=== PATIENT | male | born 1975 | race Caucasian/White ===

== ENCOUNTER 2017-09-10 20:06 | Emergency (ER) | payer MEDICARE, MEDICAID, SELFPAY ==
[2017-09-10 20:08] VITALS: BP 117/78; PULSE 118; PULSE 119; RESP 18; RESP 20; TEMP 38.1; O2SAT 94; BMI 24.2
[2017-09-10 22:05] VITALS: PULSE 80; RESP 14; TEMP 36.6; O2SAT 98
--- NOTE | 2017-09-10 22:05 | RAD_ITS ---
STUDY: X-RAY CHEST REASON FOR EXAM: Male, 42 years old. Cough. Sore throat. TECHNIQUE: Frontal and lateral views of the chest. COMPARISON: 10/14/2014. FINDINGS: The lungs are clear and expanded. There is no demonstrated pleural abnormality. Normal size heart. Normal mediastinum and charo. Normal visualized pulmonary arteries. Normal visualized aortic arch and descending thoracic aorta. Normal visualized thoracic spine. Normal visualized ribs, clavicles, and shoulders. There is no demonstrated abnormality of the visualized soft tissue structures of the upper abdomen. RAD/Chest PA and Lateral IMPRESSION: Normal x-ray examination of the chest. Electronically Signed: Sidney Nixon MD at 22:57 EST , Service support ,
[2017-09-10] MEDS: Acetaminophen 500 MG Tablet 1000 MG PO (22:07)
--- NOTE | 2017-09-10 22:07 | ED.VISSUMM ---
- ER Visit Summary Date of Service: 09/10/17 Chief Complaint: [] Cough and fever History of Present Illness: The patient is a 42 M presents with cough and fever since yesterday. Gradual onset intermittent. His cough is dry. Occasionally his stomach cramps. Nothing current. He has had occasional sore throat. T-max 100.5. Last [id number] cough medicine was this afternoon. He did not get a flu shot. He does not smoke. He has a history of mental retardation. Physical Examination: [] Vital signs reviewed General: Well-nourished well-developed Head: Normocephalic atraumatic Eyes: Pupils equal round and reactive to light extraocular movements intact ENT: TMs clear no hemotympanum no trauma Neck: Nontender full range of motion Cardiovascular: Regular rate rhythm no murmurs normal S1-S2 Respiratory: No distress clear to auscultation bilaterally chest nontender Abdomen: Soft nontender nondistended normal bowel sounds no masses Back: Nontender no CVA tenderness Extremities: Nontender active range of motion ?4 extremities no trauma Skin: Normal color no trauma Neuro alert oriented cranial nerves II through XII intact normal strength sensation reflexes Test Results: [] Emergency Department Course and Treatment: [] Given Tylenol. Chest x-ray obtained. X-ray nothing acute. At this time I think he has influenza-like illness. I do not feel he is obtaining candidate for Tamiflu. He will follow-up as an outpatient. Educated on the course of the disease. Could be a bronchitis as well. Treatment Plan: [] Disposition: [] Impression: [] Influenza-like illness This note was generated with [employer] dictation software. It may contain incorrect words, spelling, and punctuation that were not noted in review of the chart prior to signing ED Disposition - Plan for ED Patient: Chief Complaint: Fever Referrals: Joel Scruggs MD [Primary Care Provider] -
[2017-09-10 22:12] VITALS: BP 108/70; PULSE 98; RESP 14; O2SAT 99
--- NOTE | 2017-09-10 22:38 | ED.DEP ---
ED Disposition - Plan for ED Patient: Disposition: Home or Assisted Living Chief Complaint: Fever Instructions: Influenza Referrals: Joel Scruggs MD [Primary Care Provider] -
[2017-09-10 22:46] VITALS: BP 112/74; PULSE 75; RESP 18; O2SAT 98
== END 2017-09-10 22:47 | disposition home or self-care (01) ==
PROVIDERS: Emergency Provider Emergency Medicine; Family Provider Family Medicine; PCP Family Medicine
DX: J11.1 Influenza due to unidentified influenza virus with other respiratory manifestations (principal); F79 Unspecified intellectual disabilities
CPT/HCPCS: 71046; 99282

== ENCOUNTER 2017-09-12 18:50 | Emergency (ER) | payer MEDICARE, MEDICAID, SELFPAY ==
[2017-09-12 18:52] VITALS: BP 120/64; PULSE 96; RESP 16; TEMP 36.8; O2SAT 100; BMI 30.1
--- NOTE | 2017-09-12 18:53 | ED.RN ---
NO OLD EKG'S IN MUSE
[2017-09-12 19:10] VITALS: BP 131/79; PULSE 89; RESP 14; O2SAT 98
--- NOTE | 2017-09-12 19:43 | EKG12_ITS ---
Test Reason : CP Blood Pressure : / mmHG Vent. Rate : 095 BPM Atrial Rate : 095 BPM P-R Int : 142 ms QRS Dur : 074 ms QT Int : 320 ms P-R-T Axes : 067 059 028 degrees QTc Int : 402 ms Normal sinus rhythm Normal ECG Confirmed by ROSALINE ABERNATHY, MAYA ([id number]), multimedia editor NICOLE ALFORD ([id number]) on 09/15/2017 2:02:13 PM Referred By: WESTON Confirmed By:MAYA WAGGONER MD
--- NOTE | 2017-09-12 19:44 | ED.VISSUMM ---
- ER Visit Summary Date of Service: 09/12/17 Chief Complaint: Chest tightness History of Present Illness: The patient is a 42 M recently seen for flulike symptoms who returns now with chest tightness. Patient has been having cough, congestion, fever, nausea, and dizziness with standing for approximately 4 days and was evaluated recently for the same symptoms. He has been doing supportive care at home. Today he is complaining of chest tightness substernal along with his continued flulike symptoms. He has shortness of breath. Mother's been using Vicks on his chest to try and help. No cardiac history. History remarkable for MRDD. Physical Examination: Vital signs: afebrile, hemodynamically stable, no hypoxia on room air General: well nourished, well developed, syndromic appearance, in no distress Skin: warm, dry, eczematous rash, no pallor HEENT: normocephalic and atraumatic; PERRL, EOMI, moist mucous membranes Cardiovascular: regular rate and rhythm without murmurs, no peripheral edema, 2+ pulses all distal extremities Respiratory: Mild increased work of breathing, lungs are diffusely coarse with wheezing Abdominal: Abdomen is soft, nontender with normoactive bowel sounds, no guarding or rebound, no masses MSK: Moves all extremities, no deformities, normal strength Neuro: Awake and alert, oriented ?4. No facial droop, sensation and motor function intact and symmetric Test Results: Abnormal Lab Results 09/12/17 09/12/17 19:12 19:12 WBC 2.0 L RBC 4.77 Hgb 14.9 Hct 45.8 MCV 96.0 H MCH 31.2 MCHC 32.5 RDW 15.0 H RDW Differential 52.9 H Plt Count 109 L MPV 10.6 Immature Gran % (Auto) 0.000 Neut % (Auto) 50.3 Lymph % (Auto) 30.0 Spink % (Auto) 16.7 H Eos % (Auto) 2.0 Baso % (Auto) 1.0 Absolute Neuts (auto) 1.0 L Absolute Lymphs (auto) 0.61 L Total Counted Not Reportable Sodium 139 Potassium 4.0 Chloride 106 Carbon Dioxide 26.0 Anion Gap 7 BUN 14 Creatinine 1.75 H Estim Creat Clear Calc 39.29 Est GFR (MDRD) Af Amer 56 L Est GFR (MDRD) Non-Af 46 L BUN/Creatinine Ratio 8.0 L Glucose 114 H Calcium 7.4 L Troponin I < 0.02 Emergency Department Course and Treatment: Patient is presenting for continued flulike illness with chest tightness and worsening shortness of breath now. His lung exam did show diffuse coarse wheezing. Patient has no history of reactive airway disease. He was given a DuoNeb treatment and had almost complete resolution of the wheezing afterward. Patient states that that did not help his chest tightness. An EKG showed a sinus rhythm without ischemia or ectopy. Troponin negative. Labs were negative for electrolyte derangements. Patient did have a mild leukopenia which is consistent with viral infection. There was no neutrophil predominance that would be concerning for a bacterial infection. Chest x-ray showed no signs of pneumonia. Patient had good oxygen saturation on room air and had improvement in his respiratory effort. Thus he was given an albuterol inhaler with a spacer for further wheezing and shortness of breath. He was started on a prednisone burst to help with the pulmonary inflammation. He is to follow-up with his doctor or return if any worsening of his condition. Mother agreed with this plan. Treatment Plan: [] Disposition: [] Impression: Influenza, acute bronchitis This note was generated with [employer] dictation software. It may contain incorrect words, spelling, and punctuation that were not noted in review of the chart prior to signing ED Disposition - Plan for ED Patient: Disposition: Home or Assisted Living Chief Complaint: Chest Pain Instructions: ED Bronchitis Asthmatic Prescriptions: Prednisone [Deltasone] 40 mg PO DAILY #8 tab Referrals: Joel Scruggs MD [Primary Care Provider] - 1-2 Days if not improving Additional Instructions: Your exam today showed wheezing and congestion in all lombardi of your lungs. This improved greatly with albuterol treatment. You have been prescribed an albuterol inhaler with a spacer to use to continue helping with your breathing. Please use the spacer and take up to 8 puffs every 2 hours as needed for wheezing. Please take the prednisone prescription starting on Wednesday for 4 days. You received the first dose in the emergency department. Follow-up with your doctor if you are not having improvement in your chest tightness and breathing within 2 days. If you have any worsening of your condition or any new concerning symptoms, please come back to the emergency department immediately for another evaluation.
[2017-09-12] MEDS: 0.9% Normal Saline 1,000 ML 999 ML IV (19:52)
[2017-09-12 19:54] VITALS: PULSE 86; RESP 11
[2017-09-12] MEDS: Ipratropium/Albuterol Sulfate 3 ML AMPUL.NEB INHALATION (19:54)
[2017-09-12 20:04] VITALS: BP 115/67; PULSE 92; RESP 12; O2SAT 96
--- NOTE | 2017-09-12 20:05 | RAD_ITS ---
STUDY: X-RAY CHEST REASON FOR EXAM: Male, 42 years old. Chest pain. Fever. TECHNIQUE: Frontal and lateral views of the chest. COMPARISON: 09/10/2017. FINDINGS: The lungs are clear and expanded. There is no demonstrated pleural abnormality. Normal size heart. Normal mediastinum and charo. Normal visualized pulmonary arteries. Normal visualized aortic arch and descending thoracic aorta. Normal visualized thoracic spine. Normal visualized ribs, clavicles, and shoulders. There is no demonstrated abnormality of the visualized soft tissue structures of the upper abdomen. RAD/Chest PA and Lateral IMPRESSION: Normal x-ray examination of the chest. Electronically Signed: Sidney Nixon MD at 20:25 EST , Service support ,
[2017-09-12 20:12] LABS: Absolute Lymphocyte Count 0.61 X10^3/ul (0.83-4.51); Basophil# 0.02 X10^3/uL; Eosinophil# 0.04 X10^3/uL; Hematocrit 45.8 % (40-54); Hemoglobin 14.9 g/dl (13.0-16.5); Lymphocyte # 0.61 X10^3/ul (4.0); Mean Corp Hgb Conc 32.5 g/gl (32-36); Mean Corpuscular Hgb 31.2 pg (27.0-32.0); Mean Platelet Vol. 10.6 fl (6.2-12.0); Monocyte# 0.34 X10^3/uL; Monocyte% 16.7 % (0-10); Neutrophil # 1.02 X10^3/uL (2.7-7.7); Neutrophil % 50.3 % (47-70); Platelet Count 109 K/mm3 (150-450); RBC Distribution Width SD 52.9 fl (35.1-43.9); Red Blood Count 4.77 M/mm3 (4.6-6.2)
[2017-09-12 20:13] LABS: POSITIVE COUNT NO; POSITIVE DIFFERENTIAL NO; POSITIVE MORPHOLOGY NO
[2017-09-12 20:17] LABS: Anion Gap 7 (5-15); BUN 14 mg/dL (7-18); Calcium,Total 7.4 mg/dL (8.5-10.1); Chloride 106 mmol/L (98-107); Creatinine, Serum 1.75 mg/dL (0.70-1.30); EST Glomerular Filtration Rate 46 mL/min (>60); Est Glom Filt Rate - Afr Amer 56 mL/min (>60); Estimated Creatinine Clearance 39.29 ml/min; Glucose 114 mg/dL (74-106); Sodium Level 139 mmol/L (136-145)
--- NOTE | 2017-09-12 21:28 | ED.DEP ---
ED Disposition - Plan for ED Patient: Disposition: Home or Assisted Living Chief Complaint: Chest Pain Instructions: ED Bronchitis Asthmatic Prescriptions: Prednisone [Deltasone] 40 mg PO DAILY #8 tab Referrals: Joel Scruggs MD [Primary Care Provider] - 1-2 Days if not improving Additional Instructions: Your exam today showed wheezing and congestion in all lombardi of your lungs. This improved greatly with albuterol treatment. You have been prescribed an albuterol inhaler with a spacer to use to continue helping with your breathing. Please use the spacer and take up to 8 puffs every 2 hours as needed for wheezing. Please take the prednisone prescription starting on Wednesday for 4 days. You received the first dose in the emergency department. Follow-up with your doctor if you are not having improvement in your chest tightness and breathing within 2 days. If you have any worsening of your condition or any new concerning symptoms, please come back to the emergency department immediately for another evaluation.
[2017-09-12 21:39] VITALS: BP 113/73; PULSE 97; RESP 18; TEMP 36.8; O2SAT 96
[2017-09-12 21:55] VITALS: BP 113/72; PULSE 97; RESP 18; O2SAT 96
== END 2017-09-12 21:57 | disposition home or self-care (01) ==
PROVIDERS: Emergency Provider Emergency Medicine; Family Provider Family Medicine; PCP Family Medicine
DX: J11.1 Influenza due to unidentified influenza virus with other respiratory manifestations (principal); J20.9 Acute bronchitis, unspecified; F79 Unspecified intellectual disabilities
CPT/HCPCS: 71046; 80048; 84484; 85025; 93005; 94640; 99285; J7030; A4216

== ENCOUNTER 2017-09-20 07:58 | Emergency (ER) | payer MEDICARE, MEDICAID, SELFPAY ==
[2017-09-20 07:59] VITALS: BP 145/71; PULSE 91; RESP 15; TEMP 35.8; O2SAT 100
[2017-09-20 08:04] VITALS: O2SAT 99
--- NOTE | 2017-09-20 08:07 | EKG12_ITS ---
Test Reason : SOB Blood Pressure : / mmHG Vent. Rate : 082 BPM Atrial Rate : 082 BPM P-R Int : 146 ms QRS Dur : 078 ms QT Int : 356 ms P-R-T Axes : 066 052 031 degrees QTc Int : 415 ms Normal sinus rhythm Normal ECG Confirmed by DONALDO ABERNATHY, GOLDIE ([id number]), primer expeditor and drier NICOLE ALFORD ([id number]) on 09/22/2017 1:53:13 PM Referred By: LREOY Confirmed By:GOLDIE FULTON MD
--- NOTE | 2017-09-20 08:07 | RAD_ITS ---
STUDY: X-RAY CHEST REASON FOR EXAM: Male, 42 years old. Cough and shortness of breath. TECHNIQUE: Single AP portable view of the chest. COMPARISON: Comparison is made with prior study dated September 12, 2017. FINDINGS: Hyperinflation. The lungs are clear. There is no demonstrated pleural abnormality. Normal size heart. Normal mediastinum and charo. Normal visualized pulmonary arteries. Normal visualized aortic arch and descending thoracic aorta. Normal visualized thoracic spine. Normal visualized ribs, clavicles, and shoulders. There is no demonstrated abnormality of the visualized soft tissue structures of the upper abdomen. RAD/Chest 1 View (Portable) IMPRESSION: Normal x-ray examination of the chest. Electronically Signed: Geo Cruz MD at 8:47 EST Tel [phone], Service support ,
[2017-09-20] MEDS: Ketorolac 30 MG/ML Syringe IV (08:45)
[2017-09-20] MEDS: Ondansetron 4 MG/2 ML Vial IV (08:46)
[2017-09-20 08:50] LABS: Absolute Lymphocyte Count 0.41 X10^3/ul (0.83-4.51); Absolute Neutrophil Count 6.4 X10^3/uL (2.0-7.7); Basophil# 0.03 X10^3/uL; Basophil% 0.4 % (0-1); Eosinophil# 0.05 X10^3/uL; Eosinophils% 0.6 % (0-5); Hematocrit 51.7 % (40-54); Hemoglobin 17.3 g/dl (13.0-16.5); Lymphocyte # 0.41 X10^3/ul (4.0); Lymphocyte % 5.2 % (19-41); Mean Corp Hgb Conc 33.5 g/gl (32-36); Mean Corpuscular Hgb 31.6 pg (27.0-32.0); Mean Corpuscular Volume 94.3 fL (80-94); Mean Platelet Vol. 9.7 fl (6.2-12.0); Monocyte# 0.79 X10^3/uL; Monocyte% 10.1 % (0-10); Neutrophil # 6.41 X10^3/uL (2.7-7.7); Platelet Count 240 K/mm3 (150-450); RBC Distribution Width CV 14.4 % (11.6-14.6); RBC Distribution Width SD 49.3 fl (35.1-43.9); Red Blood Count 5.48 M/mm3 (4.6-6.2); White Blood Count 7.8 K/mm3 (4.4-11.0)
[2017-09-20 08:51] LABS: Differential Indicated SCAN CRITERIA MET; POSITIVE COUNT NO; POSITIVE DIFFERENTIAL YES; POSITIVE MORPHOLOGY NO
[2017-09-20 09:05] LABS: Anion Gap 4 (5-15); BUN 21 mg/dL (7-18); BUN/Creat Ratio 12.8 RATIO (10-20); Calcium,Total 8.7 mg/dL (8.5-10.1); Chloride 102 mmol/L (98-107); Creatinine, Serum 1.64 mg/dL (0.70-1.30); EST Glomerular Filtration Rate 49 mL/min (>60); Est Glom Filt Rate - Afr Amer 60 mL/min (>60); Estimated Creatinine Clearance 57.85 ml/min; Glucose 128 mg/dL (74-106); Potassium 4.9 mmol/L (3.5-5.1); Sodium Level 138 mmol/L (136-145)
--- NOTE | 2017-09-20 09:19 | ED.VISSUMM ---
- ER Visit Summary Date of Service: 09/20/17 Chief Complaint: Shortness of breath History of Present Illness: The patient is a [address] Scruggs. He is MRDD which severely limits his ability to give history. Mother reports that he had a cough that began approximately 2 weeks ago. That has improved and essentially resolved. He has not seemed short of breath to her. However, when he came time to go to work today he complained of being short of breath and having chest pain. He also told her that he vomited once and had 1-2 episodes of diarrhea today. He denies fever, cough, dysuria, frequency, rash, or headache. Physical Examination: Vitals: Stable. Afebrile. General: Well-nourished and well-developed. Head: Normocephalic atraumatic. Neck: Supple, no lymphadenopathy. No JVD. Nontender. Cardiovascular: Regular rate and rhythm. No murmurs. Respiratory: No respiratory distress. Clear to auscultation bilaterally. Her tenderness to palpation over his sternum. Abdominal: Soft, nontender, nondistended, normal bowel sounds. No guarding, rebound, or peritoneal signs. Back: Nontender. Extremities: Nontender, no edema. Skin: Normal color, no rash. Neurologic: Alert and oriented ?3. Cranial nerves II through XII are intact. Normal strength and sensation. Psych: Normal affect. Test Results: This patient is an unreliable informant chest x-ray and labs were obtained. Chest x-ray is normal. EKG is sinus at 82 with no acute changes. Troponin is negative. Chem-7 is marked for BUN of 21, creatinine 1.64, glucose of 128. His creatinine was 1.7 in 2014 and 1.75 on the 18th of this month. CBC is marked for hemoglobin 17.3, segmented neutrophils of 82, lymphocytes of 5, monocytes of 10, and immature granulocytes 1.7%. Emergency Department Course and Treatment: Had an IV placed. He was given Toradol and Zofran IV. He is resting comfortably. He does not appear to be short of breath. He has had no vomiting or diarrhea while here. Treatment Plan: He will be discharged with symptomatic care. Instructed follow-up Dr. Scruggs in 1-2 days if not improving. Return to the emergency department for any worsening symptoms. Disposition: To home in improved and stable condition. Impression: 1. Chest wall pain. 2. Chronic renal insufficiency. This note was generated with [employer] dictation software. It may contain incorrect words, spelling, and punctuation that were not noted in review of the chart prior to signing ED Disposition - Plan for ED Patient: Chief Complaint: Shortness of Breath Instructions: ED Chest Pain Atypical Unkn Cause Referrals: Joel Scruggs MD [Primary Care Provider] - 1-2 Days if not improving
--- NOTE | 2017-09-20 09:22 | ED.DCSUM_ITS ---
- ER Visit Summary Date of Service: 09/20/17 Chief Complaint: Shortness of breath History of Present Illness: The patient is a [address] Scruggs. He is MRDD which severely limits his ability to give history. Mother reports that he had a cough that began approximately 2 weeks ago. That has improved and essentially resolved. He has not seemed short of breath to her. However, when he came time to go to work today he complained of being short of breath and having chest pain. He also told her that he vomited once and had 1-2 episodes of diarrhea today. He denies fever, cough, dysuria, frequency, rash, or headache. Physical Examination: Vitals: Stable. Afebrile. General: Well-nourished and well-developed. Head: Normocephalic atraumatic. Neck: Supple, no lymphadenopathy. No JVD. Nontender. Cardiovascular: Regular rate and rhythm. No murmurs. Respiratory: No respiratory distress. Clear to auscultation bilaterally. Her tenderness to palpation over his sternum. Abdominal: Soft, nontender, nondistended, normal bowel sounds. No guarding, rebound, or peritoneal signs. Back: Nontender. Extremities: Nontender, no edema. Skin: Normal color, no rash. Neurologic: Alert and oriented ?3. Cranial nerves II through XII are intact. Normal strength and sensation. Psych: Normal affect. Test Results: This patient is an unreliable informant chest x-ray and labs were obtained. Chest x-ray is normal. EKG is sinus at 82 with no acute changes. Troponin is negative. Chem-7 is marked for BUN of 21, creatinine 1.64, glucose of 128. His creatinine was 1.7 in 2014 and 1.75 on the 18th of this month. CBC is marked for hemoglobin 17.3, segmented neutrophils of 82, lymphocytes of 5 , monocytes of 10, and immature granulocytes 1.7%. Emergency Department Course and Treatment: Had an IV placed. He was given Toradol and Zofran IV. He is resting comfortably. He does not appear to be short of breath. He has had no vomiting or diarrhea while here. Treatment Plan: He will be discharged with symptomatic care. Instructed follow- up Dr. Scruggs in 1-2 days if not improving. Return to the emergency department for any worsening symptoms. Disposition: To home in improved and stable condition. Impression: 1. Chest wall pain. 2. Chronic renal insufficiency. This note was generated with [employer] dictation software. It may contain incorrect words, spelling, and punctuation that were not noted in review of the chart prior to signing ED Disposition - Plan for ED Patient: Chief Complaint: Shortness of Breath Instructions: ED Chest Pain Atypical Unkn Cause Referrals: Joel Scruggs MD [Primary Care Provider] - 1-2 Days if not improving
[2017-09-20 09:31] LABS: Differential Comment SCANNED
[2017-09-20 09:46] VITALS: BP 103/66; PULSE 86; RESP 14; O2SAT 98
== END 2017-09-20 09:52 | disposition home or self-care (01) ==
PROVIDERS: Emergency Provider Emergency Medicine; Family Provider Family Medicine; PCP Family Medicine
DX: R07.89 Other chest pain (principal); N18.9 Chronic kidney disease, unspecified; R10.9 Unspecified abdominal pain; R11.2 Nausea with vomiting, unspecified; R19.7 Diarrhea, unspecified; R06.00 Dyspnea, unspecified
CPT/HCPCS: 71045; 80048; 84484; 85025; 93005; 99285; J7030; J7040; J2405

== ENCOUNTER 2017-09-20 21:57 | Emergency (ER) | payer MEDICARE, MEDICAID, SELFPAY ==
[2017-09-20 21:59] VITALS: BP 100/34; PULSE 132; RESP 14; TEMP 38.7; O2SAT 95; BMI 23.8
--- NOTE | 2017-09-20 23:13 | CT_ITS ---
STUDY: CT ABDOMEN AND PELVIS WITHOUT CONTRAST REASON FOR EXAM: Male, 42 years old. Abdominal pain RADIATION DOSAGE (If Supplied By Facility): CTDIvol = ( 6.33 ) mGy, DLP = ( 314.53 ) mGycm TECHNIQUE: Transaxial images were obtained from the dome of the diaphragm to the symphysis pubis without oral contrast, and without intravenous contrast. Sagittal and coronal images were reconstructed. Individualized dose optimization techniques were used for this CT. COMPARISON: None. FINDINGS: There are multifocal bibasilar pulmonary infiltrate suggesting pneumonitis. The visualized portions of the heart are within normal limits. There is diffuse fatty infiltration of the liver. There is NO liver mass. Normal gallbladder and extrahepatic biliary system. Normal spleen. Normal pancreas. Normal bilateral adrenal glands. There are NO kidney stones. There are NO ureteral stones. There is NO hydronephrosis. There are fluid-filled loops of colon which are nonspecific. There is NO bowel wall thickening, fecal impaction or colitis. The stomach and small bowel are unremarkable. The appendix is not discretely identified. There is NO secondary evidence of appendicitis. Normal abdominal aorta. Normal inferior vena cava. Normal retroperitoneum. Normal urinary bladder. There is NO ascites or free air, abscess or adenopathy. Normal abdominal wall. Normal osseous structures. CT/Abdomen/Pelvis without Cont IMPRESSION: There are multifocal bibasilar pulmonary infiltrate suggesting pneumonitis. The visualized portions of the heart are within normal limits. There is diffuse fatty infiltration of the liver. There is NO liver mass. Normal gallbladder and extrahepatic biliary system. There are NO kidney stones. There are NO ureteral stones. There is NO hydronephrosis. There are fluid-filled loops of colon which are nonspecific. There is NO bowel wall thickening, fecal impaction or colitis. The stomach and small bowel are unremarkable. The appendix is not discretely identified. There is NO secondary evidence of appendicitis. There is NO ascites or free air, abscess or adenopathy. Electronically Signed: Daljit Meadows MD at 0:13 EST , Service support ,
--- NOTE | 2017-09-20 23:16 | ED.VISSUMM ---
- ER Visit Summary Date of Service: 09/20/17 Chief Complaint: Fever, nausea, vomiting, diarrhea History of Present Illness: The patient is a 42 M history of Down syndrome who presents to the emergency department multiple complaints. Patient has been seen here 5 or 6 times within the past 2 weeks. Most of his is it have been for upper respiratory symptoms. He has had multiple negative chest x-rays. He was actually seen here earlier for the same. Mom states that they did labs and an x-ray and everything checked out fine. The patient was sent home counseled on supportive care. Tonight, and approximately 3 PM he began to have some abdominal cramping. Mom states that he had a few bouts of emesis and then 4-5 bouts of loose watery diarrhea. He was complaining of some diffuse abdominal cramping. She states that he was unable to keep anything down. The patient takes no daily medications. He has had prior appendectomy but no other abdominal surgery. Physical Examination: Vital signs reviewed General: Well-nourished, well-developed Head: Normocephalic, atraumatic Eyes: Pupils equal and reactive, extraocular muscles intact Neck, supple, no lymphadenopathy Heart: Regular rate and rhythm Respiratory: No distress, clear bilaterally Abdomen: Soft, under in the left lower quadrant with some voluntary guarding, no rebound, no peritoneal signs Back: Nontender Extremities: Nontender, no edema, no cords Skin: Normal color no rash Neuro: Alert and oriented, no focal or lateralizing deficits Test Results: [] Emergency Department Course and Treatment: The patient did have fever on arrival. IV was established. The patient was started on IV fluids. He was given Toradol for his fever. He is also given Zofran. He did have some tenderness in the left lower quadrant. I was suspicious for infectious cause of his diarrhea. The patient had screening labs drawn which were relatively unremarkable. His urine shows no infection. CT demonstrates pneumonitis and bilateral lower lobes, but no definitive pneumonia. The patient's cough and intermittent fevers, I do feel that this is more likely a viral or inflammatory process. This does explain his recurrent cough over the past 2 weeks. Within the abdomen, there is evidence of some dilated fluid loops of bowel consistent more with an enteritis. I do feel this is likely because of the patient's symptoms today. There is no obstruction. There is no free fluid. On reevaluation his abdomen is soft and nontender. The patient is tolerating oral fluids. I did discuss results with the mother. She wants to take him home because she feels like he would do better at home than in the hospital. I do feel this is reasonable. He has a normal lactate. He has had resolution of his fever. Is tolerating p.o. He has had resolution of his pain. The patient will be treated with Bentyl, Zofran, and Imodium. I did certified rehabilitation counselor mom that if his symptoms worsen in any way over the next 12-24 hours to return to the emergency department. She is comfortable with this plan of care. Treatment Plan: [] Disposition: Discharge Impression: 1. Gastroenteritis 2. Fever This note was generated with [employer] dictation software. It may contain incorrect words, spelling, and punctuation that were not noted in review of the chart prior to signing ED Disposition - Plan for ED Patient: Chief Complaint: Abd Pain Instructions: ED Gastroenteritis Report Pend Prescriptions: Loperamide [Imodium] 2 mg PO Q2H PRN PRN #20 cap PRN Reason: Diarrhea Ondansetron [Zofran Odt] 4 mg PO Q8H PRN PRN #10 tab PRN Reason: Nausea Dicyclomine HCl [Bentyl] 20 mg PO TIDAC #20 cap Referrals: Joel Scruggs MD [Primary Care Provider] -
[2017-09-20] MEDS: Ondansetron 4 MG/2 ML Vial IV (23:31)
[2017-09-20] MEDS: 0.9% Normal Saline 1,000 ML 1000 ML IV (23:31)
[2017-09-20] MEDS: Ketorolac 15 MG/ML Vial IV (23:37)
[2017-09-20 23:40] VITALS: BP 115/76; PULSE 103; RESP 12; O2SAT 98
[2017-09-21 00:16] LABS: Absolute Lymphocyte Count 0.25 X10^3/ul (0.83-4.51); Absolute Neutrophil Count 5.9 X10^3/uL (2.0-7.7); Basophil# 0.02 X10^3/uL; Basophil% 0.3 % (0-1); Eosinophil# 0.01 X10^3/uL; Eosinophils% 0.1 % (0-5); Hematocrit 49.2 % (40-54); Hemoglobin 16.7 g/dl (13.0-16.5); Lactic Acid 1.1 mmol/L (0.4-2.0); Lymphocyte # 0.25 X10^3/ul (4.0); Lymphocyte % 3.6 % (19-41); Mean Corp Hgb Conc 33.9 g/gl (32-36); Mean Corpuscular Hgb 31.9 pg (27.0-32.0); Mean Corpuscular Volume 94.1 fL (80-94); Mean Platelet Vol. 10.2 fl (6.2-12.0); Monocyte# 0.62 X10^3/uL; Neutrophil # 5.88 X10^3/uL (2.7-7.7); Neutrophil % 85.4 % (47-70); Platelet Count 253 K/mm3 (150-450); RBC Distribution Width CV 14.5 % (11.6-14.6); Red Blood Count 5.23 M/mm3 (4.6-6.2); White Blood Count 6.9 K/mm3 (4.4-11.0)
[2017-09-21 00:17] LABS: Differential Indicated SCAN CRITERIA MET; POSITIVE COUNT NO; POSITIVE DIFFERENTIAL YES; POSITIVE MORPHOLOGY NO
[2017-09-21] MEDS: 0.9% Normal Saline 1,000 ML 1000 ML IV (01:03)
[2017-09-21 01:05] VITALS: BP 114/87; PULSE 105; RESP 16; O2SAT 98
[2017-09-21 01:10] LABS: Bacteria 0 SEEN /hpf (None Seen); Red Blood Cells-Urine 0 SEEN /hpf (0-5)
[2017-09-21 01:11] LABS: Color, Urine Yellow (Yellow); Glucose, Dipstick Normal (Normal); Ketone-Dipstick Negative (Negative); Leukocyte Esterase-Dipstick Negative /ul (Negative); Nitrite-Dipstick Negative (Negative); Occult Blood-Urine Negative /ul (Negative); Protein-Dipstick Negative (Negative); Urine Bilirubin Dipstick Negative (Negative); Urine Clarity Clear (Clear); Urine Urobilinogen Normal (Normal)
[2017-09-21 01:22] LABS: Mucous, Urine 1+ /hpf (<or=2+)
[2017-09-21 01:23] LABS: Squamous Epithelial Cells - UA 0-5 SEEN /hpf (0-5); White Blood Cells 0-5 SEEN /hpf (0-5)
[2017-09-21 01:38] LABS: ALB/GLOB Ratio 0.7 RATIO (0.9-2.4); AST(SGOT) 23 U/L (15-37); Alanine Aminotransfer ALT/SGPT 33 U/L (16-61); Albumin, Serum 2.9 g/dL (3.2-5.0); Alkaline Phosphatase 90 U/L (45-117); Anion Gap 8 (5-15); BUN 21 mg/dL (7-18); BUN/Creat Ratio 11.8 RATIO (10-20); Calcium,Total 7.9 mg/dL (8.5-10.1); Chloride 107 mmol/L (98-107); Creatinine, Serum 1.78 mg/dL (0.70-1.30); EST Glomerular Filtration Rate 45 mL/min (>60); Est Glom Filt Rate - Afr Amer 54 mL/min (>60); Estimated Creatinine Clearance 49.28 ml/min; Globulin 4.1 g/dL (2.2-4.2); Glucose 129 mg/dL (74-106); Potassium 4.5 mmol/L (3.5-5.1); Sodium Level 141 mmol/L (136-145)
[2017-09-21 01:46] VITALS: BP 119/73; PULSE 100; RESP 15; O2SAT 100
[2017-09-21] MEDS: Loperamide 2 MG Capsule 4 MG PO (01:58)
[2017-09-21] MEDS: Dicyclomine 10 MG Capsule PO ×3 (01:58)
[2017-09-21] MEDS: Ondansetron ODT 4 MG Tablet PO (01:59)
== END 2017-09-21 02:06 | disposition home or self-care (01) ==
LOC: ED 09-21 01:49
PROVIDERS: Emergency Provider Emergency Medicine; Family Provider Family Medicine; PCP Family Medicine
DX: K52.9 Noninfective gastroenteritis and colitis, unspecified (principal); R50.9 Fever, unspecified; Q90.9 Down syndrome, unspecified
CPT/HCPCS: 71045; 74176; 80048; 80053; 81001; 83605; 84484; 85025; 93005; 96361; 96374; 96375; 99285; J7030; J7040; A4216; J2405

== ENCOUNTER 2020-09-01 15:13 | Emergency (ER) | payer MEDICARE, MEDICAID, SELFPAY ==
[2020-09-01 15:13] VITALS: BP 141/69; PULSE 121; RESP 20; TEMP 37.4; O2SAT 94; BMI 26.2
[2020-09-01 15:18] VITALS: BP 141/69; PULSE 121; RESP 20; TEMP 37.4; O2SAT 94
--- NOTE | 2020-09-01 16:14 | ED.VIS.GEN ---
History of Present Illness Chief Complaint: Dental Informant: Patient, Family Narrative: 45-year-old male presenting with his mother for dental pain in the right mandibular teeth. Patient is MRDD. Mother states that he started having pain yesterday. They have been using heat on it. She reports a subjective fever yesterday. He has not had any cough, cold symptoms. He does not have a dentist. They deny any other symptoms Past Medical History - Allergies and Home Meds Allergies/Adverse Reactions: Allergies codeine Allergy (Verified 09/01/20 15:17) Rash Primary Care Physician: Joel Scruggs MD [Primary Care Provider] - Prior records reviewed: Yes Past Medical History: - - MRDD Surgical History: noncontributory Lives: With Family Smoking Status: Never smoker Alcohol: None Drugs: None Review of Systems General: Denies: Chills, Fever, Sweats Eyes: Denies: Visual changes - bilaterally, Diplopia ENT: Reports: - - Dental pain. Denies: Rhinorrhea, Sore throat Cardiovascular: Denies: Chest pain, Palpitations Respiratory: Denies: Dyspnea, Cough, Dyspnea on exertion Gastrointestinal: Denies: Abdominal pain, Nausea, Vomiting, Diarrhea, Melena, Hematochezia Musculoskeletal: Denies: Back pain, Extremity Pain Skin: Denies: Rash, Wounds Neurological: Denies: Headache, Weakness, Numbness Psych: Denies: Depression, Anxiety Physical Exam Vital Signs/Narrative: Vital Signs Temp Pulse Resp BP Pulse Ox 09/01/20 15:18 99.3 F H 121 H 20 H 141/69 H 94 09/01/20 15:13 99.3 F H 121 H 20 H 141/69 H 94 Inital Vital Signs reviewed: Yes General: Well nourished, Well developed Head: Normocephalic, Atraumatic Eyes: Perrl, EOMI ENT: Moist mucous membranes, No rhinorrhea, - - Dental percussion tenderness over tooth #28. It appears that 26 and 27 are missing. There is some slight facial swelling externally. No sublingual edema. Airway is patent without stridor. [place] mucosa normal. Cardiovascular: Regular rate, Regular rhythm Respiratory: No distress, CTA bilaterally Skin: Normal color, No rash Neurological: Alert, Oriented x3, Cranial nerves II-XII grossly intact Psychological: Normal affect, Normal Mood Diagnostic/Tx/Re-eval - Medical Decision Making Patient appears to have a dental infection of the tooth #28 possibly 29. There is external facial swelling as well. He will be started on Augmentin for home. His mother will alternate Tylenol and ibuprofen. They will follow up outpatient for dental care. Patient safe for discharge. Impression 1. Dental abscess ED Disposition - Plan for ED Patient: Instructions: ED Dental Abscess Referrals: Joel Scruggs MD [Primary Care Provider] -
[2020-09-01] MEDS: Amox/Clavulanate 875 MG Tablet PO (16:21)
== END 2020-09-01 16:28 | disposition home or self-care (01) ==
PROVIDERS: Emergency Provider Student in an Organized Health Care Education/Training Program; PCP Family Medicine
DX: K04.7 Periapical abscess without sinus (principal); F79 Unspecified intellectual disabilities
CPT/HCPCS: 99283

== ENCOUNTER 2021-02-06 10:54 | Observation (INO) | payer MEDICARE, MEDICAID, SELFPAY ==
[2021-02-06] VITALS (9 sets, daily range): BP systolic 116–161; BP diastolic 73–105; PULSE 68–120; RESP 16–20; TEMP 36.3–37.2; O2SAT 92–100; BMI 28.8; BMI 29.3
--- NOTE | 2021-02-06 12:02 | CT_ITS ---
STUDY: CT BRAIN WITHOUT CONTRAST REASON FOR EXAM: Male, 45 years old. Seizure RADIATION DOSAGE (If Supplied By Facility): CTDIvol = ( 44.99 ) mGy, DLP = ( 745.49 ) mGycm TECHNIQUE: Transaxial CT imaging of the brain was performed without administration of intravenous contrast material. Individualized dose optimization techniques were used for this CT. COMPARISON: Comparison is made with prior study dated 12/27/2014. FINDINGS: Normal soft tissue structures. Normal calvarium. Normal size ventricles and extra-axial spaces for the patient''s age. Normal white matter tracts of the cerebral hemispheres. There are small punctate calcifications of the bilateral basal ganglia. The differential diagnostic considerations includes: Fahrs disease, or endocrine disorders (hyperparathyroidism, hypoparathyroidism, pseudohypoparathyroidism). The incidental discovery of basal ganglia calcifications in a patient less than 50 years of age merits investigation. Normal brainstem. Normal cerebellum. There is no intracranial hemorrhage. There are no findings of an acute ischemic infarction. Normal visualized paranasal sinuses. CT/Brain/Head without Contrast IMPRESSION: Stable calcification of the basal ganglia bilaterally. Electronically Signed: Geo Cruz MD at 12:28 EDT , Service support ,
[2021-02-06 12:06] LABS: Bacteria 0 SEEN /hpf (None Seen); Mucous, Urine 0 SEEN /hpf (<or=2+); Red Blood Cells-Urine 0 SEEN /hpf (0-5); White Blood Cells 0 SEEN /hpf (0-5)
[2021-02-06 12:10] LABS: Color, Urine Yellow (Yellow); Glucose, Dipstick Normal (Normal); Ketone-Dipstick Negative (Negative); Leukocyte Esterase-Dipstick Negative /ul (Negative); Nitrite-Dipstick Negative (Negative); Occult Blood-Urine Negative /ul (Negative); Protein-Dipstick Negative (Negative); Specific Gravity, Urine 1.005 (1.002-1.030); Urine Bilirubin Dipstick Negative (Negative); Urine Clarity Clear (Clear); Urine Urobilinogen Normal (Normal)
[2021-02-06 12:20] LABS: Squamous Epithelial Cells - UA 0-5 SEEN /hpf (0-5)
[2021-02-06] MEDS: 0.9% Normal Saline 1,000 ML 1000 ML IV (12:20)
[2021-02-06 12:37] LABS: Absolute Lymphocyte Count 0.93 X10^3/uL (0.83-4.51); Absolute Neutrophil Count 3.2 X10^3/uL (2.0-7.7); Basophil# 0.06 X10^3/uL; Basophil% 1.2 % (0-1); Eosinophil# 0.06 X10^3/uL; Eosinophils% 1.2 % (0-5); Hematocrit 48.4 % (40-54); Hemoglobin 15.9 g/dL (13.0-16.5); Lymphocyte # 0.93 X10^3/ul (0.83-4.51); Mean Corp Hgb Conc 32.9 g/dL (32-36); Mean Corpuscular Hgb 31.9 pg (27.0-32.0); Mean Corpuscular Volume 97.2 fL (80-94); Mean Platelet Vol. 9.7 fl (6.2-12.0); Monocyte# 0.64 X10^3/uL; Monocyte% 13.1 % (0-10); NRBC Flagged by Analyzer 0 % (0-5); Neutrophil # 3.17 X10^3/uL (2.7-7.7); Neutrophil % 64.9 % (47-70); Platelet Count 258 K/mm3 (150-450); RBC Distribution Width CV 13.5 % (11.6-14.6); Red Blood Count 4.98 M/mm3 (4.6-6.2); White Blood Count 4.9 K/mm3 (4.4-11.0)
[2021-02-06 12:53] LABS: ALB/GLOB Ratio 0.8 RATIO (0.9-2.4); AST(SGOT) 27 U/L (15-37); Alanine Aminotransfer ALT/SGPT 37 U/L (16-61); Albumin, Serum 3.5 g/dL (3.2-5.0); Alkaline Phosphatase 95 U/L (45-117); Anion Gap 5 (5-15); BUN 13 mg/dL (7-18); BUN/Creat Ratio 7.6 RATIO (10-20); Chloride 104 mmol/L (98-107); Creatinine, Serum 1.72 mg/dL (0.70-1.30); EST Glomerular Filtration Rate 46 mL/min (>60); Est Glom Filt Rate - Afr Amer 56 mL/min (>60); Estimated Creatinine Clearance 49.46 ml/min; Globulin 4.5 g/dL (2.2-4.2); Glucose 94 mg/dL (74-106); Potassium 4.2 mmol/L (3.5-5.1); Sodium Level 139 mmol/L (136-145)
[2021-02-06 12:59] LABS: Lactic Acid 1.2 mmol/L (0.4-1.9)
--- NOTE | 2021-02-06 15:02 | EDS_ITS ---
HPI History of Present Illness Chief Complaint: Seizure Informant: patient and family Onset/Context/Timing Onset: Today Context: Sudden Onset Timing: Lasts (3 minutes) Quality: Shaking Location: Generalized Worsened by: Nothing Relieved by: Nothing Narrative Narrative: Patient presents with a seizure that occurred today. Patient has a history of Down syndrome and was noticed by the regional company truck driver of the van to have 3- minute episode of shaking. [employer] Supervisor reported the patient fell asleep shortly after this. It is unclear how long he was asleep for. Family denies any biting of the tongue. Family denies any incontinence of urine or stool. Patient denies any history of seizures. Patient takes no seizure medications. Family denies any fevers or chills recently. Family denies any nausea or vomiting. [facility] Medical History (Updated 02/06/21 @ 15:[address] Dax Sanabria DO) Down's syndrome Home Medications mecobalamin (vitamin B12) [B12 Active] 1,000 mcg PO DAILY 02/06/21 [History Last Taken 02/06/21] Allergy/AdvReac Type Severity Reaction Status Date / Time codeine Allergy Rash Verified 02/06/21 10:57 Surgical History (Updated 02/06/21 @ 15:[address] Dax Sanabria DO) Hx of appendectomy Social History Smoking Status: Never smoker ROS ROS ED Constitutional Constitutional ED: Denies chills or fever(s) Eyes Eyes: Denies blurry vision or change in vision ENT ENT ED: Denies rhinorrhea or sore throat Cardiovascular Cardiovascular: Denies chest pain or palpitations Respiratory/Chest Respiratory/Chest: Denies cough or dyspnea Gastrointestinal Gastrointestinal: Denies nausea or vomiting Genitourinary Genitourinary ED: Denies dysuria or hematuria Musculoskeletal Musculoskeletal: Denies back pain or neck pain Integumentary Denies abscess or rash Neurologic Neurologic: Denies headache(s) or weakness Allergic/Immunologic Allergic/Immunologic ED: Denies mouth swelling or urticaria EXAM Physical Exam Const Vital Signs: 02/06/21 10:55 02/06/21 13:00 02/06/21 15:14 Temperature 97.9 F 97.3 F L Temperature Source Temporal Temporal Pulse Rate 68 84 89 Respiratory Rate 18 18 20 H Blood Pressure 137/77 H 124/79 H 148/102 H Blood Pressure Mean 97 94 117 Pulse Ox 92 96 99 Oxygen Delivery Method Room Air Room Air Room Air Positive well nourished and well developed General Appearance ED: well developed HEENT Reports moist mucous membranes Neck supple and no JVD Resp normal respiratory effort and clear to auscultation bilaterally Cardio regular rate, regular rhythm and no murmurs GI normal to inspection, nondistended, normoactive bowel sounds and non-tender Palpation: soft Extremity normal to inspection General Extremety ED: Negative for edema or tenderness General Extremity: Negative for edema Neuro oriented x3, CN's II-XII intact bilaterally and no sensory deficits noted Sensorium / Orientation: alert Motor Exam: strength 5/5 throughout Psych mental status grossly normal Skin no rashes or lesions noted MDM MDM MDM Narrative Medical decision making narrative: CBC and comprehensive metabolic profile were obtained. Creatinine was slightly elevated at 1.72. Urinalysis does not show any evidence of urinary tract infection. Lactate was normal. CT scan of the brain was obtained. There are stable calcifications of the basal ganglia bilaterally. There is no acute intracranial abnormality. This was interpreted by the radiologist and reviewed by myself. Since this is a new onset possible seizure, case was discussed with the hospitalist. Patient will be admitted for observation to PCU. Family understood and was agreeable with the plan. All questions were answered. Lab Data Attestation: I reviewed the patient's lab results. Labs: Laboratory Results - last 24 hr 02/06/21 02/06/21 02/06/21 11:58 12:20 12:20 WBC 4.9 RBC 4.98 Hgb 15.9 Hct 48.4 MCV 97.2 H MCH 31.9 MCHC 32.9 RDW Std Deviation 49.0 H RDW Coeff of Daisy 13.5 Plt Count 258 MPV 9.7 Immature Gran % (Auto) 0.600 Neut % (Auto) 64.9 Lymph % (Auto) 19.0 Swift % (Auto) 13.1 H Eos % (Auto) 1.2 Baso % (Auto) 1.2 H Absolute Neuts (auto) 3.2 Absolute Lymphs (auto) 0.93 Nucleated RBC % 0 Sodium 139 Potassium 4.2 Chloride 104 Carbon Dioxide 30.0 Anion Gap 5 BUN 13 Creatinine 1.72 H Estim Creat Clear Calc 49.46 Est GFR (MDRD) Af Amer 56 L Est GFR (MDRD) Non-Af 46 L BUN/Creatinine Ratio 7.6 L Glucose 94 Lactic Acid Calcium 9.0 Total Bilirubin 0.50 AST 27 ALT 37 Alkaline Phosphatase 95 Total Protein 8.0 Albumin 3.5 Globulin 4.5 H Albumin/Globulin Ratio 0.8 L Urine Color Yellow Urine Clarity Clear Urine pH 7.0 Ur Specific [place] 1.005 Urine Protein Negative Urine Glucose (UA) Normal Urine Ketones Negative Urine Occult Blood Negative Urine Nitrite Negative Urine Bilirubin Negative Urine Urobilinogen Normal Ur Leukocyte Esterase Negative Urine RBC 0 SEEN Urine WBC 0 SEEN Ur Squamous Epith Cells 0-5 SEEN Urine Bacteria 0 SEEN Urine Mucus 0 SEEN 02/06/21 12:20 WBC RBC Hgb Hct MCV MCH MCHC RDW Std Deviation RDW Coeff of Daisy Plt Count MPV Immature Gran % (Auto) Neut % (Auto) Lymph % (Auto) Swift % (Auto) Eos % (Auto) Baso % (Auto) Absolute Neuts (auto) Absolute Lymphs (auto) Nucleated RBC % Sodium Potassium Chloride Carbon Dioxide Anion Gap BUN Creatinine Estim Creat Clear Calc Est GFR (MDRD) Af Amer Est GFR (MDRD) Non-Af BUN/Creatinine Ratio Glucose Lactic Acid 1.2 Calcium Total Bilirubin AST ALT Alkaline Phosphatase Total Protein Albumin Globulin Albumin/Globulin Ratio Urine Color Urine Clarity Urine pH Ur Specific [place] Urine Protein Urine Glucose (UA) Urine Ketones Urine Occult Blood Urine Nitrite Urine Bilirubin Urine Urobilinogen Ur Leukocyte Esterase Urine RBC Urine WBC Ur Squamous Epith Cells Urine Bacteria Urine Mucus Radiography Diagnostic Testing: Radiology Impression Brain CT 02/06/21 12:02 IMPRESSION: Stable calcification of the basal ganglia bilaterally. Electronically Signed: eGo Cruz MD at 12:28 EDT , Service support , Treatment and Re-Evaluation Vital Sign Attestation:: Vital signs were reviewed prior to admission. They are stable. Discharge Plan Dx/Rx/DC Orders Clinical Impression: New onset seizure Disposition Disposition: [facility]
--- NOTE | 2021-02-06 15:13 | HP.PCM.HOS_ITS ---
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 Patient has had an ER visit previously with reported pseudoseizures during a stressful event with body shaking but at that time patient was able to interact appropriately during these times. Patient does report that he is had loose stools over the last 24 to 48 hours with no significant abdominal cramping as sociated. He denies any associated nausea, emesis, fevers or chills. In the ED patient is completely alert and awake and has had no seizure-like activity. Work-up in the ED included T 97.9, heart rate 68, BP 137/77 with repeat 124/79, respiratory rate 18, 96% on room air, CBC with WBC 4.9, hemoglobin 15.9, platelet 258 without marked shift, CMP with BUN/creatinine 13/1.72, lactic acid 1.2, unremarkable hepatic profile, urinalysis not marked appearing, CT of the brain with stable calcification of the basal ganglia bilaterally with no acute intracranial findings otherwise. [facility] Medical History (Updated 02/06/21 @ 15:[address] Dax Sanabria DO) Down's syndrome Home Medications mecobalamin (vitamin B12) [B12 Active] 1,000 mcg PO DAILY 02/06/21 [History Last Taken 02/06/21] Allergy/AdvReac Type Severity Reaction Status Date / Time codeine Allergy Rash Verified 02/06/21 10:57 Family History (Updated 02/06/21 @ 17:[address] Za Lee MD) Mother Heart disease Mother with history of valve replacement/repair x 3. Hypertension Diabetes Father Heart disease Diabetes Surgical History (Updated 02/06/21 @ 15:[address] Dax Sanabria DO) Hx of appendectomy Social History (Updated 02/06/21 @ 17:[address] Za Lee MD) household members: other details: Patient lives alone but his mother lives right next door. Smoking Status: Never smoker alcohol intake: never substance use type: does not use ROS ROS Narrative Admission Review of Systems: CONSTITUTIONAL: No weight loss, fever, chills, + weakness or fatigue. HEENT: Eyes: No visual loss, blurred vision, double vision or yellow sclerae. Ears, Nose, Throat: No hearing loss, sneezing, congestion, runny nose or sore throat. SKIN: No rash or itching, lesions, wounds. CARDIOVASCULAR: No chest pain, chest pressure or chest discomfort, palpitations, edema, orthopnea, syncopal events. RESPIRATORY: No shortness of breath, cough or sputum, wheezing, hemoptysis. GASTROINTESTINAL: + Diarrhea, No anorexia, nausea, vomiting, abdominal pain, melena, BRBPR. GENITOURINARY: No dysuria, frequency, urgency or retention. NEUROLOGICAL: + Down Syndrome w/ chronic deficits, No headache, dizziness, syncope, paralysis, ataxia, numbness or tingling in the extremities, focal weakness, change in bowel or bladder control, seizure. MUSCULOSKELETAL: No muscle, back pain, joint pain or stiffness. HEMATOLOGIC: No anemia, bleeding or bruising. LYMPHATICS: No enlarged nodes. No history of splenectomy. PSYCHIATRIC: No history of depression or anxiety. ENDOCRINOLOGIC: No reports of sweating, cold or heat intolerance. No polyuria or polydipsia. ALLERGIES: No history of asthma, hives, eczema or rhinitis. Vital Signs Vital Signs Vital Signs: 02/06/21 10:55 02/06/21 13:00 Temperature 97.9 F Temperature Source Temporal Pulse Rate 68 84 Respiratory Rate 18 18 Blood Pressure 137/77 H 124/79 H Blood Pressure Mean 97 94 Pulse Ox 92 96 Oxygen Delivery Method Room Air Room Air Weight Weight: 178 lb 9.191 oz Body Mass Index (BMI) 28.8 Physical Exam Narrative Physical Examination: General: Awake, alert, oriented to self, place, recent events, high functioning, cooperative, seated upright in the ED bed in no apparent distress. Skin: Normal color, normal turgor, no icterus, no cyanosis. HEENT: AT/NC, EOMI, PERRLA, MMM, no carotid bruits or JVD noted. Lungs: Diminished BS bases, moderate effort, no rales, ronchi or wheezing. Heart: Regular rate and rhythm; no gallop, rub audible. Abdomen: Soft, overweight, NTTP, ND, mildly hyperactive BS, no obvious HSM, patient does tighten his abdomen unless you distract him. Extremities: No cyanosis, clubbing, or edema. Neurological: Patient awake, alert, oriented as noted, cognitive function intact at his baseline, does have Down Syndrome; pupils equally reactive to light and accommodation, cranial nerves II-XII grossly normal, moving all 4 extremities, no focal deficits, strength preserved. Psychiatric: Affect appears normal, no acute evidence of depressive or anxiety feelings. Results Lab / Micro Data Result Diagrams: 02/06/21 12:20 02/06/21 12:20 Labs: Laboratory Results - last 24 hr 02/06/21 11:58: Urine Color Yellow, Urine Clarity Clear, Urine pH 7.0, Ur Specific [place] 1.005, Urine Protein Negative, Urine Glucose (UA) Normal, Urine Ketones Negative, Urine Occult Blood Negative, Urine Nitrite Negative, Urine Bilirubin Negative, Urine Urobilinogen Normal, Ur Leukocyte Esterase Negative, Urine RBC 0 SEEN, Urine WBC 0 SEEN, Ur Squamous Epith Cells 0-5 SEEN, Urine Bacteria 0 SEEN, Urine Mucus 0 SEEN 02/06/21 12:20: WBC 4.9, RBC 4.98, Hgb 15.9, Hct 48.4, MCV 97.2 H, MCH 31.9, MCHC 32.9, RDW Std Deviation 49.0 H, RDW Coeff of Daisy 13.5, Plt Count 258, MPV 9.7, Immature Gran % (Auto) 0.600, Neut % (Auto) 64.9, Lymph % (Auto) 19.0, [place] % (Auto) 13.1 H, Eos % (Auto) 1.2, Baso % (Auto) 1.2 H, Absolute Neuts (auto) 3.2, Absolute Lymphs (auto) 0.93, Nucleated RBC % 0 02/06/21 12:20: Sodium 139, Potassium 4.2, Chloride 104, Carbon Dioxide 30.0, Anion Gap 5, BUN 13, Creatinine 1.72 H, Estim Creat Clear Calc 49.46, Est GFR (MDRD) Af Amer 56 L, Est GFR (MDRD) Non-Af 46 L, BUN/Creatinine Ratio 7.6 L, Glu cose 94, Calcium 9.0, Total Bilirubin 0.50, AST 27, ALT 37, Alkaline Phosphatase 95, Total Protein 8.0, Albumin 3.5, Globulin 4.5 H, Albumin/Globulin Ratio 0.8 L 02/06/21 12:20: Lactic Acid 1.[address] 02/06/21 12:02 IMPRESSION: Stable calcification of the basal ganglia bilaterally. 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 1. Possible new-onset seizure: Seizure witnessed with questionable postictal state. Improved mental status in the emergency room. Patient has been evaluated in the ED with witnessed pseudoseizures prior and was discharged at that time. CT head without acute intracranial pathology. Lab work-up included CBC and CMP with only noted chronic kidney disease, stable with creatinine 1.72. Will admit to PCU, maintain on telemetry in PCU on seizure precautions, obtain EEG, obtain brain MRI, obtain TSH, obtain UDS, obtain magnesium. Will hold on any AED given history of pseudoseizure history prior and not witnessed by family (RN) or hospital staff. Once MRI brain and EEG obtained will request neurology consultation. PRN ativan IV for seizure activity. NPO until cleared per RN swallow. 2. Recent onset diarrhea, possible gastroenteritis: We will maintain on judicious hydration, will obtain c diff with repeat AM CBC. Will not start antibiotics at this time given unclear source pending stool studies as may be viral gastroenteritis. Patient with no recent oral antibiotic therapy. 3. Elevated BP without hypertensive diagnosis: Patient with moderately elevated BP in the ED, mother notes this is not baseline, possibly stress related, will continue closely monitor and add regimen if appropriate, as needed IV hydralazine in interim. 4. Chronic Kidney Disease Stage III, unclear subtype: Admission BUN/Cr 13/1.72, baseline renal function 1.6-1.7, stable, repeat BMP in AM. 5. Down syndrome: Complicates presentation, high functioning, lives alone next to his mother, case management consulted for discharge planning. 6. DVT prophylaxis: Low risk, encourage ambulation. 7. CODE status: Patient's mother is present and she notes that healthcare power of mergers and acquisitions attorney nor living will is currently in place but is interested in information therefore directed her to discuss these items with case management/social work for assistance. Discussed CODE status at length including difference between FULL code, DNR-CCA and DNR-CC status. Following discussions about the differences in these status, requested Full Code status. Advanced Care Planning Face to Face Time: 16 minutes. Charges/Coding Visit Charges OBSV E&M: 53986 Initial observation care L3 Procedures Hospitalists Procedures: 14120 Advncd Care Plan 30 Min
[2021-02-06 16:05] LABS: Magnesium 2.3 mg/dL (1.6-2.6); Phosphorus 3.2 mg/dL (2.5-4.9); Thyroid Stim Hormone (TSH) 1.02 uIU/mL (0.358-3.74)
[2021-02-06 16:14] LABS: Amphetamine Urine VISTA NEGATIVE (<1000 ng/mL); Barbiturate Urine VISTA NEGATIVE (< 200 ng/mL); Benzodiazepine Urine VISTA NEGATIVE (< 200 ng/mL); Cocaine Urine VISTA NEGATIVE (< 300 ng/mL); Ecstacy Urine VISTA NEGATIVE (< 500 ng/mL); Methadone Urine VISTA NEGATIVE (< 300 ng/mL); PCP Urine VISTA NEGATIVE (< 25 ng/mL); THC Urine VISTA NEGATIVE (< 50 ng/mL); Vista UDS pH Range 7
--- NOTE | 2021-02-06 16:46 | MRI_ITS ---
STUDY: MRI BRAIN WITHOUT CONTRAST REASON FOR EXAM: Male, 45 years old. Seizure TECHNIQUE: Standardized multiplanar fat and water weighted pulse sequences were obtained. COMPARISON: CT brain 02/06/2021 FINDINGS: Normal size of the ventricles and extra-axial spaces for the patient''s age. Normal white matter tracts of the supratentorial brain. Normal bilateral basal ganglia. Normal thalami. There is no extra-axial fluid accumulation. Normal flow voids within the major intracranial circulation suggesting patency by spin echo criteria. Normal sella turcica, pituitary gland, infundibular stalk, optic chiasm and hypothalamus. Normal tectal plate and pineal gland. Normal midbrain, samm and medulla. Normal cerebellum. Normal basal cisterns. Normal bilateral temporal bones. Normal bilateral internal auditory canals. No demonstrated orbital abnormality, within the constraints of a routine brain study. Normal visualized paranasal sinuses. Normal calvarium and skull base. Normal visualized soft tissue structures. Normal visualized upper cervical spine. MRI/Brain without Contrast IMPRESSION: Normal unenhanced MRI of the brain. Electronically Signed: Fracisco Mulligan MD at 23:28 EDT , Service support ,
[2021-02-06] MEDS: 0.9% Normal Saline 1,000 ML 100 ML IV (17:13)
[2021-02-06] MEDS: MELATONIN 3 MG TABLET PO (21:10)
[2021-02-06] MEDS: Acetaminophen 325 MG Tablet 650 MG PO (21:10)
[2021-02-06] MEDS: DiphenhydrAMINE 50 MG/ML Syringe 25 MG IV (22:10)
[2021-02-06] MEDS: 0.9% Saline Lock 10 ML Syringe IV (22:11)
[2021-02-07] VITALS (7 sets, daily range): BP systolic 102–108; BP diastolic 60–75; PULSE 78–98; RESP 16–18; TEMP 36.4; O2SAT 98–99
--- NOTE | 2021-02-07 00:38 | NURSING ---
Patient has a COURT REPORTER sitting in room with them due to patient stating wanting to go home and being very anxious trying to walk out of room. This nurse called patient mother to see if this would help with anxious but patient continues to states, I want to go home. Given a coloring book with lance patient colored for a few minutes. Patient has been up and down during this shift so far.
[2021-02-07] MEDS: Acetaminophen 325 MG Tablet 650 MG PO (02:53)
[2021-02-07 06:47] LABS: Absolute Lymphocyte Count 0.98 X10^3/uL (0.83-4.51); Absolute Neutrophil Count 3.3 X10^3/uL (2.0-7.7); Basophil# 0.05 X10^3/uL; Eosinophil# 0.09 X10^3/uL; Eosinophils% 1.8 % (0-5); Hematocrit 46.5 % (40-54); Hemoglobin 14.8 g/dL (13.0-16.5); Lymphocyte # 0.98 X10^3/ul (0.83-4.51); Lymphocyte % 19.4 % (19-41); Mean Corp Hgb Conc 31.8 g/dL (32-36); Mean Corpuscular Hgb 31.4 pg (27.0-32.0); Mean Corpuscular Volume 98.5 fL (80-94); Monocyte# 0.62 X10^3/uL; Monocyte% 12.3 % (0-10); NRBC Flagged by Analyzer 0 % (0-5); Neutrophil % 65.3 % (47-70); Platelet Count 231 K/mm3 (150-450); RBC Distribution Width CV 13.6 % (11.6-14.6); RBC Distribution Width SD 49.9 fl (35.1-43.9); Red Blood Count 4.72 M/mm3 (4.6-6.2); White Blood Count 5.1 K/mm3 (4.4-11.0)
[2021-02-07 07:12] LABS: ALB/GLOB Ratio 0.7 RATIO (0.9-2.4); AST(SGOT) 26 U/L (15-37); Alanine Aminotransfer ALT/SGPT 32 U/L (16-61); Albumin, Serum 3.1 g/dL (3.2-5.0); Alkaline Phosphatase 88 U/L (45-117); Anion Gap 7 (5-15); BUN 14 mg/dL (7-18); BUN/Creat Ratio 7.3 RATIO (10-20); Calcium,Total 8.6 mg/dL (8.5-10.1); Chloride 106 mmol/L (98-107); Creatinine, Serum 1.93 mg/dL (0.70-1.30); EST Glomerular Filtration Rate 40 mL/min (>60); Est Glom Filt Rate - Afr Amer 49 mL/min (>60); Estimated Creatinine Clearance 42.49 ml/min; Globulin 4.2 g/dL (2.2-4.2); Glucose 153 mg/dL (74-106); Protein, Total 7.3 g/dL (6.4-8.2); Sodium Level 139 mmol/L (136-145)
--- NOTE | 2021-02-07 10:51 | TELEMED_ITS ---
[facility] Telemed has confirmed receipt of a request for visit. This document confirms receipt of the order initiating the consult. To find the results of the consultation, please view the patient's reports for the scanned Telemed Consult.
--- NOTE | 2021-02-07 12:34 | PCM.DC ---
Discharge Instructions Diet Discharge Diet: No restrictions Activity Discharge Activity: Return to Normal Activity Dressing / Incision Call your doctor if you observe: Fever of 101 or Higher, Numbness or Tingling, Inability to urinate, Inability to have a bowel movement, Shortness of breath, Dizziness, Fainting spells, Swelling in the ankles, Chest pain, Increased palpitations (irregular heartbeat) and Uncontrolled pain Follow Up Care Test Results: Test results from this visit will be discussed in further detail at your follow-up appointment, if applicable. Discharge Plan Admission Admit Date/Time: 02/06/21 15:23 Primary Reason for Your Visit: Pseudoseizures Attending Provider: Za Lee Primary Care Provider: Joel Scruggs Instructions Patient Instructions: ED Conversion Disdr Conversion Reac Additional Instructions / Restrictions: Please follow-up with your primary care physician for reassessment and strongly encourage counseling as abnormal movement activity consistent with pseudoseizure may be associated with underlying stressors. Discharge Orders/Prescriptions Prescriptions: Continued B12 Active 1,000 mcg Tablet,Chewable 1,000 mcg PO DAILY RF: 0 Referrals / Follow Up: Joel Scruggs MD [Primary Care Provider] - (Follow-up within 3-5 days to review admission.) Disposition Disposition (needs filled in before D/C Order can be placed): Home, Self Care
--- NOTE | 2021-02-07 12:36 | DS.PCM_ITS ---
Providers Date of Admission: 02/06/21 Primary Care Physician: Dr. Joel Scruggs MD Reason For Visit: POSSIBLE SEIZURE Diagnosis Discharge Diagnosis (1) New onset seizure: Status: Acute Code(s): R56.9 - Unspecified convulsions Medications at Discharge Home Medications B12 Active 1,000 mcg PO DAILY 02/06/21 Hospital Course Operations None Procedures Electroencephalogram, EKG and - (MRI brain.) Summary of Care Provided Minutes Spent on Discharge: 35 Hospital Course: Discharge Diagnoses: 1. 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 Recent onset diarrhea, resolved completely, unclear etiology 3. Elevated BP without hypertensive diagnosis, normalized 4. Chronic Kidney Disease Stage III, unclear subtype 5. Down syndrome Discharge Summary: The patient is a 45 y/o M w/ PMHx: CKD stage III, Down Syndrome, Possible prior pseudoseizures related to stress who presented to the [facility] ED on 02/06/21 with history of questionable seizure activity while in the van being transported with witness reporting mild shaking and then he fell asleep but was quickly awoken and was at his baseline with no tongue biting nor any loss of bowel or bladder. Patient has had an ER visit previously with reported pseudoseizures during a stressful event with body shaking but at that time patient was able to interact appropriately during these times. Patient does report that he is had loose stools over the last 24 to 48 hours with no significant abdominal cramping associated. He denies any associated nausea, emesis, fevers or chills. In the ED patient is completely alert and awake and has had no seizure-like activity. Work-up in the ED included T 97.9, heart rate 68, BP 137/77 with repeat 124/79, respiratory rate 18, 96% on room air, CBC with WBC 4.9, hemoglobin 15.9, platelet 258 without marked shift, CMP with BUN/creatinine 13/1.72, lactic acid 1.2, unremarkable hepatic profile, urinalysis not marked appearing, CT of the brain with stable calcification of the basal ganglia bilaterally with no acute intracranial findings otherwise. Patient was admitted to the PCU, maintained on monitor with unremarkable UDS, normal TSH and magnesium level. MRI of the brain was obtained and was unremarkable. EEG was obtained with no obvious evidence of any seizure a ctivity. Patient did have shaking episode while in the PCU which was witnessed and consistent with pseudoseizure as patient would sit up and talk during the event. As noted previously patient has had prior pseudoseizures documented per physicians. Patient had no episodes of diarrhea during admission either. Patient blood pressure normalized. Given clinical improvement and unremarkable work-up patient discharged to home in stable, improved condition with strong recommendations for early PCP follow-up with continued stressor evaluation as psychiatric underlying issues likely related to his presentation. Discharge Time: > 35 Minutes DAY OF DISCHARGE PROGRESS NOTE: Subjective: Patient without acute event overnight per self and nursing report. Patient with pseudoseizure activity witnessed by staff overnight. Discussed this presentation with patient and recent stressors. Patient denies fever, chills, nausea, emesis, abdominal pain, chest pain or dyspnea. Patient agreeable to discharge to home. Patient will be discharged with follow-up with primary care physician within 3-5 days. Objective: T 97.6, heart rate 88, BP 102/75, respiratory rate 18, 99% on room air. Physical Examination: General: Awake, alert, oriented to self, place, recent events, high functioning, seated upright in the PCU bed, NAD. Skin: Normal color, normal turgor, no icterus, no cyanosis. HEENT: AT/NC, EOMI, PERRLA, MMM. Lungs: Diminished BS bases, moderate effort, no rales, ronchi or wheezing. Heart: Regular rate and rhythm; no gallop, rub audible. Abdomen: Soft, overweight, NTTP, ND, normalized BS. Extremities: No cyanosis, clubbing, or edema. Neurological: Patient awake, alert, oriented as noted, cognitive function intact at his baseline, does have Down Syndrome; pupils equally reactive to light and accommodation, cranial nerves II-XII grossly normal, moving all 4 extremities, no focal deficits, strength preserved. Psychiatric: Affect appears normal, no acute evidence of depressive or anxiety feelings. Assessment and Plan: Please see hospital summary above. Weight / BMI Weight Weight: 176 lb 5.917 oz Body Mass Index (BMI) 29.3 ABG / Lab / Microbiology Data Result Diagrams: 02/07/21 06:05 02/07/21 06:05 Laboratory: Laboratory Results - last 24 hr 02/06/21 11:58: Urine Opiates Screen NEGATIVE, Urine Methadone Screen NEGATIVE, Ur Barbiturates Screen NEGATIVE, Ur Phencyclidine Scrn NEGATIVE, Ur Amphetamines Screen NEGATIVE, U Methamphetamin-MDMA NEGATIVE, U Benzodiazepines Scrn NEGATIVE, Urine Cocaine Screen NEGATIVE, U Cannabinoids Screen NEGATIVE, Ur Drug Screen Comment 02/06/21 12:20: WBC 4.9, RBC 4.98, Hgb 15.9, Hct 48.4, MCV 97.2 H, MCH 31.9, MCHC 32.9, RDW Std Deviation 49.0 H, RDW Coeff of Daisy 13.5, Plt Count 258, MPV 9.7, Immature Gran % (Auto) 0.600, Neut % (Auto) 64.9, Lymph % (Auto) 19.0, [place] % (Auto) 13.1 H, Eos % (Auto) 1.2, Baso % (Auto) 1.2 H, Absolute Neuts (auto) 3.2, Absolute Lymphs (auto) 0.93, Nucleated RBC % 0 02/06/21 12:20: Sodium 139, Potassium 4.2, Chloride 104, Carbon Dioxide 30.0, Anion Gap 5, BUN 13, Creatinine 1.72 H, Estim Creat Clear Calc 49.46, Est GFR (MDRD) Af Amer 56 L, Est GFR (MDRD) Non-Af 46 L, BUN/Creatinine Ratio 7.6 L, Glucose 94, Calcium 9.0, Total Bilirubin 0.50, AST 27, ALT 37, Alkaline Phosphatase 95, Total Protein 8.0, Albumin 3.5, Globulin 4.5 H, Albumin/Globulin Ratio 0.8 L 02/06/21 12:20: Lactic Acid 1.2 02/06/21 12:20: Phosphorus 3.2, Magnesium 2.3, TSH 1.02 02/07/21 06:05: WBC 5.1, RBC 4.72, Hgb 14.8, Hct 46.5, MCV 98.5 H, MCH 31.4, MCH C 31.8 L, RDW Std Deviation 49.9 H, RDW Coeff of Daisy 13.6, Plt Count 231, MPV 10.0, Immature Gran % (Auto) 0.200, Neut % (Auto) 65.3, Lymph % (Auto) 19.4, [place] % (Auto) 12.3 H, Eos % (Auto) 1.8, Baso % (Auto) 1.0, Absolute Neuts (auto) 3.3, Absolute Lymphs (auto) 0.98, Nucleated RBC % 0 02/07/21 06:05: Sodium 139, Potassium 4.0, Chloride 106, Carbon Dioxide 26.0, Anion Gap 7, BUN 14, Creatinine 1.93 H, Estim Creat Clear Calc 42.49, Est GFR (MDRD) Af Amer 49 L, Est GFR (MDRD) Non-Af 40 L, BUN/Creatinine Ratio 7.3 L, Glucose 153 H, Calcium 8.6, Total Bilirubin 0.30, AST 26, ALT 32, Alkaline Phosphatase 88, Total Protein 7.3, Albumin 3.1 L, Globulin 4.2, Albumin/Globulin Ratio 0.7 L Radiography Diagnostic Testing: Radiology Impression Brain MRI 02/06/21 16:46 IMPRESSION: Normal unenhanced MRI of the brain. Electronically Signed: Fracisco Mulligan MD at 23:28 EDT , Service support , D/C Instructions Discharge Diet: No restrictions Call your doctor if you observe: Fever of 101 or Higher, Numbness or Tingling, Inability to urinate, Inability to have a bowel movement, Shortness of breath, Dizziness, Fainting spells, Swelling in the ankles, Chest pain, Increased palpitations (irregular heartbeat) and Uncontrolled pain Meaningful Use Info Meaningful Use Diagnoses (Choose all that apply): None applicable Discharge Plan Admission Admit Date/Time: 02/06/21 15:23 Primary Reason for Your Visit: Pseudoseizures Attending Provider: Za Lee Primary Care Provider: Joel Scruggs Instructions Patient Instructions: ED Conversion Disdr Conversion Reac Additional Instructions / Restrictions: Please follow-up with your primary care physician for reassessment and strongly encourage counseling as abnormal movement activity consistent with pseudoseizure may be associated with underlying stressors. Discharge Orders/Prescriptions Prescriptions: Continued B12 Active 1,000 mcg Tablet,Chewable 1,000 mcg PO DAILY RF: 0 Referrals / Follow Up: Joel Scruggs MD [Primary Care Provider] - (Follow-up within 3-5 days to review admission.) Disposition Disposition (needs filled in before D/C Order can be placed): Home, Self Care Charges/Coding Visit Charges OBSV E&M: 19595 Observation care discharge
--- NOTE | 2021-02-07 12:50 | PHA.DC.MR ---
Pharmacy Service has performed discharge medication reconciliation for this patient. The patient's discharge medication list was reviewed for discrepancies and discrepancies were resolved. Home Medications B12 Active 1,000 mcg PO DAILY 02/06/21
== END 2021-02-07 12:32 | disposition home or self-care (01) ==
LOC: ED 15:30 → PCU 15:49
PROVIDERS: Admitting Provider Family Medicine; Emergency Provider Emergency Medicine; PCP Family Medicine; Visit Provider Family Medicine
DX: R56.9 Unspecified convulsions (principal); Q90.9 Down syndrome, unspecified; R03.0 Elevated blood-pressure reading, without diagnosis of hypertension; N18.32 Chronic kidney disease, stage 3b; R25.1 Tremor, unspecified
CPT/HCPCS: 36415; 70450; 70551; 80053; 80307; 81001; 83605; 83735; 84100; 84443; 85025; 95819; 96361; 96374; 99218; 99285; J7030; A4216; G0378

== ENCOUNTER 2022-01-15 10:42 | Emergency (ER) | payer MEDICARE, MEDICAID, SELFPAY ==
[2022-01-15 10:43] VITALS: BP 130/84; PULSE 106; RESP 18; TEMP 37.1; O2SAT 97; BMI 30.7
[2022-01-15] MEDS: 0.9% Normal Saline 1,000 ML 1000 ML IV (11:09)
[2022-01-15] MEDS: Loperamide 2 MG Capsule 4 MG PO (11:09)
--- NOTE | 2022-01-15 11:17 | EDS_ITS ---
HPI HPI - GI History of Present Illness Chief Complaint: Abd Pain Detail of Chief Complaint: Abdominal pain and diarrhea that started yesterday Informant: patient, parent and other (Type note from ER express care at the [facility] per nurse practitioner patient had rebound tenderness noted throughout the abdomen. Also that the abdomen was distended.) Limited: other (Cognitive impairment due to Down syndrome) Abdominal Pain/Flank Pain Onset: Yesterday Context: Sudden Onset Timing: Intermittent Quality: Aching, Cramping and Dull Location: Diffuse Current Severity: Mild Maximum Severity: Moderate Worsened by: - (Unknown) Relieved by: Nothing Nausea/Vomiting/Emesis GI Symptom: Negative for Nausea or Vomiting Diarrhea/Melena/Hematochezia GI Symptom: Positive for Diarrhea Onset: Yesterday (5 episodes since onset) Stool Quality: Positive for Loose and Watery Severity: Mild Associated Symptoms Associated Symptoms: Negative for Dysuria, Frequency, Hematuria or Urgency Narrative Narrative: Patient is a 46-year-old male with history of Down syndrome who presents because of concern for surgical abdomen. There is been no documented fever. There is been no vomiting and he denies nausea. He has no other symptoms according the mother. He is not a reliable informant. There is been no ill contacts. There has been no issues with him at work. Prior similar symptoms: Yes Recent Illness/Hospitalization: No PFSH PFSH Medical History Down's syndrome Home Medications mecobalamin (vitamin B12) 1,000 mcg chewable tablet (B12 Active) 1,000 mcg PO DAILY supplement 02/06/21 [History Last Taken 02/06/21] Allergy/AdvReac Type Severity Reaction Status Date / Time codeine Allergy Rash Verified 01/15/22 10:46 Family History Mother Heart disease Mother with history of valve replacement/repair x 3. Hypertension Diabetes Father Heart disease Diabetes Surgical History Hx of appendectomy Social History household members: other details: Patient lives alone but his mother lives right next door. Smoking Status: Never smoker alcohol intake: never substance use type: does not use ROS ROS ED Review of Systems ROS Unobtainable: due to mental status Constitutional Constitutional ED: Denies fever(s) or sweats ENT ENT ED: Denies ear pain, rhinorrhea or sore throat Cardiovascular Cardiovascular: Denies chest pain or palpitations Respiratory/Chest Respiratory/Chest: Denies cough or dyspnea Gastrointestinal Gastrointestinal: Reports abdominal pain and diarrhea; Denies nausea or vomiting Genitourinary Genitourinary ED: Denies dysuria or hematuria Musculoskeletal Musculoskeletal: Denies arthralgias, back pain or myalgias Neurologic Neurologic: Denies headache(s) or weakness Hematologic/Lymphatic Hematologic/Lymphatic: Denies easy bleeding, easy bruising or lymphadenopathy EXAM Physical Exam Narrative Exam Narrative: Patient does not appear ill. He does have phenotypic a per parents of individuals with Down syndrome. Const Vital Signs: 01/15/22 10:43 Temperature 98.8 F Temperature Source Temporal Pulse Rate 106 H Respiratory Rate 18 Blood Pressure 130/84 H Blood Pressure Mean 99 Pulse Ox 97 Oxygen Delivery Method Room Air Positive well nourished, well developed and obese; Negative for cachectic, contractures or unkempt General Appearance ED: well developed; Negative for unkempt, cachectic, contractures, NAD or pallor Nutritional Appearance: obese; Negative for cachectic HEENT Reports TM's clear and dry mucous membranes; Denies moist mucous membranes HEENT Narrative: Uvula is midline. There is no erythema or exudate. Nares patent. Ears appear normal. normocephalic and atraumatic Tympanic Membrane ED: Yes TM's clear Mouth ED: Yes dry mucous membranes Mouth: dry mucous membranes Eyes PERRL and EOMs intact bilaterally General Eye ED: Negative for pale conjunctiva or scleral icterus Neck no lymphadenopathy, supple and no JVD Resp normal respiratory effort and clear to auscultation bilaterally Effort and Inspection: respiratory distress Cardio regular rate, regular rhythm, S1 normal heart sound, S2 normal heart sound and no murmurs GI non-tender, non-distended and no masses GI Narrative: Had patient jump up and down no discomfort. No discomfort with coughing. Able to freely get in and out of bed without distress. Inspection: Negative for abdominal distention Auscultation: hypoactive bowel sounds Palpation: soft Back/Spine no CVA tenderness Neuro CN's II-XII intact bilaterally and moves all extremities Sensorium / Orientation: alert; Negative for oriented to person Psych mental status grossly normal Appearance: Negative for unkempt Skin no wounds General Skin Exam: Negative for jaundice or pallor Lesions: no lesions Rashes: no rashes MDM MDM MDM Narrative Medical decision making narrative: Patient exam is unremarkable. Suspect his abdominal discomfort is due to diarrhea. Clinically is dehydrated. 1 L of normal saline was ordered. Imodium was ordered for his diarrhea. Basic metabolic panel was obtained to assess for hypokalemia and determine renal function. In my professional opinion patient does not have rebound tenderness. Furthermore there is no guarding or tenderness of any type. Lab Data Attestation: I reviewed the patient's lab results. Lab results narrative: Creatinine is elevated. Creatinine is in the mid range of patient's baseline. Glucose is slightly elevated. Labs: Laboratory Results - last 24 hr 01/15/22 10:55 Sodium 139 Potassium 4.1 Chloride 108 H Carbon Dioxide 25.0 Anion Gap 6 BUN 17 Creatinine 1.73 H Estim Creat Clear Calc 46.91 Est GFR (MDRD) Af Amer 55 L Est GFR (MDRD) Non-Af 46 L BUN/Creatinine Ratio 9.8 L Glucose 123 H Calcium 9.3 Treatment and Re-Evaluation Narrative: Patient was reassessed at 1301. Did have episode of diarrhea. He will receive an additional dose of Imodium prior to discharge. Discharge Plan Triage Chief Complaint: Abd Pain ED Provider: Martin Foster Dx/Rx/DC Orders Clinical Impression: Diarrhea, Chronic kidney insufficiency, Acute dehydration Instructions: ED Chronic Kidney Disease (CKD), ED Diarrhea, Unknown Cause Prescriptions: No Action B12 Active 1,000 mcg Tablet,Chewable 1,000 mcg PO DAILY Primary Care Provider: Joel Scruggs Referrals: Joel Scruggs MD [Primary Care Provider] - 3-5 Days if not improving Activity Restrictions/Additional Instructions: Take Imodium with each loose stool. No more than 6 in 24 hours. Disposition Disposition: Home, Self Care
[2022-01-15 11:28] LABS: Anion Gap 6 (5-15); BUN 17 mg/dL (7-18); BUN/Creat Ratio 9.8 RATIO (10-20); Calcium,Total 9.3 mg/dL (8.5-10.1); Chloride 108 mmol/L (98-107); Creatinine, Serum 1.73 mg/dL (0.70-1.30); EST Glomerular Filtration Rate 46 mL/min (>60); Est Glom Filt Rate - Afr Amer 55 mL/min (>60); Estimated Creatinine Clearance 46.91 ml/min; Glucose 123 mg/dL (74-106); Potassium 4.1 mmol/L (3.5-5.1); Sodium Level 139 mmol/L (136-145)
[2022-01-15 13:07] VITALS: PULSE 77; RESP 18; O2SAT 100
[2022-01-15] MEDS: Loperamide 2 MG Capsule PO (13:13)
== END 2022-01-15 13:15 | disposition home or self-care (01) ==
PROVIDERS: Emergency Provider Emergency Medicine; PCP Family Medicine; Visit Provider Emergency Medicine
DX: R10.9 Unspecified abdominal pain (principal); E86.0 Dehydration; N18.9 Chronic kidney disease, unspecified; R14.0 Abdominal distension (gaseous); R19.7 Diarrhea, unspecified; K92.1 Melena; R11.2 Nausea with vomiting, unspecified; R41.89 Other symptoms and signs involving cognitive functions and awareness; Q90.9 Down syndrome, unspecified
CPT/HCPCS: 80048; 99285; J7030; A4216

== ENCOUNTER 2022-10-18 13:13 | Emergency (ER) | payer MEDICARE, MEDICAID, SELFPAY ==
[2022-10-18 13:14] VITALS: BP 146/96; PULSE 98; RESP 18; TEMP 36.6; O2SAT 97; BMI 29.9
--- NOTE | 2022-10-18 13:26 | EDS_ITS ---
HPI History of Present Illness Chief Complaint: Upper Extremity Injury Narrative Narrative: 47-year-old male presenting with right elbow pain. This started hurting after bowling today. Family gave him Tylenol. He still having pain. Patient has history of gout. Denies any direct trauma. He does not have any other complaints. He has been otherwise healthy. [facility] Medical History Down's syndrome Home Medications mecobalamin (vitamin B12) 1,000 mcg chewable tablet (B12 Active) 1,000 mcg PO DA YARA supplement 02/06/21 [History Last Taken 02/06/21] Allergy/AdvReac Type Severity Reaction Status Date / Time codeine Allergy Rash Verified 10/18/22 13:16 Family History Mother Heart disease Mother with history of valve replacement/repair x 3. Hypertension Diabetes Father Heart disease Diabetes Surgical History Hx of appendectomy Social History household members: other details: Patient lives alone but his mother lives right next door. Smoking Status: Never smoker alcohol intake: never substance use type: does not use ROS ROS ED Constitutional Constitutional ED: Denies chills, fever(s) or sweats Eyes Eyes: Denies blurry vision or change in vision ENT ENT ED: Denies ear pain or sore throat Cardiovascular Cardiovascular: Denies chest pain, palpitations or racing heartbeat Respiratory/Chest Respiratory/Chest: Denies cough, dyspnea or sputum Gastrointestinal Gastrointestinal: Denies abdominal pain, constipation, diarrhea, nausea or vom iting Genitourinary Genitourinary ED: Denies dysuria, hematuria or urinary frequency Musculoskeletal Musculoskeletal: Reports other Details: Right elbow pain ; Denies arthralgias, myalgias or neck pain Integumentary Denies abscess, Abrasions or rash Neurologic Neurologic: Denies headache(s), paresthesias or weakness Psychiatric Psychiatric: Denies anxiety, depression, suicidal ideation or suicidal thoughts Endocrine Endocrinology: Denies polydipsia or polyuria EXAM Physical Exam Const Vital Signs: 10/18/22 13:14 Temperature 97.8 F Temperature Source Temporal Pulse Rate 98 Respiratory Rate 18 Blood Pressure 146/96 H Blood Pressure Mean 112 Pulse Ox 97 Oxygen Delivery Method Room Air Positive well nourished General Appearance ED: NAD HEENT Reports moist mucous membranes Eyes PERRL Resp normal respiratory effort Cardio regular rate and regular rhythm Extremity Extremity Narrative: Tenderness to palpation over the right radial head. Pain elicited with pronation and supination. No obvious deformity. No olecranon tenderness. Flexion and extension are maintained in full range of motion. No rash, swelling, crepitance. Psych mental status grossly normal MDM MDM MDM Narrative Medical decision making narrative: 47-year-old male presenting with right elbow pain. Prescription bowling. Differential diagnosis right elbow tendinitis, fracture, elbow strain. X-ray of the right elbow obtained and on my interpretation shows no acute fracture. There does appear to be some degenerative changes. Patient most likely has a tendinitis. He is counseled to refrain from bowling. He is to use ice, compression, ibuprofen and Tylenol. Return precautions discussed. Impression: 1. Right elbow tendon Discharge Plan Triage Chief Complaint: Upper Extremity Injury ED Provider: Stephen Luna Dx/Rx/DC Orders Instructions: ED Tendonitis Prescriptions: No Action B12 Active 1,000 mcg Tablet,Chewable 1,000 mcg PO DAILY Primary Care Provider: Joel Scruggs Referrals: Joel Scruggs MD [Primary Care Provider] - Disposition Disposition: Home, Self Care
--- NOTE | 2022-10-18 13:30 | RAD_ITS ---
INDICATION: pain EXAMINATION/TECHNIQUE: X-RAY - RIGHT XR Elbow Min 3 Views COMPARISON: None. FINDINGS: SOFT TISSUES: No soft tissue swelling or gas. No radiopaque foreign body. 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 There is also moderate osteophytic spurring of the coronoid process of the proximal ulna as well as at the medial aspect of the elbow joint. RAD/Elbow min 3 Views IMPRESSION: Osteoarthritis as above. Electronically Signed: Joel Barrett MD, KERI at 13:53 EDT ,
== END 2022-10-18 14:11 | disposition home or self-care (01) ==
LOC: ED 14:04
PROVIDERS: Emergency Provider Student in an Organized Health Care Education/Training Program; PCP Family Medicine; Visit Provider Student in an Organized Health Care Education/Training Program
DX: M25.521 Pain in right elbow (principal); Z60.2 Problems related to living alone
CPT/HCPCS: 73080; 99282

== ENCOUNTER 2023-01-25 15:57 | Emergency (ER) | payer MEDICARE, MEDICAID, SELFPAY ==
[2023-01-25 15:59] VITALS: BP 151/100; PULSE 72; RESP 18; TEMP 36.4; O2SAT 97; BMI 30.2
--- NOTE | 2023-01-25 16:11 | EKG12_ITS ---
Test Reason : GENERAL Blood Pressure : / mmHG Vent. Rate : 065 BPM Atrial Rate : 065 BPM P-R Int : 154 ms QRS Dur : 076 ms QT Int : 380 ms P-R-T Axes : 030 034 020 degrees QTc Int : 395 ms Normal sinus rhythm Normal ECG Confirmed by MARCO A ABERNATHY, NICOLAS ([id number]), editor dictionary SUKHJINDER ANDREWS ([id number]) on 01/27/2023 11:30:21 AM Referred By: Confirmed By:TENZIN STRICKLAND MD
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
--- NOTE | 2023-01-25 16:30 | RAD_ITS ---
EXAM: XR CHEST, 1 VIEW CLINICAL INDICATION: chest pain TECHNIQUE: Frontal view of the chest. COMPARISON: 09/20/2017 FINDINGS: LUNGS AND PLEURAL SPACES: Unremarkable. No consolidation or edema. No pneumothorax. No effusion. HEART: Unremarkable. Cardiac silhouette not enlarged. MEDIASTINUM: Central airways and mediastinal contour are unremarkable. BONES/JOINTS: Unremarkable. SOFT TISSUES: Unremarkable. RAD/Chest 1 View (Portable) IMPRESSION: No radiographic evidence of acute cardiopulmonary disease. Electronically Signed: Pito Moyer MD at 16:47 EDT ,
[2023-01-25 16:44] LABS: Absolute Lymphocyte Count 1.06 X10^3/uL (0.83-4.51); Absolute Neutrophil Count 3.8 X10^3/uL (2.0-7.7); Basophil# 0.08 X10^3/uL; Basophil% 1.4 % (0-1); Eosinophil# 0.09 X10^3/uL; Eosinophils% 1.5 % (0-5); Hematocrit 50.4 % (40-54); Hemoglobin 16.3 g/dL (13.0-16.5); Lymphocyte # 1.06 X10^3/ul (0.83-4.51); Lymphocyte % 18.2 % (19-41); Mean Corp Hgb Conc 32.3 g/dL (32-36); Mean Corpuscular Hgb 32.3 pg (27.0-32.0); Mean Platelet Vol. 9.7 fl (6.2-12.0); Monocyte# 0.75 X10^3/uL; Monocyte% 12.9 % (0-10); NRBC Flagged by Analyzer 0 % (0-5); Neutrophil # 3.82 X10^3/uL (2.7-7.7); Neutrophil % 65.8 % (47-70); Platelet Count 253 K/mm3 (150-450); RBC Distribution Width CV 13.4 % (11.6-14.6); Red Blood Count 5.04 M/mm3 (4.6-6.2); White Blood Count 5.8 K/mm3 (4.4-11.0)
[2023-01-25 17:15] LABS: Anion Gap 3 (5-15); BUN 19 mg/dL (7-18); BUN/Creat Ratio 10.5 RATIO (10-20); Calcium,Total 9.3 mg/dL (8.5-10.1); Chloride 108 mmol/L (98-107); Creatinine, Serum 1.81 mg/dL (0.70-1.30); EST Glomerular Filtration Rate 43 mL/min (>60); Est Glom Filt Rate - Afr Amer 52 mL/min (>60); Estimated Creatinine Clearance 44.36 ml/min; Glucose 94 mg/dL (74-106); Potassium 4.5 mmol/L (3.5-5.1); Sodium Level 139 mmol/L (136-145); Troponin-I HS 9 pg/mL (3.0-78.0)
[2023-01-25 17:20] VITALS: BP 139/76; PULSE 64; RESP 14; TEMP 36.6; O2SAT 97
== END 2023-01-25 17:30 | disposition home or self-care (01) ==
PROVIDERS: Emergency Provider Emergency Medicine; PCP Family Medicine; Visit Provider Emergency Medicine
DX: R07.9 Chest pain, unspecified (principal); J68.9 Unspecified respiratory condition due to chemicals, gases, fumes and vapors; J70.5 Respiratory conditions due to smoke inhalation; R09.81 Nasal congestion; Z90.49 Acquired absence of other specified parts of digestive tract; Z77.110 Contact with and (suspected) exposure to air pollution
CPT/HCPCS: 71045; 80048; 84484; 85025; 93005; 99284; A4216

== ENCOUNTER 2023-05-31 21:39 | Emergency (ER) | payer MEDICARE, MEDICAID, SELFPAY ==
[2023-05-31 21:39] VITALS: BP 181/110; PULSE 93; RESP 21; TEMP 37.1; O2SAT 93; BMI 33.5
[2023-05-31 21:47] VITALS: BP 178/98
--- NOTE | 2023-05-31 22:04 | EKG12_ITS ---
Test Reason : CP Blood Pressure : / mmHG Vent. Rate : 099 BPM Atrial Rate : 099 BPM P-R Int : 152 ms QRS Dur : 072 ms QT Int : 332 ms P-R-T Axes : 057 047 011 degrees QTc Int : 426 ms Normal sinus rhythm Normal ECG Confirmed by MARCO A ABERNATHY, NICOLAS ([id number]), purchase request editor SUKHJINDER ANDREWS ([id number]) on 06/07/2023 10:12:59 AM Referred By: PL Confirmed By:TENZIN STRICKLAND MD
--- NOTE | 2023-05-31 22:05 | ED.VIS.CHEST ---
HPI History of Present Illness Chief Complaint: Chest Pain Informant: patient and parent Narrative Narrative: Presents here with mother chest pain half hour prior to arrival. Patient playing [employer] with a friend when this started. States he has been playing all day. He denies any trauma. Denies recent cough. Mother history of cardiac bypass 5 years ago. He has no hypertension, diabetes, hyperlipidemia history no tobacco history. Currently symptoms mild. Prior Similar Symptoms: No PFSH PFSH Medical History Down's syndrome Home Medications mecobalamin (vitamin B12) 1,000 mcg chewable tablet (B12 Active) 1,000 mcg PO DAILY supplement 02/06/21 [History Last Taken 02/06/21] Allergy/AdvReac Type Severity Reaction Status Date / Time codeine Allergy Rash Verified 05/31/23 21:43 Family History Mother Heart disease Mother with history of valve replacement/repair x 3. Hypertension Diabetes Father Heart disease Diabetes Surgical History Hx of appendectomy Social History household members: other details: Patient lives alone but his mother lives right next door. Smoking Status: Never smoker alcohol intake: never substance use type: does not use ROS ROS ED Constitutional Constitutional ED: Denies chills, fever(s) or sweats Eyes Eyes: Denies change in vision ENT ENT ED: Denies dysphagia or sore throat Cardiovascular Cardiovascular: Reports chest pain; Denies leg edema, palpitations or racing heartbeat Respiratory/Chest Respiratory/Chest: Denies cough, dyspnea or dyspnea on exertion Gastrointestinal Gastrointestinal: Denies abdominal pain, diarrhea, nausea or vomiting Genitourinary Genitourinary ED: Denies dysuria, hematuria or urinary frequency Musculoskeletal Musculoskeletal: Denies back pain, extremity pain or neck pain Integumentary Denies rash or wounds Neurologic Neurologic: Denies headache(s), paresthesias or weakness EXAM Physical Exam Const Vital Signs: 05/31/23 21:39 05/31/23 21:43 05/31/23 21:47 Temperature 98.8 F Temperature Source Temporal Pulse Rate 93 Respiratory Rate 21 H Respiratory Effort Normal Non-Labored Blood Pressure 181/110 H 178/98 H Blood Pressure Mean 133 124 Pulse Ox 93 Oxygen Delivery Method Room Air 05/31/23 22:11 05/31/23 23:36 06/01/23 00:00 Temperature Temperature Source Pulse Rate 75 98 Respiratory Rate 15 14 Respiratory Effort Blood Pressure 168/89 H 171/95 H Blood Pressure Mean 115 120 Pulse Ox 96 95 Oxygen Delivery Method Room Air Room Air 06/01/23 01:00 06/01/23 01:56 Temperature Temperature Source Pulse Rate 87 Respiratory Rate 16 Respiratory Effort Blood Pressure 111/43 L 111/43 L Blood Pressure Mean 65 65 Pulse Ox 99 Oxygen Delivery Method Positive well nourished and well developed General Appearance ED: well developed and NAD HEENT Reports moist mucous membranes normocephalic and atraumatic Eyes PERRL, EOMs intact bilaterally and conjunctivae normal General Eye ED: Yes normal appearance of both eyes Neck no lymphadenopathy and supple General: Negative for tenderness Chest Wall Chest Narrative: Midsternal chest tenderness on exam reproducible, there is no rash. Chest: tenderness Resp normal respiratory effort and normal air movement Effort and Inspection: symmetric chest movement; Negative for respiratory distress Cardio regular rate, regular rhythm and no murmurs Peripheral Pulses: pulses 2+ throughout GI normal to inspection, nondistended, normoactive bowel sounds and non-tender Palpation: Negative for guarding or rebound tenderness present Back/Spine no CVA tenderness and no thoracic nor lumbar tenderness Extremity normal to inspection General Extremety ED: Negative for edema or tenderness General Extremity: Negative for edema Neuro oriented x3 and no sensory deficits noted Sensorium / Orientation: awake and alert Skin no rashes or lesions noted and no wounds MDM MDM MDM Narrative Medical decision making narrative: Interventions / MDM: Differential diagnosis: Diagnosis considered but do not suspect: N/A My EKG interpretation: Sinus rate of 99, no ST or T wave changes. Imaging independently reviewed and interpreted by myself: 2 view chest x-ray: No acute process. No pneumothorax. External documents reviewed: N/A Test considered but not ordered:N/A ED course: Patient vital stable EKG with no acute findings. Down syndrome history, mother with cardiac bypass history. He did have reproducible chest pains. However with mother's history, will perform cardiac work-up. 2315: Initial troponin normal chest x-ray negative. Reevaluation symptom-free currently no pain with palpation. Will await delta troponin result. 0100: Repeat troponin negative within the algorithm. He is symptom-free. Discharged with outpatient follow-up. Return precautions. All questions were answered. Blood pressure improved without intervention. Re-evaluation: stable Disposition discussed with patient/family/significant other: Patient and mother Case discussed with consulting clinician: N/A This note was generated with [employer] dictation software. It may contain incorrect words, spelling, and punctuation that were not noted in checking the note before signing. Lab Data Attestation: I reviewed the patient's lab results. Labs: Laboratory Results - last 24 hr 05/31/23 06/01/23 22:10 00:30 WBC 5.2 RBC 4.85 Hgb 15.5 Hct 48.7 MCV 100.4 H MCH 32.0 MCHC 31.8 L RDW Std Deviation 51.0 H RDW Coeff of Daisy 13.7 Plt Count 218 MPV 9.5 Immature Gran % (Auto) 0.400 Neut % (Auto) 64.1 Lymph % (Auto) 18.6 L Bath % (Auto) 13.1 H Eos % (Auto) 2.3 Baso % (Auto) 1.5 H Absolute Neuts (auto) 3.3 Absolute Lymphs (auto) 0.97 Nucleated RBC % 0 Sodium 142 Potassium 4.4 Chloride 108 H Carbon Dioxide 32.0 Anion Gap 2 L BUN 20 H Creatinine 1.86 H Estim Creat Clear Calc 39.94 Est GFR (MDRD) Af Amer 50 L Est GFR (MDRD) Non-Af 42 L BUN/Creatinine Ratio 10.8 Glucose 124 H Calcium 8.9 Troponin I High Sens 8 13 Radiography Diagnostic Testing: Clinical Impression(s) from Imaging Studies Chest X-Ray 05/31/23 22:53 IMPRESSION: No radiographic evidence of acute cardiopulmonary disease. Electronically Signed: Georges Hensley MD at 23:34 EST , Discharge Plan Triage Chief Complaint: Chest Pain ED Provider: Juan Martinez Dx/Rx/DC Orders Clinical Impression: History of Down syndrome, Elevated blood pressure reading, CKD (chronic kidney disease), Chest pain Instructions: ED Chest Pain, Uncertain Cause Prescriptions: No Action B12 Active 1,000 mcg Tablet,Chewable 1,000 mcg PO DAILY Primary Care Provider: Joel Scruggs Referrals: Joel Scruggs MD [Primary Care Provider] - 3-5 Days Activity Restrictions/Additional Instructions: Your cardiac work-up is negative. Chest x-ray negative. Labs notes chronic kidney disease with creatinine stable at 1.8. Blood pressure elevated on arrival proved without treatment. Follow-up with your doctor, return if any worsening or recurrent symptoms. Disposition Disposition: Home, Self Care Discharge Date/Time: 06/01/23 01:56
[2023-05-31 22:19] LABS: Absolute Lymphocyte Count 0.97 X10^3/uL (0.83-4.51); Absolute Neutrophil Count 3.3 X10^3/uL (2.0-7.7); Basophil# 0.08 X10^3/uL; Basophil% 1.5 % (0-1); Eosinophil# 0.12 X10^3/uL; Eosinophils% 2.3 % (0-5); Hematocrit 48.7 % (40-54); Hemoglobin 15.5 g/dL (13.0-16.5); Lymphocyte # 0.97 X10^3/ul (0.83-4.51); Lymphocyte % 18.6 % (19-41); Mean Corp Hgb Conc 31.8 g/dL (32-36); Mean Corpuscular Volume 100.4 fL (80-94); Mean Platelet Vol. 9.5 fl (6.2-12.0); Monocyte# 0.68 X10^3/uL; Monocyte% 13.1 % (0-10); NRBC Flagged by Analyzer 0 % (0-5); Neutrophil # 3.34 X10^3/uL (2.7-7.7); Neutrophil % 64.1 % (47-70); Platelet Count 218 K/mm3 (150-450); RBC Distribution Width CV 13.7 % (11.6-14.6); Red Blood Count 4.85 M/mm3 (4.6-6.2); White Blood Count 5.2 K/mm3 (4.4-11.0)
[2023-05-31] MEDS: Aspirin 81 MG TAB.CHEW 324 MG PO (22:36)
[2023-05-31 22:38] LABS: Anion Gap 2 (5-15); BUN 20 mg/dL (7-18); BUN/Creat Ratio 10.8 RATIO (10-20); Calcium,Total 8.9 mg/dL (8.5-10.1); Chloride 108 mmol/L (98-107); Creatinine, Serum 1.86 mg/dL (0.70-1.30); EST Glomerular Filtration Rate 42 mL/min (>60); Est Glom Filt Rate - Afr Amer 50 mL/min (>60); Estimated Creatinine Clearance 39.94 ml/min; Glucose 124 mg/dL (74-106); Potassium 4.4 mmol/L (3.5-5.1); Sodium Level 142 mmol/L (136-145); Troponin-I HS (w/2H Reflex) 8 pg/mL (3.0-78.0)
--- NOTE | 2023-05-31 22:53 | RAD_ITS ---
INDICATION: chest pain EXAMINATION/TECHNIQUE: X-RAY - XR Chest 2 Views COMPARISON: CR Chest Emre 2022 FINDINGS: LINES/DEVICES: None. LUNGS: No consolidation, edema or effusion. No pneumothorax. MEDIASTINUM AND CARDIOVASCULAR STRUCTURES: Cardiac silhouette not enlarged. Central airways and mediastinal contour are unremarkable. BONES AND SOFT TISSUES: Unremarkable. RAD/Chest PA and Lateral IMPRESSION: No radiographic evidence of acute cardiopulmonary disease. Electronically Signed: Georges Hensley MD at 23:34 EST ,
[2023-05-31 23:36] VITALS: BP 168/89; PULSE 75; RESP 15; O2SAT 96
[2023-06-01] VITALS: BP 171/95; PULSE 98; RESP 14; O2SAT 95
[2023-06-01 00:16] LABS: Reflex Troponin-HS? (from REC) Y
[2023-06-01 01:00] VITALS: BP 111/43; PULSE 87; RESP 16; O2SAT 99
[2023-06-01 01:47] LABS: Troponin-I HS 13 pg/mL (3.0-78.0)
[2023-06-01 01:56] VITALS: BP 111/43
== END 2023-06-01 01:56 | disposition home or self-care (01) ==
PROVIDERS: Emergency Provider Emergency Medicine; PCP Family Medicine; Visit Provider Emergency Medicine
DX: R07.9 Chest pain, unspecified (principal); N18.9 Chronic kidney disease, unspecified; Q90.9 Down syndrome, unspecified; Z90.49 Acquired absence of other specified parts of digestive tract
CPT/HCPCS: 71046; 80048; 84484; 85025; 93005; 99284; A4216

== ENCOUNTER 2024-10-20 10:20 | Emergency (ER) | payer MEDICARE, MEDICAID, SELFPAY ==
[2024-10-20 10:21] VITALS: BP 174/81; PULSE 102; RESP 16; TEMP 36.6; O2SAT 98; BMI 29.6
[2024-10-20 10:23] VITALS: BP 172/80; PULSE 100; RESP 16; TEMP 36.6; O2SAT 98
[2024-10-20 11:23] VITALS: BP 170/74; PULSE 96; RESP 16; TEMP 36.6; O2SAT 99
--- NOTE | 2024-10-20 11:32 | EDS_ITS ---
HPI History of Present Illness Chief Complaint: Cellulitis Informant: patient Onset/Context/Timing Onset: Weeks (1) Context: Gradual Onset Timing: Continuous Quality: Aching Location: Left elbow Worsened by: Movement Relieved by: Nothing Narrative Narrative: Patient presents with pain and swelling to his left elbow that has been getting worse over the past week. Patient was recently diagnosed with cellulitis. Patient is currently on antibiotics for that. Patient states his pain is dull. Patient states it is worse with movement. Patient denies any paresthesias or weakness. Patient denies any trauma or injury. Mother states that the arm felt warm and there was redness. Mother states the redness has improved. Mother states patient did not have any fevers or chills at home. [facility] Medical History Down's syndrome Home Medications ?Medication ?Instructions ?Recorded ?Last Taken ?Type mecobalamin (vitamin B12) 1,000 1,000 mcg PO DAILY sup plement 02/06/21 02/06/21 History mcg chewable tablet (B12 Active) Allergy/AdvReac Type Severity Reaction Status Date / Time codeine Allergy Rash Verified 10/20/24 10:21 Family History Mother Heart disease Mother with history of valve replacement/repair x 3. Hypertension Diabetes Father Heart disease Diabetes Surgical History Hx of appendectomy Social History household members: other details: Patient lives alone but his mother lives right next door. Smoking Status: Never smoker alcohol intake: never substance use type: does not use ROS ROS ED Constitutional Constitutional ED: Denies chills or fever(s) Eyes Eyes: Denies blurry vision or change in vision ENT ENT ED: Denies rhinorrhea or sore throat Cardiovascular Cardiovascular: Denies chest pain or palpitations Respiratory/Chest Respiratory/Chest: Denies cough or dyspnea Gastrointestinal Gastrointestinal: Denies nausea or vomiting Genitourinary Genitourinary ED: Denies dysuria or hematuria Musculoskeletal Musculoskeletal: Reports back pain and neck pain Integumentary Denies abscess or rash Neurologic Neurologic: Denies headache(s) or weakness Allergic/Immunologic Allergic/Immunologic ED: Denies mouth swelling or urticaria EXAM Physical Exam Const Vital Signs: 10/20/24 10:21 10/20/24 10:23 10/20/24 11:23 Temperature 97.8 F 97.8 F 98 F Temperature Source Temporal Oral Oral Pulse Rate 102 H 100 96 Respiratory Rate 16 16 16 Blood Pressure 174/81 H 172/80 H 170/74 H Blood Pressure Mean 112 110 106 Pulse Ox 98 98 99 Oxygen Delivery Method Room Air Room Air 10/20/24 12:00 10/20/24 14:00 10/20/24 14:33 Temperature 98 F 97.9 F Temperature Source Oral Pulse Rate 81 101 H 85 Respiratory Rate 16 18 17 Blood Pressure 146/88 H 103/65 103/65 Blood Pressure Mean 107 77 77 Pulse Ox 99 98 97 Oxygen Delivery Method Positive well nourished and well developed General Appearance ED: well developed and NAD HEENT Reports moist mucous membranes Neck supple and no JVD Extremity Extremity Narrative: There is tenderness over the left elbow. There is mild warmth. There is no erythema noted. Range of motion was limited in flexion extension of the left elbow. Patient is able to pronate and supinate the left forearm without pain. There is no deformity noted. Radial pulses are equal bilaterally. Strength is 5/5 in the radial, median, and ulnar areas. Sensation was intact to light touch in the radial, median, and ulnar areas. Neuro oriented x3, CN's II-XII intact bilaterally and no sensory deficits noted Sensorium / Orientation: alert Motor Exam: strength 5/5 throughout Psych mental status grossly normal MDM MDM MDM Narrative Medical decision making narrative: Differential diagnosis includes fracture, cellulitis, septic joint, and electrolyte abnormality. X-rays of the left elbow will be obtained to assess for fracture and joint effusion. CBC will be obtained to assess for leukocytosis and anemia. Basic metabolic profile will be obtained to assess for electrolyte abnormality and renal function. Sed rate and CRP will be obtained to assess for inflammatory markers. Lab Data Attestation: I reviewed the patient's lab results. Lab results narrative: CBC was reviewed and was within normal limits. Basic metabolic profile was reviewed. Creatinine was slightly elevated at 1.42. Electrolytes were within normal limits. Anion gap was normal. Sed rate was reviewed and was normal at 20. CRP was reviewed and was mildly elevated at 50.5. Labs: Laboratory Results - last 24 hr 10/20/24 12:12 WBC 5.6 RBC 4.70 Hgb 15.5 Hct 46.4 MCV 98.7 H MCH 33.0 H MCHC 33.4 RDW Std Deviation 53.6 H RDW Coeff of Daisy 14.8 H Plt Count 295 MPV 9.9 Immature Gran % (Auto) 0.400 Neut % (Auto) 73.4 H Lymph % (Auto) 12.1 L [place]ie % (Auto) 10.7 H Eos % (Auto) 1.8 Baso % (Auto) 1.6 H Absolute Neuts (auto) 4.1 Absolute Lymphs (auto) 0.68 L Nucleated RBC % 0 ESR 20 Sodium 138 Potassium 4.2 Chloride 103 Carbon Dioxide 23.0 Anion Gap 12 BUN 16 Creatinine 1.42 H Estim Creat Clear Calc 66.54 Est GFR (MDRD) Non-Af 61 BUN/Creatinine Ratio 11.1 Glucose 118 H Calcium 9.7 C-React Prot Ext Range 50.50 H Radiography Diagnostic Testing: Clinical Impression(s) from Imaging Studies Elbow X-Ray 10/20/24 12:35 IMPRESSION: 1. Soft tissue swelling without acute fracture. 2. No obvious radiographic evidence of osteomyelitis. However, if clinical suspicion remains high, further evaluation with 3 phase bone scan or MRI is recommended. 3. If symptoms persist, further evaluation with CT is recommended. Reading Location: [facility] X-rays of the left elbow were obtained. There are 3 views. On my independent interpretation, there is no acute fracture. There is no evidence of osteomyelitis. There is no joint effusion noted. Radiologist also interpreted the x-rays and agrees. Treatment and Re-Evaluation :: Patient was feeling better on reevaluation. Patient's range of motion was improved on reevaluation. Patient was instructed to follow-up with his primary care physician in 5 to 7 days. Patient was instructed to continue the doxycycline as prescribed. Patient understood and was agreeable with the plan. All questions were answered. Discharge Plan Triage Chief Complaint: Cellulitis ED Provider: Dax Sanabria Dx/Rx/DC Orders Clinical Impression: Cellulitis of left elbow, Down's syndrome Instructions: ED Cellulitis Prescriptions: No Action B12 Active 1,000 mcg Tablet,Chewable 1,000 mcg PO DAILY Primary Care Provider: Joel Scruggs Referrals: Joel Scruggs MD [Primary Care Provider] - 5-7 Days Print Language: [place] Disposition Disposition: [facility]op[facility] Discharge Date/Time: 10/20/24 15:12
[2024-10-20 12:00] VITALS: BP 146/88; PULSE 81; RESP 16; TEMP 36.6; O2SAT 99
[2024-10-20 12:29] LABS: Erythrocyte Sedimentation Rate 20 mm/hr (0-20)
--- NOTE | 2024-10-20 12:35 | RAD_ITS ---
EXAM: XR Left Elbow Complete, 3 or More Views CLINICAL INDICATION: INJURY/PAIN TECHNIQUE: Frontal, lateral and oblique views of the left elbow. COMPARISON: No relevant prior studies available. FINDINGS: BONES/JOINTS: No obvious radiographic evidence of osteomyelitis. However, if clinical suspicion remains high, further evaluation with 3 phase bone scan or MRI is recommended. No erosive changes to the osseous structures. SOFT TISSUES: Soft tissue swelling. Soft tissue swelling without acute fracture. RAD/Elbow min 3 Views IMPRESSION: 1. Soft tissue swelling without acute fracture. 2. No obvious radiographic evidence of osteomyelitis. However, if clinical pedro luis picion remains high, further evaluation with 3 phase bone scan or MRI is recommended. 3. If symptoms persist, further evaluation with CT is recommended. Reading Location: [facility]
[2024-10-20 12:36] LABS: Absolute Lymphocyte Count 0.68 X10^3/uL (0.83-4.51); Absolute Neutrophil Count 4.1 X10^3/uL (2.0-7.7); Basophil# 0.09 X10^3/uL; Basophil% 1.6 % (0-1); Eosinophils% 1.8 % (0-5); Hematocrit 46.4 % (40-54); Hemoglobin 15.5 g/dL (13.0-16.5); Lymphocyte # 0.68 X10^3/ul (0.83-4.51); Lymphocyte % 12.1 % (19-41); Mean Corp Hgb Conc 33.4 g/dL (32-36); Mean Corpuscular Volume 98.7 fL (80-94); Mean Platelet Vol. 9.9 fl (6.2-12.0); Monocyte% 10.7 % (0-10); NRBC Flagged by Analyzer 0 % (0-5); Neutrophil # 4.13 X10^3/uL (2.7-7.7); Neutrophil % 73.4 % (47-70); Platelet Count 295 K/mm3 (150-450); RBC Distribution Width CV 14.8 % (11.6-14.6); RBC Distribution Width SD 53.6 fl (35.1-43.9); White Blood Count 5.6 K/mm3 (4.4-11.0)
[2024-10-20 13:00] LABS: Anion Gap 12 (5-15); BUN 16 mg/dL (4-19); BUN/Creat Ratio 11.1 RATIO (10-20); Calcium,Total 9.7 mg/dL (7.6-11.0); Chloride 103 mmol/L (98-108); Creatinine, Serum 1.42 mg/dL (0.70-1.20); EST Glomerular Filtration Rate 61 (>60); Estimated Creatinine Clearance 66.54 ml/min (50-250); Glucose 118 mg/dL (70-99); Potassium 4.2 mmol/L (3.3-5.1); Sodium Level 138 mmol/L (133-145)
[2024-10-20 14:00] VITALS: BP 103/65; PULSE 101; RESP 18; O2SAT 98
--- NOTE | 2024-10-20 14:23 | ED.RN ---
PT MOTHER VERY RUDE TO THIS RN REGARDING THE FACT THAT PT HAS BEEN WAITING. THIS RN ATTEMPTED TO INFORM PT THAT THE EMERGENCY ROOM WAS VERY BUSY AND THEY WERE JUST WAITING FOR DR TO BE ABLE TO LOOK AT THE RESULTS.THIS RN AGAIN APOLOGIZED. PT MOTHER STATES WHATEVER,JUST GO AWAY.
[2024-10-20 14:33] VITALS: BP 103/65; PULSE 85; RESP 17; TEMP 36.6; O2SAT 97
== END 2024-10-20 15:12 | disposition left against medical advice (07) ==
PROVIDERS: Emergency Provider Emergency Medicine; PCP Family Medicine; Referring Provider Emergency Medicine; Visit Provider Emergency Medicine
DX: L03.114 Cellulitis of left upper limb (principal); Q90.9 Down syndrome, unspecified
CPT/HCPCS: 73080; 80048; 85025; 85652; 86140; 99282; A4216

== ENCOUNTER 2024-12-31 10:28 | Emergency (ER) | payer MEDICARE, MEDICAID, SELFPAY ==
[2024-12-31 10:29] VITALS: BP 160/87; PULSE 81; RESP 16; TEMP 36.6; O2SAT 97; BMI 29.7
--- NOTE | 2024-12-31 10:48 | CT_ITS ---
PROCEDURE: ABDOMEN/PELVIS WITHOUT CONT 12/31/2024 REASON FOR EXAM: PAIN TECHNIQUE: Abdomen and pelvis CT without intravenous contrast. Noncontrast technique limits evaluation of the abdominal and pelvic viscera. Coronal and Sagittal reconstruction series were provided. One or more dose reduction techniques were used (e.g., Automated exposure control, adjustment of the mA and/or kV according to patient size, use of iterative reconstruction technique). PATIENT PREPARATION: Per protocol ORAL CONTRAST TYPE: None. COMPARISON: None FINDINGS: Lung bases: Unremarkable Liver: Hepatomegaly, craniocaudal length 21.2 cm. Diffuse steatosis. No focal lesion. Gallbladder: No ductal dilation. No cholelithiasis or wall thickening. Spleen: Normal size. Pancreas: Normal size. No surrounding inflammation. Adrenals: Unremarkable Kidneys: 28 mm left interpolar region simple cysts. No calculi or hydronephrosis. Bladder: Urinary bladder is unremarkable. Reproductive Organs: No pelvic mass. Bowel: Stomach is unremarkable. No bowel dilation or wall thickening. Moderate colonic stool. Appendix: The appendix is not identified. There is no inflammatory process identified in the right lower quadrant to suggest appendicitis. Lymph nodes: No suspicious lymph node enlargement. Vasculature: The abdominal aorta and IVC contours are normal. Noncontrast technique limits evaluation. Peritoneum / Retroperitoneum: No pneumoperitoneum. No ascites. Bones: Moderate scoliosis. Mild-moderate multilevel degenerative changes of the lumbar spine. Severe degenerative changes left hip. Soft tissue: Small fat containing umbilical hernia. CT/Abdomen/Pelvis without Cont IMPRESSION: 1. No acute findings in the abdomen and pelvis. 2. Hepatomegaly and diffuse steatosis. Reading Location: [facility]
--- NOTE | 2024-12-31 10:49 | EX.ED.DYSGE1 ---
HPI History of Present Illness Chief Complaint: Flank Pain Informant: patient and parent Narrative Narrative: Patient is a 49-year-old male with history of Down syndrome, CKD 3 and prior appendectomy presenting with mother for right flank pain. Been going on for couple days. No radiation reported nausea, vomiting, diarrhea, appetite changes, fever or chills. Mother states the pain seems to be worse with walking/movement. No trauma or injury reported. Not clear if the pain radiates. Patient does state that there is a small amount of discomfort with urination. Denies any change with eating. Mother states he has had his normal appetite and eating the same. No report of any change with urine color or consistency but mother does note that she does not check. She states he has regular bowel movements with no change in that. No known history of kidney stones. Initially went to urgent care but directed to come to the ER. Did not have anything for pain today. No other complaints or concerns reported at this time. [facility] Medical History (Updated 12/31/24 @ 12:[address] Lyubov Allen DO) Down's syndrome Home Medications ?Medication ?Instructions ?Recorded ?Last Taken ?Type mecobalamin (vitamin B12) 1,000 1,000 mcg PO DAILY supplement 02/06/21 02/06/21 History mcg chewable tablet (B12 Active) Allergy/AdvReac Type Severity Reaction Status Date / Time codeine Allergy Rash Verified 12/31/24 10:29 Family History Mother Heart disease Mother with history of valve replacement/repair x 3. Hypertension Diabetes Father Heart disease Diabetes Surgical History (Updated 12/31/24 @ 11:09 by Alannah Begum) History of tonsillectomy and adenoidectomy Hx of appendectomy Social History (Updated 12/31/24 @ 11:09 by Alannah Begum) household members: other details: Patient lives alone but his mother lives right next door. current occupational status: disabled Smoking Status: Never smoker alcohol intake: never substance use type: does not use ROS ROS ED Constitutional Constitutional ED: Denies chills or fever(s) Cardiovascular Cardiovascular: Denies chest pain Respiratory/Chest Respiratory/Chest: Denies cough or dyspnea Gastrointestinal Gastrointestinal: Reports other Details: Right flank pain ; Denies constipation, diarrhea, nausea or vomiting Genitourinary Genitourinary ED: Reports dysuria; Denies hematuria Musculoskeletal Musculoskeletal: Denies back pain Integumentary Denies rash Neurologic Neurologic: Denies weakness Hematologic/Lymphatic Hematologic/Lymphatic: Denies easy bleeding or easy bruising EXAM Physical Exam Const Vital Signs: 12/31/24 10:29 Temperature 97.9 F Temperature Source Oral Pulse Rate 81 Respiratory Rate 16 Blood Pressure 160/87 H Blood Pressure Mean 111 Pulse Ox 97 Oxygen Delivery Method Room Air Positive well nourished and well developed General Appearance ED: well developed and NAD HEENT Reports moist mucous membranes Eyes PERRL Neck supple Chest Wall inspection of chest normal Chest Narrative: No chest wall crepitus. Patient is tenderness to palpation of the right lower ribs around the mid axillary line. Resp normal respiratory effort and clear to auscultation bilaterally Cardio regular rate and regular rhythm GI GI Narrative: Mild tenderness in the right upper quadrant. Protuberant abdomen present. Hypoactive bowel sounds. No rebound tenderness or peritoneal signs present. Back/Spine no CVA tenderness Neuro Neuro Narrative: Patient is at his baseline per mother. No focal deficits appreciated Sensorium / Orientation: alert Motor Exam: Negative for general weakness Psych mental status grossly normal Skin no rashes or lesions noted and no wounds MDM MDM MDM Narrative Medical decision making narrative: Patient presents with right flank pain for the past few days. Pain is reproducible with palpation over the ribs. Differential includes is not limited to rib contusion, rib fracture, shingles (lower suspicion given no overlying rash), renal colic, pyelonephritis a lower suspicion for biliary colic/pancreatitis. Patient given Tylenol and Lidoderm patch in the emergency room. Vital signs are significant for mildly elevated blood pressure otherwise normal. CBC shows mild elevation of his hemoglobin up otherwise normal. CMP largely normal. He has elevation of his creatinine but is at his baseline and consistent with his history of CKD 3. Urinalysis shows 15 protein otherwise normal and not consistent with infection. CT flank study obtained which is largely normal. No rib fractures, obstructing kidney stones or other acute processes seen. Visualized gallbladder is normal. At this time suspect his pain is muscle skeletal. Will treat supportively with Lidoderm patches and Tylenol. Given return precautions. Courage follow-up with primary care doctor. Counseled on using a heating pad. Mother is comfortable plan of care. Discharged home in stable condition peer Lab Data Attestation: I reviewed the patient's lab results. Labs: Laboratory Results - last 24 hr 12/31/24 12/31/24 11:01 11:10 WBC 5.0 RBC 5.24 Hgb 17.3 H Hct 52.5 MCV 100.2 H MCH 33.0 H MCHC 33.0 RDW Std Deviation 55.1 H RDW Coeff of Daisy 14.6 Plt Count 247 MPV 9.7 Immature Gran % (Auto) 0.200 Neut % (Auto) 63.9 Lymph % (Auto) 21.1 [place] % (Auto) 11.8 H Eos % (Auto) 1.4 Baso % (Auto) 1.6 H Absolute Neuts (auto) 3.2 Absolute Lymphs (auto) 1.05 Nucleated RBC % 0 Sodium 140 Potassium 4.1 Chloride 102 Carbon Dioxide 26.7 Anion Gap 11 BUN 15 Creatinine 1.49 H Estim Creat Clear Calc 63.57 Est GFR (MDRD) Non-Af 58 L BUN/Creatinine Ratio 9.9 L Glucose 103 H Calcium 9.7 Total Bilirubin 0.47 Direct Bilirubin 0.20 AST 45 H ALT 42 Alkaline Phosphatase 105 Total Protein 8.6 H Albumin 4.2 Globulin 4.4 H Lipase 44 Urine Color Yellow Urine Clarity Clear Urine pH 6.0 Ur Specific [place] 1.015 Urine Protein 15 H Urine Glucose (UA) Normal Urine Ketones Negative Urine Occult Blood Negative Urine Nitrite Negative Urine Bilirubin Negative Urine Urobilinogen Normal Ur Leukocyte Esterase Negative Urine RBC 0 SEEN Urine WBC 0-5 SEEN Ur Squamous Epith Cells 0 SEEN Urine Bacteria 0 SEEN Urine Mucus 0 SEEN Radiography Diagnostic Testing: Clinical Impression(s) from Imaging Studies Abdomen/Pelvis CT 12/31/24 10:48 IMPRESSION: 1. No acute findings in the abdomen and pelvis. 2. Hepatomegaly and diffuse steatosis. Reading Location: [facility] Discharge Plan Triage Chief Complaint: Flank Pain ED Provider: Lyubov Allen Dx/Rx/DC Orders Clinical Impression: Acute right flank pain Instructions: ED Flank Pain, Uncertain Cause Prescriptions: No Action B12 Active 1,000 mcg Tablet,Chewable 1,000 mcg PO DAILY Primary Care Provider: Joel Scruggs Referrals: Joel Scruggs MD [Primary Care Provider] - Activity Restrictions/Additional Instructions: Continue to give 650 mg of Tylenol every 6 hours as needed for pain. I recommend using a Lidoderm patch to the area if he finds it helpful. He can use [id number] 4% exercise Salonpas. Follow box directions. Follow-up with family doctor. I do recommend heat and gentle stretching. I suspect at this time the pain is more musculoskeletal. I do not see any findings consistent with kidney stone, kidney infection or gallbladder pathology. If the symptoms worsen or start to correlate with food please return to the emergency room for repeat evaluation. Print Language: Persian Disposition Disposition: Home, Self Care
[2024-12-31 11:05] LABS: Bacteria 0 SEEN /hpf (None Seen); Mucous, Urine 0 SEEN /hpf (<or=2+); Red Blood Cells-Urine 0 SEEN /hpf (0-5); Squamous Epithelial Cells - UA 0 SEEN /hpf (0-5)
[2024-12-31 11:11] LABS: Color, Urine Yellow (Yellow); Glucose, Dipstick Normal (Normal); Ketone-Dipstick Negative (Negative); Leukocyte Esterase-Dipstick Negative /ul (Negative); Nitrite-Dipstick Negative (Negative); Occult Blood-Urine Negative /ul (Negative); Protein-Dipstick 15 mg/dl (Negative); Specific Gravity, Urine 1.015 (1.002-1.030); Urine Bilirubin Dipstick Negative (Negative); Urine Clarity Clear (Clear); Urine Urobilinogen Normal (Normal)
--- OUTSIDE RECORDS SUMMARY | 2024-12-31 11:15 | XMS RPT_ITS | CCD ---
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 Erythrocyte distribution width (RBC) [Ratio] 14.8 % High 11.6-14.6 [facility] Comment on above: Performed By: #### L 100.0100, L101.9900, L501.6710, L500.2500 #### [facility] [address] [place], [address] Hematocrit (Bld) [Volume fraction] 46.4 % Normal 40-54 [facility] Comment on above: Performed By: #### L 100.0100, L101.9900, L501.6710, L500.2500 #### [facility] [address] [place], [address] Hemoglobin (Bld) [Mass/Vol] 15.5 g/dL Normal 13.0-16.5 [facility] Comment on above: Performed By: #### L 100.0100, L101.9900, L501.6710, L500.2500 #### [facility] [address] [place], [address] IG% 0.400 Normal 0.0-0.9 [facility] Comment on above: Result Comment: IG% - Immature Granulocytes (promyelocytes, myelocytes and metamyelocytes) > 1% indicates that a LEFT SHIFT is Present. Performed By: #### L 100.0100, L101.9900, L501.6710, L500.2500 #### [facility] [address] [place], [address] Lymphocytes/100 WBC (Bld) 12.1 % Low 19-41 [facility] Comment on above: Performed By: #### L 100.0100, L101.9900, L501.6710, L500.2500 #### [facility] [address] [place], [address] MCH (RBC) [Entitic mass] 33.0 pg High 27.0-32.0 [facility] Comment on above: Performed By: #### L 100.0100, L101.9900, L501.6710, L500.2500 #### [facility] [address] [place], [address] MCHC (RBC) [Mass/Vol] 33.4 g/dL Normal 32-36 [facility] Comment on above: Performed By: #### L 100.0100, L101.9900, L501.6710, L500.2500 #### [facility] [address] [place], [address] MCV (RBC) [Entitic vol] 98.7 fL High 80-94 [facility] Comment on above: Performed By: #### L 100.0100, L101.9900, L501.6710, L500.2500 #### [facility] [address] [place], [address] Monocytes/100 WBC (Bld) 10.7 % High 0-10 [facility] Comment on above: Performed By: #### L 100.0100, L101.9900, L501.6710, L500.2500 #### [facility] [address] [place], [address] Neutrophils/100 WBC (Bld) 73.4 % High 47-70 [facility] Comment on above: Performed By: #### L 100.0100, L101.9900, L501.6710, L500.2500 #### [facility] [address] [place], [address] Nucleated RBC (Bld) [#/Vol] 0 10*3/uL Normal 0-5 [facility] Comment on above: Performed By: #### L 100.0100, L101.9900, L501.6710, L500.2500 #### [facility] [address] [place], [address] Platelet mean volume (Bld) [Entitic vol] 9.9 fL Normal 6.2-12.0 [facility] Comment on above: Performed By: #### L 100.0100, L101.9900, L501.6710, L500.2500 #### [facility] [address] [place], [address] Platelets (Bld) [#/Vol] 295 10*3/uL Normal 150-450 [facility] Comment on above: Performed By: #### L 100.0100, L101.9900, L501.6710, L500.2500 #### [facility] [address] [place], [address] RBC (Bld) [#/Vol] 4.70 10*6/uL Normal 4.6-6.2 [facility] Comment on above: Performed By: #### L 100.0100, L101.9900, L501.6710, L500.2500 #### [facility] [address] [place], [address] RDW SD 53.6 fl High 35.1-43.9 [facility] Comment on above: Performed By: #### L 100.0100, L101.9900, L501.6710, L500.2500 #### [facility] [address] [place], [address] WBC (Bld) [#/Vol] 5.6 10*3/uL Normal 4.4-11.0 [facility] Comment on above: Performed By: #### L 100.0100, L101.9900, L501.6710, L500.2500 #### [facility] [address] [place], [address] [facility] Telephone (FAMPWS) BRANDEN LOONEY ([id number]) 1975 M Date Time Provider Department 10/20/24 [facility] During your visit today, we recorded the following information about you: Tracie Christopher RN 10/20/2024 9:21 AM Signed Patient's Mother calls and states that patient's arm continues to be swollen. Mother states that swelling is now at top of hand and fingers. Mother states that arm is not as red. Mother worried that the swelling is not going down and is asking how long is the swelling going to last? Patient scheduled today to see Jennifer for cellulitis follow up. Please review and advise, DRAKE Ribeiro Jacqueline A, APRN.[facility] 10/20/2024 9:35 AM Signed Patient needs to go to the emergency room. If our outpatient treatment is not helping, he must go to the emergency room and may need IV antibiotics. Katelynn Bradford LPN 10/20/2024 9:48 AM Signed Telephone call placed to mother, made aware of providers message. Will take patient to ER. Katelynn Bradford LPN Allergies As of Date: 10/20/2024 Noted Allergy Reaction AMOXICILLIN 04/06/2020 2 - Rash Comments: Drug rash when taking amoxicillin and tylenol with codeine TYLENOL-CODEINE #3 (ACETAMINOPHEN*04/06 2 - Rash Comments: Drug rash when taking amoxicillin and tylenol with codeine Date Reviewed: 10/16/2024 Reviewed by: Caro Rosas MA - Fully Assessed Reason for Visit: Patient Update [1234] Prescriptions as of 10/20/2024 - doxycycline hyclate (VIBRAMYCIN) 100 mg capsule Take 1 capsule by mouth once daily for 10 days. - colchicine 0.6 mg tablet Take 2 tablets x1 then 1 tablet 1 hour later. Repeat in 3 days if needed. - allopurinol (ZYLOPRIM) 300 mg tablet Take 1 tablet by mouth once daily. For gout. - ketoconazole (NIZORAL) 2 % shampoo Use as shampoo 3-4 days/week; leave lather on scalp for 5 minutes prior to rinsing - Cholecalciferol, Vitamin D3, 125 mcg (5,000 unit) cap Take 1 capsule by mouth once daily. - diclofenac sodium (VOLTAREN) 1 % topical gel Apply 4 g to affected area four times daily. - CYANOCOBALAMIN, VITAMIN B-12, (LIQUID B 12 ORAL) Take 1 Dose by mouth once daily. Meds Comments as of 09/14/2017: Liquid Tylenol as needed Taking Prednisone, Proair inhaler at this time for bronchitis 09/14/2017 nw Problem List As Of Date 10/20/2024 Noted Resolved TRISOMY 21 (DOWN SYNDROME) [Q90.9] 10/21/2006 Rash and Nonspecific Skin Eruption [R21] 08/29/2009 Right knee pain [M25.561] 08/17/2013 07/31/2014 Osteochondritis dissecans of knee [M93.269] 07/31/2014 Knee pain [M25.569] Renal cyst [N28.1] 10/05/2014 Renal insufficiency [N28.9] Stage 3 chronic kidney disease (HCC) [N18.30] 01/27/2018 Seborrheic dermatitis [L21.9] 01/31/2020 Vitamin D deficiency [E55.9] 01/31/2020 Encounter Status:Closed by KATELYNN BRADFORD on 10/20/[address] [facility] CRPon 10-20-2024 C-REACTIVE PROT 50.50 mg/L High 0.0-3.0 [facility] Comment on above: Performed By: #### L 100.0100, L101.9900, L501.6710, L500.2500 #### [facility] [address] [place], [address] CRP [Mass/Vol]Ordered By: Karthik Sanabria on 10-20-2024 C-Reactive Protein Extended Range 50.50 mg/L High 0.0-3.0 [facility] Carbon dioxide, total [Moles /volume] in Central venous bloodOrdered By: Dax Sanabria on 10-20-2024 CO2 [Moles/Vol] 23.0 mmol/L Normal 21.0-32.0 [facility] Comment on above: Performed By: #### L 100.0100, L101.9900, L501.6710, L500.2500 #### [facility] [address] [place], [address] Chloride assayOrdered By: Karthik Sanabria on 10-20-2024 Chloride [Moles/Vol] 103 mmol/L Normal 98-108 [facility] Comment on above: Performed By: #### L 100.0100, L101.9900, L501.6710, L500.2500 #### [facility] [address] [place], [address] Elbow min 3 Viewson 10-21-19 Elbow min 3 Views [facility] Imaging Services [address] [place] [address] Elbow min 3 Views MR#: [id number] Acct: [id number] Name: BRANDEN LOONEY Rep #: [id number] : 1975 M 49 From: Markos Martinez MD PCP: Dr. Markos June MD Status: REG ER Study: Elbow min 3 Views Date of Exam: 10/20/24 Exam# [id number] Ordering Dr: Dax Sanabria DO EXAM: XR Left Elbow Complete, 3 or More Views CLINICAL INDICATION: INJURY/PAIN TECHNIQUE: Frontal, lateral and oblique views of the left elbow. COMPARISON: No relevant prior studies available. FINDINGS: BONES/JOINTS: No obvious radiographic evidence of osteomyelitis. However, if clinical suspicion remains high, further evaluation with 3 phase bone scan or MRI is recommended. No erosive changes to the osseous structures. SOFT TISSUES: Soft tissue swelling. Soft tissue swelling without acute fracture. RAD/Elbow min 3 Views IMPRESSION: 1. Soft tissue swelling without acute fracture. 2. No obvious radiographic evidence of osteomyelitis. However, if clinical suspicion remains high, further evaluation with 3 phase bone scan or MRI is recommended. 3. If symptoms persist, further evaluation with CT is recommended. Reading [facility] CC: Dr. Dax Sanabria DO; Dr. Markos June MD Jack Tamp Operator: Signed Normal [facility] Emergency Department Summary on 10-20-2024 Emergency Department Summary [facility] Medical Records Department [address] [place] [address] Emergency Department Summary 10/20/24 MR#: [id number] Acct: [id number] Name: BRANDEN LOONEY Rep #: [id number] : 1975 49 From: Dax Sanabria DO PCP: Dr. Markos June MD Status:DEP ER Location: ED HPI History of Present Illness Chief Complaint: Cellulitis Informant: patient Onset/Context/Timing Onset: Weeks (1) Context: Gradual Onset Timing: Continuous Quality: Aching Location: Left elbow Worsened by: Movement Relieved by: Nothing Narrative Narrative: Patient presents with pain and swelling to his left elbow that has been getting worse over the past week. Patient was recently diagnosed with cellulitis. Patient is currently on antibiotics for that. Patient states his pain is dull. Patient states it is worse with movement. Patient denies any paresthesias or weakness. Patient denies any trauma or injury. Mother states that the arm felt warm and there was redness. Mother states the redness has improved. Mother states patient did not have any fevers or chills at home. [facility] Medical History Down's syndrome Home Medications ???Medication ???Instructions ???Recorded ???Last Taken ???Type mecobalamin (vitamin B12) 1,000 1,000 mcg PO DAILY supplement 01/2302/06/21 History mcg chewable tablet (B12 Active) Allergy/AdvReac Type Severity Reaction Status Date / Time codeine Allergy Rash Verified 10/20/24 10:21 Family History Mother Heart disease Mother with history of valve replacement/repair x 3. Hypertension Diabetes Father Heart disease Diabetes Surgical History Hx of appendectomy Social History household members: other details: Patient lives alone but his mother lives right next door. Smoking Status: Never smoker alcohol intake: never substance use type: does not use ROS ROS ED Constitutional Constitutional ED: Denies chills or fever(s) Eyes Eyes: Denies blurry vision or change in vision ENT ENT ED: Denies rhinorrhea or sore throat Cardiovascular Cardiovascular: Denies chest pain or palpitations Respiratory/Chest Respiratory/Chest: Denies cough or dyspnea Gastrointestinal Gastrointestinal: Denies nausea or vomiting Genitourinary Genitourinary ED: Denies dysuria or hematuria Musculoskeletal Musculoskeletal: Reports back pain and neck pain Integumentary Denies abscess or rash Neurologic Neurologic: Denies headache(s) or weakness Allergic/Immunologic Allergic/Immunologic ED: Denies mouth swelling or urticaria EXAM Physical Exam Const Vital Signs: 10/20/24 10:21 10/20/24 10:23 10/20/24 11:23 Temperature 97.8 F 97.8 F 98 F Temperature Source Temporal Oral Oral Pulse Rate 102 H 100 96 Respiratory Rate 16 16 16 Blood Pressure 174/81 H 172/80 H 170/74 H Blood Pressure Mean 112 110 106 Pulse Ox 98 98 99 Oxygen Delivery Method Room Air Room Air 10/20/24 12:00 10/20/24 14:00 10/20/24 14:33 Temperature 98 F 97.9 F Temperature Source Oral Pulse Rate 81 101 H 85 Respiratory Rate 16 18 17 Blood Pressure 146/88 H 103/65 103/65 Blood Pressure Mean 107 77 77 Pulse Ox 99 98 97 Oxygen Delivery Method Positive well nourished and well developed General Appearance ED: well developed and NAD HEENT Reports moist mucous membranes Neck supple and no JVD Extremity Extremity Narrative: There is tenderness over the left elbow. There is mild warmth. There is no erythema noted. Range of motion was limited in flexion extension of the left elbow. Patient is able to pronate and supinate the left forearm without pain. There is no deformity noted. Radial pulses are equal bilaterally. Strength is 5/5 in the radial, median, and ulnar areas. Sensation was intact to light touch in the radial, median, and ulnar areas. Neuro oriented x3, CN's II-XII intact bilaterally and no sensory deficits noted Sensorium / Orientation: alert Motor Exam: strength 5/5 throughout Psych mental status grossly normal MDM MDM MDM Narrative Medical decision making narrative: Differential diagnosis includes fracture, cellulitis, septic joint, and electrolyte abnormality. X- rays of the left elbow will be obtained to assess for fracture and joint effusion. CBC will be obtained to assess for leukocytosis and anemia. Basic metabolic profile will be obtained to assess for electrolyte abnormality and renal function. Sed rate and CRP will be obtained to assess for inflammatory markers. Lab Data Attestation: I reviewed the patient's lab results. Lab results narrative: (more content not included)... Normal [facility] Eosinophil percentageOrdered By: Dax Sanabria on 10-20-2024 Eosinophils/100 WBC (Bld) 1.8 % 0-5 [facility] Erythrocyte Sed Rateon 10-20 SED RATE 20 mm/hr Normal 0-20 [facility] Comment on above: Performed By: #### L 100.0100, L101.9900, L501.6710, L500.2500 #### [facility] [address] [place], [place] [address]all [facility]. [place], [place], [id number] Erythrocyte distribution wid th ratioOrdered By: Dax Sanabria on 10-20-2024 Erythrocyte distribution width (RBC) [Ratio] 14.8 % High 11.6-14.6 [facility] Erythrocyte distribution wid th standard deviationOrdered By: Dax Sanabria on 10-20-2024 Erythrocyte distribution width (RBC) [Entitic vol] 53.6 fL High 35.1-43.9 [facility] Erythrocyte sedimentation ra teOrdered By: Dax Sanabria on 10-20-2024 ESR (Bld) [Velocity] 20 mm/h 0-20 [facility] Estimation of creatinine felipe aranceOrdered By: Dax Sanabria on 10-20-2024 Estimated Creatinine Clearance Calc 66.54 ml/min 50-250 [facility] GFR/1.73 sq M.predicted viviane g non-blacks MDRD (S/P/Bld) [Vol rate/Area]Ordered By: Dax Sanabria on 10-20-2024 Estimated GFR (MDRD) Non-Af Amer 61 >60 [facility] Comment on above: mL/min/1.73m2 CKD-EP I Creatinine Equation (2020) Hematocrit Auto (Bld) [Volum e fraction]Ordered By: Dax Sanabria on 10-20-2024 Hematocrit (Bld) [Volume fraction] 46.4 % 40-54 [facility] Hemoglobin measurementOrdere d By: Dax Sanabria on 10-20-2024 Hemoglobin (Bld) [Mass/Vol] 15.5 g/dL 13.0-16.5 [facility] Immature granulocytes/100 WB C Auto (Bld)Ordered By: Dax Sanabria on 10-20-2024 Immature granulocytes/100 WBC (Bld) 0.400 % 0.0-0.9 [facility] Comment on above: IG% - Immature Granu locytes (promyelocytes, myelocytes and metamyelocytes) > 1% indicates that a LEFT SHIFT is Present. Lymphocytes Auto (Unsp spec) [#/Vol]Ordered By: Dax Sanabria on 10-20-2024 Lymphocytes (Bld) [#/Vol] 0.68 10*3/uL Low 0.83-4.51 [facility] Lymphocytes/100 WBC Auto (Un sp spec)Ordered By: Dax Sanabria on 10-20-2024 Lymphocytes/100 WBC (Bld) 12.1 % Low 19-41 [facility] MCV (mean corpuscular volume ) determinationOrdered By: Dax Sanabria on 10-20-2024 MCV (RBC) [Entitic vol] 98.7 fL High 80-94 [facility] Mean corpuscular hemoglobin (MCH) determinationOrdered By: Dax Sanabria on 10-20-2024 MCH (RBC) [Entitic mass] 33.0 pg High 27.0-32.0 [facility] Mean corpuscular hemoglobin concentration (MCHC) determinationOrdered By: Dax Sanabria on 10-20-2024 MCHC (RBC) [Mass/Vol] 33.4 g/dL 32-36 [facility] Mean platelet volume determi nationOrdered By: Daxdarrel Sanabria on 10-20-2024 Platelet mean volume (Bld) [Entitic vol] 9.9 fL 6.2-12.0 [facility] Monocyte percentageOrdered B y: Dax Sanabrai on 10-20-2024 Monocytes/100 WBC (Bld) 10.7 % High 0-10 [facility] Neutrophil percentageOrdered By: Dax Sanabria on 10-20-2024 Neutrophils/100 WBC (Bld) 73.4 % High 47-70 [facility] Nucleated red blood cell per centageOrdered By: Dax Sanabria on 10-20-2024 Nucleated RBC/100 WBC (Bld) [Ratio] 0 % 0-5 [facility] Platelet countOrdered By: Karthik Sanabria on 10-20-2024 Platelets (Bld) [#/Vol] 295 10*3/uL 150-450 [facility] Potassium measurement (mass/ volume)Ordered By: Dax Sanabria on 10-20-2024 Potassium [Moles/Vol] 4.2 mmol/L Normal 3.3-5.1 [facility] Comment on above: Performed By: #### L 100.0100, L101.9900, L501.6710, L500.2500 #### [facility] [address] [place], [place], [id number] RBC Auto (Bld) [#/Vol]Ordere d By: Dax Sanabria on 10-20-2024 RBC (Bld) [#/Vol] 4.70 10*6/uL 4.6-6.2 [facility] Serum creatinine measurement (mass/volume)Ordered By: Dax Sanabria on 10-20-2024 Creatinine [Mass/Vol] 1.42 mg/dL High 0.70-1.20 [facility] Comment on above: Performed By: #### L 100.0100, L101.9900, L501.6710, L500.2500 #### [facility] [address] [facility] [place], [address] Serum glucose measurement (m ass/volume)Ordered By: Dax Sanabria on 10-20-2024 Glucose [Mass/Vol] 118 mg/dL High 70-99 [facility] Comment on above: Performed By: #### L 100.0100, L101.9900, L501.6710, L500.2500 #### [facility] [address] [place], [address] Serum or plasma calcium shania urement (mass/volume)Ordered By: Dax Sanabria on 10-20-2024 Calcium [Mass/Vol] 9.7 mg/dL Normal 7.6-11.0 [facility] Comment on above: Performed By: #### L 100.0100, L101.9900, L501.6710, L500.2500 #### [facility] [address] [place], [address] Serum or plasma urea nitroge n measurement (mass/volume)Ordered By: Dax Sanabria on 10-20-2024 Urea nitrogen [Mass/Vol] 16 mg/dL Normal 4-19 [facility] Comment on above: Performed By: #### L 100.0100, L101.9900, L501.6710, L500.2500 #### [facility] [address], [address] Sodium levelOrdered By: Dax Sanabria on 10-20-2024 Sodium [Moles/Vol] 138 mmol/L Normal 133-145 [facility] Comment on above: Performed By: #### L 100.0100, L101.9900, L501.6710, L500.2500 #### [facility] [address], [address] White blood cell (WBC) count Ordered By: Dax Sanabria on 10-20-2024 WBC (Bld) [#/Vol] 5.6 10*3/uL 4.4-11.0 [facility] CNOVon 10-16-2024 [facility] Office Visit (FAMPWS) BRANDEN LOONEY ([id number]) 1975 Date Time Provider Department 10/16/24 11:00 [facility] your visit today, we recorded the following information about you: Temperature Pulse Blood pressure Weight 98.7 degrees 102/minute 128/66 85.7 kg Kristie Santa APRN.[employer]OT CASTER 10/16/2024 11:24 AM Signed This is a 49 year old male who presents today with: Patient presents with: Swelling: Left elbow swollen and red, warm to touch since this morning. Painful for past couple days HISTORY OF PRESENT ILLNESS: Branden Looney is a 49 year old male. Patient presents with: Swelling: Left elbow swollen and red, warm to touch since this morning. Painful for past couple days Left elbow started hurting and turned red a day after he had labs drawn. Pt. Poorly verbal but points to pain into forearm. Swollen and red. Hx of gout but not actually in the joint itself. More proximal and lateral. PAST MEDICAL HISTORY: PAST MEDICAL HISTORY Diagnosis Date Down's syndrome Down's syndrome Knee pain right Renal cyst 10/05/2014 Renal insufficiency 2014 PAST SURGICAL HISTORY Procedure Laterality Date APPENDECTOMY TONSILLECTOMY PRIMARY/SECONDARY Tonsillectomy ALLERGIES Amoxicillin and Tylenol-Codeine #3 [Acetaminophen-Codei ne] MEDICATIONS Current Outpatient Medications Medication Sig colchicine 0.6 mg tablet Take 2 tablets x1 then 1 tablet 1 hour later. Repeat in 3 days if needed. (Patient not taking: Reported on 10/16/2024) allopurinol (ZYLOPRIM) 300 mg tablet Take 1 tablet by mouth once daily. For gout. ketoconazole (NIZORAL) 2 % shampoo Use as shampoo 3-4 days/week; leave lather on scalp for 5 minutes prior to rinsing Cholecalciferol, Vitamin D3, 125 mcg (5,000 unit) cap Take 1 capsule by mouth once daily. diclofenac sodium (VOLTAREN) 1 % topical gel Apply 4 g to affected area four times daily. CYANOCOBALAMIN, VITAMIN B-12, (LIQUID B 12 ORAL) Take 1 Dose by mouth once daily. No current facility-administere d medications for this visit. FAMILY HISTORY Problem Relation Age of Onset Diabetes Father Hypertension Father Lipids Mother Hypertension Mother Thyroid Mother Heart disease Mother CABG Diabetes Maternal Grandmother Diabetes Maternal Grandfather Hypertension Paternal Grandfather Diabetes Sister Social History Tobacco Use Smoking status: Never Smokeless tobacco: Never Tobacco comments: both parents are smokers Vaping Use Vaping status: Never Used Substance Use Topics Alcohol use: No Drug use: No EXAM: BP 128/66 Pulse 102 Temp 37.1 ?C (98.7 ?F) (Left Tympanic) Wt 85.7 kg (189 lb) SpO2 93% PHYSICAL EXAM: Physical Exam Vitals reviewed. Constitutional: Appearance: Normal appearance. HENT: Head: Normocephalic. Cardiovascular: Rate and Rhythm: Normal rate. Rhythm irregular. Pulses: Normal pulses. Heart sounds: Normal heart sounds. Comments: Regular with missed beats Pulmonary: Effort: Pulmonary effort is normal. Breath sounds: Normal breath sounds. Musculoskeletal: General: Normal range of motion. Comments: Left elbow to wrist aching. Baseball sized area of redness proximal lateral to elbow. 1+ edema at site. Tender to touch. Skin: General: Skin is warm and dry. Neurological: Mental Status: He is alert and oriented to person, place, and time. LABS: ASSESSMENT/PLAN: 1. Cellulitis of skin - ICD9: 682.9, ICD10: L03.90 - Begin treatment with Doxycycline - DOXYCYCLINE HYCLATE 100 MG CAPSULE daily - Ice to area 3 x day as needed Discussed treatment plan and patient voices understanding. Patient's questions answered appropriately. Medications and potential side effects were discussed and patient voices understanding. Return to the office as scheduled or as needed for worsening/no improvement. KATHY Go Jacqueline A, APRN.CNP 10/16/2024 11:23 AM Signed - DOXYCYCLINE HYCLATE 100 MG CAPSULE daily - Ice to area 3 x day as needed Allergies As of Date: 10/16/2024 Noted Allergy Reaction AMOXICILLIN 04/06/2020 2 - Rash Comments: Drug rash when taking amoxicillin and tylenol with codeine TYLENOL-CODEINE #3 (ACETAMINOPHEN*04/06 2 - Rash Comments: Drug rash when taking amoxicillin and tylenol with codeine Date Reviewed: 10/16/2024 Reviewed by: Caro Rosas MA - Fully Assessed Reason for Visit: Swelling [205] Cmt: Left elbow swollen and red, warm to touch since this morning. Painful for past couple days Primary Visit Diagnosis:Cellulitis of skin [L03.90] Order(s):doxycycline hyclate (VIBRAMYCIN) 100 mg capsuleTake 1 capsule by mouth once daily for 10 days.Disp: 10 capsuleRfl: 0 Prescriptions as of 10/16/2024 - doxycycline hyclate (VIBRAMYCIN) 100 mg capsule Take 1 capsule by mouth once daily for 10 days. - colchicine 0.6 mg tablet Take 2 tab (more content not included)... Normal [facility] CNOVon 10-13-2024 CN[facility] BRNADEN LOONEY ([id number]) 1975 M Date Time Provider Department 10/13/24 2:00 PM JASMIN GIANG During your visit today, we recorded the following information about you: Pulse Respiration Blood pressure Weight 88/minute 16/minute 100/68 85.1 kg Jasmin Giang APRN.INGOT CASTER 10/13/2024 2:41 PM Signed This is a 49 year old male who presents today with: No chief complaint on file. HISTORY OF PRESENT ILLNESS: Brandenjoshua Looney is a 49 year old male. No chief complaint on file. Here in the office for 3 month follow up Mother present for appointment today. Patient has down syndrome. Headache: drinking 1 glass of water per day. Drinking soda most of the day. No bowel, Gi, or urinary issues. No chest pains, dizziness, or SOB. CKD: Monitored with labs. Gout: right wrist. Taking Allopurinol 100 mg BID. Was seen last month for gout flare in right knee. Treated with Medrol steroid pack. Renewed colchicine. increased allopurinol 300 mg daily. Symptoms improving. Pain: b/l knee; using Voltaren gel and Tylenol prn. Denies watching diet or exercising. No medications for cholesterol or elevated glucose. Vit D defienecy: taking Vitamin D3 5,000 international unit(s) daily. B12: Taking B12 OTC Follows with [employer]. Santa for tx of nail fungus. Colonoscopy: Denies wanting at this time Vaccines: Due for Tdap, denies wanting at this time. PAST MEDICAL HISTORY: PAST MEDICAL HISTORY Diagnosis Date Down's syndrome Down's syndrome Knee pain right Renal cyst 10/05/2014 Renal insufficiency 2014 PAST SURGICAL HISTORY Procedure Laterality Date APPENDECTOMY TONSILLECTOMY PRIMARY/SECONDARY Tonsillectomy ALLERGIES Amoxicillin and Tylenol-Codeine #3 [Acetaminophen-Codei ne] MEDICATIONS Current Outpatient Medications Medication Sig colchicine 0.6 mg tablet Take 2 tablets x1 then 1 tablet 1 hour later. Repeat in 3 days if needed. allopurinol (ZYLOPRIM) 300 mg tablet Take 1 tablet by mouth once daily. For gout. ketoconazole (NIZORAL) 2 % shampoo Use as shampoo 3-4 days/week; leave lather on scalp for 5 minutes prior to rinsing Cholecalciferol, Vitamin D3, 125 mcg (5,000 unit) cap Take 1 capsule by mouth once daily. diclofenac sodium (VOLTAREN) 1 % topical gel Apply 4 g to affected area four times daily. CYANOCOBALAMIN, VITAMIN B-12, (LIQUID B 12 ORAL) Take 1 Dose by mouth once daily. No current facility-administere d medications for this visit. FAMILY HISTORY Problem Relation Age of Onset Diabetes Father Hypertension Father Lipids Mother Hypertension Mother Thyroid Mother Heart disease Mother CABG Diabetes Maternal Grandmother Diabetes Maternal Grandfather Hypertension Paternal Grandfather Diabetes Sister Social History Tobacco Use Smoking status: Never Smokeless tobacco: Never Tobacco comments: both parents are smokers Vaping Use Vaping status: Never Used Substance Use Topics Alcohol use: No Drug use: No REVIEW OF SYSTEMS GENERAL: No weight loss, malaise or fevers/chills HEENT: Negative for frequent or significant headaches, No changes in hearing or vision. NECK: Negative for lumps, goiter, pain and significant neck swelling RESPIRATORY: Negative for cough, hemoptysis, wheezing, dyspnea or shortness of breath CARDIOVASCULAR: Negative for chest pain, leg swelling, orthopnea, or palpitations GI: No nausea, vomiting, or diarrhea/constipatio n. No hematochezia/melena. No heartburn or reflux symptoms. : No history of dysuria, frequency or incontinence MUSCULOSKELETAL: Negative for joint pain or swelling. SKIN: Negative for lesions, rash, and itching ENDOCRINE: Negative for cold or heat intolerance, polyuria, polydipsia and goiter NEURO: + Headache MOOD: Negative for depression, anxiety, or suicidal ideation. EXAM: BP 100/68 Pulse 88 Resp 16 Wt 85.1 kg (187 lb 9.8 oz) SpO2 97% PHYSICAL EXAM: General Appearance: Well appearing, alert, in no acute distress, well-hydrated, well nourished. Skin: Skin color, texture, turgor normal, no suspicious rashes or lesions. Head: Normocephalic, no masses, lesions, tenderness or abnormalities. Eyes: Anicteric sclera. Extraocular movements are intact. . Lungs: Lungs clear to auscultation. No wheezing, rhonchi, rales. Heart: RRR without murmur, gallop, or rubs. No ectopy. Extremities: No deformities, edema, skin discoloration, clubbing or cyanosis. Good capillary refill. Musculoskeletal: No joint swelling, deformity, or tenderness. Peripheral Pulses: Normal, Capillary refill <2secs, strong peripheral pulses, Pulses palpable. Neurologic: Gait normal. Sensation grossly intact. ASSESSMENT/PLAN: 1. Down's syndrome - ICD9: 758.0, ICD10: Q90.9 (primary diagnosis) - Stable 2. Headache, unspecified headache type - ICD9: 784.0, ICD10: R51.9 - Recommend increasing water in (more content not included)... Normal [facility] 25(OH)D3 [facility]-luisa 2024 25-hydroxyvitamin D3 [Mass/Vol] 22.3 ng/mL Low 31.0-80.[address] [facility] Comment on above: Order Comment: Speci men Type: BLOOD SPECIMEN Ordering Facility: [facility] Address: [address] [place] [address] Result Comment: Clas sification of 25 [place] Vitamin D status: Deficiency/Insufficiency: < or = 30 ng/ml. Sufficiency/Optimal Levels: 31-80 ng/mL Toxicity: > 100 ng/mL. Test performed by chemiluminescent immunoassay. Performed By: #### 1 988-5 #### [facility] CLIA [id number] [address] [place] [address] [facility] CBC panel Auto (Bld)on 10-11 Erythrocyte distribution width (RBC) [Ratio] 15.2 % High 11.5-15.[address] [facility] Comment on above: Order Comment: Dorian colon Type: BLOOD SPECIMEN Ordering Facility: [facility] Address: [address] [place] [address] Performed By: #### 1 988-5 #### [facility] CLIA [id number] [address] [place] [address] [facility] Hematocrit (Bld) [Volume fraction] 49.8 % Normal 39.0-51.[address] [facility] Comment on above: Order Comment: Veronicai men Type: BLOOD SPECIMEN Ordering Facility: [facility] Address: [address] [place] [address] Performed By: #### 1 988-5 #### [facility] CLIA [id number] [address] [place] [address] [facility] Hemoglobin (Bld) [Mass/Vol] 15.7 g/dL Normal 13.0-17.[address] [facility] Comment on above: Order Comment: Veronicai men Type: BLOOD SPECIMEN Ordering Facility: [facility] Address: [address] [place] [address] Performed By: #### 1 988-5 #### [facility] CLIA [id number] [address] [place] [address] [facility] MCH (RBC) [Entitic mass] 32.6 pg Normal 26.0-34.[address] [facility] Comment on above: Order Comment: Veronicai men Type: BLOOD SPECIMEN Ordering Facility: [facility] Address: [address] [place] [address] Performed By: #### 1 988-5 #### [facility] CLIA [id number] [address] [place] [address] [place] MCHC (RBC) [Mass/Vol] 31.5 g/dL Normal 30.5-36.0 [facility] Comment on above: Order Comment: Speci men Type: BLOOD SPECIMEN Ordering Facility: [facility] Address: [address] [place] [address] Performed By: #### 1 988-5 #### [facility] CLIA [id number] [address] [place] [address] [place] MCV (RBC) [Entitic vol] 103.5 fL High 80.0-100.0 [facility] Comment on above: Order Comment: Speci men Type: BLOOD SPECIMEN Ordering Facility: [facility] Address: [address] [place] [address] Performed By: #### 1 988-5 #### [facility] CLIA [id number] [address] [place] [address] [place] Nucleated RBC (Bld) [#/Vol] 10*3/uL Normal <0.[address] [facility] Comment on above: Order Comment: Speci men Type: BLOOD SPECIMEN Ordering Facility: [facility] Address: [address] [place] [address] Performed By: #### 1 988-5 #### [facility] CLIA [id number] [address] [place] [address] [place] Platelet mean volume (Bld) [Entitic vol] 10.2 fL Normal 9.0-12.[address] [facility] Comment on above: Order Comment: Speci men Type: BLOOD SPECIMEN Ordering Facility: [facility] Address: [address] [place] [address] Performed By: #### 1 988-5 #### [facility] CLIA [id number] [address] [place] [address] [place] Platelets (Bld) [#/Vol] 249 10*3/uL Normal 150-[address] [facility] Comment on above: Order Comment: Speci men Type: BLOOD SPECIMEN Ordering Facility: [facility] Address: [address] [place] [address] Performed By: #### 1 988-5 #### [facility] CLIA [id number] [address] [place] [address] [place] RBC (Bld) [#/Vol] 4.81 10*6/uL Normal 4.20-6.00 [facility] Comment on above: Order Comment: Speci men Type: BLOOD SPECIMEN Ordering Facility: [facility] Address: [address] [place] [address] Performed By: #### 1 988-5 #### [facility] CLIA [id number] [address] [place] [address] [place] WBC (Bld) [#/Vol] 3.81 10*3/uL Normal 3.70-11.00 [facility] Comment on above: Order Comment: Speci men Type: BLOOD SPECIMEN Ordering Facility: [facility] Address: [address] [place] [address] Performed By: #### 1 988-5 #### [facility] CLIA [id number] [address] [place] [address] [place] Comprehensive metabolic 2000 panelon 10-11-2024 Albumin [Mass/Vol] 4.2 g/dL Normal 3.9-4.9 [facility] Comment on above: Order Comment: Speci men Type: BLOOD SPECIMENOrdering Facility: [facility] Address: [address] [place] [address] Performed By: #### 3 084-1, 55241-0, 71852-0 ####[facility] [id number] [address] [address] [place] ALP [Catalytic activity/Vol] 90 U/L Normal 38-[address] [facility] Comment on above: Order Comment: Speci men Type: BLOOD SPECIMENOrdering Facility: [facility] Address: [address] [place] [address] Performed By: #### 3 084-1, 17646-7, 19092-9 ####[facility] [id number] [address] [address] [place] ALT [Catalytic activity/Vol] 32 U/L Normal 10-[address] [facility] Comment on above: Order Comment: Speci men Type: BLOOD SPECIMENOrdering Facility: [facility] Address: [address] [place] [address] Performed By: #### 3 084-1, 69518-0, 21384-9 ####[facility] [id number] [place] [address] [place] Anion gap [Moles/Vol] 10 mmol/L Normal 8-15 [facility] Comment on above: Order Comment: Speci men Type: BLOOD SPECIMENOrdering Facility: [facility] Address: [address] [place] [address] Performed By: #### 3 084-1, 59235-9, 87117-3 ####[facility] LABIA [id number] [place] [address] [place] AST [Catalytic activity/Vol] 40 U/L Normal 14-[address] [facility] Comment on above: Order Comment: Speci men Type: BLOOD SPECIMENOrdering Facility: [facility] Address: [address] [place] [address] Performed By: #### 3 084-1, 19741-7, 12985-1 ####[facility] LABIA [id number] [address] [address] [place] Bilirubin [Mass/Vol] 0.5 mg/dL Normal 0.2-1.3 [facility] Comment on above: Order Comment: Speci men Type: BLOOD SPECIMENOrdering Facility: [facility] Address: [address] [place] [address] Performed By: #### 3 084-1, 35093-8, 90738-3 ####[facility]IA [id number] [address] [address] [place] Calcium [Mass/Vol] 9.6 mg/dL Normal 8.5-10.2 [facility] Comment on above: Order Comment: Speci men Type: BLOOD SPECIMENOrdering Facility: [facility] Address: [address] [place], [place] [address] Performed By: #### 3 084-1, 49528-2, 69463-1 ####[facility] [id number] [address] [address] [place] Chloride [Moles/Vol] 104 mmol/L Normal 98-107 [facility] Comment on above: Order Comment: Speci men Type: BLOOD SPECIMENOrdering Facility: [facility] Address: [address] [place] [address] Performed By: #### 3 084-1, 47997-2, ####[facility]IA [id number] [address] [address] [place] CO2 [Moles/Vol] 27 mmol/L Normal 22-[address] [facility] Comment on above: Order Comment: Speci men Type: BLOOD SPECIMENOrdering Facility: [facility] Address: [address] [place], [place] [address] Performed By: #### 3 084-1, , 21890-9 ####[facility] [id number] [address] [address] [place] Creatinine [Mass/Vol] 1.53 mg/dL High 0.73-1.22 [facility] Comment on above: Order Comment: Speci men Type: BLOOD SPECIMENOrdering Facility: [facility] Address: [address] [place] [address] Performed By: #### 3 084-1, 69316-1, 40820-7 ####[facility]IA [id number] [place] [address] [place] Creatinine and Glomerular filtration rate.predicted panel (S/P/Bld) 56 mL/min/1.73m??? Low >=[address] [facility] Comment on above: Order Comment: Dorian cooln Type: BLOOD SPECIMENOrdering Facility: [facility] Address: [address] [place] [address] Result Comment: Marci mated Glomerular Filtration Rate (eGFR) is calculated using the 2020 CKD-EPI creatinine equation. This equation utilizes serum creatinine, sex, and age as parameters. The creatinine assay has traceable calibration to isotope dilution-mass spectrometry. Refer to KDIGO guidelines for clinical interpretation. In patients with unstable renal function, e.g. those with acute kidney injury, the eGFR may not accurately reflect actual GFR. Performed By: #### 3 084-1, 11741-6, 80784-8 ####[facility]IA [id number] [place] [address] [place] Glucose [Mass/Vol] 111 mg/dL High 74-99 [facility] Comment on above: Order Comment: Dorian colon Type: BLOOD SPECIMENOrdering Facility: [facility] Address: [address] [place] [address] Result Comment: The [place] Diabetes Association (ADA) provides guidance for cutoff values for fasting glucose and random glucose. The ADA defines fasting as no caloric intake for at least 8 hours. Fasting plasma glucose results between 100 to 125 mg/dL indicate increased risk for diabetes (prediabetes). Fasting plasma glucose results greater than or equal to 126 mg/dL meet the criteria for diagnosis of diabetes. In the absence of unequivocal hyperglycemia, results should be confirmed by repeat testing. In a patient with classic symptoms of hyperglycemia or hyperglycemic crisis, random plasma glucose results greater than or equal to 200 mg/dL meet the criteria for diagnosis of diabetes. Reference: Standards of Medical Care in Diabetes 2016, [place] Diabetes Association. Diabetes Care. 2016.39(Suppl 1). Performed By: #### 3 084-1, 38150-7, 35232-2 ####[facility] LABIA [id number] [address] [id number] [address] [place] Potassium [Moles/Vol] 4.5 mmol/L Normal 3.7-5.1 [facility] Comment on above: Order Comment: Speci men Type: BLOOD SPECIMENOrdering Facility: [facility] Address: [address] [place] [address] Performed By: #### 3 084-1, 28030-6, 19435-2 ####[facility] LABCLIA [id number] [place] [id number] [place] Protein [Mass/Vol] 7.7 g/dL Normal 6.3-8.0 [facility] Comment on above: Order Comment: Speci men Type: BLOOD SPECIMENOrdering Facility: [facility] Address: [address] [place] [address] Performed By: #### 3 084-1, 93022-4, 28936-8 ####[facility]CLIA [id number] [place] [address] [place] Sodium [Moles/Vol] 141 mmol/L Normal 136-144 [facility] Comment on above: Order Comment: Speci men Type: BLOOD SPECIMENOrdering Facility: [facility] Address: [address] [place] [address] Performed By: #### 3 084-1, 02983-4, 23451-3 ####[facility] [id number] [place] [id number] [place] Urea nitrogen [Mass/Vol] 14 mg/dL Normal 9-[address] [facility] Comment on above: Order Comment: Speci men Type: BLOOD SPECIMENOrdering Facility: [facility] Address: [address] [place] [address] Performed By: #### 3 084-1, 57702-8, 56046-6 ####[facility] [id number] [address] [address] [place] HbA1c (Bld)on 10-11-2024 Average glucose Estimated from glycated hemoglobin (Bld) [Mass/Vol] 128 mg/dL Normal [facility] Comment on above: Order Comment: Dorian colon Type: BLOOD SPECIMEN Ordering Facility: [facility] Address: [address] [place] [address] Result Comment: eAG: (Estimated average glucose) is a calculated value from HgbA1c and is outside sales account representative of the average blood glucose level in the last 2-3 month period. Performed By: #### 5 5454-3 #### [facility] CLIA [id number] [address] [place] [address] [place] HbA1c (Bld) [Mass fraction] 6.1 % High 4.3-5.[address] [facility] Comment on above: Order Comment: Dorian colon Type: BLOOD SPECIMEN Ordering Facility: [facility] Address: [address] [place] [address] Result Comment: [place] Diabetes Association guidelines indicate that patients with HgbA1c in the range 5.7-6.4% are at increased risk for development of diabetes, and intervention by lifestyle modification may be beneficial. HgbA1c greater or equal to 6.5% is considered diagnostic of diabetes. Performed By: #### 5 5454-3 #### [facility] CLIA [id number] [address] [place] [address] [place] Lipid 1996 panelon 5 Cholesterol [Mass/Vol] 196 mg/dL Normal <200 [facility] Comment on above: Order Comment: Dorian colon Type: BLOOD SPECIMENOrdering Facility: [facility] Address: [address] [place] [address] Result Comment: <200 mg/dL, Desirable 200-239 mg/dL, Borderline high >239 mg/dL, High Performed By: #### 3 084-1, 62762-1, 57811-0 ####[facility] [id number] [place] [address] [place] Cholesterol in HDL [Mass/Vol] 44 mg/dL Normal >[address] [facility] Comment on above: Order Comment: Veronicaela colon Type: BLOOD SPECIMENOrdering Facility: [facility] Address: [address] [place] [address] Result Comment: 40-5 9 mg/dL, Acceptable >59 mg/dL, High: Negative risk factor for coronary heart disease <40 mg/dL, Low: Positive risk factor for coronary heart disease Performed By: #### 3 084-1, 00695-8, 98104-3 ####[facility] [id number] [address] [place] Cholesterol in LDL [Mass/Vol] 123 mg/dL High <[address] [facility] Comment on above: Order Comment: Veronicaela colon Type: BLOOD SPECIMENOrdering Facility: [facility] Address: [address] [place] [address] Result Comment: <100 mg/dL, Optimal 100-129 mg/dL, Near optimal/above optimal 130-159 mg/dL, Borderline high 160-189 mg/dL, High >189 mg/dL, Very high Secondary prevention optimal LDL Cholesterol levels are recommended to be < 70 mg/dL Performed By: #### 3 084-1, 67094-5, 81488-2 ####[facility] [id number] [address] [place] Cholesterol in LDL/Cholesterol in HDL [Mass ratio] 2.80 {ratio} High <2.[address] [facility] Comment on above: Order Comment: Dorian colon Type: BLOOD SPECIMENOrdering Facility: [facility] Address: [address] [place] [address] Result Comment: Refe rence: 1. National Cholesterol Education Program ATP III Guideline At-A-Glance Quick Desk Reference: National Heart, Lung, and Blood Manning. National Institutes of Health. 2001: NIH Publication No. 01-3305. 2. An International Atherosclerosis Society position paper: global recommendations for the management of dyslipidemia: executive summary, Atherosclerosis. 2014: 232(2):410-413. Performed By: #### 3 084-1, 72307-5, 20745-8 ####[facility] [id number] [address] [place] [address] [place] Cholesterol in VLDL [Mass/Vol] 29 mg/dL Normal <[address] [facility] Comment on above: Order Comment: Speci men Type: BLOOD SPECIMENOrdering Facility: [facility] Address: [address] [place], [place] [address] Performed By: #### 3 084-1, 75525-9, 40806-8 ####[facility]CLIA [id number] [address] [place] [address] [place] Cholesterol non HDL [Mass/Vol] 152 mg/dL High <[address] [facility] Comment on above: Order Comment: Speci men Type: BLOOD SPECIMENOrdering Facility: [facility] Address: [address] [place] [address] Result Comment: <130 mg/dL, Optimal 130-159 mg/dL, Near optimal/above optimal 160-189 mg/dL, Borderline high 190-219 mg/dL, High >219 mg/dL, Very high Secondary prevention optimal non HDL Cholesterol levels are recommended to be <100 mg/dL Performed By: #### 3 084-1, 74735-8, 11757-1 ####[facility] LABIA [id number] [address] [address] [place] Cholesterol.total/Choles terol in HDL [Mass ratio] 4.45 {ratio} Normal <5.[address] [facility] Comment on above: Order Comment: Speci men Type: BLOOD SPECIMENOrdering Facility: [facility] Address: [address] [place], [place] [id number] Performed By: #### 3 084-1, 62157-9, 28577-2 ####[facility] LABIA [id number] [address] [address] [place] FASTING TIME [address] [facility] Comment on above: Order Comment: Speci men Type: BLOOD SPECIMENOrdering Facility: [facility] Address: [address] [place] [address] Performed By: #### 3 084-1, 81788-6, ####[facility] LABCLIA [id number] [place] [id number] [place] Triglyceride [Mass/Vol] 144 mg/dL Normal <150 [facility] Comment on above: Order Comment: Speci men Type: BLOOD SPECIMENOrdering Facility: [facility] Address: [address] [place] [address] Result Comment: <150 mg/dL, Normal 150-199 mg/dL, Borderline high 200-499 mg/dL, High >499 mg/dL, Very high Performed By: #### 3 084-1, , ####[facility] LABCLIA [id number] [place] [id number] [facility] [place] Urate SerPl-mCncon Urate [Mass/Vol] 5.5 mg/dL Normal 4.0-8.1 [facility] Comment on above: Order Comment: Speci men Type: BLOOD SPECIMENOrdering Facility: [facility] Address: [address] [place] [address] Performed By: #### 3 084-1, 13176-3, ####[facility] LABCLIA [id number] [place] [id number] [facility] [place] CNOVon 09-18-2024 CNOV Office Visit (FAMPWS) BRANDEN LOONEY ([id number]) 1975 M Date Time Provider Department 09/18/24 9:00 AM KRISTIE SANTA FAMPWS During your visit today, we recorded the following information about you: Temperature Pulse Blood pressure Weight 98.1 degrees 92/minute 134/76 85.7 kg Kristie Santa APRN.CNP 09/18/2024 9:39 AM Addendum This is a 49 year old male who presents today with: Patient presents with: Swelling: Bilateral knee swelling. 1 week. Painful when walking HISTORY OF PRESENT ILLNESS: Branden Looney is a 49 year old male. Patient presents with: Swelling: Bilateral knee swelling. 1 week. Painful when walking Left leg started to swell a week ago. Favoring it so right leg started to swell. Mom gave him Tylenol liquid and rubbing legs with BenGay. Hurts to walk. This is not the first time. Pt. Has difficulty communicating d/t MRDD. PAST MEDICAL HISTORY: PAST MEDICAL HISTORY Diagnosis Date Down's syndrome Down's syndrome Knee pain right Renal cyst 10/05/2014 Renal insufficiency 2014 PAST SURGICAL HISTORY Procedure Laterality Date APPENDECTOMY TONSILLECTOMY PRIMARY/SECONDARY Tonsillectomy ALLERGIES Amoxicillin and Tylenol-Codeine #3 [Acetaminophen-Codei ne] MEDICATIONS Current Outpatient Medications Medication Sig allopurinol (ZYLOPRIM) 100 mg tablet Take 1 tablet by mouth two times a day. For gout. colchicine 0.6 mg tablet Take 2 tablets x1 then 1 tablet 1 hour later. Repeat in 3 days if needed. ketoconazole (NIZORAL) 2 % shampoo Use as shampoo 3-4 days/week; leave lather on scalp for 5 minutes prior to rinsing Cholecalciferol, Vitamin D3, 125 mcg (5,000 unit) cap Take 1 capsule by mouth once daily. diclofenac sodium (VOLTAREN) 1 % topical gel Apply 4 g to affected area four times daily. CYANOCOBALAMIN, VITAMIN B-12, (LIQUID B 12 ORAL) Take 1 Dose by mouth once daily. No current facility-administere d medications for this visit. FAMILY HISTORY Problem Relation Age of Onset Diabetes Father Hypertension Father Lipids Mother Hypertension Mother Thyroid Mother Heart disease Mother CABG Diabetes Maternal Grandmother Diabetes Maternal Grandfather Hypertension Paternal Grandfather Diabetes Sister Social History Tobacco Use Smoking status: Never Smokeless tobacco: Never Tobacco comments: both parents are smokers Vaping Use Vaping status: Never Used Substance Use Topics Alcohol use: No Drug use: No EXAM: BP 134/76 Pulse 92 Temp 36.7 ?C (98.1 ?F) (Left Tympanic) Wt 85.7 kg (189 lb) SpO2 95% PHYSICAL EXAM: Physical Exam Vitals reviewed. Constitutional: Appearance: Normal appearance. HENT: Head: Normocephalic. Musculoskeletal: Comments: Left knee not swollen or painful Right knee hot to the touch lateral aspect and some at patella. 1+ edema. No redness. No edema below that. Presents in w/c because hurts to walk. Neurological: Mental Status: He is alert. LABS: labs due ASSESSMENT/PLAN: 1. Gout, unspecified cause, unspecified chronicity, unspecified site - ICD9: 274.9, ICD10: M10.9 Acute flare right knee - Labs due for appt. Next month- reminded them - Treat with medrol taper - Renew colchicine - On next fill- increase allopurinol even with CKD to 300 mg daily (Instruction written: 1) Start medrol taper today (6 tablet today all at one time, 5 tablets tomorrow, ...) 2) After medrol finished, increase allopurinol to 300 mg tablet once a day. No longer give the 100 mg 2 x day as the 300 mg once a day is an increased dose. 3) Use colchicine 2 tablets upon joint pain and 1 tablet an hour 4) Get labs fasting a week before 5) Follow up October 13 as scheduled Discussed treatment plan and patient voices understanding. Patient's questions answered appropriately. Medications and potential side effects were discussed and patient voices understanding. Return to the office as scheduled or as needed for worsening/no improvement. KATHY Go Jacqueline A, APRN.CNP 09/18/2024 9:36 AM Addendum 1) Start medrol taper today (6 tablet today all at one time, 5 tablets tomorrow, ...) 2) After medrol finished, increase allopurinol to 300 mg tablet once a day. No longer give the 100 mg 2 x day as the 300 mg once a day is an increased dose. 3) Use colchicine 2 tablets upon joint pain and 1 tablet an hour 4) Get labs fasting a week before 5) Follow up October 13 as scheduled Referring Provider: SELF [200] Allergies As of Date: 09/18/2024 Noted Allergy Reaction AMOXICILLIN 04/06/2020 2 - Rash Comments: Drug rash when taking amoxicillin and tylenol with codeine TYLENOL-CODEINE #3 (ACETAMINOPHEN*04/06 2 - Rash Comments: Drug rash when taking amoxicillin and tylenol with codeine Date Reviewed: 09/18/2024 Reviewed by: Caro Rosas MA - Fully Assessed Reason for Visit: Swel (more content not included)... Normal [facility] CNOVon 07-28-2024 CNOV Office Visit (FAMPWS) BRANDEN LOONEY ([id number]) 1975 M Date Time Provider Department 07/28/24 11:20 AM [facility] During your visit today, we recorded the following information about you: Pulse Respiration Blood pressure Weight 72/minute 16/minute 116/78 85.6 kg Markos June MD 07/28/2024 11:33 AM Signed Chief Complaint Patient presents with: Swelling: Knee and Foot HPI Branden Looney is a 48 year old male who presents here today for a same day visit. Pt here today with his Mother for an acute visit. Pt here today with c/o of swelling in knee and foot. Mother states that his knee started swelling with pain about a week ago. She's been using Bengay, putting ice on it and using Tylenol for pain relief. Mother notes that swelling has decreased some. About 1-2 days ago he stated having right foot swelling and pain. Mother states that the areas feel warm to touch, unsure if the areas are red. Pt denies any injury to start the cause of his pain. Pt has chronic knee pain and issues with gout. For pain pt is taking liquid Tylenol and using Voltaren Gel prn. For gout treatment pt uses Allopurinol 100 mg bid, but Mother gives to once a day if she doesn't give it to him twice daily. Reports that pt has a cold, has a cough and sore throat, per Mother. Has been a couple days only. Past medical history, appointments, medications, allergies reviewed. Previous Medical History PAST MEDICAL HISTORY Diagnosis Date Down's syndrome Down's syndrome Knee pain right Renal cyst 10/05/2014 Renal insufficiency 2015 Previous Surgical History PAST SURGICAL HISTORY Procedure Laterality Date APPENDECTOMY TONSILLECTOMY PRIMARY/SECONDARY Tonsillectomy Family History FAMILY HISTORY Problem Relation Age of Onset Diabetes Father Hypertension Father Lipids Mother Hypertension Mother Thyroid Mother Heart disease Mother CABG Diabetes Maternal Grandmother Diabetes Maternal Grandfather Hypertension Paternal Grandfather Diabetes Sister Patient Allergies ALLERGIES Allergen Reactions Amoxicillin Rash Drug rash when taking amoxicillin and tylenol with codeine Tylenol-Codeine #3 * Rash Drug rash when taking amoxicillin and tylenol with codeine Current Medications Current Outpatient Medications on File Prior to Visit Medication Sig allopurinol (ZYLOPRIM) 100 mg tablet Take 1 tablet by mouth two times a day. For gout. colchicine 0.6 mg tablet Take 2 tablets x1 then 1 tablet 1 hour later. Repeat in 3 days if needed. ketoconazole (NIZORAL) 2 % shampoo Use as shampoo 3-4 days/week; leave lather on scalp for 5 minutes prior to rinsing Cholecalciferol, Vitamin D3, 125 mcg (5,000 unit) cap Take 1 capsule by mouth once daily. diclofenac sodium (VOLTAREN) 1 % topical gel Apply 4 g to affected area four times daily. CYANOCOBALAMIN, VITAMIN B-12, (LIQUID B 12 ORAL) Take 1 Dose by mouth once daily. No current facility-administere d medications on file prior to visit. Social History Social History Tobacco Use Smoking status: Never Smokeless tobacco: Never Tobacco comments: both parents are smokers Vaping Use Vaping status: Never Used Substance Use Topics Alcohol use: No Drug use: No EXAM: BP 116/78 (BP Site: Left Arm, BP Position: Sitting, BP Cuff Size: Regular Adult) Pulse 72 Resp 16 Wt 85.6 kg (188 lb 11.4 oz) General Appearance: Well appearing, alert, in no acute distress, well-hydrated, well nourished and Overweight. Using a cane to ambulate. Oropharynx: Slight redness in throat. No LA. Lungs: Lungs clear to auscultation. No wheezing, rhonchi, rales.. Heart: RRR without murmur, gallop, or rubs. No ectopy. Extremities: Edema: Right foot examined, diffusely swollen in foot and ankle; tender to touch. No swelling noted in right knee. Health Maintenance List Hepatitis C Screening Never done HIV Screening Never done Hepatitis B Vaccine(1 of 3 - 19+ 3-dose series) Never done DTaP,Tdap,Td Vaccine(4 - Td or Tdap) due on 01/03/2022 Colorectal Cancer Screening due on 02/02/2024 Influenza Vaccine(1) due on 03/26/2024 Covid-19 Vaccine(2 - season) due on 03/26/2024 Serum Creatinine due on 12/06/2024 Hemoglobin/Hematocri t due on 12/06/2024 Depression Screening due on 12/13/2024 Anxiety Screening due on 12/13/2024 Annual PCP Team Chronic Disease Visit due on 07/08/2025 Diabetes Screening due on 12/06/2026 Lipid Screening due on 05/27/2028 Data reviewed None ASSESSMENT/PLAN: 1. Pain and swelling of knee, right - ICD9: 719.46, 719.06, ICD10: M25.561, M25.461 (primary diagnosis) - Start 9 day course of Prednisone - Use Tylenol and continue home regimen 2. Swelling of right foot - ICD9: 729.81, ICD10: M79.89 - As noted above 3. Foot pain, right - ICD9: 729.5, ICD10: M79.671 - As noted above 4. Gout, unspecified cause (more content not included)... Normal [facility] ([id number]) 1975 M Date Time Provider Department 07/20/24 MARKOS JUNE [facility] During your visit today, we recorded the following information about you: Enda Perez MA 07/20/2024 1:11 PM Signed MotherYasemin stopped in the office today to drop off Prob[place]/Guardianship paperwork regarding patient. Mother asking that paperwork be completed by tomorrow, so she can grape picker and turn in by Wednesday. Once complete, call MotherYasemin at [phone]. Forms routed to PCP's desk to review and complete. LIANNE Conrad Mark D, MD 07/20/2024 4:18 PM Signed Form done MD Jorge Junior Kathryn, MA 07/20/2024 4:34 PM Signed Forms at med rec. Pt mother notified. Copy made for records. Suri Altamirano MA Allergies As of Date: 07/20/2024 Noted Allergy Reaction AMOXICILLIN 04/06/2020 2 - Rash Comments: Drug rash when taking amoxicillin and tylenol with codeine TYLENOL-CODEINE #3 (ACETAMINOPHEN*04/06 2 - Rash Comments: Drug rash when taking amoxicillin and tylenol with codeine Date Reviewed: 07/08/2024 Reviewed by: Emely Love LPN - Fully Assessed Reason for Visit: Forms [913] Cmt: Probate Court/Guardianship Prescriptions as of 07/20/2024 - allopurinol (ZYLOPRIM) 100 mg tablet Take 1 tablet by mouth two times a day. For gout. - colchicine 0.6 mg tablet Take 2 tablets x1 then 1 tablet 1 hour later. Repeat in 3 days if needed. - ketoconazole (NIZORAL) 2 % shampoo Use as shampoo 3-4 days/week; leave lather on scalp for 5 minutes prior to rinsing - Cholecalciferol, Vitamin D3, 125 mcg (5,000 unit) cap Take 1 capsule by mouth once daily. - diclofenac sodium (VOLTAREN) 1 % topical gel Apply 4 g to affected area four times daily. - CYANOCOBALAMIN, VITAMIN B-12, (LIQUID B 12 ORAL) Take 1 Dose by mouth once daily. Meds Comments as of 09/14/2017: Liquid Tylenol as needed Taking Prednisone, Proair inhaler at this time for bronchitis 09/14/2017 nw Problem List As Of Date 07/20/2024 Noted Resolved TRISOMY 21 (DOWN SYNDROME) [Q90.9] 10/21/2006 Rash and Nonspecific Skin Eruption [R21] 08/29/2009 Right knee pain [M25.561] 08/17/2013 07/31/2014 Osteochondritis dissecans of knee [M93.269] 07/31/2014 Knee pain [M25.569] Renal cyst [N28.1] 10/05/2014 Renal insufficiency [N28.9] Stage 3 chronic kidney disease (HCC) [N18.30] 01/27/2018 Seborrheic dermatitis [L21.9] 01/31/2020 Vitamin D deficiency [E55.9] 01/31/2020 Encounter Status:Closed by SURI ALTAMIRANO on 07/20/[address] [facility] CNOVon 07-08-2024 CNOV Office Visit (FAMPWS) BRANDEN LOONEY ([id number]) 1975 Date Time Provider Department 07/08/24 9:00 AM MARKOS JUNE During your visit today, we recorded the following information about you: Pulse Respiration Blood pressure Weight 72/minute 16/minute 90/66 86.5 kg Markos June MD 07/08/2024 9:25 AM Signed Chief Complaint Follow up HPI Branden Looney is a 48 year old male who presents here today for 3 month follow up. Pt here today with his Mother. Pt has down syndrome. No bowel, Gi, or urinary issues. No chest pains, dizziness, or SOB. CKD: Monitored with labs. Gout: right wrist. Taking Allopurinol 100 mg BID. Pain: b/l knee; using Voltaren gel and Tylenol prn. Left knee sore today due to weather changing. Denies watching diet or exercising. No medications for cholesterol or elevated glucose. Vit D defienecy: taking Vitamin D3 5,000 international unit(s) daily. Follows with [employer] Dr. Santa for tx of nail fungus. Past medical history, appointments, medications, allergies reviewed. Previous Medical History PAST MEDICAL HISTORY Diagnosis Date Down's syndrome Down's syndrome Knee pain right Renal cyst 10/05/2014 Renal insufficiency 2015 Previous Surgical History PAST SURGICAL HISTORY Procedure Laterality Date APPENDECTOMY TONSILLECTOMY PRIMARY/SECONDARY Tonsillectomy Family History FAMILY HISTORY Problem Relation Age of Onset Diabetes Father Hypertension Father Lipids Mother Hypertension Mother Thyroid Mother Heart disease Mother CABG Diabetes Maternal Grandmother Diabetes Maternal Grandfather Hypertension Paternal Grandfather Diabetes Sister Patient Allergies ALLERGIES Allergen Reactions Amoxicillin Rash Drug rash when taking amoxicillin and tylenol with codeine Tylenol-Codeine #3 * Rash Drug rash when taking amoxicillin and tylenol with codeine Current Medications Current Outpatient Medications on File Prior to Visit Medication Sig allopurinol (ZYLOPRIM) 100 mg tablet Take 1 tablet by mouth two times a day. For gout. colchicine 0.6 mg tablet Take 2 tablets x1 then 1 tablet 1 hour later. Repeat in 3 days if needed. ketoconazole (NIZORAL) 2 % shampoo Use as shampoo 3-4 days/week; leave lather on scalp for 5 minutes prior to rinsing Cholecalciferol, Vitamin D3, 125 mcg (5,000 unit) cap Take 1 capsule by mouth once daily. diclofenac sodium (VOLTAREN) 1 % topical gel Apply 4 g to affected area four times daily. CYANOCOBALAMIN, VITAMIN B-12, (LIQUID B 12 ORAL) Take 1 Dose by mouth once daily. No current facility-administere d medications on file prior to visit. Social History Social History Tobacco Use Smoking status: Never Smokeless tobacco: Never Tobacco comments: both parents are smokers Vaping Use Vaping status: Never Used Substance Use Topics Alcohol use: No Drug use: No EXAM: There were no vitals taken for this visit. General Appearance: Well appearing, alert, in no acute distress, well-hydrated, well nourished.. Lungs: Lungs clear to auscultation. No wheezing, rhonchi, rales.. Heart: RRR without murmur, gallop, or rubs. No ectopy. Health Maintenance List Hepatitis C Screening Never done HIV Screening Never done Hepatitis B Vaccine(1 of 3 - 19+ 3-dose series) Never done DTaP,Tdap,Td Vaccine(4 - Td or Tdap) due on 01/03/2022 Colorectal Cancer Screening due on 02/02/2024 Influenza Vaccine(1) due on 03/26/2024 Covid-19 Vaccine(2 - 2023- season) due on 03/26/2024 Serum Creatinine due on 12/06/2024 Hemoglobin/Hematocri t due on 12/06/2024 Depression Screening due on 12/13/2024 Anxiety Screening due on 12/13/2024 Annual PCP Team Chronic Disease Visit due on 03/17/2025 Diabetes Screening due on 12/06/2026 Lipid Screening due on 05/27/2028 Data reviewed none ASSESSMENT/PLAN: 1. Down's syndrome - ICD9: 758.0, ICD10: Q90.9 (primary diagnosis) 2. Stage 3 chronic kidney disease, unspecified whether stage 3a or 3b CKD (HCC) - ICD9: 585.3, ICD10: N18.30 - eGFR: 48 Stable - Monitor - COMPREHENSIVE METABOLIC PANEL - COMPLETE BLOOD COUNT 3. Elevated glucose - ICD9: 790.29, ICD10: R73.09 - COMPREHENSIVE METABOLIC PANEL - HEMOGLOBIN A1C 4. Vitamin D deficiency - ICD9: 268.9, ICD10: E55.9 - VITAMIN D 25 HYDROXY 5. Hyperlipidemia, unspecified hyperlipidemia type - ICD9: 272.4, ICD10: E78.5 - COMPREHENSIVE METABOLIC PANEL - LIPID PANEL BASIC 6. Gout of right wrist, unspecified cause, unspecified chronicity - ICD9: 274.9, ICD10: M10.9 - URIC ACID Follow up in 3 months with labs Medical Decision Making: Problems: Moderate: 2+ stable chronic illnesses Data: Unique test(s) ordered: 3+ Risk: Moderate: Drug management Medical Decision Making Level: 4 - Moderate Markos June MD Allergies As of Date: 07/08/2024 Noted Allergy Reaction AMOXICILLIN 03/26 (more content not included)... Normal [facility] CNOVon 04-17-2024 CNOV Office Visit (FAMPWS) BRANDEN LOONEY ([id number]) 1975 M Date Time Provider Department 04/17/24 3:40 PM KRISTIE SANTA During your visit today, we recorded the following information about you: Temperature Pulse Respiration Blood pressure 98.1 degrees 86/minute 18/minute 120/66 Weight 87.1 kg Kristie Santa APRN.CNP 04/17/2024 3:50 PM Signed This is a 48 year old male who presents today with: Patient presents with: Headache Cough Nasal Congestion HISTORY OF PRESENT ILLNESS: Branden Looney is a 48 year old male. Patient presents with: Headache Cough Nasal Congestion Stuffy and runny nose that started right after his appt. Last time. Mom gave him Coricidin D and tylenol. Then he started complaining of body aches. Chilling at night Sore throat No body aches. Ears hurt a little bit. PAST MEDICAL HISTORY: PAST MEDICAL HISTORY Diagnosis Date Down's syndrome Down's syndrome Knee pain right Renal cyst 10/05/2014 Renal insufficiency 2014 PAST SURGICAL HISTORY Procedure Laterality Date APPENDECTOMY TONSILLECTOMY PRIMARY/SECONDARY Tonsillectomy ALLERGIES Amoxicillin and Tylenol-Codeine #3 [Acetaminophen-Codei ne] MEDICATIONS Current Outpatient Medications Medication Sig allopurinol (ZYLOPRIM) 100 mg tablet Take 1 tablet by mouth two times a day. For gout. colchicine 0.6 mg tablet Take 2 tablets x1 then 1 tablet 1 hour later. Repeat in 3 days if needed. ketoconazole (NIZORAL) 2 % shampoo Use as shampoo 3-4 days/week; leave lather on scalp for 5 minutes prior to rinsing Cholecalciferol, Vitamin D3, 125 mcg (5,000 unit) cap Take 1 capsule by mouth once daily. diclofenac sodium (VOLTAREN) 1 % topical gel Apply 4 g to affected area four times daily. CYANOCOBALAMIN, VITAMIN B-12, (LIQUID B 12 ORAL) Take 1 Dose by mouth once daily. No current facility-administere d medications for this visit. FAMILY HISTORY Problem Relation Age of Onset Diabetes Father Hypertension Father Lipids Mother Hypertension Mother Thyroid Mother Heart disease Mother CABG Diabetes Maternal Grandmother Diabetes Maternal Grandfather Hypertension Paternal Grandfather Diabetes Sister Social History Tobacco Use Smoking status: Never Smokeless tobacco: Never Tobacco comments: both parents are smokers Vaping Use Vaping status: Never Used Substance Use Topics Alcohol use: No Drug use: No EXAM: BP 120/66 Pulse 86 Temp 36.7 ?C (98.1 ?F) Resp 18 Wt 87.1 kg (192 lb) SpO2 94% PHYSICAL EXAM: Physical Exam Vitals reviewed. Constitutional: Appearance: Normal appearance. HENT: Head: Normocephalic. Right Ear: Tympanic membrane and ear canal normal. There is no impacted cerumen. Left Ear: Tympanic membrane and ear canal normal. There is no impacted cerumen. Nose: Congestion and rhinorrhea present. Comments: Left side purulent matter Mouth/Throat: Mouth: Mucous membranes are dry. Pharynx: Oropharyngeal exudate and posterior oropharyngeal erythema present. Cardiovascular: Rate and Rhythm: Normal rate and regular rhythm. Pulses: Normal pulses. Heart sounds: Normal heart sounds. Pulmonary: Effort: Pulmonary effort is normal. Breath sounds: Normal breath sounds. Abdominal: Palpations: Abdomen is soft. Musculoskeletal: General: Normal range of motion. Skin: General: Skin is warm and dry. Neurological: Mental Status: He is alert. Comments: Down's syndrome- poor communication. LABS: CKD stage IIIb ASSESSMENT/PLAN: 1. Acute frontal sinusitis, recurrence not specified - ICD9: 461.1, ICD10: J01.10 - Will begin treatment with Ceftin 250 mg BID for 10 days - Saline nasal spray 2 x day - Acetaminophen as needed for headache Discussed treatment plan and patient voices understanding. Patient's questions answered appropriately. Medications and potential side effects were discussed and patient voices understanding. Return to the office as scheduled or as needed for worsening/no improvement. KATHY Go Jacqueline A, APRN.CNP 04/17/2024 3:49 PM Signed 1) Keep Appt. With Dr. June as scheduled 2) Ceftin 250 mg 2 x day for 10 days 3) Saline mist 2 x day for 10 days Allergies As of Date: 04/17/2024 Noted Allergy Reaction AMOXICILLIN 04/06/2020 2 - Rash Comments: Drug rash when taking amoxicillin and tylenol with codeine TYLENOL-CODEINE #3 (ACETAMINOPHEN*04/06 2 - Rash Comments: Drug rash when taking amoxicillin and tylenol with codeine Date Reviewed: 04/17/2024 Reviewed by: Kristie Santa APRN.CNP - Fully Assessed Reason for Visit: Headache [52] Cough [28] Nasal Congestion [235] Primary Visit Diagnosis:Acute frontal sinusitis, recurrence not specified [J01.10] Order(s):cefUROXime (CEFTIN) 250 mg tabletTake 1 tablet by mouth two times a day for 10 days.Dis (more content not included)... Normal [facility] CNOVon 03-17-2024 CNOV Office Visit (FAMPWS) BRANDEN LOONEY ([id number]) 1975 M Date Time Provider Department 03/17/24 3:00 PM [facility] During your visit today, we recorded the following information about you: Pulse Respiration Blood pressure Weight 80/minute 18/minute 134/72 86 kg Markos June MD 03/17/2024 5:11 PM Signed Chief Complaint Patient presents with: F/U 3 Month HPI Branden Looney is a 48 year old male who presents here today for a 3 month follow up. Pt here today with his Mother for his routine follow up. Headache today; has had nasal and sinus congestion. Using OTC aids. Pain - Chronic b/l knee pain, continues to complain about his knee's bothering him. Uses liquid Tylenol and Voltaren Gel prn. Previous XR taken, has been offered referral to Ortho to receive injections but this has been denied. Has been given Mobic 15 mg once daily in the past. Pt has used cane periodically when pain is worse. Gout - Right wrist. Denies any issues at this time. Mother has previously noted only given him Allopurinol 100 mg sometimes, when supposed to be taking daily. Taking Allopurinol 100 mg 1 tab po bid. Glucose/Lipids - Elevated, currently on no medications. Monitoring through routine labs. Denies watching diet or doing too much exercise. Vit D - Deficient, taking Vitamin D3 5,000 international unit(s) liquid daily. CKD - Monitoring through routine labs. Fungus - Following with Dr. Santa for toenail fungus. Taking Lamisil 250 mg once daily, but Mother reports he's not taking this really anymore. Is scheduled to f/u with him this week, may renew the medication. Pt reports having a headache today. Past medical history, appointments, medications, allergies reviewed. Previous Medical History PAST MEDICAL HISTORY No date: Down's syndrome Comment: Down's syndrome No date: Knee pain Comment: right 10/05/2014: Renal cyst 2015: Renal insufficiency Previous Surgical History PAST SURGICAL HISTORY No date: APPENDECTOMY No date: TONSILLECTOMY PRIMARY/SECONDARY Comment: Tonsillectomy Family History FAMILY HISTORY Problem Relation Age of Onset Diabetes Father Hypertension Father Lipids Mother Hypertension Mother Thyroid Mother Heart disease Mother CABG Diabetes Maternal Grandmother Diabetes Maternal Grandfather Hypertension Paternal Grandfather Diabetes Sister Patient Allergies ALLERGIES Allergen Reactions Amoxicillin Rash Drug rash when taking amoxicillin and tylenol with codeine Tylenol-Codeine #3 * Rash Drug rash when taking amoxicillin and tylenol with codeine Current Medications Current Outpatient Medications on File Prior to Visit Medication Sig allopurinol (ZYLOPRIM) 100 mg tablet Take 1 tablet by mouth two times a day. For gout. colchicine 0.6 mg tablet Take 2 tablets x1 then 1 tablet 1 hour later. Repeat in 3 days if needed. terbinafine HCl (LAMISIL) 250 mg tablet Take 250 mg by mouth once daily. Prescribed by Dr. Santa[facility] [employer] ketoconazole (NIZORAL) 2 % shampoo Use as shampoo 3-4 days/week; leave lather on scalp for 5 minutes prior to rinsing Cholecalciferol, Vitamin D3, 125 mcg (5,000 unit) cap Take 1 capsule by mouth once daily. diclofenac sodium (VOLTAREN) 1 % topical gel Apply 4 g to affected area four times daily. CYANOCOBALAMIN, VITAMIN B-12, (LIQUID B 12 ORAL) Take 1 Dose by mouth once daily. No current facility-administere d medications on file prior to visit. Social History Social History Tobacco Use Smoking status: Never Smokeless tobacco: Never Tobacco comments: both parents are smokers Vaping Use Vaping status: Never Used Substance Use Topics Alcohol use: No Drug use: No EXAM: BP 134/72 (BP Site: Right Arm, BP Position: Sitting, BP Cuff Size: Regular Adult) Pulse 80 Resp 18 Wt 86 kg (189 lb 9.5 oz) General Appearance: Well appearing, alert, in no acute distress, well-hydrated, well nourished.. Ears: External ears normal, canals clear. Oropharynx: Lips, mucosa, and tongue normal, teeth and gums normal, oropharynx normal. Neck: Supple, no adenopathy; thyroid symmetric, normal size, no bruits. Lungs: Lungs clear to auscultation. No wheezing, rhonchi, rales.. Heart: RRR without murmur, gallop, or rubs. No ectopy. Extremities: no swelling in knees. Health Maintenance List Hepatitis B Vaccine(1 of 3 - 19+ 3-dose series) Never done DTaP,Tdap,Td Vaccine(4 - Td or Tdap) due on 01/03/2022 Colorectal Cancer Screening due on 02/02/2024 Hepatitis C Screening due on 05/13/2024 HIV Screening due on 05/13/2024 Covid-19 Vaccine( - season) due on 05/13/2024 Influenza Vaccine(1) due on 03/26/2024 Serum Creatinine due on 12/06/2024 Hemoglobin/Hematocri t due on 12/06/2024 Depression Screening due on 12/13/2024 Anxiety Screening due on 12/13/2024 Annual PCP Team Chronic Disease Visit due (more content not included)... Normal [facility] CNOVon 01-17-2024 CNOV Office Visit (FAMPWS) BRANDEN LOONEY ([id number]) 1975 M Date Time Provider Department 01/17/24 3:20 PM MARKOS JUNE FAMPWS During your visit today, we recorded the following information about you: Pulse Respiration Blood pressure Weight 60/minute 16/minute 100/68 85.5 kg Suri Altamirano MA 01/17/2024 3:02 PM Signed Increase Allopurinol 100 mg to 1 pill twice a day. Start Prednisone 9 day Taper Continue with Celeste Mendez warm soaks, Tylenol Markos June MD 01/17/2024 3:05 PM Signed Chief Complaint Patient presents with: Follow Up: Left foot pain gout HPI Branden Looney is a 48 year old male who presents here today for toe recheck. Pt saw Danica Francois 01/14/24 for gout involving left foot and toe. Pt taking Allopurinol 100 mg daily and she prescribed him Colchicine 0.6 mg 2 prn flare ups. Mom has been been applying aspercream, bengay, giving him Tylenol and having him soak foot in warm epsom salt bath. Still has swelling of the foot. Has not tried any ice. Pt rated pain 2/10 at this time, constant stinging sharp pain. Past medical history, appointments, medications, allergies reviewed. Previous Medical History PAST MEDICAL HISTORY Diagnosis Date Down's syndrome Down's syndrome Knee pain right Renal cyst 10/05/2014 Renal insufficiency 2014 Previous Surgical History PAST SURGICAL HISTORY Procedure Laterality Date APPENDECTOMY TONSILLECTOMY PRIMARY/SECONDARY Tonsillectomy Family History FAMILY HISTORY Problem Relation Age of Onset Diabetes Father Hypertension Father Lipids Mother Hypertension Mother Thyroid Mother Heart disease Mother CABG Diabetes Maternal Grandmother Diabetes Maternal Grandfather Hypertension Paternal Grandfather Diabetes Sister Patient Allergies ALLERGIES Allergen Reactions Amoxicillin Rash Drug rash when taking amoxicillin and tylenol with codeine Tylenol-Codeine #3 * Rash Drug rash when taking amoxicillin and tylenol with codeine Current Medications Current Outpatient Medications on File Prior to Visit Medication Sig colchicine 0.6 mg tablet Take 2 tablets x1 then 1 tablet 1 hour later. Repeat in 3 days if needed. terbinafine HCl (LAMISIL) 250 mg tablet Take 250 mg by mouth once daily. Prescribed by Dr. [facility] [employer] allopurinol (ZYLOPRIM) 100 mg tablet Take 1 tablet by mouth once daily. For gout. ketoconazole (NIZORAL) 2 % shampoo Use as shampoo 3-4 days/week; leave lather on scalp for 5 minutes prior to rinsing Cholecalciferol, Vitamin D3, 125 mcg (5,000 unit) cap Take 1 capsule by mouth once daily. diclofenac sodium (VOLTAREN) 1 % topical gel Apply 4 g to affected area four times daily. CYANOCOBALAMIN, VITAMIN B-12, (LIQUID B 12 ORAL) Take 1 Dose by mouth once daily. No current facility-administere d medications on file prior to visit. Social History Social History Tobacco Use Smoking status: Never Smokeless tobacco: Never Tobacco comments: both parents are smokers Vaping Use Vaping Use: Never used Substance Use Topics Alcohol use: No Drug use: No EXAM: BP 100/68 Pulse 60 Resp 16 Wt 85.5 kg (188 lb 6.4 oz) General Appearance: Well appearing, alert, in no acute distress, well-hydrated, well nourished. and Overweight. Foot: left great toe and foot; swelling across dorsum of foot, and pain on palpation of first toe MCP joint. Health Maintenance List Hepatitis B Vaccine(1 of 3 - 19+ 3-dose series) Never done DTaP,Tdap,Td Vaccine(4 - Td or Tdap) due on 01/03/2022 Colorectal Cancer Screening due on 02/02/2024 Hepatitis C Screening due on 05/13/2024 HIV Screening due on 05/13/2024 Covid-19 Vaccine( season) due on 05/13/2024 Influenza Vaccine(Season Ended) due on 03/26/2024 Serum Creatinine due on 12/06/2024 Hemoglobin/Hematocri t due on 12/06/2024 Annual PCP Team Chronic Disease Visit due on 01/13/2025 Diabetes Screening due on 12/06/2026 Lipid Screening due on 05/27/2028 Behavioral Health Screening Completed Data reviewed none ASSESSMENT/PLAN: 1. Foot pain, left - ICD9: 729.5, ICD10: M79.672 Clinically appears to be gout flare Increase Allopurinol 100 mg to BID Rx for 9 day Taper Prednisone Follow up if not improving by end of the week. I agree with the Chief Complaint, ROS, and Past Histories independently gathered by the clinical office support and the remaining scribed note accurately describes my personal service to the patient. Medical Decision Making: Problems: Moderate: 1+ chronic illnesses with change Risk: Moderate: Drug management Medical Decision Making Level: 4 - Moderate Markos June MD The documentation for this note was completed by Suri Altamirano MA acting as scribe for Markos June MD. January 17, 2024 2:57 PM. Suri Altamirano MA Referring Provider: DANICA FRANCOIS [[id number]] Allergi (more content not included)... Normal [facility] CNOVon 01-14-2024 CNOV Office Visit (FAMPWS) BRANDEN LOONEY ([id number]) 1975 M Date Time Provider Department 01/14/24 11:40 AM [facility] your visit today, we recorded the following information about you: Temperature Pulse Respiration Blood pressure 97.5 degrees 103/minute 16/minute 100/70 Weight 85.7 kg Danica Francois PA-C 01/14/2024 12:14 PM Signed Chief Complaint Patient presents with: Pain (foot): Bunion left foot and right foot pain HPI Branden Looney is a 48 year old male who presents here today for pain of left toe.. Patient with hx of gout. Has had pain over the past couple days in both feet. Worse on left. Has had swelling. Is on allopurinol. Recent labs show uric acid level at 9 but no med changes as patient wasn't having issues. Past medical history, appointments, medications, allergies reviewed. Previous Medical History PAST MEDICAL HISTORY Diagnosis Date Down's syndrome Down's syndrome Knee pain right Renal cyst 10/05/2014 Renal insufficiency 2014 Previous Surgical History PAST SURGICAL HISTORY Procedure Laterality Date APPENDECTOMY TONSILLECTOMY PRIMARY/SECONDARY Tonsillectomy Family History FAMILY HISTORY Problem Relation Age of Onset Diabetes Father Hypertension Father Lipids Mother Hypertension Mother Thyroid Mother Heart disease Mother CABG Diabetes Maternal Grandmother Diabetes Maternal Grandfather Hypertension Paternal Grandfather Diabetes Sister Patient Allergies ALLERGIES Allergen Reactions Amoxicillin Rash Drug rash when taking amoxicillin and tylenol with codeine Tylenol-Codeine #3 * Rash Drug rash when taking amoxicillin and tylenol with codeine Current Medications Current Outpatient Medications on File Prior to Visit Medication Sig terbinafine HCl (LAMISIL) 250 mg tablet Take 250 mg by mouth once daily. Prescribed by Dr. Santa[facility] [employer] allopurinol (ZYLOPRIM) 100 mg tablet Take 1 tablet by mouth once daily. For gout. ketoconazole (NIZORAL) 2 % shampoo Use as shampoo 3-4 days/week; leave lather on scalp for 5 minutes prior to rinsing Cholecalciferol, Vitamin D3, 125 mcg (5,000 unit) cap Take 1 capsule by mouth once daily. diclofenac sodium (VOLTAREN) 1 % topical gel Apply 4 g to affected area four times daily. CYANOCOBALAMIN, VITAMIN B-12, (LIQUID B 12 ORAL) Take 1 Dose by mouth once daily. No current facility-administere d medications on file prior to visit. Social History Social History Tobacco Use Smoking status: Never Smokeless tobacco: Never Tobacco comments: both parents are smokers Vaping Use Vaping Use: Never used Substance Use Topics Alcohol use: No Drug use: No Review of Symptoms REVIEW OF SYSTEMS See hpi EXAM: BP 100/70 (BP Site: Left Arm, BP Position: Sitting, BP Cuff Size: Large Adult) Pulse 103 Temp 36.4 ?C (97.5 ?F) Resp 16 Wt 85.7 kg (189 lb) General Appearance: Well appearing, alert, in no acute distress, well-hydrated, well nourished.. Extremities: very tender swelling over Left MTP joint. Warmth and erythema noted. . Health Maintenance List Hepatitis B Vaccine(1 of 3 - 19+ 3-dose series) Never done DTaP,Tdap,Td Vaccine(4 - Td or Tdap) due on 01/03/2022 Colorectal Cancer Screening due on 02/02/2024 Hepatitis C Screening due on 05/13/2024 HIV Screening due on 05/13/2024 Covid-19 Vaccine( season) due on 05/13/2024 Influenza Vaccine(Season Ended) due on 03/26/2024 Serum Creatinine due on 12/06/2024 Hemoglobin/Hematocri t due on 12/06/2024 Annual PCP Team Chronic Disease Visit due on 12/13/2024 Diabetes Screening due on 12/06/2026 Lipid Screening due on 05/27/2028 Behavioral Health Screening Completed Data reviewed ASSESSMENT/PLAN: 1. Acute gout involving toe, unspecified cause, unspecified laterality - ICD9: 274.01, ICD10: M10.9 Recent uric acid level elevated and presentation consistent with acute gout attack. Will treat with colchicine and set up follow up with PCP next week. May need dose adjustment on allopurinol Discussed possible red flags and when to seek medical attention. Danica Francois PA-C Allergies As of Date: 01/14/2024 Noted Allergy Reaction AMOXICILLIN 04/06/2020 2 - Rash Comments: Drug rash when taking amoxicillin and tylenol with codeine TYLENOL-CODEINE #3 (ACETAMINOPHEN*04/06 2 - Rash Comments: Drug rash when taking amoxicillin and tylenol with codeine Date Reviewed: 01/14/2024 Reviewed by: Salima Austin LPN - Fully Assessed Reason for Visit: Pain (foot) [760] Cmt: Bunion left foot and right foot pain Primary Visit Diagnosis:Acute gout involving toe, unspecified cause, unspecified laterality [M10.9] Order(s):colchicine 0.6 mg tabletTake 2 tablets x1 then 1 tablet 1 hour later. Repeat in 3 days if needed.Disp: 3 tabletRfl: 1 Prescriptions as of 01/14/2024 - colchicine 0.6 mg (more content not included)... Normal [facility] 12-21-2023 [facility] BRANDEN LOONEY ([id number]) 1975 Date Time Provider Department 12/21/23 MARKOS JUNE During your visit today, we recorded the following information about you: Suri Altamirano MA 12/21/2023 8:26 AM Signed Pt mother dropped off letter received from [facility] states that pt was called for Jury Duty but he is not able to do Jury Duty. Please complete form or provide letter stating that pt is not able to do Jury duty and should be excused. Mail back to [facility] in addressed envelope KORI. Need to receive within the next 5 days. Call Yasemin once letter has been mailed. LIANNE Tavares Mark D, MD 12/21/2023 8:56 AM Signed Letter done MD Jorge Junior Kathryn, MA 12/21/2023 9:47 AM Signed Mailed. Yasemin pt mother notified. Suri Altamirano MA Allergies As of Date: 12/21/2023 Noted Allergy Reaction AMOXICILLIN 04/06/2020 2 - Rash Comments: Drug rash when taking amoxicillin and tylenol with codeine TYLENOL-CODEINE #3 (ACETAMINOPHEN*04/06 2 - Rash Comments: Drug rash when taking amoxicillin and tylenol with codeine Date Reviewed: 12/14/2023 Reviewed by: Edna Perez MA - Fully Assessed Reason for Visit: Letter [264] Cmt: Jury Duty Excuse Prescriptions as of 12/21/2023 - terbinafine HCl (LAMISIL) 250 mg tablet Take 250 mg by mouth once daily. Prescribed by Dr. Santa[facility] [employer] - allopurinol (ZYLOPRIM) 100 mg tablet Take 1 tablet by mouth once daily. For gout. - ketoconazole (NIZORAL) 2 % shampoo Use as shampoo 3-4 days/week; leave lather on scalp for 5 minutes prior to rinsing - Cholecalciferol, Vitamin D3, 125 mcg (5,000 unit) cap Take 1 capsule by mouth once daily. - diclofenac sodium (VOLTAREN) 1 % topical gel Apply 4 g to affected area four times daily. - CYANOCOBALAMIN, VITAMIN B-12, (LIQUID B 12 ORAL) Take 1 Dose by mouth once daily. Meds Comments as of 09/14/2017: Liquid Tylenol as needed Taking Prednisone, Proair inhaler at this time for bronchitis 09/14/2017 nw Problem List As Of Date 12/21/2023 Noted Resolved TRISOMY 21 (DOWN SYNDROME) [Q90.9] 10/21/2006 Rash and Nonspecific Skin Eruption [R21] 08/29/2009 Right knee pain [M25.561] 08/17/2013 07/31/2014 Osteochondritis dissecans of knee [M93.269] 07/31/2014 Knee pain [M25.569] Renal cyst [N28.1] 10/05/2014 Renal insufficiency [N28.9] Stage 3 chronic kidney disease (HCC) [N18.30] 01/27/2018 Seborrheic dermatitis [L21.9] 01/31/2020 Vitamin D deficiency [E55.9] 01/31/2020 Letter Text Encounter Status:Closed by SURI ALTAMIRANO on 12/21/[address] [facility] CNOVon 12-14-2023 CNOV Office Visit (FAMPWS) BRANDEN LOONEY ([id number]) 1975 M Date Time Provider Department 12/14/23 3:40 PM [facility]E [facility] During your visit today, we recorded the following information about you: Pulse Respiration Blood pressure Weight 84/minute 18/minute 118/82 81.8 kg Markos June MD 12/14/2023 4:24 PM Signed Chief Complaint Patient presents with: F/U 3 Month HPI Branden Looney is a 48 year old male who presents here today for 3 month follow up. Here today for his 3 month follow up and review labs. Here with his Mother. Pain/Gout: Complaining of b/l knee pain, using a cane today. Mother is using liquid Tylenol for this. Has previously taken Mobic 15 mg once daily, Mother unsure if still using this. Has Voltaren gel they can use if needed. Denies any issues with gout at this time. Using Allopurinol 100 mg daily CKD - Monitoring through routine labs. Fungus - Follows with Dr. Santa for toenail fungus. Currently taking Lamisil 250 mg once daily. Mother states they take it prn. Glucose - Monitoring elevated glucose through routine labs. Currently on no medication at this time. Weight has decreased since last visit. Vit D - Deficient. Takes Vitamin D 5,000 international unit(s) liquid once daily. Dry skin on b/l hands that's painful, per patient. Washes his hands frequently. Has lotion to use but not using this like he should, per mom. HM - Behavioral Health Screening completed, negative. Behavioral Health Screening PHQ-2 Score: 0 (Lower risk for depression) JESSIE-2 Score: 0 (Lower risk for anxiety) Recommendation: No further intervention at this time Past medical history, appointments, medications, allergies reviewed. Previous Medical History PAST MEDICAL HISTORY Diagnosis Date Down's syndrome Down's syndrome Knee pain right Renal cyst 10/05/2014 Renal insufficiency 2015 Previous Surgical History PAST SURGICAL HISTORY Procedure Laterality Date APPENDECTOMY TONSILLECTOMY PRIMARY/SECONDARY Tonsillectomy Family History FAMILY HISTORY Problem Relation Age of Onset Diabetes Father Hypertension Father Lipids Mother Hypertension Mother Thyroid Mother Heart disease Mother CABG Diabetes Maternal Grandmother Diabetes Maternal Grandfather Hypertension Paternal Grandfather Diabetes Sister Patient Allergies ALLERGIES Allergen Reactions Amoxicillin Rash Drug rash when taking amoxicillin and tylenol with codeine Tylenol-Codeine #3 * Rash Drug rash when taking amoxicillin and tylenol with codeine Current Medications Current Outpatient Medications on File Prior to Visit Medication Sig terbinafine HCl (LAMISIL) 250 mg tablet Take 250 mg by mouth once daily. Prescribed by Dr. [facility] [employer] meloxicam (MOBIC) 15 mg tablet Take 1 tablet by mouth once daily. allopurinol (ZYLOPRIM) 100 mg tablet Take 1 tablet by mouth once daily. For gout. ketoconazole (NIZORAL) 2 % shampoo Use as shampoo 3-4 days/week; leave lather on scalp for 5 minutes prior to rinsing Cholecalciferol, Vitamin D3, 125 mcg (5,000 unit) cap Take 1 capsule by mouth once daily. diclofenac sodium (VOLTAREN) 1 % topical gel Apply 4 g to affected area four times daily. CYANOCOBALAMIN, VITAMIN B-12, (LIQUID B 12 ORAL) Take 1 Dose by mouth once daily. No current facility-administere d medications on file prior to visit. Social History Social History Tobacco Use Smoking status: Never Smokeless tobacco: Never Tobacco comments: both parents are smokers Vaping Use Vaping Use: Never used Substance Use Topics Alcohol use: No Drug use: No EXAM: BP 118/82 (BP Site: Left Arm, BP Position: Sitting, BP Cuff Size: Regular Adult) Pulse 84 Resp 18 Wt 81.8 kg (180 lb 6.4 oz) General Appearance: Well appearing, alert, in no acute distress, well-hydrated, well nourished. and Overweight. Using a cane today. Skin: Dry skin on hands bilaterally. Lungs: Lungs clear to auscultation. No wheezing, rhonchi, rales.. Heart: RRR without murmur, gallop, or rubs. No ectopy. Extremities: No swelling noted on exam on right knee. Some tenderness noted on right knee. Health Maintenance List Hepatitis B Vaccine(1 of 3 - 19+ 3-dose series) Never done DTaP,Tdap,Td Vaccine(4 - Td or Tdap) due on 01/03/2022 Behavioral Health Screening Never done Colorectal Cancer Screening due on 02/02/2024 Hepatitis C Screening due on 05/13/2024 HIV Screening due on 05/13/2024 Covid-19 Vaccine( season) due on 05/13/2024 Influenza Vaccine(Season Ended) due on 03/26/2024 Annual PCP Team Chronic Disease Visit due on 11/01/2024 Serum Creatinine due on 12/06/2024 Hemoglobin/Hematocri t due on 12/06/2024 Diabetes Screening due on 12/06/2026 Lipid Screening due on 05/27/2028 Data reviewed Appointment on 12/07/2023 Component Date Value Protein, Total 12/07/2023 8.0 Albumin (more content not included)... Normal [facility] 25(OH)D3 SerPl-ncon 2023 25-hydroxyvitamin D3 [Mass/Vol] 32.7 ng/mL Normal 31.0-80.[address] [facility] Comment on above: Order Comment: Speci men Type: BLOOD SPECIMEN Ordering Facility: [facility] Address: [address] [place] [address] Result Comment: Clas sification of 25 [place] Vitamin D status: Deficiency/Insufficiency: < or = 30 ng/ml. Sufficiency/Optimal Levels: 31-80 ng/mL Toxicity: > 100 ng/mL. Test performed by chemiluminescent immunoassay. Performed By: #### 1 988-5 #### [facility] CLIA [id number] [address] [place] [id number] [place] [facility] CBC W Auto Differential pane l (Bld)on 12-07-2023 Basophils (Bld) [#/Vol] 0.09 10*3/uL Normal <0.[address] [facility] Comment on above: Order Comment: Speci men Type: BLOOD SPECIMEN Ordering Facility: [facility] Address: [address] [place] [address] Performed By: #### 1 988-5 #### [facility] CLIA [id number] [address] [place] [address] [place] Basophils/100 WBC (Bld) 2.3 % Normal [facility] Comment on above: Order Comment: Speci men Type: BLOOD SPECIMEN Ordering Facility: [facility] Address: [address] [place] [address] Performed By: #### 1 988-5 #### [facility] CLIA [id number] [address] [place] [id number] [facility] [place] Differential cell count method Nom (Bld) Auto Normal [facility] Comment on above: Order Comment: Speci men Type: BLOOD SPECIMEN Ordering Facility: [facility] Address: [address] [place] [address] Performed By: #### 1 988-5 #### [facility] CLIA [id number] [address] [place] [address] [place] Eosinophils (Bld) [#/Vol] 0.07 10*3/uL Normal <0.[address] [facility] Comment on above: Order Comment: Speci men Type: BLOOD SPECIMEN Ordering Facility: [facility] Address: [address] [place] [address] Performed By: #### 1 988-5 #### [facility] CLIA [id number] [address] [place] [address] [facility] [place] Eosinophils/100 WBC (Bld) 1.8 % Normal [facility] Comment on above: Order Comment: Speci men Type: BLOOD SPECIMEN Ordering Facility: [facility] Address: [address] [place] [address] Performed By: #### 1 988-5 #### [facility] CLIA [id number] [address] [place] [address] [place] Erythrocyte distribution width (RBC) [Ratio] 14.1 % Normal 11.5-15.[address] [facility] Comment on above: Order Comment: Speci men Type: BLOOD SPECIMEN Ordering Facility: [facility] Address: [address] [place] [address] Performed By: #### 1 988-5 #### [facility] CLIA [id number] [address] [place] [address] [facility] [place] Hematocrit (Bld) [Volume fraction] 52.8 % High 39.0-51.[address] [facility] Comment on above: Order Comment: Speci men Type: BLOOD SPECIMEN Ordering Facility: [facility] Address: [address] [place] [address] Performed By: #### 1 988-5 #### [facility] CLIA [id number] [address] [place] [address] [place] Hemoglobin (Bld) [Mass/Vol] 16.9 g/dL Normal 13.0-17.[address] [facility] Comment on above: Order Comment: Speci men Type: BLOOD SPECIMEN Ordering Facility: [facility] Address: [address] [place] [address] Performed By: #### 1 988-5 #### [facility] CLIA [id number] [address] [place] [address] [place] Immature granulocytes (Bld) [#/Vol] 10*3/uL Normal <0.[address] [facility] Comment on above: Order Comment: Speci men Type: BLOOD SPECIMEN Ordering Facility: [facility] Address: [address] [place] [address] Performed By: #### 1 988-5 #### [facility] CLIA [id number] [address] [place] [address] [place] Immature granulocytes/100 WBC (Bld) 0.3 % Normal [facility] Comment on above: Order Comment: Speci men Type: BLOOD SPECIMEN Ordering Facility: [facility] Address: [address] [place] [address] Performed By: #### 1 988-5 #### [facility] CLIA [id number] [address] [place], [place] [address] [place] [address] [place] Lymphocytes (Bld) [#/Vol] 0.94 10*3/uL Low 1.00-4.[address] [facility] Comment on above: Order Comment: Speci men Type: BLOOD SPECIMEN Ordering Facility: [facility] Address: [address] [place] [address] Performed By: #### 1 988-5 #### [facility] CLIA [id number] [address] [place] Lymphocytes/100 WBC (Bld) 23.6 % Normal [facility] Comment on above: Order Comment: Speci men Type: BLOOD SPECIMEN Ordering Facility: [facility] Address: [address] [place] [address] Performed By: #### 1 988-5 #### [facility] CLIA [id number] [address] [place] MCH (RBC) [Entitic mass] 32.3 pg Normal 26.0-34.[address] [facility] Comment on above: Order Comment: Speci men Type: BLOOD SPECIMEN Ordering Facility: [facility] Address: [address] [place] [address] Performed By: #### 1 988-5 #### [facility] CLIA [id number] [address] [place] MCHC (RBC) [Mass/Vol] 32.0 g/dL Normal 30.5-36.0 [facility] Comment on above: Order Comment: Speci men Type: BLOOD SPECIMEN Ordering Facility: [facility] Address: [address] [place] [address] Performed By: #### 1 988-5 #### [facility] CLIA [id number] [address] [place] MCV (RBC) [Entitic vol] 101.0 fL High 80.0-100.0 [facility] Comment on above: Order Comment: Speci men Type: BLOOD SPECIMEN Ordering Facility: [facility] Address: [address] [place] [address] Performed By: #### 1 988-5 #### [facility] CLIA [id number] [address] [place] [address] [place] Monocytes (Bld) [#/Vol] 0.58 10*3/uL Normal <0.[address] [facility] Comment on above: Order Comment: Speci men Type: BLOOD SPECIMEN Ordering Facility: [facility] Address: [address] [place] [address] Performed By: #### 1 988-5 #### [facility] CLIA [id number] [address] [place] [address] [place] Monocytes/100 WBC (Bld) 14.5 % Normal [facility] Comment on above: Order Comment: Speci men Type: BLOOD SPECIMEN Ordering Facility: [facility] Address: [address] [place] [address] Performed By: #### 1 988-5 #### [facility] CLIA [id number] [address] [place] [address] [place] Neutrophils (Bld) [#/Vol] 2.30 10*3/uL Normal 1.45-7.[address] [facility] Comment on above: Order Comment: Speci men Type: BLOOD SPECIMEN Ordering Facility: [facility] Address: [address] [place] [address] Performed By: #### 1 988-5 #### [facility] CLIA [id number] [address] [place] [address] [place] Neutrophils/100 WBC (Bld) 57.5 % Normal [facility] Comment on above: Order Comment: Speci men Type: BLOOD SPECIMEN Ordering Facility: [facility] Address: [address] [place] [address] Performed By: #### 1 988-5 #### [facility] CLIA [id number] [address] [place] [address] [place] Nucleated RBC (Bld) [#/Vol] 10*3/uL Normal <0.[address] [facility] Comment on above: Order Comment: Speci men Type: BLOOD SPECIMEN Ordering Facility: [facility] Address: [address] [place] [address] Performed By: #### 1 988-5 #### [facility] CLIA [id number] [address] [place] [address] [place] Nucleated RBC/100 WBC (Bld) [Ratio] 0.0 /[address] [facility] Comment on above: Order Comment: Speci men Type: BLOOD SPECIMEN Ordering Facility: [facility] Address: [address] [place] [address] Performed By: #### 1 988-5 #### [facility] CLIA [id number] [address] [place] [address] [place] Platelet mean volume (Bld) [Entitic vol] 10.0 fL Normal 9.0-12.[address] [facility] Comment on above: Order Comment: Speci men Type: BLOOD SPECIMEN Ordering Facility: [facility] Address: [address] [place] [address] Performed By: #### 1 988-5 #### [facility] CLIA [id number] [address] [place] [address] [place] Platelets (Bld) [#/Vol] 248 10*3/uL Normal 150-[address] [facility] Comment on above: Order Comment: Speci men Type: BLOOD SPECIMEN Ordering Facility: [facility] Address: [address] [place] [address] Performed By: #### 1 988-5 #### [facility] CLIA [id number] [address] [place] [address] [place] RBC (Bld) [#/Vol] 5.23 10*6/uL Normal 4.20-6.00 [facility] Comment on above: Order Comment: Speci men Type: BLOOD SPECIMEN Ordering Facility: [facility] Address: [address] [place] [address] Performed By: #### 1 988-5 #### [facility] CLIA [id number] [address] [place] [address] [place] WBC (Bld) [#/Vol] 3.99 10*3/uL Normal 3.70-11.00 [facility] Comment on above: Order Comment: Speci men Type: BLOOD SPECIMEN Ordering Facility: [facility] Address: [address] [place] [address] Performed By: #### 1 988-5 #### [facility] CLIA [id number] [address] [place] [address] [place] [facility] Comprehensive metabolic 2000 panelon 12-07-2023 Albumin [Mass/Vol] 4.3 g/dL Normal 3.9-4.9 [facility] Comment on above: Order Comment: Speci men Type: BLOOD SPECIMENOrdering Facility: [facility] Address: [address] [place] [address] Performed By: #### 2 4323-8, 308-1 ####[facility] LABCLIA [id number] [place] [address] [place] ALP [Catalytic activity/Vol] 99 U/L Normal 38-[address] [facility] Comment on above: Order Comment: Speci men Type: BLOOD SPECIMENOrdering Facility: [facility] Address: [address] [place] [address] Performed By: #### 2 4323-8, 3084-1 ####[facility] LABCLIA [id number] [place] [id number] [place] ALT [Catalytic activity/Vol] 45 U/L Normal 10-[address] [facility] Comment on above: Order Comment: Speci men Type: BLOOD SPECIMENOrdering Facility: [facility] Address: [address] [place] [address] Performed By: #### 2 4323-8, 3084-1 ####[facility] LABCLIA [id number] [place] [id number] [place] Anion gap [Moles/Vol] 12 mmol/L Normal 9-18 [facility] Comment on above: Order Comment: Speci men Type: BLOOD SPECIMENOrdering Facility: [facility] Address: [address] [place] [address] Performed By: #### 2 4323-8, 3083- ####[facility] LABCLIA [id number] [place] [address] [place] AST [Catalytic activity/Vol] 44 U/L High 14-[address] [facility] Comment on above: Order Comment: Speci men Type: BLOOD SPECIMENOrdering Facility: [facility] Address: [address] [place] [address] Performed By: #### 2 4323-8, 3083-07 ####[facility] LABCLIA [id number] [place] [address] [place] Bilirubin [Mass/Vol] 0.4 mg/dL Normal 0.2-1.3 [facility] Comment on above: Order Comment: Speci men Type: BLOOD SPECIMENOrdering Facility: [facility] Address: [address] [place] [address] Performed By: #### 2 4323-8, 3083-07 ####[facility] LABCLIA [id number] [place] [address] [place] Calcium [Mass/Vol] 9.5 mg/dL Normal 8.5-10.2 [facility] Comment on above: Order Comment: Speci men Type: BLOOD SPECIMENOrdering Facility: [facility] Address: [address] [place] [address] Performed By: #### 2 4323-8, 3083-07 ####[facility] LABCLIA [id number] [place] [id number] [place] Chloride [Moles/Vol] 105 mmol/L Normal 97-105 [facility] Comment on above: Order Comment: Speci men Type: BLOOD SPECIMENOrdering Facility: [facility] Address: [address] [place] [address] Performed By: #### 2 4323-8, 3083-07 ####[facility] LABCLIA [id number] [place] [address] [place] CO2 [Moles/Vol] 26 mmol/L Normal 22-[address] [facility] Comment on above: Order Comment: Speci men Type: BLOOD SPECIMENOrdering Facility: [facility] Address: [address] [place] [address] Performed By: #### 2 4323-8, 3083-07 ####[facility] LABCLIA [id number] [place] [address] [place] Creatinine [Mass/Vol] 1.74 mg/dL High 0.73-1.22 [facility] Comment on above: Order Comment: Speci men Type: BLOOD SPECIMENOrdering Facility: [facility] Address: [address] [place] [address] Performed By: #### 2 4323-8, 3083-07 ####[facility] LABCLIA [id number] [place] [address] [place] Creatinine and Glomerular filtration rate.predicted panel (S/P/Bld) 48 mL/min/1.73m??? Low >=[address] [facility] Comment on above: Order Comment: Speci men Type: BLOOD SPECIMENOrdering Facility: [facility] Address: [address] [place] [address] Result Comment: Marci mated Glomerular Filtration Rate (eGFR) is calculated using the 2020 CKD-EPI creatinine equation. This equation utilizes serum creatinine, sex, and age as parameters. The creatinine assay has traceable calibration to isotope dilution-mass spectrometry. Refer to KDIGO guidelines for clinical interpretation. In patients with unstable renal function, e.g. those with acute kidney injury, the eGFR may not accurately reflect actual GFR. Performed By: #### 2 4323-8, 3083-07 ####[facility] LABCLIA [id number] [place] [address] [place] Glucose [Mass/Vol] 122 mg/dL High 74-99 [facility] Comment on above: Order Comment: Speci men Type: BLOOD SPECIMENOrdering Facility: [facility] Address: [address] [place] [address] Result Comment: The [place] Diabetes Association (ADA) provides guidance for cutoff values for fasting glucose and random glucose. The ADA defines fasting as no caloric intake for at least 8 hours. Fasting plasma glucose results between 100 to 125 mg/dL indicate increased risk for diabetes (prediabetes). Fasting plasma glucose results greater than or equal to 126 mg/dL meet the criteria for diagnosis of diabetes. In the absence of unequivocal hyperglycemia, results should be confirmed by repeat testing. In a patient with classic symptoms of hyperglycemia or hyperglycemic crisis, random plasma glucose results greater than or equal to 200 mg/dL meet the criteria for diagnosis of diabetes. Reference: Standards of Medical Care in Diabetes 2016, [place] [employer] Association. Diabetes Care. 2016.39(Suppl 1). Performed By: #### 2 4323-8, 3083-07 ####[facility] LABCLIA [id number] [place] [address] [place] Potassium [Moles/Vol] 4.2 mmol/L Normal 3.7-5.1 [facility] Comment on above: Order Comment: Speci men Type: BLOOD SPECIMENOrdering Facility: [facility] Address: [address] [place] [address] Performed By: #### 2 4323-8, 3083-07 ####[facility] LABCLIA [id number] [place] [address] [place] Protein [Mass/Vol] 8.0 g/dL Normal 6.3-8.0 [facility] Comment on above: Order Comment: Speci men Type: BLOOD SPECIMENOrdering Facility: [facility] Address: [address] [place] [address] Performed By: #### 2 4323-8, 3083-07 ####[facility] LABCLIA [id number] [place] [address] [place] Sodium [Moles/Vol] 143 mmol/L Normal 136-144 [facility] Comment on above: Order Comment: Speci men Type: BLOOD SPECIMENOrdering Facility: [facility] Address: [address] [place] [address] Performed By: #### 2 4323-8, 3084-1 ####[facility] LABIA [id number] [place] [address] [place] Urea nitrogen [Mass/Vol] 15 mg/dL Normal 9-[address] [facility] Comment on above: Order Comment: Speci men Type: BLOOD SPECIMENOrdering Facility: [facility] Address: [address] [place] [address] Performed By: #### 2 4323-8, 3084-1 ####[facility] LABIA [id number] [place] [address] [place] Urate SerPl-mCncon Urate [Mass/Vol] 9.0 mg/dL High 4.0-8.1 [facility] Comment on above: Order Comment: Speci men Type: BLOOD SPECIMENOrdering Facility: [facility] Address: [address] [place] [address] Performed By: #### 2 4323-8, 3084-1 ####[facility] LABCLIA [id number] [place] [address] [place] C-REACTIVE PROTEIN (CRP)on 0 11-02-2023 CRP [Mass/Vol] 0.8 mg/dL <0.9 mg/dL [facility] [place] CBC W Auto Differential pane l (Bld)on 11-02-2023 Basophils (Bld) [#/Vol] 0.08 10*3/uL <0.11 k/uL [facility] Basophils/100 WBC (Bld) 1.8 % [facility] Differential cell count method Nom (Bld) Auto [facility] Eosinophils (Bld) [#/Vol] 0.08 10*3/uL <0.46 k/uL [facility] Eosinophils/100 WBC (Bld) 1.8 % [facility] Erythrocyte distribution width (RBC) [Ratio] 13.9 % 11.5 - 15.0 % [facility] Hematocrit (Bld) [Volume fraction] 52.3 % High 39.0 - 51.0 % [facility] Hemoglobin (Bld) [Mass/Vol] 17.2 g/dL High 13.0 - 17.0 g/dL [facility] Immature granulocytes (Bld) [#/Vol] <0.10 k/uL [facility] Immature granulocytes/100 WBC (Bld) 0.5 % [facility] Lymphocytes (Bld) [#/Vol] 1.00 10*3/uL 1.00 - 4.00 k/uL [facility] Lymphocytes/100 WBC (Bld) 22.9 % [facility] MCH (RBC) [Entitic mass] 32.5 pg 26. 0 - 34.0 pg [facility] MCHC (RBC) [Mass/Vol] 32.9 g/dL 30.5 - 36.0 g/dL [facility] MCV (RBC) [Entitic vol] 98.7 fL 80.0 - 100.0 fL [facility] Monocytes (Bld) [#/Vol] 0.63 10*3/uL <0.87 k/uL [facility] Monocytes/100 WBC (Bld) 14.4 % C [facility] Neutrophils (Bld) [#/Vol] 2.56 10*3/uL 1.45 - 7.50 k/uL [facility] Neutrophils/100 WBC (Bld) 58.6 % [facility] Nucleated RBC (Bld) [#/Vol] <0.01 k/uL [facility] Nucleated RBC/100 WBC (Bld) [Ratio] 0.0 /100 WBC [facility] Platelet mean volume (Bld) [Entitic vol] 9.7 fL 9.0 - 12.7 fL [facility] Platelets (Bld) [#/Vol] 247 10*3/uL 150 - 400 k/uL [facility] RBC (Bld) [#/Vol] 5.30 10*6/uL 4.20 - 6.0 0 m/uL [facility] WBC (Bld) [#/Vol] 4.37 10*3/uL 3.70 - 11. 00 k/uL [facility] Basophils (Bld) [#/Vol] 0.08 10*3/uL Normal <0.[address] [facility] Comment on above: Order Comment: Speci men Type: BLOOD SPECIMENOrdering Facility: [facility] Address: [address] [place] [address] Performed By: #### 5 7021-8 ####[facility] MILLWNCLIA [id number] [place] [address] [place] Basophils/100 WBC (Bld) 1.8 % Normal [facility] Comment on above: Order Comment: Speci men Type: BLOOD SPECIMENOrdering Facility: [facility] Address: [address] [place] [address] Performed By: #### 5 7021-8 ####[facility]ITALLIA [id number] [place] [address] [place] Differential cell count method Nom (Bld) Auto Normal [facility] Comment on above: Order Comment: Speci men Type: BLOOD SPECIMENOrdering Facility: [facility] Address: [address] [place] [address] Performed By: #### 5 7021-8 ####[facility]ALLIA [id number] [place] [address] [place] Eosinophils (Bld) [#/Vol] 0.08 10*3/uL Normal <0.[address] [facility] Comment on above: Order Comment: Speci men Type: BLOOD SPECIMENOrdering Facility: [facility] Address: [address] [place] [address] Performed By: #### 5 7021-8 ####[facility] MILLRIVERTONNCLIA [id number] [place] [address] [place] Eosinophils/100 WBC (Bld) 1.8 % Normal [facility] Comment on above: Order Comment: Speci men Type: BLOOD SPECIMENOrdering Facility: [facility] Address: [address] [place] [address] Performed By: #### 5 7021-8 ####[facility] JANAERIVERTONSANDER [id number] [place] [address] [place] Erythrocyte distribution width (RBC) [Ratio] 13.9 % Normal 11.5-15.[address] [facility] Comment on above: Order Comment: Speci men Type: BLOOD SPECIMENOrdering Facility: [facility] Address: [address] [place] [address] Performed By: #### 5 7021-8 ####[facility]ITALNCAMARI [id number] [place] [address] [place] Hematocrit (Bld) [Volume fraction] 52.3 % High 39.0-51.[address] [facility] Comment on above: Order Comment: Speci men Type: BLOOD SPECIMENOrdering Facility: [facility] Address: [address] [place] [address] Performed By: #### 5 7021-8 ####[facility]ITAL[facility] [id number] [place] [address] [place] Hemoglobin (Bld) [Mass/Vol] 17.2 g/dL High 13.0-17.[address] [facility] Comment on above: Order Comment: Speci men Type: BLOOD SPECIMENOrdering Facility: [facility] Address: [address] [place] [address] Performed By: #### 5 7021-8 ####[facility]ITALL[facility] [id number] [place] [address] [place] Immature granulocytes (Bld) [#/Vol] 10*3/uL Normal <0.[address] [facility] Comment on above: Order Comment: Speci men Type: BLOOD SPECIMENOrdering Facility: [facility] Address: [address] [place] [address] Performed By: #### 5 7021-8 ####[facility] EASTWNCLIA [id number] [place] [address] [place] Immature granulocytes/100 WBC (Bld) 0.5 % Normal [facility] Comment on above: Order Comment: Speci men Type: BLOOD SPECIMENOrdering Facility: [facility] Address: [address] [place] [address] Performed By: #### 5 7021-8 ####[facility]PITALJAVIERLI [id number] [place] [address] [place] Lymphocytes (Bld) [#/Vol] 1.00 10*3/uL Normal 1.00-4.[address] [facility] Comment on above: Order Comment: Speci men Type: BLOOD SPECIMENOrdering Facility: [facility] Address: [address] [place] [address] Performed By: #### 5 7021-8 ####[facility] [id number] [place] [address] [place] Lymphocytes/100 WBC (Bld) 22.9 % Normal [facility] Comment on above: Order Comment: Speci men Type: BLOOD SPECIMENOrdering Facility: [facility] Address: [address] [place] [address] Performed By: #### 5 7021-8 ####[facility]ITALNCLIA [id number] [place] [address] [place] MCH (RBC) [Entitic mass] 32.5 pg Normal 26.0-34.[address] [facility] Comment on above: Order Comment: Speci men Type: BLOOD SPECIMENOrdering Facility: [facility] Address: [address] [place] [address] Performed By: #### 5 7021-8 ####[facility]ITALNCLIA [id number] [place] [address] [place] MCHC (RBC) [Mass/Vol] 32.9 g/dL Normal 30.5-36.0 [facility] Comment on above: Order Comment: Speci men Type: BLOOD SPECIMENOrdering Facility: [facility] Address: [address] [place] [address] Performed By: #### 5 7021-8 ####[facility] [id number] [place] [address] [place] MCV (RBC) [Entitic vol] 98.7 fL Normal 80.0-100.0 C [facility] Comment on above: Order Comment: Speci men Type: BLOOD SPECIMENOrdering Facility: [facility] Address: [address] [place] [address] Performed By: #### 5 7021-8 ####[facility] [id number] [place] [address] [place] Monocytes (Bld) [#/Vol] 0.63 10*3/uL Normal <0.[address] [facility] Comment on above: Order Comment: Speci men Type: BLOOD SPECIMENOrdering Facility: [facility] Address: [address] [place] [address] Performed By: #### 5 7021-8 ####[facility] [id number] [place] [address] [place] Monocytes/100 WBC (Bld) 14.4 % Normal [facility] Comment on above: Order Comment: Speci men Type: BLOOD SPECIMENOrdering Facility: [facility] Address: [address] [place] [address] Performed By: #### 5 7021-8 ####[facility] [id number] [place] [address] [place] Neutrophils (Bld) [#/Vol] 2.56 10*3/uL Normal 1.45-7.[address] [facility] Comment on above: Order Comment: Speci men Type: BLOOD SPECIMENOrdering Facility: [facility] Address: [address] [place] [address] Performed By: #### 5 7021-8 ####[facility] JANAENATHAN [id number] [place] [address] [place] Neutrophils/100 WBC (Bld) 58.6 % Normal [facility] Comment on above: Order Comment: Speci men Type: BLOOD SPECIMENOrdering Facility: [facility] Address: [address] [place] [address] Performed By: #### 5 7021-8 ####[facility]OSPITALSANDER [id number] [place] [address] [place] Nucleated RBC (Bld) [#/Vol] 10*3/uL Normal <0.[address] [facility] Comment on above: Order Comment: Speci men Type: BLOOD SPECIMENOrdering Facility: [facility] Address: [address] [place] [address] Performed By: #### 5 7021-8 ####[facility] HOSPITALNCKelly [id number] [place] [address] [place] Nucleated RBC/100 WBC (Bld) [Ratio] 0.0 /[address] [facility] Comment on above: Order Comment: Speci men Type: BLOOD SPECIMENOrdering Facility: [facility] Address: [address] [place] [address] Performed By: #### 5 7021-8 ####[facility]ITAL[facility] [id number] [place] [address] [place] Platelet mean volume (Bld) [Entitic vol] 9.7 fL Normal 9.0-12.[address] [facility] Comment on above: Order Comment: Speci men Type: BLOOD SPECIMENOrdering Facility: [facility] Address: [address] [place] [address] Performed By: #### 5 7021-8 ####[facility] EASTWNCLIA [id number] [place] [address] [place] Platelets (Bld) [#/Vol] 247 10*3/uL Normal 150-[address] [facility] Comment on above: Order Comment: Speci men Type: BLOOD SPECIMENOrdering Facility: [facility] Address: [address] [place] [address] Performed By: #### 5 7021-8 ####[facility]CL[facility] [id number] [place] [address] [place] RBC (Bld) [#/Vol] 5.30 10*6/uL Normal 4.20-6.00 [facility] Comment on above: Order Comment: Speci men Type: BLOOD SPECIMENOrdering Facility: [facility] Address: [address] [place] [address] Performed By: #### 5 7021-8 ####[facility]ITAL[facility]CLIA [id number] [place] [address] [place] WBC (Bld) [#/Vol] 4.37 10*3/uL Normal 3.70-11.00 [facility] Comment on above: Order Comment: Speci men Type: BLOOD SPECIMENOrdering Facility: [facility] Address: [address] [place] [address] Performed By: #### 5 7021-8 ####[facility]ITAL[facility]CLIA [id number] [place] [address] [place] CNOVon 11-02-2023 CNOV Office Visit (FAMPWS) BRANDEN LOONEY ([id number]) 1975 M Date Time Provider Department 11/02/23 11:20 AM MONSE MARES During your visit today, we recorded the following information about you: Temperature Pulse Respiration Blood pressure 97.7 degrees 64/minute 18/minute 102/70 Weight 86.5 kg Monse Mares APRN.[facility] 11/02/2023 11:55 AM Signed 11/02/2023 Patient presents with: Abdominal Pain: Left side abdominal pain that comes and goes for the last 3-4 days SUBJECTIVE: This is a 48 year old, accompanied by mother, that is here today for Above Complaints. ONSET: 3-4 days ago LOCATION: left side by belly button DURATION:intermitten t CHARACTERISTICS: throbbing AGGRAVATING FEATURES: movement ALLEVIATING FEATURES: tylenol helps RADIATION: back Loose stools after eating but per mother this is not new Denies fevers, chills, nausea, vomiting, melana, hematochezia, constipation, dysuria, urinary frequency or hematuria PAST MEDICAL HISTORY Diagnosis Date Down's syndrome Down's syndrome Knee pain right Renal cyst 10/05/2014 Renal insufficiency 2014 ALLERGIES Amoxicillin and Tylenol-Codeine #3 [Acetaminophen-Codei ne] MEDICATIONS Current Outpatient Medications Medication Sig terbinafine HCl (LAMISIL) 250 mg tablet Take 250 mg by mouth once daily. Prescribed by Dr. [facility] meloxicam (MOBIC) 15 mg tablet Take 1 tablet by mouth once daily. allopurinol (ZYLOPRIM) 100 mg tablet Take 1 tablet by mouth once daily. For gout. ketoconazole (NIZORAL) 2 % shampoo Use as shampoo 3-4 days/week; leave lather on scalp for 5 minutes prior to rinsing Cholecalciferol, Vitamin D3, 125 mcg (5,000 unit) cap Take 1 capsule by mouth once daily. diclofenac sodium (VOLTAREN) 1 % topical gel Apply 4 g to affected area four times daily. CYANOCOBALAMIN, VITAMIN B-12, (LIQUID B 12 ORAL) Take 1 Dose by mouth once daily. No current facility-administere d medications for this visit. Medications and allergies reviewed by this provider. SOCIAL HISTORY Social History Tobacco Use Smoking status: Never Smokeless tobacco: Never Tobacco comments: both parents are smokers Vaping Use Vaping Use: Never used Substance Use Topics Alcohol use: No Drug use: No REVIEW OF SYSTEMS All other reviewed and negative other than HPI. OBJECTIVE: BP 102/70 Pulse 64 Temp 36.5 ?C (97.7 ?F) Resp 18 Wt 86.5 kg (190 lb 9.6 oz) SpO2 97% . Vital signs reviewed by this provider. APPEARANCE Well appearing, alert, in no acute distress, well-hydrated, well nourished. EYES PERRLA, conjunctiva and sclera normal. HEART RRR with normal S1 and S2, no murmurs, no gallops, no JVD appreciated LUNG clear to auscultation. No wheezes, rhonchi or rales BACK: No CVA tenderness. FROM without pain ABDOMEN bowel sounds normoactive, no bruits, soft, non-distended. TTP left side adjacent to umbilicus. Exam inconsistent as he winces at touch of his generalized abdomen. No rebound tenderness or guarding. Negative Gil's SKIN Skin color, texture, turgor normal, no suspicious rashes or lesions to exposed skin Hepatitis B Vaccine(1 of 3 - 19+ 3-dose series) Never done DTaP,Tdap,Td Vaccine(4 - Td or Tdap) due on 01/03/2022 Behavioral Health Screening Never done Hepatitis C Screening due on 05/13/2024 HIV Screening due on 05/13/2024 Covid-19 Vaccine(2022- season) due on 05/13/2024 Colorectal Cancer Screening due on 02/02/2024 Influenza Vaccine(Season Ended) due on 03/26/2024 Serum Creatinine due on 05/27/2024 Hemoglobin/Hematocri t due on 05/27/2024 Annual PCP Team Chronic Disease Visit due on 10/18/2024 Diabetes Screening due on 05/27/2026 Lipid Screening due on 05/27/2028 ASSESSMENT/PLAN: 1. Left sided abdominal pain - ICD9: 789.09, ICD10: R10.9 (primary diagnosis) - possibly muscular. Labs as below will look for potential infectious or inflammatory process - no red flag symptoms or exam findings - red flag symptoms discussed, other verbalizes understanding - CBC + DIFF - COMP METABOLIC PANEL - SED RATE WESTERGREN - C-REACTIVE PROTEIN (CRP) - bland diet - consider CT if labs abnormal - may use Tylenol for pain control to ER with red flag symptoms 2. Acute left-sided back pain, unspecified back location - ICD9: 724.5, ICD10: M54.9 - plan as in #1 - UA DIP, URINE (POC) Monse Mares APRN.[employer] Prescription instructions reviewed with patient as applicable. Patient advised if symptoms do not improve or if symptoms worsen sooner, to contact their primary care physician. Potential red flag symptoms discussed with the patient. Reviewed appropriate action plan to take if red flag symptoms occur. Patient agreeable to treatment plan. Medical Decision Making: Problems: Moderate: New problem with uncertain prognosis Data: Unique test(s) ordered: 3+ Medical Decision Stephanie (more content not included)... Normal [facility] CNPNon 11-02-2023 CNPN Telephone (RAYMELI) BRANDEN LOONEY ([id number]) 1975 M Date Time Provider Department 11/02/23 [facility] During your visit today, we recorded the following information about you: Edna Perez MA 11/02/2023 12:11 PM Signed Type of form: Athlete Medical Form for [employer] Form received via walk in When form is completed, Call Mother to grape picker at number listed on demographics. Would like to pick these up today. Form has been forwarded to Physician Desk: LIANNE Post Rilee, [place] 11/02/2023 4:57 PM Signed Call to pt's Mother, YaseminScottie HARRISON on to return call to office and ask to speak with a FM Triage Nurse. After reviewing forms PCP unable to complete due to missing a page where he needs to sign. Appears there should be 4 pages and we are missing page 3. Per page 4 it states at the top This page only needs to be completed and signed if the Physician on page three DOES NOT CLEAR the athlete and indicates further evaluation is required. We need page 3 in order to complete. Form are in PCP's office at [place] front end [employer]. PCP is out of the Office on Wednesday and returns . She can drop these off at Front Lobby to place in Medical Records for Office staff to obtain on when we return to office. LIANNE Conrad Laurie Lynn, LPN 11/03/2023 10:31 AM Signed Yasemin, Mother of pt called and message below given. She will get the missing page and bring in. Please watch for this. SYMONE Moreno Rilee, [place] 11/04/2023 10:07 AM Signed Pt's Mother stopped in office and stated that pt did not need to have forms completed as his previous forms are still on file/active. Requested forms back, these were given to her. Does not need completed. Edna Perez MA Allergies As of Date: 11/02/2023 Noted Allergy Reaction AMOXICILLIN 04/06/2020 2 - Rash Comments: Drug rash when taking amoxicillin and tylenol with codeine TYLENOL-CODEINE #3 (ACETAMINOPHEN*04/06 2 - Rash Comments: Drug rash when taking amoxicillin and tylenol with codeine Date Reviewed: 11/02/2023 Reviewed by: Katelynn Bradford LPN - Fully Assessed Reason for Visit: Forms [913] Cmt: [employer] Prescriptions as of 11/04/2023 - terbinafine HCl (LAMISIL) 250 mg tablet Take 250 mg by mouth once daily. Prescribed by Dr. Santa[facility] - meloxicam (MOBIC) 15 mg tablet Take 1 tablet by mouth once daily. - allopurinol (ZYLOPRIM) 100 mg tablet Take 1 tablet by mouth once daily. For gout. - ketoconazole (NIZORAL) 2 % shampoo Use as shampoo 3-4 days/week; leave lather on scalp for 5 minutes prior to rinsing - Cholecalciferol, Vitamin D3, 125 mcg (5,000 unit) cap Take 1 capsule by mouth once daily. - diclofenac sodium (VOLTAREN) 1 % topical gel Apply 4 g to affected area four times daily. - CYANOCOBALAMIN, VITAMIN B-12, (LIQUID B 12 ORAL) Take 1 Dose by mouth once daily. Meds Comments as of 09/14/2017: Liquid Tylenol as needed Taking Prednisone, Proair inhaler at this time for bronchitis 09/14/2017 nw Problem List As Of Date 11/02/2023 Noted Resolved TRISOMY 21 (DOWN SYNDROME) [Q90.9] 10/21/2006 Rash and Nonspecific Skin Eruption [R21] 08/29/2009 Right knee pain [M25.561] 08/17/2013 07/31/2014 Osteochondritis dissecans of knee [M93.269] 07/31/2014 Knee pain [M25.569] Renal cyst [N28.1] 10/05/2014 Renal insufficiency [N28.9] Stage 3 chronic kidney disease (HCC) [N18.30] 01/27/2018 Seborrheic dermatitis [L21.9] 01/31/2020 Vitamin D deficiency [E55.9] 01/31/2020 Encounter Status:Closed by EDNA PEREZ on 11/04/[address] [facility] CRP SerPl-mCncon 11-02-2023 CRP [Mass/Vol] 0.8 mg/dL Normal <0.[address] [facility] Comment on above: Order Comment: Speci men Type: BLOOD SPECIMEN [facility] Address: [address] [place] [address] Performed By: #### 1 988-5 #### [facility] CLIA [id number] [address] [place] [address] [place] [facility] Comprehensive metabolic 2000 panelon 11-02-2023 Albumin [Mass/Vol] 4.2 g/dL 3.9 - 4.9 g/dL [facility] ALP [Catalytic activity/Vol] 97 U/L 38 - 113 U/L [facility] ALT [Catalytic activity/Vol] 31 U/L 10 - 54 U/L [facility] Anion gap [Moles/Vol] 8 mmol/L Low 9 - 18 mmol/L [facility] AST [Catalytic activity/Vol] 28 U/L 14 - 40 U/L [facility] Bilirubin [Mass/Vol] 0.4 mg/dL 0.2 - 1 .3 mg/dL [facility] Calcium [Mass/Vol] 10.1 mg/dL 8.5 - 10. 2 mg/dL [facility] Chloride [Moles/Vol] 102 mmol/L 97 - 10 5 mmol/L [facility] CO2 [Moles/Vol] 28 mmol/L 22 - 30 mmol/L [facility] Creatinine [Mass/Vol] 1.47 mg/dL High 0.73 - 1.22 mg/dL [facility] Estimated Glomerular Filtration Rate 59 mL/min/1.73m Low >=60 mL/min/1.73m [facility] Glucose [Mass/Vol] 102 mg/dL High 74 - 99 mg/dL [facility] Potassium [Moles/Vol] 4.5 mmol/L 3.7 - 5.1 mmol/L [facility] Protein [Mass/Vol] 7.9 g/dL 6.3 - 8.0 g/dL [facility] Sodium [Moles/Vol] 138 mmol/L 136 - 144 mmol/L [facility] Urea nitrogen [Mass/Vol] 20 mg/dL 9 - 24 mg/d L [facility] Albumin [Mass/Vol] 4.2 g/dL Normal 3.9-4.9 [facility] Comment on above: Order Comment: Speci men Type: BLOOD SPECIMENOrdering Facility: [facility] Address: [address] [place] [address] Performed By: #### 2 4323-8 ####[facility] [id number] [place] [address] [place] ALP [Catalytic activity/Vol] 97 U/L Normal 38-[address] [facility] Comment on above: Order Comment: Speci men Type: BLOOD SPECIMENOrdering Facility: [facility] Address: [address] [place] [address] Performed By: #### 2 4323-8 ####[facility] HOSPITALLIA [id number] [place] [address] [place] ALT [Catalytic activity/Vol] 31 U/L Normal 10-[address] [facility] Comment on above: Order Comment: Speci men Type: BLOOD SPECIMENOrdering Facility: [facility] Address: [address] [place] [address] Performed By: #### 2 4323-8 ####[facility] MILLTOWNCLIA [id number] [place] [address] [place] Anion gap [Moles/Vol] 8 mmol/L Low 9-18 [facility] Comment on above: Order Comment: Speci men Type: BLOOD SPECIMENOrdering Facility: [facility] Address: [address] [place] [address] Performed By: #### 2 4323-8 ####[facility] MILLTOWNCLIA [id number] [place] [address] [place] AST [Catalytic activity/Vol] 28 U/L Normal 14-[address] [facility] Comment on above: Order Comment: Speci men Type: BLOOD SPECIMENOrdering Facility: [facility] Address: [address] [place] [address] Performed By: #### 2 4323-8 ####[facility] EASTWNCLIA [id number] [place] [address] [place] Bilirubin [Mass/Vol] 0.4 mg/dL Normal 0.2-1.3 [facility] Comment on above: Order Comment: Speci men Type: BLOOD SPECIMENOrdering Facility: [facility] Address: [address] [place] [address] Performed By: #### 2 4323-8 ####[facility] MILLTOWNCLIA [id number] [place] [address] [place] Calcium [Mass/Vol] 10.1 mg/dL Normal 8.5-10.2 [facility] Comment on above: Order Comment: Speci men Type: BLOOD SPECIMENOrdering Facility: [facility] Address: [address] [place] [address] Performed By: #### 2 4323-8 ####[facility] MILLTOWNCLIA [id number] [place] [address] [place] Chloride [Moles/Vol] 102 mmol/L Normal 97-105 [facility] Comment on above: Order Comment: Speci men Type: BLOOD SPECIMENOrdering Facility: [facility] Address: [address] [place] [address] Performed By: #### 2 4323-8 ####[facility] [id number] [place] [address] [place] CO2 [Moles/Vol] 28 mmol/L Normal 22-[address] [facility] Comment on above: Order Comment: Speci men Type: BLOOD SPECIMENOrdering Facility: [facility] Address: [address] [place] [address] Performed By: #### 2 4323-8 ####[facility] [id number] [place] [address] [place] Creatinine [Mass/Vol] 1.47 mg/dL High 0.73-1.22 [facility] Comment on above: Order Comment: Speci men Type: BLOOD SPECIMENOrdering Facility: [facility] Address: [address] [place] [address] Performed By: #### 2 4323-8 ####[facility] [id number] [address] OF [facility] Creatinine and Glomerular filtration rate.predicted panel (S/P/Bld) 59 mL/min/1.73m??? Low >=[address] [facility] Comment on above: Order Comment: Speci men Type: BLOOD SPECIMENOrdering Facility: [facility] Address: [address] [place] [address] Result Comment: Marci mated Glomerular Filtration Rate (eGFR) is calculated using the 2020 CKD-EPI creatinine equation. This equation utilizes serum creatinine, sex, and age as parameters. The creatinine assay has traceable calibration to isotope dilution-mass spectrometry. Refer to KDIGO guidelines for clinical interpretation. In patients with unstable renal function, e.g. those with acute kidney injury, the eGFR may not accurately reflect actual GFR. Performed By: #### 2 4323-8 ####[facility] MILLTOWNCLIA [id number] [place] [address] [place] Glucose [Mass/Vol] 102 mg/dL High 74-99 [facility] Comment on above: Order Comment: Speci men Type: BLOOD SPECIMENOrdering Facility: [facility] Address: [address] [place] [address] Result Comment: The [place] Diabetes Association (ADA) provides guidance for cutoff values for fasting glucose and random glucose. The ADA defines fasting as no caloric intake for at least 8 hours. Fasting plasma glucose results between 100 to 125 mg/dL indicate increased risk for diabetes (prediabetes). Fasting plasma glucose results greater than or equal to 126 mg/dL meet the criteria for diagnosis of diabetes. In the absence of unequivocal hyperglycemia, results should be confirmed by repeat testing. In a patient with classic symptoms of hyperglycemia or hyperglycemic crisis, random plasma glucose results greater than or equal to 200 mg/dL meet the criteria for diagnosis of diabetes. Reference: Standards of Medical Care in Diabetes 2016, [place] Diabetes Association. Diabetes Care. 2016.39(Suppl 1). Performed By: #### 2 4323-8 ####[facility] JANAEWNCLIA [id number] [place] [address] [place] Potassium [Moles/Vol] 4.5 mmol/L Normal 3.7-5.1 [facility] Comment on above: Order Comment: Speci men Type: BLOOD SPECIMENOrdering Facility: [facility] Address: [address] [id number] Performed By: #### 2 4323-8 ####[facility] JANAEWNCLIA [id number] [place] [address] [place] Protein [Mass/Vol] 7.9 g/dL Normal 6.3-8.0 [facility] Comment on above: Order Comment: Speci men Type: BLOOD SPECIMENOrdering Facility: [facility] Address: [address] [place] [address] Performed By: #### 2 4323-8 ####[facility] EASTWNCLI [id number] [place] [address] [place] Sodium [Moles/Vol] 138 mmol/L Normal 136-144 [facility] Comment on above: Order Comment: Speci men Type: BLOOD SPECIMENOrdering Facility: [facility] Address: [address] [place] [address] Performed By: #### 2 4323-8 ####[facility]CL[facility] [id number] [place] [address] [place] Urea nitrogen [Mass/Vol] 20 mg/dL Normal 9-[address] [facility] Comment on above: Order Comment: Speci men Type: BLOOD SPECIMENOrdering Facility: [facility] Address: [address] [place] [address] Performed By: #### 2 4323-8 ####[facility] [id number] [place] [address] [place] ESR Westergren method (Bld) [Velocity]on 11-02-2023 ESR (Bld) [Velocity] 0 mm/h 0 - 15 mm/hr [facility] ESR (Bld) [Velocity] 0 mm/h Normal 0-15 [facility] Comment on above: Order Comment: Speci men Type: BLOOD SPECIMEN [facility] Address: [address] [place] [address] Performed By: #### 1 988-5 #### [facility] CLIA [id number] [address] [place] [address] [place] UA DIP, URINE (POC)on 2023 BILIRUBIN UA (POCT) Negative Negative [facility] CLARITY UA (POCT) Clear [facility] COLOR UA (POCT) Yellow [facility] GLUCOSE UA (POCT) Negative Negative mg/dL [facility] Hemoglobin Ql (U) Negative Negative [facility] KETONE UA (POCT) Negative Negative mg/dL [facility] LEUKOCYTES UA (POCT) Negative Negative [facility] NITRITE UA (POCT) Negative Negative [facility] PH UA (POCT) 7.0 4.5 - 8.0 [facility] Protein Ql (U) Negative Negative mg/dL [facility] SPECIFIC GRAVITY UA (POCT) 1.025 1.005 - 1.030 [facility] UROBILINOGEN UA (POCT) 0.2 E.U./dL Vivian l E.U./dL [facility] No Panel InformationOrdered By: Juan Martinez on 06-01-2023 Troponin I High Sensitivity 13 pg/mL 3.0-78.0 [facility] Comment on above: Please Note: New Sarah t Units and Gender Specific Reference Ranges. For more information see Policy Stat Procedure [place] High Sensitivity Troponin (TNIH) and attachments. Absolute lymphocyte countOrd ered By: Juan Martinez on 05-31-2023 Lymphocytes Auto (Unsp spec) [#/Vol] 0.97 10*3/uL 0.83-4.51 [facility] Basophil percentageOrdered B y: Juan Martinez on 05-31-2023 Basophils/100 WBC (Bld) 1.5 % 0-1 [facility] Chloride [Moles/Vol] 108 mmol/L 98-107 [facility] Eosinophils/100 WBC (Bld) 2.3 % 0-5 [facility] Glucose [Mass/Vol] 124 mg/dL 74-106 [facility] Comment on above: Fasting Glucose resu lt from 100 to 125 mg/dL suggests IMPAIRED HOMEOSTASIS per A.D.A. criteria. Neutrophils (Bld) [#/Vol] 3.3 10*3/uL 2.0-7.7 [facility] Neutrophils/100 WBC (Bld) 64.1 % 47-70 [facility] Potassium [Moles/Vol] 4.4 mmol/L 3.5-5.1 [facility] Sodium [Moles/Vol] 142 mmol/L 136-145 [facility] WBC (Bld) [#/Vol] 5.2 10*3/uL 4.4-11.0 [facility] Blood erythrocytes count (nu mber/volume)Ordered By: Juan Martinez on 05-31-2023 RBC (Bld) [#/Vol] 4.85 10*6/uL 4.6-6.2 [facility] Blood hemoglobin measurement (mass/volume)Ordered By: Juan Martinez on 05-31-2023 Hemoglobin (Bld) [Mass/Vol] 15.5 g/dL 13.0-16.5 [facility] Blood lymphocytes/100 leukoc ytesOrdered By: Juan Martinez on 05-31-2023 Lymphocytes/100 WBC (Bld) 18.6 % 19-41 [facility] Blood monocytes/100 leukocyt esOrdered By: Juan Martinez on 05-31-2023 Monocytes/100 WBC (Bld) 13.1 % 0-10 [facility] Blood platelet mean volumeOr dered By: Juan Martinez on 05-31-2023 Platelet mean volume (Bld) [Entitic vol] 9.5 fL 6.2-12.0 [facility] Determination of erythrocyte mean corpuscular volume (MCV)Ordered By: Juan Martinez on 05-31-2023 MCV (RBC) [Entitic vol] 100.4 fL 80-94 [facility] Hematocrit Auto (Bld) [Volum e fraction]Ordered By: Juan Martinez on 05-31-2023 Hematocrit (Bld) [Volume fraction] 48.7 % 40-54 [facility] - Chemistry and C hemistry - challengeOrdered By: Juan Martinez on 05-31-2023 CO2 [Moles/Vol] 32.0 mmol/L 21.0-32.0 [facility] Urea nitrogen/Creatinine [Mass ratio] 10.8 mg/mg 10-20 [facility] - Hematology and Cell countsOrdered By: Juan Martinez on 05-31-2023 Erythrocyte distribution width (RBC) [Entitic vol] 51.0 fL 35.1-43.9 [facility] Erythrocyte distribution width (RBC) [Ratio] 13.7 % 11.6-14.6 [facility] Immature granulocytes/100 WBC (Bld) 0.400 % 0.0-0.9 [facility] Comment on above: IG% - Immature Granu locytes (promyelocytes, myelocytes and metamyelocytes) > 1% indicates that a LEFT SHIFT is Present. MCH (RBC) [Entitic mass] 32.0 pg 27.0-32.0 [facility] Nucleated RBC/100 WBC (Bld) [Ratio] 0 % 0-5 [facility] MCHC Auto (RBC) [Mass/Vol]Or dered By: Juan Martinez on 05-31-2023 MCHC (RBC) [Mass/Vol] 31.8 g/dL 32-36 [facility] No Panel InformationOrdered By: Juan Martinez on 05-31-2023 Estimated Creatinine Clearance Calc 39.94 ml/min [facility] Estimated GFR (MDRD) Amer 50 mL/min >60 [facility] Comment on above: GFR Calc Estimated GFR (MDRD) Non-Af Amer 42 mL/min >60 [facility] Comment on above: Non- GFR Calc Platelets bldOrdered By: Cristofer Martinez on 05-31-2023 Platelets (Bld) [#/Vol] 218 10*3/uL 150-450 [facility] Serum or plasma calcium shania urement (mass/volume)Ordered By: Juan Martinez on 05-31-2023 Calcium [Mass/Vol] 8.9 mg/dL 8.5-10.1 [facility] Serum or plasma creatinine m easurement (mass/volume)Ordered By: Juan Martinez on 05-31-2023 Creatinine [Mass/Vol] 1.86 mg/dL 0.70-1.30 [facility] Comment on above: The validity of the calculated GFR & GFRAA in patients over 70 years has not been determined. Clinical correlation is essential. Serum or plasma urea nitroge n measurement (mass/volume)Ordered By: Juan Martinez on 05-31-2023 Urea nitrogen [Mass/Vol] 20 mg/dL 7-18 [facility] Thin prep Papanicolaou smear with manual screeningOrdered By: Juan Martinez on 05-31-2023 Thin prep Papanicolaou smear with manual screening 2 5-15 [facility] Absolute lymphocyte countOrd ered By: Ramirez Agosto on 01-25-2023 Lymphocytes Auto (Unsp spec) [#/Vol] 1.06 10*3/uL 0.83-4.51 [facility] Basophil percentageOrdered B y: Ramirez Agosto on 01-25-2023 Basophils/100 WBC (Bld) 1.4 % 0-1 [facility] Chloride [Moles/Vol] 108 mmol/L 98-107 [facility] Eosinophils/100 WBC (Bld) 1.5 % 0-5 [facility] Glucose [Mass/Vol] 94 mg/dL 74-106 [facility] Neutrophils (Bld) [#/Vol] 3.8 10*3/uL 2.0-7.7 [facility] Neutrophils/100 WBC (Bld) 65.8 % 47-70 [facility] Potassium [Moles/Vol] 4.5 mmol/L 3.5-5.1 [facility] Sodium [Moles/Vol] 139 mmol/L 136-145 [facility] WBC (Bld) [#/Vol] 5.8 10*3/uL 4.4-11.0 [facility] Blood erythrocytes count (nu mber/volume)Ordered By: Ramirez Agosto on 01-25-2023 RBC (Bld) [#/Vol] 5.04 10*6/uL 4.6-6.2 [facility] Blood hemoglobin measurement (mass/volume)Ordered By: Ramirez Agosto on 01-25-2023 Hemoglobin (Bld) [Mass/Vol] 16.3 g/dL 13.0-16.5 [facility] Blood lymphocytes/100 leukoc ytesOrdered By: Ramirez Agosto on 01-25-2023 Lymphocytes/100 WBC (Bld) 18.2 % 19-41 [facility] Blood monocytes/100 leukocyt esOrdered By: Ramirez Agosto on 01-25-2023 Monocytes/100 WBC (Bld) 12.9 % 0-10 [facility] Blood platelet mean volumeOr dered By: Ramirez Agosto on 01-25-2023 Platelet mean volume (Bld) [Entitic vol] 9.7 fL 6.2-12.0 [facility] Determination of erythrocyte mean corpuscular volume (MCV)Ordered By: Ramirez Agosto on 01-25-2023 MCV (RBC) [Entitic vol] 100.0 fL 80-94 [facility] Hematocrit Auto (Bld) [Volum e fraction]Ordered By: Ramirez Agosto on 01-25-2023 Hematocrit (Bld) [Volume fraction] 50.4 % 40-54 [facility] Laboratory - Chemistry and C hemistry - challengeOrdered By: Ramirez Agosto on 01-25-2023 CO2 [Moles/Vol] 28.0 mmol/L 21.0-32.0 [facility] Urea nitrogen/Creatinine [Mass ratio] 10.5 mg/mg 10-20 [facility] Laboratory - Hematology and Cell countsOrdered By: Ramirez Agosto on 01-25-2023 Erythrocyte distribution width (RBC) [Entitic vol] 50.0 fL 35.1-43.9 [facility] Erythrocyte distribution width (RBC) [Ratio] 13.4 % 11.6-14.6 [facility] Immature granulocytes/100 WBC (Bld) 0.200 % 0.0-0.9 [facility] Comment on above: IG% - Immature Granu locytes (promyelocytes, myelocytes and metamyelocytes) > 1% indicates that a LEFT SHIFT is Present. MCH (RBC) [Entitic mass] 32.3 pg 27.0-32.0 [facility] Nucleated RBC/100 WBC (Bld) [Ratio] 0 % 0-5 [facility] MCHC Auto (RBC) [Mass/Vol]Or dered By: Ramirez Agosto on 01-25-2023 MCHC (RBC) [Mass/Vol] 32.3 g/dL 32-36 [facility] No Panel InformationOrdered By: Ramirez Agosto on 01-25-2023 Estimated Creatinine Clearance Calc 44.36 ml/min [facility] Estimated GFR (MDRD) Amer 52 mL/min >60 [facility] Comment on above: GFR Calc Estimated GFR (MDRD) Non-Af Amer 43 mL/min >60 [facility] Comment on above: Non- GFR Calc Troponin I High Sensitivity 9 pg/mL 3.0-78.0 [facility] Comment on above: Please Note: New Sarah t Units and Gender Specific Reference Ranges. For more information see Policy Stat Procedure [place] High Sensitivity Troponin (TNIH) and attachments. Platelets bldOrdered By: Sheela Agosto on 01-25-2023 Platelets (Bld) [#/Vol] 253 10*3/uL 150-450 [facility] Serum or plasma calcium shania urement (mass/volume)Ordered By: Ramirez Agosto on 01-25-2023 Calcium [Mass/Vol] 9.3 mg/dL 8.5-10.1 [facility] Serum or plasma creatinine m easurement (mass/volume)Ordered By: Ramirez Agosto on 01-25-2023 Creatinine [Mass/Vol] 1.81 mg/dL 0.70-1.30 [facility] Comment on above: The validity of the calculated GFR & GFRAA in patients over 70 years has not been determined. Clinical correlation is essential. Serum or plasma urea nitroge n measurement (mass/volume)Ordered By: Ramirez Agosto on 01-25-2023 Urea nitrogen [Mass/Vol] 19 mg/dL 7-18 [facility] Thin prep Papanicolaou smear with manual screeningOrdered By: Ramirez Agosto on 01-25-2023 Thin prep Papanicolaou smear with manual screening 3 5-15 [facility] Basophil percentageon 2021 Chloride [Moles/Vol] 108 mmol/L 98-107 [facility] Work Phone: Glucose [Mass/Vol] 123 mg/dL 74-106 [facility] Work Phone: Comment on above: Fasting Glucose resu lt from 100 to 125 mg/dL suggests IMPAIRED HOMEOSTASIS per A.D.A. criteria. Potassium [Moles/Vol] 4.1 mmol/L 3.5-5.1 [facility] Work Phone: Sodium [Moles/Vol] 139 mmol/L 136-145 [facility] Work Phone: Laboratory - Chemistry and C hemistry - challengeon 01-15-2022 CO2 [Moles/Vol] 25.0 mmol/L 21.0-32.0 [facility] Work Phone: Urea nitrogen/Creatinine [Mass ratio] 9.8 mg/mg 10-20 [facility] Work Phone: No Panel Informationon 01-15 Estimated Creatinine Clearance Calc 46.91 ml/min [facility] Work Phone: Estimated GFR (MDRD) Amer 55 mL/min >60 [facility] Work Phone: Comment on above: GFR Calc Estimated GFR (MDRD) Non-Af Amer 46 mL/min >60 [facility] Work Phone: Comment on above: Non- GFR Calc Serum or plasma calcium shania urement (mass/volume)on 01-15-2022 Calcium [Mass/Vol] 9.3 mg/dL 8.5-10.1 [facility] Work Phone: Serum or plasma creatinine m easurement (mass/volume)on 01-15-2022 Creatinine [Mass/Vol] 1.73 mg/dL 0.70-1.30 [facility] Work Phone: Comment on above: The validity of the calculated GFR & GFRAA in patients over 70 years has not been determined. Clinical correlation is essential. Serum or plasma urea nitroge n measurement (mass/volume)on 01-15-2022 Urea nitrogen [Mass/Vol] 17 mg/dL 7-18 [facility] Work Phone: Thin prep Papanicolaou smear with manual screeningon 01-15-2022 Thin prep Papanicolaou smear with manual screening 6 5-15 [facility] Work Phone: No Panel Informationon 08-21 Radiology Study observation (narrative) Timothy Pruitt XR Hand - right PA and Later al and Obliqueon 08-21-2021 IMPRESSION: No acute pathology. Jack Tamp Operator: OTMY Transcribe Date/Time: Aug 21 2021 1:34P Dictated by : CINDY DELA CRUZ DO This examination was interpreted and the report reviewed and electronically signed by: CINDY DELA CRUZ DO on Aug 21 2021 1:37PM [facility] DIVISION OF RADIOLOGY * * *Final Report* * * DATE OF EXAM: Aug 21 2021 1:20PM WOX 5346 - XR HAND 3V PA/LAT/OBL RT / PROCEDURE REASON: multiple diagnoses * * * * Physician Interpretation * * * * XR HAND 3V PA/LAT/OBL RT EXAM DATE/TIME: 08/21/2021 1:20 PM HISTORY: 45 years old Clinical information: Right wrist pain Right forearm pain Pain in right proximal forearm, no known injury. pain began approx. 3 weeks ago. TECHNIQUE: Images: XR HAND 3V PA/LAT/OBL RT Comparison: None. RESULT: Findings: Bone density appears well-preserved. No fractures or dislocations are seen. DIVISION OF RADIOLOGY Provider, [facility] - 08/21/2021 * * *Final Report* * * DATE OF EXAM: Aug 21 2021 1:20PM WOX 5346 - XR HAND 3V PA/LAT/OBL RT / PROCEDURE REASON: multiple diagnoses * * * * Physician Interpretation * * * * XR HAND 3V PA/LAT/OBL RT EXAM DATE/TIME: 08/21/2021 1:20 PM HISTORY: 45 years old Clinical information: Right wrist pain Right forearm pain Pain in right proximal forearm, no known injury. pain began approx. 3 weeks ago. TECHNIQUE: Images: XR HAND 3V PA/LAT/OBL RT Comparison: None. RESULT: Findings: Bone density appears well-preserved. No fractures or dislocations are seen. IMPRESSION IMPRESSION: No acute pathology. Jack Tamp Operator: TOMY Transcribe Date/Time: Aug 21 2021 1:34P Dictated by : CINDY DELA CRUZ DO This examination was interpreted and the report reviewed and electronically signed by: CINDY DELA CRUZ DO on Aug 21 2021 1:37PM EST [facility] XR Hand - right PA and Later al and ObliqueOrdered By: Cc Provider on 08-21-2021 [facility] XR Radius and Ulna - right A P and Lateralon 08-21-2021 IMPRESSION: No acute process. Jack Tamp Operator: PSCB Transcribe Date/Time: Aug 21 2021 1:50P Dictated by : MADDIE ROBLEDO MD This examination was interpreted and the report reviewed and electronically signed by: MADDIE ROBLEDO MD on Aug 21 2021 1:52PM [facility] DIVISION OF RADIOLOGY * * *Final Report* * * DATE OF EXAM: Aug 21 2021 1:20PM WOX 5342 - XR FOREARM 2V AP/LAT RT / PROCEDURE REASON: multiple diagnoses * * * * Physician Interpretation * * * * EXAMINATION: XR FOREARM 2V AP/LAT RT HISTORY: Pain in right proximal forearm. no known injury. pain began approx. 3 weeks ago. Right and forearm pain. TECHNIQUE: XR FOREARM 2V AP/LAT RT Laterality: RIGHT Number of different views (projections): 2 M: XB_1 COMPARISON: There are no prior relevant studies for comparison. RESULT: 2 views of the right forearm show no acute osseous, articular or soft tissue abnormality. Mild marginal spurring noted at the radial head without joint space narrowing. No abnormal joint fluid. DIVISION OF RADIOLOGY Provider, [facility] - 08/21/2021 * * *Final Report* * * DATE OF EXAM: Aug 21 2021 1:20PM WOX 5342 - XR FOREARM 2V AP/LAT RT / PROCEDURE REASON: multiple diagnoses * * * * Physician Interpretation * * * * EXAMINATION: XR FOREARM 2V AP/LAT RT HISTORY: Pain in right proximal forearm. no known injury. pain began approx. 3 weeks ago. Right and forearm pain. TECHNIQUE: XR FOREARM 2V AP/LAT RT Laterality: RIGHT Number of different views (projections): 2 M: XB_1 COMPARISON: There are no prior relevant studies for comparison. RESULT: 2 views of the right forearm show no acute osseous, articular or soft tissue abnormality. Mild marginal spurring noted at the radial head without joint space narrowing. No abnormal joint fluid. IMPRESSION IMPRESSION: No acute process. Jack Tamp Operator: TOMY Transcribe Date/Time: Aug 21 2021 1:50P Dictated by : MADDIE ROBLEDO MD This examination was interpreted and the report reviewed and electronically signed by: MADDIE ROBLEDO MD on Aug 21 2021 1:52PM EST [facility] XR Wrist - right 4 Viewson 0 08-08-2021 IMPRESSION: Negative right wrist. Jack Tamp Operator: PSCB Transcribe Date/Time: Aug 08 2021 4:53P Dictated by : GRICELDA CHÁVEZ MD This examination was interpreted and the report reviewed and electronically signed by: GRICELDA CHÁVEZ MD on Aug 08 2021 4:55PM [facility] DIVISION OF RADIOLOGY * * *Final Report* * * DATE OF EXAM: Aug 08 2021 4:50PM WOX 5273 - XR WRIST 4V PA/LAT/OBL/SCAPH RT / PROCEDURE REASON: Right wrist pain * * * * Physician Interpretation * * * * EXAMINATION: RIGHT WRIST X-RAY SERIES HISTORY: Right wrist pain COMPARISON: None available. TECHNIQUE: PA, lateral, oblique, scaphoid RESULT: No fracture, dislocation or destructive changes. Joint spaces and articular surfaces are preserved. Soft tissues appear within normal limits. DIVISION OF RADIOLOGY Provider, [facility] - 08/08/2021 * * *Final Report* * * DATE OF EXAM: Aug 08 2021 4:50PM WOX 5273 - XR WRIST 4V PA/LAT/OBL/SCAPH RT / PROCEDURE REASON: Right wrist pain * * * * Physician Interpretation * * * * EXAMINATION: RIGHT WRIST X-RAY SERIES HISTORY: Right wrist pain COMPARISON: None available. TECHNIQUE: PA, lateral, oblique, scaphoid RESULT: No fracture, dislocation or destructive changes. Joint spaces and articular surfaces are preserved. Soft tissues appear within normal limits. IMPRESSION IMPRESSION: Negative right wrist. Jack Tamp Operator: PSCB Transcribe Date/Time: Aug 08 2021 4:53P Dictated by : GRICELDA CHÁVEZ MD This examination was interpreted and the report reviewed and electronically signed by: GRICELDA CHÁVEZ MD on Aug 08 2021 4:55PM EST [facility] Radiology Study observation (narrative) Timothy samuel [facility] XR Wrist - right 4 ViewsOrde red By: [facility] Provider on 08-08-2021 [facility] Vital Signs Date Time Vital Sign Value Performing Clinician Facility 10-27-2024 [id number] Body temperature 97.7 [degF] Kristie Santa APRN.INGOT CASTER Work Phone: [facility] 10-27-2024 11:04-0400 Body weight 86.18 kg Kristie Satna APRN.CNP Work Phone: [facility] 10-27-2024 11:04-0400 Diastolic blood pressure 76 mm[Hg] Kristie Santa APRN.CNP Work Phone: [facility] 10-27-2024 11:04-0400 Heart rate 75 /min Kristie Santa APRN.CNP Work Phone: [facility] 10-27-2024 11:04-0400 SaO2% (BldA) [Mass fraction] 96 % Kristie Santa JAVA SYBASE DEVELOPER.INGOT CASTER Work Phone: [facility] 10-27-2024 11:04-0400 Systolic blood pressure 124 mm[Hg] Kristie Santa JAVA SYBASE DEVELOPER.INGOT CASTER Work Phone: [facility] 10-20-2024 14:33-0400 Body temperature 97.9 [degF] Dr. Markos June MD Work Phone: [facility] 10-20-2024 14:33-0400 Diastolic blood pressure 65 mm[Hg] Dr. Markos June MD Work Phone: [facility] 10-20-2024 14:33-0400 Heart rate 85 /min Dr. Markos June MD Work Phone: [facility] 10-20-2024 14:33-0400 Respiratory rate 17 /min Dr. Markos June MD Work Phone: [facility] 10-20-2024 14:33-0400 SaO2% (BldA) [Mass fraction] 97 % Dr. Markos June MD Work Phone: [facility] 10-20-2024 14:33-0400 Systolic blood pressure 103 mm[Hg] Dr. Markos June MD Work Phone: [facility] 10-20-2024 10:21-0400 Body height 170.[address] Markos June MD Work Phone: [facility] 10-20-2024 10:21-0400 Body mass index (BMI) [Ratio] 29.6 kg/m2 Dr. Markos June MD Work Phone: [facility] 10-20-2024 10:21-0400 Body weight 85.[address] Markos June MD Work Phone: [facility] 10-16-2024 11:00-0400 Body temperature 98.71 [degF] Kristie Santa JAVA SYBASE DEVELOPER.INGOT CASTER Work Phone: [facility] 10-16-2024 11:00-0400 Body weight 85.73 kg Kristie Suppan JAVA SYBASE DEVELOPER.INGOT CASTER Work Phone: [facility] 10-16-2024 11:00-0400 Diastolic blood pressure 66 mm[Hg] Kristie Suppan JAVA SYBASE DEVELOPER.INGOT CASTER Work Phone: [facility] 10-16-2024 11:00-0400 Heart rate 102 /min Kristie Suppan JAVA SYBASE DEVELOPER.INGOT CASTER Work Phone: [facility] 10-16-2024 11:00-0400 SaO2% (BldA) [Mass fraction] 93 % Kristie Suppan JAVA SYBASE DEVELOPER.INGOT CASTER Work Phone: [facility] 10-16-2024 11:00-0400 Systolic blood pressure 128 mm[Hg] Kristie Suppan JAVA SYBASE DEVELOPER.INGOT CASTER Work Phone: [facility] 10-13-2024 14:06-0400 Body weight 85.1 kg Jasmin Changhof JAVA SYBASE DEVELOPER.INGOT CASTER Work Phone: [facility] 10-13-2024 14:06-0400 Diastolic blood pressure 68 mm[Hg] Jasmin Tannhof JAVA SYBASE DEVELOPER.INGOT CASTER Work Phone: [facility] 10-13-2024 14:06-0400 Heart rate 88 /min Jasmin Tannhof JAVA SYBASE DEVELOPER.INGOT CASTER Work Phone: [facility] 10-13-2024 14:06-0400 Respiratory rate 16 /min Jasmin Tannhof JAVA SYBASE DEVELOPER.INGOT CASTER Work Phone: [facility] 10-13-2024 14:06-0400 SaO2% (BldA) [Mass fraction] 97 % Jasmin Tannhof JAVA SYBASE DEVELOPER.INGOT CASTER Work Phone: [facility] 10-13-2024 14:06-0400 Systolic blood pressure 100 mm[Hg] Jasmin Tannhof JAVA SYBASE DEVELOPER.INGOT CASTER Work Phone: [facility] 09-18-2024 09:06-0500 Body temperature 98.1 [degF] Kristie Suppan JAVA SYBASE DEVELOPER.INGOT CASTER Work Phone: [facility] 09-18-2024 09:06-0500 Body weight 85.73 kg Kristie Suppan JAVA SYBASE DEVELOPER.INGOT CASTER Work Phone: [facility] 09-18-2024 09:06-0500 Diastolic blood pressure 76 mm[Hg] Kristie Suppan JAVA SYBASE DEVELOPER.INGOT CASTER Work Phone: [facility] 09-18-2024 09:06-0500 Heart rate 92 /min Kristie Suppan JAVA SYBASE DEVELOPER.INGOT CASTER Work Phone: [facility] 09-18-2024 09:06-0500 SaO2% (BldA) [Mass fraction] 95 % Kristie Suppan JAVA SYBASE DEVELOPER.INGOT CASTER Work Phone: [facility] 09-18-2024 09:06-0500 Systolic blood pressure 134 mm[Hg] Kristie Suppan JAVA SYBASE DEVELOPER.INGOT CASTER Work Phone: [facility] 07-28-2024 11:15-0500 Body weight 85.6 kg Markos June MD Work Phone: [facility] 07-28-2024 11:15-0500 Diastolic blood pressure 78 mm[Hg] Markos June MD Work Phone: [facility] 07-28-2024 11:15-0500 Heart rate 72 /min Markos June MD Work Phone: [facility] 07-28-2024 11:15-0500 Respiratory rate 16 /min Markos June MD Work Phone: [facility] 07-28-2024 11:15-0500 Systolic blood pressure 116 mm[Hg] Markos June MD Work Phone: [facility] 07-08-2024 08:57-0500 Body weight 86.5 kg Markos June MD Work Phone: [facility] 07-08-2024 08:57-0500 Diastolic blood pressure 66 mm[Hg] Markos June MD Work Phone: [facility] 07-08-2024 08:57-0500 Heart rate 72 /min Markos June MD Work Phone: [facility] 07-08-2024 08:57-0500 Respiratory rate 16 /min Markos June MD Work Phone: [facility] 07-08-2024 08:57-0500 SaO2% (BldA) [Mass fraction] 96 % Markos June MD Work Phone: [facility] 07-08-2024 08:57-0500 Systolic blood pressure 90 mm[Hg] Markos June MD Work Phone: [facility] 04-17-2024 15:31-0400 Body temperature 98.1 [degF] Kristie Suppan JAVA SYBASE DEVELOPER.INGOT CASTER Work Phone: [facility] 04-17-2024 15:31-0400 Body weight 87.09 kg Kristie Suppan JAVA SYBASE DEVELOPER.INGOT CASTER Work Phone: [facility] 04-17-2024 15:31-0400 Diastolic blood pressure 66 mm[Hg] Kristie Suppan JAVA SYBASE DEVELOPER.INGOT CASTER Work Phone: [facility] 04-17-2024 15:31-0400 Heart rate 86 /min Kristie Suppan JAVA SYBASE DEVELOPER.INGOT CASTER Work Phone: [facility] 04-17-2024 15:31-0400 Respiratory rate 18 /min Kristie Suppan JAVA SYBASE DEVELOPER.INGOT CASTER Work Phone: [facility] 04-17-2024 15:31-0400 SaO2% (BldA) [Mass fraction] 94 % Kristie Suppan JAVA SYBASE DEVELOPER.INGOT CASTER Work Phone: [facility] 04-17-2024 15:31-0400 Systolic blood pressure 120 mm[Hg] Kristie Suppan JAVA SYBASE DEVELOPER.INGOT CASTER Work Phone: [facility] 03-17-2024 14:55-0400 Body weight 86 kg Markos June MD Work Phone: [facility] 03-17-2024 14:55-0400 Diastolic blood pressure 72 mm[Hg] Markos June MD Work Phone: [facility] 03-17-2024 14:55-0400 Heart rate 80 /min Markos June MD Work Phone: [facility] 03-17-2024 14:55-0400 Respiratory rate 18 /min Markos June MD Work Phone: [facility] 03-17-2024 14:55-0400 Systolic blood pressure 134 mm[Hg] Markos June MD Work Phone: [facility] 01-17-2024 14:51-0400 Body weight 85.46 kg Markos June MD Work Phone: [facility] 01-17-2024 14:51-0400 Diastolic blood pressure 68 mm[Hg] Markos June MD Work Phone: [facility] 01-17-2024 14:51-0400 Heart rate 60 /min Markos June MD Work Phone: [facility] 01-17-2024 14:51-0400 Respiratory rate 16 /min Markos June MD Work Phone: [facility] 01-17-2024 14:51-0400 Systolic blood pressure 100 mm[Hg] Markos June MD Work Phone: [facility] 01-14-2024 11:46-0400 Body temperature 97.5 [degF] Danica Francois PA-C Work Phone: [facility] 01-14-2024 11:46-0400 Body weight 85.73 kg Danica Francois PA-C Work Phone: [facility] 01-14-2024 11:46-0400 Diastolic blood pressure 70 mm[Hg] Danica Francois PA-C Work Phone: [facility] 01-14-2024 11:46-0400 Heart rate 103 /min Daniac Francois PA-C Work Phone: [facility] 01-14-2024 11:46-0400 Respiratory rate 16 /min Danicameme Francois PA-C Work Phone: [facility] 01-14-2024 11:46-0400 Systolic blood pressure 100 mm[Hg] Danica Francois PA-C Work Phone: [facility] 12-14-2023 15:27-0400 Body weight 81.83 kg Markos June MD Work Phone: [facility] 12-14-2023 15:27-0400 Diastolic blood pressure 82 mm[Hg] Markos June MD Work Phone: [facility] 12-14-2023 15:27-0400 Heart rate 84 /min Markos June MD Work Phone: [facility] 12-14-2023 15:27-0400 Respiratory rate 18 /min Markos June MD Work Phone: [facility] 12-14-2023 15:27-0400 Systolic blood pressure 118 mm[Hg] Markos June MD Work Phone: [facility] 11-02-2023 11:17-0400 Body temperature 97.7 [degF] Monse Podlogar JAVA SYBASE DEVELOPER.INGOT CASTER Work Phone: [facility] 11-02-2023 11:17-0400 Body weight 86.46 kg Monse Podlogar JAVA SYBASE DEVELOPER.INGOT CASTER Work Phone: [facility] 11-02-2023 11:17-0400 Diastolic blood pressure 70 mm[Hg] Monse Podlogar JAVA SYBASE DEVELOPER.INGOT CASTER Work Phone: [facility] 11-02-2023 11:17-0400 Heart rate 64 /min Monse Podlogar JAVA SYBASE DEVELOPER.INGOT CASTER Work Phone: [facility] 11-02-2023 11:17-0400 Respiratory rate 18 /min Monse Podlogar JAVA SYBASE DEVELOPER.INGOT CASTER Work Phone: [facility] 11-02-2023 11:17-0400 SaO2% (BldA) [Mass fraction] 97 % Monse Podlogar JAVA SYBASE DEVELOPER.INGOT CASTER Work Phone: [facility] 11-02-2023 11:17-0400 Systolic blood pressure 102 mm[Hg] Monse Mares APRN.INGOT CASTER Work Phone: [facility] 10-19-2023 16:04-0400 Body temperature 98.91 [degF] Markos June MD Work Phone: [facility] 10-19-2023 16:04-0400 Body weight 86.18 kg Markos June MD Work Phone: [facility] 10-19-2023 16:04-0400 Diastolic blood pressure 70 mm[Hg] Markos June MD Work Phone: [facility] 10-19-2023 16:04-0400 Heart rate 78 /min Markos June MD Work Phone: [facility] 10-19-2023 16:04-0400 Respiratory rate 16 /min Markos June MD Work Phone: [facility] 10-19-2023 16:04-0400 Systolic blood pressure 118 mm[Hg] Markos June MD Work Phone: [facility] 09-13-2023 15:23-0500 Body weight 85 kg Markos June MD Work Phone: [facility] 09-13-2023 15:23-0500 Diastolic blood pressure 70 mm[Hg] Markos June MD Work Phone: [facility] 09-13-2023 15:23-0500 Heart rate 74 /min Markos June MD Work Phone: [facility] 09-13-2023 15:23-0500 Respiratory rate 16 /min Markos June MD Work Phone: [facility] 09-13-2023 15:23-0500 Systolic blood pressure 124 mm[Hg] Markos June MD Work Phone: [facility] 06-07-2023 14:05-0500 Body weight 83.64 kg Markos June MD Work Phone: [facility] 06-07-2023 14:05-0500 Diastolic blood pressure 82 mm[Hg] Markos June MD Work Phone: [facility] 06-07-2023 14:05-0500 Heart rate 80 /min Markos June MD Work Phone: [facility] 06-07-2023 14:05-0500 Respiratory rate 16 /min Markos June MD Work Phone: [facility] 06-07-2023 14:05-0500 Systolic blood pressure 120 mm[Hg] Markos June MD Work Phone: [facility] 06-01-2023 01:56-0500 Diastolic blood pressure 43 mm[Hg] [facility] 06-01-2023 01:56-0500 Systolic blood pressure 111 mm[Hg] [facility] 06-01-2023 01:00-0500 Heart rate 87 /min [facility] 06-01-2023 01:00-0500 Respiratory rate 16 /min [facility] 06-01-2023 01:00-0500 SaO2% (BldA) [Mass fraction] 99 % [facility] 05-31-2023 21:39-0500 Body height 160.02 cm [facility] 05-31-2023 21:39-0500 Body mass index (BMI) [Ratio] 33.5 kg/m2 [facility] 05-31-2023 21:39-0500 Body temperature 98.8 [degF] [facility] 05-31-2023 21:39-0500 Body weight 85.7 kg [facility] 05-13-2023 15:30-0400 Body weight 84.01 kg Markos June MD Work Phone: [facility] 05-13-2023 15:30-0400 Diastolic blood pressure 74 mm[Hg] Markos June MD Work Phone: [facility] 05-13-2023 15:30-0400 Heart rate 78 /min Markos June MD Work Phone: [facility] 05-13-2023 15:30-0400 Respiratory rate 16 /min Markos June MD Work Phone: [facility] 05-13-2023 15:30-0400 Systolic blood pressure 110 mm[Hg] Markos June MD Work Phone: [facility] 03-16-2023 10:25-0400 Body temperature 97.2 [degF] Evie Nestor JAVA SYBASE DEVELOPER.ING[employer] CASTER Work Phone: [facility] 03-16-2023 10:25-0400 Body weight 82.19 kg Evie Nestor JAVA SYBASE DEVELOPER.ING[employer] CASTER Work Phone: [facility] 03-16-2023 10:25-0400 Diastolic blood pressure 70 mm[Hg] Evie Nestor JAVA SYBASE DEVELOPER.INGOT CASTER Work Phone: [facility] 03-16-2023 10:25-0400 Heart rate 82 /min Evie Nestor JAVA SYBASE DEVELOPER.INGOT CASTER Work Phone: [facility] 03-16-2023 10:25-0400 Respiratory rate 18 /min Evie Nestor JAVA SYBASE DEVELOPER.ING[employer] CASTER Work Phone: [facility] 03-16-2023 10:25-0400 SaO2% (BldA) [Mass fraction] 100 % Evie Nestor JAVA SYBASE DEVELOPER.ING[employer] CASTER Work Phone: [facility] 03-16-2023 10:25-0400 Systolic blood pressure 122 mm[Hg] Evie Nestor JAVA SYBASE DEVELOPER.INGOT CASTER Work Phone: [facility] 01-25-2023 17:20-0400 Body temperature 97.8 [degF] [facility] 01-25-2023 17:20-0400 Diastolic blood pressure 76 mm[Hg] [facility] 01-25-2023 17:20-0400 Heart rate 64 /min [facility] 01-25-2023 17:20-0400 Respiratory rate 14 /min [facility] 01-25-2023 17:20-0400 SaO2% (BldA) [Mass fraction] 97 % [facility] 01-25-2023 17:20-0400 Systolic blood pressure 139 mm[Hg] [facility] 01-25-2023 15:59-0400 Body height 165.1 cm [facility] 01-25-2023 15:59-0400 Body mass index (BMI) [Ratio] 30.2 kg/m2 [facility] 01-25-2023 15:59-0400 Body weight 82.23 kg [facility] 01-21-2023 15:51-0400 Body weight 82.56 kg Markos June MD Work Phone: [facility] 01-21-2023 15:51-0400 Diastolic blood pressure 80 mm[Hg] Markos June MD Work Phone: [facility] 01-21-2023 15:51-0400 Heart rate 63 /min Markos June MD Work Phone: [facility] 01-21-2023 15:51-0400 Respiratory rate 18 /min Markos June MD Work Phone: [facility] 01-21-2023 15:51-0400 SaO2% (BldA) [Mass fraction] 97 % Markos June MD Work Phone: [facility] 01-21-2023 15:51-0400 Systolic blood pressure 130 mm[Hg] Markos June MD Work Phone: [facility] 10-18-2022 13:14-0400 Body height 165.1 cm [facility] 10-18-2022 13:14-0400 Body mass index (BMI) [Ratio] 29.9 kg/m2 [facility] 10-18-2022 13:14-0400 Body temperature 97.8 [degF] [facility] 10-18-2022 13:14-0400 Body weight 81.46 kg [facility] 10-18-2022 13:14-0400 Diastolic blood pressure 96 mm[Hg] [facility] 10-18-2022 13:14-0400 Heart rate 98 /min [facility] 10-18-2022 13:14-0400 Respiratory rate 18 /min [facility] 10-18-2022 13:14-0400 SaO2% (BldA) [Mass fraction] 97 % [facility] 10-18-2022 13:14-0400 Systolic blood pressure 146 mm[Hg] [facility] 10-18-2022 12:56-0400 Body temperature 96.91 [degF] Fabian Pendlest. [facility] JAVA SYBASE DEVELOPER.ING[employer] CASTER Work Phone: [facility] 10-18-2022 12:56-0400 Body weight 81.65 kg Fabian Pendlebury JAVA SYBASE DEVELOPER.INGOT CASTER Work Phone: [facility] 10-18-2022 12:56-0400 Diastolic blood pressure 74 mm[Hg] Fabian Pendlebury JAVA SYBASE DEVELOPER.INGOT CASTER Work Phone: [facility] 10-18-2022 12:56-0400 Heart rate 86 /min Fabian Pendlebury JAVA SYBASE DEVELOPER.INGOT CASTER Work Phone: [facility] 10-18-2022 12:56-0400 Respiratory rate 16 /min Fabian Pendlebury JAVA SYBASE DEVELOPER.INGOT CASTER Work Phone: [facility] 10-18-2022 12:56-0400 SaO2% (BldA) [Mass fraction] 96 % Fabian Pendlest. [facility] JAVA SYBASE DEVELOPER.INGOT CASTER Work Phone: [facility] 10-18-2022 12:56-0400 Systolic blood pressure 124 mm[Hg] Fabian Pendlest. [facility] JAVA SYBASE DEVELOPER.INGOT CASTER Work Phone: [facility] 10-15-2022 15:45-0400 Body weight 82.64 kg Markos June MD Work Phone: [facility] 10-15-2022 15:45-0400 Diastolic blood pressure 78 mm[Hg] Markos June MD Work Phone: [facility] 10-15-2022 15:45-0400 Heart rate 74 /min Markos June MD Work Phone: [facility] 10-15-2022 15:45-0400 Respiratory rate 16 /min Markos June MD Work Phone: [facility] 10-15-2022 15:45-0400 Systolic blood pressure 120 mm[Hg] Markos June MD Work Phone: [facility] 07-31-2022 10:20-0500 Body temperature 97.9 [degF] Precious Athy PA-C Work Phone: [facility] 07-31-2022 10:20-0500 Body weight 81.47 kg Precious Athy PA-C Work Phone: [facility] 07-31-2022 10:20-0500 Diastolic blood pressure 78 mm[Hg] Precious Athy PA-C Work Phone: [facility] 07-31-2022 10:20-0500 Heart rate 69 /min Precious Athy PA-C Work Phone: [facility] 07-31-2022 10:20-0500 Respiratory rate 18 /min Precious Athy PA-C Work Phone: [facility] 07-31-2022 10:20-0500 SaO2% (BldA) [Mass fraction] 98 % Precious Athy PA-C Work Phone: [facility] 07-31-2022 10:20-0500 Systolic blood pressure 124 mm[Hg] Precious Athy PA-C Work Phone: [facility] 06-22-2022 09:27-0500 Body weight 80.83 kg Markos June MD Work Phone: [facility] 06-22-2022 09:27-0500 Diastolic blood pressure 74 mm[Hg] Markos June MD Work Phone: [facility] 06-22-2022 09:27-0500 Heart rate 72 /min Markos June MD Work Phone: [facility] 06-22-2022 09:27-0500 Respiratory rate 16 /min Markos June MD Work Phone: [facility] 06-22-2022 09:27-0500 Systolic blood pressure 124 mm[Hg] Markos June MD Work Phone: [facility] 05-23-2022 11:59-0400 Body temperature 97.39 [degF] Precious Athy PA-C Work Phone: [facility] 05-23-2022 11:59-0400 Body weight 81.38 kg Precious Athy PA-C Work Phone: [facility] 05-23-2022 11:59-0400 Diastolic blood pressure 72 mm[Hg] Precious Athy PA-C Work Phone: [facility] 05-23-2022 11:59-0400 Heart rate 76 /min Precious Athy PA-C Work Phone: [facility] 05-23-2022 11:59-0400 Respiratory rate 16 /min Precious Athy PA-C Work Phone: [facility] 05-23-2022 11:59-0400 SaO2% (BldA) [Mass fraction] 98 % Precious Athy PA-C Work Phone: [facility] 05-23-2022 11:59-0400 Systolic blood pressure 108 mm[Hg] Precious Athy PA-C Work Phone: [facility] 03-13-2022 09:31-0400 Body weight 79.06 kg Markos June MD Work Phone: [facility] 03-13-2022 09:31-0400 Diastolic blood pressure 76 mm[Hg] Markos June MD Work Phone: [facility] 03-13-2022 09:31-0400 Heart rate 72 /min Markos June MD Work Phone: [facility] 03-13-2022 09:31-0400 Respiratory rate 16 /min Markos June MD Work Phone: [facility] 03-13-2022 09:31-0400 Systolic blood pressure 120 mm[Hg] Markos June MD Work Phone: [facility] 01-19-2022 10:09-0400 Body weight 78.93 kg Jasmin Giang APRN.CNP Work Phone: [facility] 01-19-2022 10:09-0400 Diastolic blood pressure 70 mm[Hg] Jasmin Changhof JAVA SYBASE DEVELOPER.ING[employer] CASTER Work Phone: [facility] 01-19-2022 10:09-0400 Heart rate 65 /min Jasmin Changhof JAVA SYBASE DEVELOPER.INGOT CASTER Work Phone: [facility] 01-19-2022 10:09-0400 Respiratory rate 16 /min Jasmin Changhof JAVA SYBASE DEVELOPER.ING[employer] CASTER Work Phone: [facility] 01-19-2022 10:09-0400 SaO2% (BldA) [Mass fraction] 95 % Jasmin Changhof JAVA SYBASE DEVELOPER.ING[employer] CASTER Work Phone: [facility] 01-19-2022 10:09-0400 Systolic blood pressure 110 mm[Hg] Jasmin Changhof JAVA SYBASE DEVELOPER.[facility] Work Phone: [facility] 01-15-2022 13:07-0400 Heart rate 77 /min [facility] Work Phone: 01-15-2022 13:07-0400 Respiratory rate 18 /min [facility] Work Phone: 01-15-2022 13:07-0400 SaO2% (BldA) [Mass fraction] 100 % [facility] Work Phone: 01-15-2022 10:43-0400 Body height 165.1 cm [facility] Work Phone: 01-15-2022 10:43-0400 Body mass index (BMI) [Ratio] 30.7 kg/m2 [facility] Work Phone: 01-15-2022 10:43-0400 Body temperature 98.8 [degF] [facility] Work Phone: 01-15-2022 10:43-0400 Body weight 83.91 kg [facility] Work Phone: 01-15-2022 10:43-0400 Diastolic blood pressure 84 mm[Hg] [facility] Work Phone: 01-15-2022 10:43-0400 Systolic blood pressure 130 mm[Hg] [facility] Work Phone: 01-15-2022 10:16-0400 Body temperature 99.3 [degF] Jasmin Changhof JAVA SYBASE DEVELOPER.ING[employer] CASTER Work Phone: [facility] 01-15-2022 10:16-0400 Body weight 78.02 kg Jasmin Changhof JAVA SYBASE DEVELOPER.INGOT CASTER Work Phone: [facility] 01-15-2022 10:16-0400 Diastolic blood pressure 70 mm[Hg] Jasmin Tannhof JAVA SYBASE DEVELOPER.ING[employer] CASTER Work Phone: [facility] 01-15-2022 10:16-0400 Heart rate 94 /min Jasmin Changhof JAVA SYBASE DEVELOPER.ING[employer] CASTER Work Phone: [facility] 01-15-2022 10:16-0400 Respiratory rate 16 /min Jasmin Changhof JAVA SYBASE DEVELOPER.ING[employer] CASTER Work Phone: [facility] 01-15-2022 10:16-0400 SaO2% (BldA) [Mass fraction] 99 % Jasmin Changhof JAVA SYBASE DEVELOPER.ING[employer] CASTER Work Phone: [facility] [place] 01-15-2022 10:16-0400 Systolic blood pressure 100 mm[Hg] Jasmin Changhof JAVA SYBASE DEVELOPER.ING[employer] CASTER Work Phone: [facility] [place] 12-10-2021 12:08-0400 Body weight 79.24 kg Markos June MD Work Phone: [facility] 12-10-2021 12:08-0400 Diastolic blood pressure 80 mm[Hg] Markos June MD Work Phone: [facility] 12-10-2021 12:08-0400 Heart rate 74 /min Markos June MD Work Phone: [facility] 12-10-2021 12:08-0400 Respiratory rate 18 /min Markos June MD Work Phone: [facility] 12-10-2021 12:08-0400 Systolic blood pressure 120 mm[Hg] Markos June MD Work Phone: [facility] [place] 10-22-2021 13:42-0400 Body temperature 98.71 [degF] Markos June MD Work Phone: [facility] 10-22-2021 13:42-0400 Body weight 76.84 kg Markos June MD Work Phone: [facility] [place] 10-22-2021 13:42-0400 Diastolic blood pressure 80 mm[Hg] Markos June MD Work Phone: [facility] [place] 10-22-2021 13:42-0400 Heart rate 80 /min Markos June MD Work Phone: [facility] 10-22-2021 13:42-0400 Respiratory rate 16 /min Markos June MD Work Phone: [facility] [place] 10-22-2021 13:42-0400 Systolic blood pressure 112 mm[Hg] Markos June MD Work Phone: [facility] [place] Encounters Encounter Date Encounter Type Care Provider Facility Start: 10-27-2024 End: 10-27-2024 ambulatory KRISTIE A SUPPAN Facility:[facility] Start: 10-27-2024 End: 10-27-2024 Office outpatient visit 15 minutes Kristie A Suppan JAVA SYBASE DEVELOPER.ING[employer] CASTER Work Phone: [facility] Comment on above: Cellulitis of skin ( Primary Dx); Flank pain Start: 10-20-2024 End: 10-20-2024 Telephone encounter Kristie A Suppan JAVA SYBASE DEVELOPER.INGOT CASTER Work Phone: [facility] Comment on above: Patient Update Start: 10-20-2024 End: 10-20-2024 Emergency department patient visit Dr. Markos June MD Work Phone: -Emergency Department Work Phone: Start: 10-16-2024 End: 10-16-2024 ambulatory KRISTIE A SUPPAN Facility:[facility] Start: 10-16-2024 End: 10-16-2024 Office outpatient visit 15 minutes Kristie Delcidan JAVA SYBASE DEVELOPER.INGOT CASTER Work Phone: [facility] [place] Comment on above: Cellulitis of skin ( Primary Dx) Start: 10-13-2024 End: 10-13-2024 Office outpatient visit 25 minutes Jasmin Giang JAVA SYBASE DEVELOPER.INGOT CASTER Work Phone: [facility] [place] Comment on above: Down's syndrome (Rosi ivana Dx); Headache, unspecified headache type; Stage 3 chronic kidney disease, unspecified whether stage 3a or 3b CKD (HCC); Gout, unspecified cause, unspecified chronicity, unspecified site; Elevated glucose; Hyperlipidemia, unspecified hyperlipidemia type; Vitamin D deficiency; Vitamin B12 deficiency Start: 10-13-2024 End: 10-13-2024 ambulatory JASMIN GIANG Facility:[facility] Start: 10-11-2024 End: 10-11-2024 ambulatory MARKOS JUNE Facility:[facility] Start: 09-18-2024 End: 09-18-2024 ambulatory KRISTIE SANTA Facility:[facility] Start: 09-18-2024 End: 09-18-2024 Office outpatient visit 15 minutes Kristie Santa JAVA SYBASE DEVELOPER.INGOT CASTER Work Phone: [facility] [place] Comment on above: Gout, unspecified ca use, unspecified chronicity, unspecified site (Primary Dx) Start: 07-28-2024 End: 07-28-2024 ambulatory MARKOS JUNE Facility:[facility] Start: 07-28-2024 End: 07-28-2024 Patient encounter procedure Markos June MD Work Phone: [facility] [place] Comment on above: Pain and swelling of knee, right (Primary Dx); Swelling of right foot; Foot pain, right; Gout, unspecified cause, unspecified chronicity, unspecified site; Viral URI Start: 07-20-2024 End: 07-20-2024 Telephone encounter Markos June MD Work Phone: [facility] [place] Comment on above: Forms (Probate Court /Guardianship) Start: 07-08-2024 End: 07-08-2024 Patient encounter procedure Markos June MD Work Phone: [facility] [place] Comment on above: Down's syndrome (Rosi ivana Dx); Stage 3 chronic kidney disease, unspecified whether stage 3a or 3b CKD (HCC); Elevated glucose; Vitamin D deficiency; Hyperlipidemia, unspecified hyperlipidemia type; Gout of right wrist, unspecified cause, unspecified chronicity Start: 07-08-2024 End: 07-08-2024 ambulatory MARKOS JUNE Facility:[facility] Start: 04-17-2024 End: 04-17-2024 ambulatory KRISTIE SANTA Facility:[facility] Start: 04-17-2024 End: 04-17-2024 Office outpatient visit 15 minutes Kristie Santa JAVA SYBASE DEVELOPERScottieINGOT CASTER Work Phone: [facility] [place] Comment on above: Acute frontal sinusi tis, recurrence not specified (Primary Dx) Start: 03-17-2024 End: 03-17-2024 ambulatory MARKOS JUNE Facility:[facility] Start: 03-17-2024 End: 03-17-2024 Patient encounter procedure Markos June MD Work Phone: [facility] [place] Comment on above: Down's syndrome (Rosi ivana Dx); Gout of right wrist, unspecified cause, unspecified chronicity; Stage 3 chronic kidney disease, unspecified whether stage 3a or 3b CKD (HCC); Elevated glucose; Toenail fungus; Hyperlipidemia, unspecified hyperlipidemia type; Vitamin D deficiency Start: 01-17-2024 End: 01-17-2024 Patient encounter procedure Markos June MD Work Phone: [facility] [place] Comment on above: Foot pain, left (Rosi ivana Dx); Gout of right wrist, unspecified cause, unspecified chronicity Start: 01-17-2024 End: 01-17-2024 ambulatory MARKOS JUNE Facility:[facility] Start: 01-14-2024 End: 01-14-2024 ambulatory DANICA FRANCOIS Facility:[facility] Start: 01-14-2024 End: 01-14-2024 Office outpatient visit 15 minutes Danica Francois PA-C Work Phone: [facility] [place] Comment on above: Acute gout involving toe, unspecified cause, unspecified laterality (Primary Dx) Start: 12-21-2023 Telephone encounter Markos shipley MD Work Phone: [facility] [place] Comment on above: Letter (Jury Duty Ex cuse) Start: 12-14-2023 End: 12-14-2023 ambulatory MARKOS JUNE Facility:[facility] Start: 12-14-2023 End: 12-14-2023 Patient encounter procedure Markos June MD Work Phone: [facility] [place] Comment on above: Chronic pain of both knees (Primary Dx); Gout of right wrist, unspecified cause, unspecified chronicity; Stage 3 chronic kidney disease, unspecified whether stage 3a or 3b CKD (HCC); Down's syndrome; Elevated glucose; Toenail fungus; Hyperlipidemia, unspecified hyperlipidemia type Start: 12-07-2023 End: 12-07-2023 ambulatory MARKOS JUNE Facility:[facility] Start: 11-02-2023 Telephone encounter Markos shipley MD Work Phone: [facility] [place] Comment on above: Forms ([employer]) Start: 11-02-2023 End: 11-02-2023 Patient encounter procedure Monse Mares APRN.CNP Work Phone: [facility] [place] Comment on above: Left sided abdominal pain (Primary Dx); Acute left-sided back pain, unspecified back location Start: 11-02-2023 End: 11-02-2023 ambulatory MONSE MARES Facility:[facility] Start: 10-19-2023 End: 10-19-2023 Patient encounter procedure Markos June MD Work Phone: [facility] [place] Comment on above: Cold virus (Primary Dx) Start: 09-13-2023 End: 09-13-2023 Patient encounter procedure Markos June MD Work Phone: [facility] [place] Comment on above: Down's syndrome (Rosi ivana Dx); Vitamin D deficiency; Chronic pain of both knees; Acute gout of right wrist, unspecified cause; Nail fungus; Stage 3 chronic kidney disease, unspecified whether stage 3a or 3b CKD (HCC) Start: 06-07-2023 End: 06-07-2023 Patient encounter procedure Markos June MD Work Phone: [facility] Comment on above: Elevated BP without diagnosis of hypertension (Primary Dx); Chest pain, unspecified type; Right arm pain; Stage 3 chronic kidney disease, unspecified whether stage 3a or 3b CKD (HCC) Start: 05-31-2023 End: 06-01-2023 [facility] Start: 05-13-2023 End: 05-13-2023 Patient encounter procedure Markos June MD Work Phone: [facility] Comment on above: Chronic pain of both knees (Primary Dx); Gout of right wrist, unspecified cause, unspecified chronicity; Stage 3 chronic kidney disease, unspecified whether stage 3a or 3b CKD (HCC); Down's syndrome; Pain in Achilles tendon; Tendonitis, Achilles, right Start: 03-16-2023 Telephone encounter Fern Navarro APRN.INGOT CASTER Work Phone: [facility] Comment on above: Results Start: 03-16-2023 End: 03-16-2023 Patient encounter procedure Evie Baez APRN.INGOT CASTER Work Phone: [facility] Comment on above: Exposure to COVID-19 virus (Primary Dx) Start: 01-25-2023 End: 01-25-2023 [facility] Start: 01-21-2023 End: 01-21-2023 Patient encounter procedure Markos June MD Work Phone: [facility] Comment on above: Chronic pain of both knees (Primary Dx); Screening for colon cancer; Stage 3 chronic kidney disease, unspecified whether stage 3a or 3b CKD (HCC); Down's syndrome; Acute pain of left shoulder; Medication monitoring encounter Start: 12-08-2022 Telephone encounter Markos shipley MD Work Phone: [facility] Comment on above: Letter Start: 12-03-2022 Telephone encounter Markos shipley MD Work Phone: [facility] Comment on above: Letter Start: 10-18-2022 End: 10-18-2022 [facility] Start: 10-18-2022 End: 10-18-2022 Patient encounter procedure Fabian Warner APRN.INGOT CASTER Work Phone: [facility] Comment on above: Right elbow pain (Pr imary Dx) Start: 10-15-2022 End: 10-15-2022 Patient encounter procedure Markos June MD Work Phone: [facility] Comment on above: Chronic pain of both knees (Primary Dx); Seborrheic dermatitis of scalp; Down's syndrome; Renal insufficiency Start: 10-01-2022 Telephone encounter Markos shipley MD Work Phone: [facility] Comment on above: athlete form ([employer] ) Start: 07-31-2022 End: 07-31-2022 Patient encounter procedure Precious Benjamin PA-C Work Phone: [facility] Comment on above: Rash (Primary Dx) Start: 06-22-2022 End: 06-22-2022 Patient encounter procedure Markos June MD Work Phone: [facility] Comment on above: Need for influenza v accination (Primary Dx); Stage 3 chronic kidney disease, unspecified whether stage 3a or 3b CKD (HCC); Down's syndrome; Seborrheic dermatitis; Right wrist pain Start: 05-24-2022 Telephone encounter Fern Navarro APRN.INGOT CASTER Work Phone: [facility] Comment on above: Results Start: 05-23-2022 End: 05-23-2022 Patient encounter procedure Precious Benjamin PA-C Work Phone: [facility] Comment on above: Viral URI (Primary D x) Start: 03-13-2022 End: 03-13-2022 Patient encounter procedure Markos June MD Work Phone: [facility] Comment on above: Down's syndrome (Rosi ivana Dx); Gout of right wrist, unspecified cause, unspecified chronicity; Stage 3 chronic kidney disease, unspecified whether stage 3a or 3b CKD (HCC) Start: 01-19-2022 End: 01-19-2022 Patient encounter procedure Jasmin Giang APRN.INGOT CASTER Work Phone: [facility] Comment on above: Ringworm (Primary Dx ) Start: 01-15-2022 End: 01-15-2022 [facility] Start: 01-15-2022 End: 01-15-2022 Patient encounter procedure Jasmin Giang APRN.INGOT CASTER Work Phone: [facility] Comment on above: Abdominal pain, unsp ecified abdominal location (Primary Dx); Diarrhea, unspecified type Start: 12-10-2021 End: 12-10-2021 Patient encounter procedure Markos June MD Work Phone: [facility] Comment on above: Acute gout of right wrist, unspecified cause (Primary Dx); Sebaceous cyst; Down's syndrome; Vitamin D deficiency; Chronic pain of both knees Start: 10-22-2021 End: 10-22-2021 Patient encounter procedure Markos June MD Work Phone: [facility] Comment on above: Gout of right wrist, unspecified cause, unspecified chronicity (Primary Dx) Start: 08-21-2021 End: 08-21-2021 [facility] Comment on above: Right wrist pain [M2 5.531] Start: 08-08-2021 End: 08-08-2021 Subsequent hospital visit by physician [facility]r [facility] Work Phone: Radiology Comment on above: Right wrist pain [M2 5.531] Procedures Date Procedure Procedure Detail Performing Clinician Start: 10-20-2024 Plain x-ray of elbow Dr Scottie June MD Work Phone: Start: 10-11-2024 Lipid 1996 panel - S elizabeth or Plasma Jasmin Giang APRN.INGOT CASTER Work Phone: Start: 12-14-2023 Adult depression scr eening assessment Markos June MD Work Phone: Start: 11-02-2023 Urnls dip stick/tabl et rgnt auto w/o microscopy Monse Mares JAVA SYBASE DEVELOPER.INGOT CASTER Work Phone: Start: 05-31-2023 Plain chest X-ray Start: 05-27-2023 Lipid 1996 panel - S elizabeth or Plasma Markos June MD Work Phone: Start: 01-25-2023 Plain chest X-ray Start: 10-18-2022 Plain x-ray of elbow Start: 06-22-2022 INFLUENZA VACCINE QUADRIVALENT 6 MO - 64 YRS IM Markos June MD Work Phone: Start: 08-21-2021 End: 08-21-2021 Radex forearm 2 views Danica Godoy A-C Work Phone: Start: 08-08-2021 Radex wrist complete minimum 3 views Fern Navarro JAVA SYBASE DEVELOPER.INGOT CASTER Work Phone: Start: 08-22-2014 Lipid 1996 panel - S elizabeth or Plasma Markos June MD Work Phone: Plan of Treatment Date Care Activity Detail Author Start: 10-11-2029 Lipid panel Lipid Screening [facility] Start: 05-27-2028 Lipid 1996 panel - Serum or Plasma Lipid Screening [facility] Start: 05-27-2028 Lipid panel Lipid Screening [facility] Start: 10-12-2027 Diabetes Screening Diabetes Screenin g [facility] Start: 12-06-2026 Diabetes Screening Diabetes Screenin g [facility] Start: 11-01-2026 Diabetes Screening Diabetes Screenin g [facility] Start: 05-27-2026 Diabetes Screening Diabetes Screenin g [facility] Start: 10-27-2025 Annual PCP Team Cut In Station Operator slava Disease Visit Annual PCP Team Chronic Disease Visit [facility] Start: 10-16-2025 Annual PCP Team Cut In Station Operator slava Disease Visit Annual PCP Team Chronic Disease Visit [facility] Start: 10-13-2025 Annual PCP Team Cut In Station Operator slava Disease Visit Annual PCP Team Chronic Disease Visit [facility] Start: 10-13-2025 Hepatitis C screening Hepatitis C Sc martha [facility] Comment on above: Postponed from 08/31 (Declined at this time) Start: 10-13-2025 HIV screening HIV Screening [facility] Comment on above: Postponed from 08/31 (Declined at this time) Start: 10-11-2025 Complete blood count Hemoglobin/Samy tocrit [facility] Start: 10-11-2025 Creatinine measurement Serum Creatin ine [facility] Start: 09-18-2025 Annual PCP Team Cut In Station Operator slava Disease Visit Annual PCP Team Chronic Disease Visit [facility] Start: 07-28-2025 Annual PCP Team Cut In Station Operator slava Disease Visit Annual PCP Team Chronic Disease Visit [facility] Start: 07-08-2025 Annual PCP Team Cut In Station Operator slava Disease Visit Annual PCP Team Chronic Disease Visit [facility] Start: 06-19-2025 DIABETES SCREEN DIABETES SCREEN [facility] Start: 06-19-2025 Diabetes Screening Diabetes Screenin g [facility] Start: 04-20-2025 End: 04-20-2025 Patient encounter procedure 04/20/2025 2:00 PM EDT Office [facility] [place] [address] [place], [place] [id number] Alek Hurd, RAVI.INGOT CASTER [address] [place] [address] 6 month follow up with labs [facility] Comment on above: 6 month follow up wi labs Start: 04-15-2025 End: 07-15-2025 25-hydroxyvitamin D3 [Mass/volume] in Serum or Plasma VITAMIN D 25 HYDROXY Lab Routine Vitamin D deficiency Expected: 04/15/2025, Expires: 07/15/2025 [facility] Comment on above: Expected: 04/15/2025 , Expires: 07/15/2025 Start: 04-15-2025 End: 07-15-2025 CBC W Auto Differential panel - Blood COMPLETE BLOOD COUNT AND DIFFERENTIAL Lab Routine Vitamin B12 deficiency Expected: 04/15/2025, Expires: 07/15/2025 [facility] Comment on above: Expected: 04/15/2025 , Expires: 07/15/2025 Start: 04-15-2025 End: 07-15-2025 Cobalamin (Vitamin B12) [Mass/volume] in Serum or Plasma VITAMIN B12 Lab Routine Vitamin B12 deficiency Expected: 04/15/2025, Expires: 07/15/2025 [facility] Comment on above: Expected: 04/15/2025 , Expires: 07/15/2025 Start: 04-15-2025 End: 07-15-2025 Comprehensive metabolic 2000 panel - Serum or Plasma COMPREHENSIVE METABOLIC PANEL Lab Routine Hyperlipidemia, unspecified hyperlipidemia type Expected: 04/15/2025, Expires: 07/15/2025 [facility] Work Phone: Comment on above: Expected: 04/15/2025 , Expires: 07/15/2025 Start: 04-15-2025 End: 07-15-2025 Hemoglobin A1c in Blood HEMOGLOBIN A1C Lab Routine Elevated glucose Expected: 04/15/2025, Expires: 07/15/2025 [facility] Comment on above: Expected: 04/15/2025 , Expires: 07/15/2025 Start: 04-15-2025 End: 07-15-2025 Lipid 1996 panel - Serum or Plasma LIPID PANEL, FASTING Lab Routine Hyperlipidemia, unspecified hyperlipidemia type Expected: 04/15/2025, Expires: 07/15/2025 [facility] Comment on above: Expected: 04/15/2025 , Expires: 07/15/2025 Start: 04-15-2025 End: 07-15-2025 Urate [Mass/volume] in Serum or Plasma URIC ACID Lab Routine Gout, unspecified cause, unspecified chronicity, unspecified site Expected: 04/15/2025, Expires: 07/15/2025 [facility] Comment on above: Expected: 04/15/2025 , Expires: 07/15/2025 Start: 03-17-2025 Annual PCP Team [employer] In Station Operator slava Disease Visit Annual PCP Team Chronic Disease Visit [facility] Start: 01-16-2025 Annual PCP Team Cut In Station Operator slava Disease Visit Annual PCP Team Chronic Disease Visit [facility] Start: 01-13-2025 Annual PCP Team Cut In Station Operator slava Disease Visit Annual PCP Team Chronic Disease Visit [facility] Start: 12-13-2024 Annual PCP Team Cut In Station Operator slava Disease Visit Annual PCP Team Chronic Disease Visit [facility] Start: 12-13-2024 Anxiety Screening Anxiety Screening [facility] Start: 12-13-2024 Depression Screening Depression Scre ening [facility] Start: 12-08-2024 DIABETES SCREEN DIABETES SCREEN [facility] Start: 12-06-2024 [facility] Start: 12-06-2024 Creatinine measurement Serum Creatin ine [facility] Start: 11-01-2024 Annual PCP Team Cut In Station Operator slava Disease Visit Annual PCP Team Chronic Disease Visit [facility] Start: 11-01-2024 Complete blood count Hemoglobin/Samy [facility] Start: 11-01-2024 Creatinine measurement Serum Creatin ine [facility] Start: 10-27-2024 End: 10-27-2024 Patient encounter procedure 10/27/2024 11:00 AM EDT Office [facility] [place] [address] [place] [address] Kristie Santa JAVA SYBASE DEVELOPER.INGOT CASTER [address] [facility] [place] [address] Recheck cellulitis [facility] Comment on above: Recheck cellulitis Start: 10-18-2024 Annual PCP Team Cut In Station Operator slava Disease Visit Annual PCP Team Chronic Disease Visit [facility] Start: 10-13-2024 End: 10-13-2024 Patient encounter procedure 10/13/2024 2:00 PM EDT Office Visit [facility] [place] [address] [place] [address] Jasmin Giang, JAVA SYBASE DEVELOPER.INGOT CASTER [address] [facility] [place] [address] 3 month follow up labs [facility] Comment on above: 3 month follow up la bs Start: 10-06-2024 End: 01-05-2025 25-hydroxyvitamin D3 [Mass/volume] in Serum or Plasma VITAMIN D 25 HYDROXY Lab Routine Vitamin D deficiency Expected: 10/06/2024 (Approximate), Expires: 01/05/2025 [facility] Comment on above: Expected: 10/06/2024 (Approximate), Expires: 01/05/2025 Start: 10-06-2024 End: 01-05-2025 CBC panel - Blood by Automated count COMPLETE BLOOD COUNT Lab Routine Stage 3 chronic kidney disease, unspecified whether stage 3a or 3b CKD (HCC) Expected: 10/06/2024 (Approximate), Expires: 01/05/2025 [facility] Comment on above: Expected: 10/06/2024 (Approximate), Expires: 01/05/2025 Start: 10-06-2024 End: 01-05-2025 Comprehensive metabolic 2000 panel - Serum or Plasma COMPREHENSIVE METABOLIC PANEL Lab Routine Stage 3 chronic kidney disease, unspecified whether stage 3a or 3b CKD (HCC) Elevated glucose Hyperlipidemia, unspecified hyperlipidemia type Expected: 10/06/2024 (Approximate), Expires: 01/05/2025 [facility] Work Phone: Comment on above: Expected: 10/06/2024 (Approximate), Expires: 01/05/2025 Start: 10-06-2024 End: 01-05-2025 Hemoglobin A1c in Blood HEMOGLOBIN A1C Lab Routine Elevated glucose Expected: 10/06/2024 (Approximate), Expires: 01/05/2025 [facility] Comment on above: Expected: 10/06/2024 (Approximate), Expires: 01/05/2025 Start: 10-06-2024 End: 01-05-2025 Lipid 1996 panel - Serum or Plasma LIPID PANEL BASIC Lab Routine Hyperlipidemia, unspecified hyperlipidemia type Expected: 10/06/2024 (Approximate), Expires: 01/05/2025 [facility] Comment on above: Expected: 10/06/2024 (Approximate), Expires: 01/05/2025 Start: 10-06-2024 End: 01-05-2025 Urate [Mass/volume] in Serum or Plasma URIC ACID Lab Routine Gout of right wrist, unspecified cause, unspecified chronicity Expected: 10/06/2024 (Approximate), Expires: 01/05/2025 [facility] Comment on above: Expected: 10/06/2024 (Approximate), Expires: 01/05/2025 Start: 09-13-2024 Annual PCP Team Cut In Station Operator slava Disease Visit Annual PCP Team Chronic Disease Visit [facility] Start: 06-23-2024 End: 06-23-2024 Patient encounter procedure 06/23/2024 11:00 AM EST Office Visit [facility] [place] [address] [place] [address] Markos June MD [address] [place] [address] 3 mo f/u [facility] [place] Comment on above: 3 mo f/u Start: 06-15-2024 End: 09-14-2024 CBC W Auto Differential panel - Blood COMPLETE BLOOD COUNT AND DIFFERENTIAL Lab Routine Stage 3 chronic kidney disease, unspecified whether stage 3a or 3b CKD (HCC) Expected: 06/15/2024 (Approximate), Expires: 09/14/2024 [facility] Comment on above: Expected: 06/15/2024 (Approximate), Expires: 09/14/2024 Start: 06-15-2024 End: 09-14-2024 Comprehensive metabolic 2000 panel - Serum or Plasma COMPREHENSIVE METABOLIC PANEL Lab Routine Stage 3 chronic kidney disease, unspecified whether stage 3a or 3b CKD (HCC) Elevated glucose Hyperlipidemia, unspecified hyperlipidemia type Expected: 06/15/2024 (Approximate), Expires: 09/14/2024 [facility] Work Phone: Comment on above: Expected: 06/15/2024 (Approximate), Expires: 09/14/2024 Start: 06-15-2024 End: 09-14-2024 Hemoglobin A1c in Blood HEMOGLOBIN A1C Lab Routine Elevated glucose Expected: 06/15/2024 (Approximate), Expires: 09/14/2024 [facility] Comment on above: Expected: 06/15/2024 (Approximate), Expires: 09/14/2024 Start: 06-15-2024 End: 09-14-2024 Lipid 1996 panel - Serum or Plasma LIPID PANEL BASIC Lab Routine Elevated glucose Hyperlipidemia, unspecified hyperlipidemia type Expected: 06/15/2024 (Approximate), Expires: 09/14/2024 [facility] Comment on above: Expected: 06/15/2024 (Approximate), Expires: 09/14/2024 Start: 06-15-2024 End: 09-14-2024 Urate [Mass/volume] in Serum or Plasma URIC ACID Lab Routine Gout of right wrist, unspecified cause, unspecified chronicity Expected: 06/15/2024 (Approximate), Expires: 09/14/2024 [facility] Comment on above: Expected: 06/15/2024 (Approximate), Expires: 09/14/2024 Start: 06-07-2024 Annual PCP Team Cut In Station Operator slava Disease Visit Annual PCP Team Chronic Disease Visit [facility] Start: 05-27-2024 Complete blood count Hemoglobin/Samy tocrit [facility] Start: 05-27-2024 Creatinine measurement Serum Creatin ine [facility] Start: 05-27-2024 Hemoglobin/Hematocrit Hemoglobin/Hem atocrit [facility] Start: 05-27-2024 Serum Creatinine Serum Creatinine Cl [facility] Start: 05-13-2024 Annual PCP Team Cut In Station Operator slava Disease Visit Annual PCP Team Chronic Disease Visit [facility] Start: 05-13-2024 Covid-19 Vaccine () Covid-19 Vaccine () [facility] Comment on above: Postponed from 03/26 (Declined at this time) Start: 05-13-2024 Hepatitis C Screening Hepatitis C [facility] Comment on above: Postponed from 08/31 (Declined at this time) Start: 05-13-2024 Hepatitis C screening Hepatitis C [facility] Comment on above: Postponed from 08/31 (Declined at this time) Start: 05-13-2024 HIV Screening HIV Screening [facility] Comment on above: Postponed from 08/31 (Declined at this time) Start: 05-13-2024 HIV screening HIV Screening [facility] Comment on above: Postponed from 08/31 (Declined at this time) Start: 03-26-2024 Covid-19 Vaccine () Covid-19 Vaccine () [facility] Start: 03-26-2024 Influenza vaccination [facility] Start: 03-17-2024 End: 03-17-2024 Patient encounter procedure 03/17/2024 3:00 PM EDT Office Visit [facility] [place] [address] [place], [place] [id number] Markos June MD [address] [place], [place] [id number] 3 mo f/u [facility] [place] Comment on above: 3 mo f/u Start: 02-02-2024 COLORECTAL CANCER SCREENING COLORECTAL CANCER SCREENING [facility] Start: 02-02-2024 FECAL OCCULT BLOOD FECAL OCCULT BLOO D [facility] Start: 02-02-2024 Screening for malign ant neoplasm of colon [facility] Start: 01-23-2024 Influenza vaccination Influenza Vacc ine (#1) [facility] Comment on above: Postponed from 03/26 (Declined at this time) Start: 01-22-2024 ANNUAL PCP TEAM CORRECTIONS CASEWORKER SLAVA DISEASE VISIT ANNUAL PCP TEAM CHRONIC DISEASE VISIT [facility] Start: 01-17-2024 End: 01-17-2024 Patient encounter procedure 01/17/2024 3:20 PM EDT Office Visit [facility] [place] [address] [place] [id number] Markos June MD [address] [place] [id number] recheck toe [facility] [place] Comment on above: recheck toe Start: 12-12-2023 End: 03-12-2024 25-hydroxyvitamin D3 [Mass/volume] in Serum or Plasma VITAMIN D 25 HYDROXY Lab Routine Vitamin D deficiency Expected: 12/12/2023 (Approximate), Expires: 03/12/2024 [facility] Work Phone: Comment on above: Expected: 12/12/2023 (Approximate), Expires: 03/12/2024 Start: 12-12-2023 End: 03-12-2024 CBC W Auto Differential panel - Blood CBC + DIFF Lab Routine Stage 3 chronic kidney disease, unspecified whether stage 3a or 3b CKD (HCC) Expected: 12/12/2023 (Approximate), Expires: 03/12/2024 [facility] Work Phone: Comment on above: Expected: 12/12/2023 (Approximate), Expires: 03/12/2024 Start: 12-12-2023 End: 03-12-2024 Comprehensive metabolic 2000 panel - Serum or Plasma COMP METABOLIC PANEL Lab Routine Stage 3 chronic kidney disease, unspecified whether stage 3a or 3b CKD (HCC) Expected: 12/12/2023 (Approximate), Expires: 03/12/2024 [facility] Work Phone: Comment on above: Expected: 12/12/2023 (Approximate), Expires: 03/12/2024 Start: 12-12-2023 End: 03-12-2024 Urate [Mass/volume] in Serum or Plasma URIC ACID BLOOD Lab Routine Acute gout of right wrist, unspecified cause Expected: 12/12/2023 (Approximate), Expires: 03/12/2024 [facility] Work Phone: Comment on above: Expected: 12/12/2023 (Approximate), Expires: 03/12/2024 Start: 10-16-2023 ANNUAL PCP TEAM CORRECTIONS CASEWORKER SLAVA DISEASE VISIT ANNUAL PCP TEAM CHRONIC DISEASE VISIT [facility] Start: 07-26-2023 Behavioral Health Screening Behavioral Health Screening [facility] Start: 06-22-2023 ANNUAL PCP TEAM CORRECTIONS CASEWORKER SLAVA DISEASE VISIT ANNUAL PCP TEAM CHRONIC DISEASE VISIT [facility] Start: 06-19-2023 HEMOGLOBIN/HEMATOCRIT HEMOGLOBIN/HEM ATOCRIT [facility] Start: 06-19-2023 SERUM CREATININE SERUM CREATININE Cl [facility] Start: 06-01-2023 [facility] Start: 05-31-2023 [facility] Start: 05-13-2023 End: 07-13-2023 CBC panel - Blood by Automated count CBC Lab Routine Stage 3 chronic kidney disease, unspecified whether stage 3a or 3b CKD (HCC) Medication monitoring encounter Expected: 05/13/2023 (Approximate), Expires: 07/13/2023 [facility] Work Phone: Comment on above: Expected: 05/13/2023 (Approximate), Expires: 07/13/2023 Start: 05-13-2023 End: 07-13-2023 Comprehensive metabolic 2000 panel - Serum or Plasma COMP METABOLIC PANEL Lab Routine Stage 3 chronic kidney disease, unspecified whether stage 3a or 3b CKD (HCC) Expected: 05/13/2023 (Approximate), Expires: 07/13/2023 [facility] Work Phone: Comment on above: Expected: 05/13/2023 (Approximate), Expires: 07/13/2023 Start: 05-13-2023 End: 07-13-2023 Lipid 1996 panel - Serum or Plasma LIPID PANEL BASIC Lab Routine Stage 3 chronic kidney disease, unspecified whether stage 3a or 3b CKD (HCC) Expected: 05/13/2023 (Approximate), Expires: 07/13/2023 [facility] Work Phone: Comment on above: Expected: 05/13/2023 (Approximate), Expires: 07/13/2023 Start: 05-13-2023 End: 07-13-2023 Urate [Mass/volume] in Serum or Plasma URIC ACID BLOOD Lab Routine Chronic pain of both knees Expected: 05/13/2023 (Approximate), Expires: 07/13/2023 [facility] Work Phone: Comment on above: Expected: 05/13/2023 (Approximate), Expires: 07/13/2023 Start: 03-26-2023 Influenza vaccination INFLUENZA (#1) [facility] Start: 03-16-2023 End: 07-16-2023 SARS-CoV-2 (COVID-19) RNA [Presence] in Respiratory specimen by YANETH with probe detection [facility] Work Phone: Comment on above: Expected: 03/16/2023 , Expires: 07/16/2023 Start: 03-13-2023 ANNUAL PCP TEAM CORRECTIONS CASEWORKER SLAVA DISEASE VISIT ANNUAL PCP TEAM CHRONIC DISEASE VISIT [facility] Start: 01-25-2023 [facility] Start: 01-19-2023 ANNUAL PCP TEAM CORRECTIONS CASEWORKER SLAVA DISEASE VISIT ANNUAL PCP TEAM CHRONIC DISEASE VISIT [facility] Start: 01-15-2023 ANNUAL PCP TEAM CORRECTIONS CASEWORKER SLAVA DISEASE VISIT ANNUAL PCP TEAM CHRONIC DISEASE VISIT [facility] Start: 12-10-2022 ANNUAL PCP TEAM CORRECTIONS CASEWORKER SLAVA DISEASE VISIT ANNUAL PCP TEAM CHRONIC DISEASE VISIT [facility] Start: 12-08-2022 SERUM CREATININE SERUM CREATININE [facility] Start: 10-22-2022 ANNUAL PCP TEAM CORRECTIONS CASEWORKER SLAVA DISEASE VISIT ANNUAL PCP TEAM CHRONIC DISEASE VISIT [facility] Start: 10-22-2022 HEPATITIS C SCREENING HEPATITIS C [facility] Comment on above: Postponed from 08/31 (Declined at this time) Start: 10-22-2022 HIV SCREENING HIV SCREENING [facility] Comment on above: Postponed from 08/31 (Declined at this time) Start: 09-28-2022 DIABETES SCREEN DIABETES SCREEN [facility] Start: 08-21-2022 HEMOGLOBIN/HEMATOCRIT HEMOGLOBIN/HEM ATOCRIT [facility] Start: 07-26-2022 DEPRESSION ASSESSMENT DEPRESSION ASS ESSMENT [facility] Start: 06-13-2022 End: 08-13-2022 CBC panel - Blood by Automated count CBC Lab Routine Stage 3 chronic kidney disease, unspecified whether stage 3a or 3b CKD (HCC) Expected: 06/13/2022 (Approximate), Expires: 08/13/2022 [facility] Work Phone: Comment on above: Expected: 06/13/2022 (Approximate), Expires: 08/13/2022 Start: 06-13-2022 End: 08-13-2022 Comprehensive metabolic 2000 panel - Serum or Plasma COMP METABOLIC PANEL Lab Routine Stage 3 chronic kidney disease, unspecified whether stage 3a or 3b CKD (HCC) Expected: 06/13/2022 (Approximate), Expires: 08/13/2022 [facility] Work Phone: Comment on above: Expected: 06/13/2022 (Approximate), Expires: 08/13/2022 Start: 06-13-2022 End: 08-13-2022 Urate [Mass/volume] in Serum or Plasma URIC ACID BLOOD Lab Routine Gout of right wrist, unspecified cause, unspecified chronicity Expected: 06/13/2022 (Approximate), Expires: 08/13/2022 [facility] Work Phone: Comment on above: Expected: 06/13/2022 (Approximate), Expires: 08/13/2022 Start: 05-23-2022 End: 06-06-2022 Influenza virus A and B RNA and SARS-CoV-2 (COVID-19) N gene panel - Respiratory specimen by YANETH with probe detection COVID WITH FLUA+B, ROUTINE Microbiology Routine Viral URI Expected: 05/23/2022, Expires: 06/06/2022 [facility] Work Phone: Comment on above: Expected: 05/23/2022 , Expires: 06/06/2022 Start: 03-26-2022 Influenza vaccination C [facility] Start: 01-22-2022 Influenza vaccination INFLUENZA (#1) [facility] Comment on above: Postponed from 03/26 (Declined at this time) Start: 01-15-2022 [facility] Work Phone: Start: 01-03-2022 Urine microalbumin profile [facility] Start: 10-22-2021 End: 12-22-2021 Comprehensive metabolic 2000 panel - Serum or Plasma COMP METABOLIC PANEL Lab Routine Gout of right wrist, unspecified cause, unspecified chronicity Expected: 10/22/2021, Expires: 12/22/2021 [facility] Work Phone: Comment on above: Expected: 10/22/2021 , Expires: 12/22/2021 Start: 10-22-2021 End: 12-22-2021 Urate [Mass/volume] in Serum or Plasma URIC ACID BLOOD Lab Routine Gout of right wrist, unspecified cause, unspecified chronicity Expected: 10/22/2021, Expires: 12/22/2021 [facility] Work Phone: Comment on above: Expected: 10/22/2021 , Expires: 12/22/2021 Start: 2021 COLOGUARD (FIT-DNA) COLOGUARD (FIT-D NA) [facility] Start: 2021 Colonoscopy COLONOSCOPY [facility] Start: 2021 COLORECTAL CANCER SCREENING COLORECTAL CANCER SCREENING [facility] Start: [address] COLONOGRAPHY [facility] Start: 2021 FECAL OCCULT BLOOD FECAL OCCULT BLOO D [facility] Start: 2021 Screening for malign ant neoplasm of colon [facility] Start: 2021 SIGMOIDOSCOPY SIGMOIDOSCOPY [facility] Start: 08-08-2021 COVID-19 VACCINE (2 - Pfizer series) COVID-19 VACCINE (2 - Pfizer series) [facility] Start: 07-26-2021 DEPRESSION ASSESSMENT DEPRESSION ASS ESSMENT [facility] Start: 07-04-2021 COVID-19 VACCINE (2 - Pfizer 3-dose series) COVID-19 VACCINE (2 - Pfizer 3-dose series) [facility] Start: 07-04-2021 COVID-19 VACCINE (2 - Pfizer series) COVID-19 VACCINE (2 - Pfizer series) [facility] Start: 09-28-2020 SERUM CREATININE SERUM CREATININE Cl [facility] Start: 08-22-2019 Lipid 1996 panel - Serum or Plasma Lipid Screening [facility] Start: 08-22-2019 LIPID SCREEN LIPID SCREEN [facility] Start: 1995 Hepatitis B Vaccine (1 of 3 - 19+ 3-dose series) Hepatitis B Vaccine (1 of 3 - 19+ 3-dose series) [facility] Start: 1994 HEPATITIS C SCREENING HEPATITIS C [facility] Start: 1994 Hepatitis C screening Hepatitis C [facility] Start: 1994 HIV SCREENING HIV SCREENING [facility] Start: 1994 HIV screening HIV Screening [facility] Start: 1975 HEPATITIS B (1 of 3 - 3-dose series) HEPATITIS B (1 of 3 - 3-dose series) [facility] Start: 1976 Hepatitis B Vaccine (1 of 3 - 3-dose series) Hepatitis B Vaccine (1 of 3 - 3-dose series) [facility] Hemoglobin.gastroint est inal.lower [Presence] in Stool by Immunoassay FECAL OCCULT BLOOD TEST Lab Routine Screening for colon cancer Ordered: 01/21/2023 [facility] Work Phone: Comment on above: Ordered: 01/21/2023 Patient Education [facility] Work Phone: Patient referral [facility] Work Phone: [facility] Immunizations Immunization Date Immunization Notes Care Provider Azam parr 06-22-2022 influenza, injectabl e, quadrivalent, contains preservative Markos June MD Work Phone: [facility] 06-22-2022 influenza virus vaccine, unspecified formulation Markos June MD Work Phone: [facility] 01-01-2016 pneumococcal conjuga te vaccine, 13 valent Markos June MD Work Phone: [facility] 08-22-2014 influenza, seasonal, injectable Markos June MD Work Phone: [facility] Work Phone: 01-04-2012 tetanus toxoid, reduced diphtheria toxoid, and acellular pertussis vaccine, adsorbed Markos June MD Work Phone: [facility] 12-18-2001 diphtheria and tetan us toxoids, adsorbed for pediatric use Markos June MD Work Phone: [facility] Work Phone: 07-26-1989 diphtheria and tetan us toxoids, adsorbed for pediatric use Markos June MD Work Phone: [facility] Work Phone: Payers Date Payer Category Payer Self-pay [id number] 2020 Medicare AETNA MEDICARE A ETNA MEDICARE ASSURE HMO D SNP [id number] 2020-Present [phone] [address] [place] [address] Medicare [id number] 2020 Medicare AETNA MEDICARE A ETNA MEDICARE ASSURE HMO D SNP [id number] 2020-Present [phone] [address] [place] [address] Medicare [id number] 2020 Medicare (Managed Care) AETNA VA DICARE [id number] 2020 Private Health Insurance [facility] [id number] 2013 Medicaid [place] [id number] 2013-Present [phone] [address] [place] [address] Medicaid [id number] 2013 Medicaid [id number] 2013 Medicaid [id number] Medicare [id number] Unknown [id number] Social History Date Type Detail Facility Start: 07-27-2018 End: 03-16-2023 Tobacco smoking status NHIS Never smoked tobacco [facility] History of tobacco use Cigarette Smoker [facility] Start: 07-27-2018 End: 03-16-2023 Tobacco use and exposure Smokeless tobacco non-user [facility] Start: 10-22-2021 End: 10-27-2024 Alcohol intake Current non-drinker of alcohol (finding) [facility] Start: 08-22-2014 End: 05-23-2022 Tobacco Comment both parents are smokers [facility] Start: 1975 Sex Assigned At Not on file [facility] Start: 06-22-2021 End: 06-22-2022 Exposure to SARS-CoV-2 (event) Not sure [facility] Start: 01-15-2022 End: 05-31-2023 Tobacco smoking status NHIS Unknown if ever smoked [facility] Start: 09-01-2020 None [facility] Start: 09-01-2020 With Family [facility] Start: 1975 Sex Assigned At Male [facility] Start: 01-21-2023 End: 03-16-2023 History of Social function [facility] Work Phone: Start: 01-21-2023 End: 03-16-2023 Tobacco use panel [facility] Work Phone: Adult Depression Screening Assessment 0 [facility] Work Phone: Start: 10-20-2024 Sex Male (finding) [facility] Functional Status Date Assessment Result Facility 01-24-2015 Are you deaf, or do you have serious difficulty hearing No 01/24/2015 1:34 PM TEGAN MENDEZ No [facility] 01-24-2015 Are you blind, or do you have serious difficulty seeing, even when wearing glasses No 01/24/2015 1:34 PM TEGAN MENDEZ No [facility] 01-24-2015 Do you have serious difficulty walking or climbing stairs Yes 01/24/2015 1:34 PM TEGAN MENDEZ Yes [facility] 01-24-2015 Do you have difficul ty dressing or bathing No 01/24/2015 1:34 PM TEGAN MENDEZ No [facility] 01-24-2015 Because of a physica l, mental, or emotional condition, do you have difficulty doing errands alone such as visiting a physician's office or shopping Yes 01/24/2015 1:34 PM TEGAN MENDEZ Yes [facility] Mental Status Date Assessment Result Facility 05-31-2023 Cognitive function Voice/Name [facility] Work Phone: 01-25-2023 Cognitive function Level Of Cons ciousness Awake;Alert;Appropriate;Fol lows Commands [facility] Work Phone: 01-24-2015 Because of a physica l, mental, or emotional condition, do you have serious difficulty concentrating, remembering, or making decisions Yes 01/24/2015 1:34 PM EDT TEGAN FLORES Yes [facility] Clinical Notes 08-17-2013 to 10-27-2024 Patient InstructionsSuKristie olmstead APRN.CNP - 10/27/2024 11:17 AM EDTTelephone Encounter - Katelynn Bradford LPN - 10/20/2024 9:45 AM EDTPatient InstructionsPatient Instructions Note Date & Type Note Facility 10-27-2024 Instructions Kristie Santa APRN.CNP - 10/27/2024 11:30 AM EDT 1) See Alek in [place]. 2) Acetaminophen liquid as needed up to 5 times a day documented in this encounter [facility] 10-27-2024 Note HNO ID: [id number] Author: KRISTIE SANTA APRN.CNP Service: ? Author Type: Nurse Practitioner Type: Progress Notes Filed: 10/27/2024 11:30 Note Text: This is a 49 year old male who presents today with: Patient presents with: Cellulitis: ER follow up HISTORY OF PRESENT ILLNESS: Branden Looney is a 49 year old male. Patient presents with: Cellulitis: ER follow up Went to ER after seeing me as hand was swelling more. Denies fever or chills. Finished all antibiotic. ER report showed only soft tisse swelling. WBC normal. Elbow no longer swollen Right flank pain PAST MEDICAL HISTORY: PAST MEDICAL HISTORY Diagnosis Date Down's syndrome (HCC) Down's syndrome Knee pain right Renal cyst 10/05/2014 Renal insufficiency 2014 PAST SURGICAL HISTORY Procedure Laterality Date APPENDECTOMY TONSILLECTOMY PRIMARY/SECONDARY Tonsillectomy ALLERGIES Amoxicillin and Tylenol-Codeine #3 [Acetaminophen-Codeine] MEDICATIONS Current Outpatient Medications Medication Sig colchicine 0.6 mg tablet Take 2 tablets x1 then 1 tablet 1 hour later. Repeat in 3 days if needed. (Patient not taking: Reported on 10/16/2024) allopurinol (ZYLOPRIM) 300 mg tablet Take 1 tablet by mouth once daily. For gout. ketoconazole (NIZORAL) 2 % shampoo Use as shampoo 3-4 days/week; leave lather on scalp for 5 minutes prior to rinsing Cholecalciferol, Vitamin D3, 125 mcg (5,000 unit) cap Take 1 capsule by mouth once daily. diclofenac sodium (VOLTAREN) 1 % topical gel Apply 4 g to affected area four times daily. CYANOCOBALAMIN, VITAMIN B-12, (LIQUID B 12 ORAL) Take 1 Dose by mouth once daily. No current facility-administered medications for this visit. FAMILY HISTORY Problem Relation Age of Onset Diabetes Father Hypertension Father Lipids Mother Hypertension Mother Thyroid Mother Heart disease Mother CABG Diabetes Maternal Grandmother Diabetes Maternal Grandfather Hypertension Paternal Grandfather Diabetes Sister Social History Tobacco Use Smoking status: Never Smokeless tobacco: Never Tobacco comments: both parents are smokers Vaping Use Vaping status: Never Used Substance Use Topics Alcohol use: No Drug use: No EXAM: BP 124/76 Pulse 75 Temp 36.5 ?C (97.7 ?F) (Left Tympanic) Wt 86.2 kg (190 lb) SpO2 96% PHYSICAL EXAM: Physical Exam Vitals reviewed. Constitutional: Appearance: Normal appearance. HENT: Head: Normocephalic. Cardiovascular: Rate and Rhythm: Normal rate. Rhythm irregular. Pulses: Normal pulses. Heart sounds: Normal heart sounds. Comments: Every 4th beat premature beat; regular irreg Pulmonary: Effort: Pulmonary effort is normal. Breath sounds: Normal breath sounds. Musculoskeletal: General: Normal range of motion. Comments: Right flank negative CVA tenderness Left elbow no longer swollen Rapid capillary refill distant. Hand without edema Skin: General: Skin is warm and dry. Neurological: Mental Status: He is alert. Comments: Very difficulty speech LABS: ASSESSMENT/PLAN: 1. Cellulitis of skin - ICD9: 682.9, ICD10: L03.90 (primary diagnosis) Resolved 2. Flank pain - ICD9: 789.09, ICD10: R10.9 - Negative CVA tenderness - Diclofenac gel 2 x day to flank area - Acetaminophen liquid 500 mg as needed 5 x day Discussed treatment plan and patient voices understanding. Patient's questions answered appropriately. Medications and potential side effects were discussed and patient voices understanding. Return to the office as scheduled or as needed for worsening/no improvement. Kristie Santa APRN.[facility] 10-27-2024 History of Presen t illness Narrative This is a 49 year old male who presents today with: Patient presents with: Cellulitis: ER follow up HISTORY OF PRESENT ILLNESS: Branden Looney is a 49 year old male. Patient presents with: Cellulitis: ER follow up Went to ER after seeing me as hand was swelling more. Denies fever or chills. Finished all antibiotic. ER report showed only soft tisse swelling. WBC normal. Elbow no longer swollen Right flank pain PAST MEDICAL HISTORY: PAST MEDICAL HISTORY Diagnosis Date Down's syndrome (HCC) Down's syndrome Knee pain right Renal cyst 10/05/2014 Renal insufficiency 2014 PAST SURGICAL HISTORY Procedure Laterality Date APPENDECTOMY TONSILLECTOMY PRIMARY/SECONDARY <AGE 12 Tonsillectomy ALLERGIES Amoxicillin and Tylenol-Codeine #3 [Acetaminophen-Codeine] MEDICATIONS Current Outpatient Medications Medication Sig colchicine 0.6 mg tablet Take 2 tablets x1 then 1 tablet 1 hour later. Repeat in 3 days if needed. (Patient not taking: Reported on 10/16/2024) allopurinol (ZYLOPRIM) 300 mg tablet Take 1 tablet by mouth once daily. For gout. ketoconazole (NIZORAL) 2 % shampoo Use as shampoo 3-4 days/week; leave lather on scalp for 5 minutes prior to rinsing Cholecalciferol, Vitamin D3, 125 mcg (5,000 unit) cap Take 1 capsule by mouth once daily. diclofenac sodium (VOLTAREN) 1 % topical gel Apply 4 g to affected area four times daily. CYANOCOBALAMIN, VITAMIN B-12, (LIQUID B 12 ORAL) Take 1 Dose by mouth once daily. No current facility-administered medications for this visit. FAMILY HISTORY Problem Relation Age of Onset Diabetes Father Hypertension Father Lipids Mother Hypertension Mother Thyroid Mother Heart disease Mother CABG Diabetes Maternal Grandmother Diabetes Maternal Grandfather Hypertension Paternal Grandfather Diabetes Sister Social History Tobacco Use Smoking status: Never Smokeless tobacco: Never Tobacco comments: both parents are smokers Vaping Use Vaping status: Never Used Substance Use Topics Alcohol use: No Drug use: No EXAM: BP 124/76 Pulse 75 Temp 36.5 C (97.7 F) (Left Tympanic) Wt 86.2 kg (190 lb) SpO2 96% PHYSICAL EXAM: Physical Exam Vitals reviewed. Constitutional: Appearance: Normal appearance. HENT: Head: Normocephalic. Cardiovascular: Rate and Rhythm: Normal rate. Rhythm irregular. Pulses: Normal pulses. Heart sounds: Normal heart sounds. Comments: Every 4th beat premature beat; regular irreg Pulmonary: Effort: Pulmonary effort is normal. Breath sounds: Normal breath sounds. Musculoskeletal: General: Normal range of motion. Comments: Right flank negative CVA tenderness Left elbow no longer swollen Rapid capillary refill distant. Hand without edema Skin: General: Skin is warm and dry. Neurological: Mental Status: He is alert. Comments: Very difficulty speech LABS: ASSESSMENT/PLAN: 1. Cellulitis of skin - ICD9: 682.9, ICD10: L03.90 (primary diagnosis) Resolved 2. Flank pain - ICD9: 789.09, ICD10: R10.9 - Negative CVA tenderness - Diclofenac gel 2 x day to flank area - Acetaminophen liquid 500 mg as needed 5 x day Discussed treatment plan and patient voices understanding. Patient's questions answered appropriately. Medications and potential side effects were discussed and patient voices understanding. Return to the office as scheduled or as needed for worsening/no improvement. Kristie Santa APRN.[employer] documented in this encounter [facility] 10-20-2024 Radiology Diagnostic study note [facility] Imaging Services [address] [place] [address] [id number] Elbow min 3 Views MR#: [id number] Acct: [id number] Name: BRANDEN LOONEY Rep #: [id number] : 1975 M 49 From: Shaye Martinez MD PCP: Dr. Markos June MD Status: RE G ER Study:Elbow min 3 Views Date of Exam: Exam# [id number] Ordering Dr: Dax Sanabria DO EXAM: XR Left Elbow Complete, 3 or More Views CLINICAL INDICATION: INJURY/PAIN TECHNIQUE: Frontal, lateral and oblique views of the left elbow. COMPARISON: No relevant prior studies available. FINDINGS: BONES/JOINTS: No obvious radiographic evidence of osteomyelitis. However, if clinical suspicion remains high, further evaluation with 3 phase bone scan or MRI is recommended. No erosive changes to the osseousstructures. SOFT TISSUES: Soft tissue swelling. Soft tissue swelling without acute fracture. RAD/Elbow min 3 Views IMPRESSION: 1. Soft tissue swelling without acute fracture. 2. No obvious radiographic evidence of osteomyelitis. However, if clinical suspicion remains high, further evaluation with 3 phase bone scan or MRI is recommended. 3. If symptoms persist, further evaluation with CT is recommended. Reading [facility] CC: Dr. Dax Sanabria, DO; Dr. Markos June MD ~ Jack Tamp Operator: Signed [facility] 10-20-2024 Telephone encount er Note Telephone call placed to mother, made aware of providers message. Will take patient to ER. Katelynn Bradford LPN [facility] 10-20-2024 Miscellaneous Notes Formattin g of this note might be different from the original. Telephone call placed to mother, made aware of providers message. Will take patient to ER. Katelynn Bradford LPN Patient needs to go to the emergency room. If our outpatient treatment is not helping, he must go to the emergency room and may need IV antibiotics. Patient's Mother calls and states that patient's arm continues to be swollen. Mother states that swelling is now at top of hand and fingers. Mother states that arm is not as red. Mother worried that the swelling is not going down and is asking how long is the swelling going to last? Patient scheduled today to see Jennifer for cellulitis follow up. Please review and advise, Tracie Christopher RN documented in this encounter [facility] 10-20-2024 Telephone encount er Note Patient needs to go to the emergency room. If our outpatient treatment is not helping, he must go to the emergency room and may need IV antibiotics. [facility] 10-20-2024 Telephone encount er Note Patient's Mother calls and states that patient's arm continues to be swollen. Mother states that swelling is now at top of hand and fingers. Mother states that arm is not as red. Mother worried that the swelling is not going down and is asking how long is the swelling going to last? Patient scheduled today to see Jennifer for cellulitis follow up. Please review and advise, Tracie Christopher RN [facility] 10-16-2024 Instructions Kristie Santa APRN.CNP - 10/16/2024 11:23 AM EDT - DOXYCYCLINE HYCLATE 100 MG CAPSULE daily - Ice to area 3 x day as needed documented in this encounter [facility] 10-16-2024 Note HNO ID: [id number] Author: KRISTIE SANTA APRN.CNP Service: ? Author Type: Nurse Practitioner Type: Progress Notes Filed: 10/16/2024 11:24 Note Text: This is a 49 year old male who presents today with: Patient presents with: Swelling: Left elbow swollen and red, warm to touch since this morning. Painful for past couple days HISTORY OF PRESENT ILLNESS: Branden Looney is a 49 year old male. Patient presents with: Swelling: Left elbow swollen and red, warm to touch since this morning. Painful for past couple days Left elbow started hurting and turned red a day after he had labs drawn. Pt. Poorly verbal but points to pain into forearm. Swollen and red. Hx of gout but not actually in the joint itself. More proximal and lateral. PAST MEDICAL HISTORY: PAST MEDICAL HISTORY Diagnosis Date Down's syndrome Down's syndrome Knee pain right Renal cyst 10/05/2014 Renal insufficiency 2014 PAST SURGICAL HISTORY Procedure Laterality Date APPENDECTOMY TONSILLECTOMY PRIMARY/SECONDARY Tonsillectomy ALLERGIES Amoxicillin and Tylenol-Codeine #3 [Acetaminophen-Codeine] MEDICATIONS Current Outpatient Medications Medication Sig colchicine 0.6 mg tablet Take 2 tablets x1 then 1 tablet 1 hour later. Repeat in 3 days if needed. (Patient not taking: Reported on 10/16/2024) allopurinol (ZYLOPRIM) 300 mg tablet Take 1 tablet by mouth once daily. For gout. ketoconazole (NIZORAL) 2 % shampoo Use as shampoo 3-4 days/week; leave lather on scalp for 5 minutes prior to rinsing Cholecalciferol, Vitamin D3, 125 mcg (5,000 unit) cap Take 1 capsule by mouth once daily. diclofenac sodium (VOLTAREN) 1 % topical gel Apply 4 g to affected area four times daily. CYANOCOBALAMIN, VITAMIN B-12, (LIQUID B 12 ORAL) Take 1 Dose by mouth once daily. No current facility-administered medications for this visit. FAMILY HISTORY Problem Relation Age of Onset Diabetes Father Hypertension Father Lipids Mother Hypertension Mother Thyroid Mother Heart disease Mother CABG Diabetes Maternal Grandmother Diabetes Maternal Grandfather Hypertension Paternal Grandfather Diabetes Sister Social History Tobacco Use Smoking status: Never Smokeless tobacco: Never Tobacco comments: both parents are smokers Vaping Use Vaping status: Never Used Substance Use Topics Alcohol use: No Drug use: No EXAM: BP 128/66 Pulse 102 Temp 37.1 ?C (98.7 ?F) (Left Tympanic) Wt 85.7 kg (189 lb) SpO2 93% PHYSICAL EXAM: Physical Exam Vitals reviewed. Constitutional: Appearance: Normal appearance. HENT: Head: Normocephalic. Cardiovascular: Rate and Rhythm: Normal rate. Rhythm irregular. Pulses: Normal pulses. Heart sounds: Normal heart sounds. Comments: Regular with missed beats Pulmonary: Effort: Pulmonary effort is normal. Breath sounds: Normal breath sounds. Musculoskeletal: General: Normal range of motion. Comments: Left elbow to wrist aching. Baseball sized area of redness proximal lateral to elbow. 1+ edema at site. Tender to touch. Skin: General: Skin is warm and dry. Neurological: Mental Status: He is alert and oriented to person, place, and time. LABS: ASSESSMENT/PLAN: 1. Cellulitis of skin - ICD9: 682.9, ICD10: L03.90 - Begin treatment with Doxycycline - DOXYCYCLINE HYCLATE 100 MG CAPSULE daily - Ice to area 3 x day as needed Discussed treatment plan and patient voices understanding. Patient's questions answered appropriately. Medications and potential side effects were discussed and patient voices understanding. Return to the office as scheduled or as needed for worsening/no improvement. Kristie Santa APRN.[facility] 10-16-2024 History of Presen t illness Narrative This is a 49 year old male who presents today with: Patient presents with: Swelling: Left elbow swollen and red, warm to touch since this morning. Painful for past couple days HISTORY OF PRESENT ILLNESS: Branden Looney is a 49 year old male. Patient presents with: Swelling: Left elbow swollen and red, warm to touch since this morning. Painful for past couple days Left elbow started hurting and turned red a day after he had labs drawn. Pt. Poorly verbal but points to pain into forearm. Swollen and red. Hx of gout but not actually in the joint itself. More proximal and lateral. PAST MEDICAL HISTORY: PAST MEDICAL HISTORY Diagnosis Date Down's syndrome Down's syndrome Knee pain right Renal cyst 10/05/2014 Renal insufficiency 2014 PAST SURGICAL HISTORY Procedure Laterality Date APPENDECTOMY TONSILLECTOMY PRIMARY/SECONDARY <AGE 12 Tonsillectomy ALLERGIES Amoxicillin and Tylenol-Codeine #3 [Acetaminophen-Codeine] MEDICATIONS Current Outpatient Medications Medication Sig colchicine 0.6 mg tablet Take 2 tablets x1 then 1 tablet 1 hour later. Repeat in 3 days if needed. (Patient not taking: Reported on 10/16/2024) allopurinol (ZYLOPRIM) 300 mg tablet Take 1 tablet by mouth once daily. For gout. ketoconazole (NIZORAL) 2 % shampoo Use as shampoo 3-4 days/week; leave lather on scalp for 5 minutes prior to rinsing Cholecalciferol, Vitamin D3, 125 mcg (5,000 unit) cap Take 1 capsule by mouth once daily. diclofenac sodium (VOLTAREN) 1 % topical gel Apply 4 g to affected area four times daily. CYANOCOBALAMIN, VITAMIN B-12, (LIQUID B 12 ORAL) Take 1 Dose by mouth once daily. No current facility-administered medications for this visit. FAMILY HISTORY Problem Relation Age of Onset Diabetes Father Hypertension Father Lipids Mother Hypertension Mother Thyroid Mother Heart disease Mother CABG Diabetes Maternal Grandmother Diabetes Maternal Grandfather Hypertension Paternal Grandfather Diabetes Sister Social History Tobacco Use Smoking status: Never Smokeless tobacco: Never Tobacco comments: both parents are smokers Vaping Use Vaping status: Never Used Substance Use Topics Alcohol use: No Drug use: No EXAM: BP 128/66 Pulse 102 Temp 37.1 C (98.7 F) (Left Tympanic) Wt 85.7 kg (189 lb) SpO2 93% PHYSICAL EXAM: Physical Exam Vitals reviewed. Constitutional: Appearance: Normal appearance. HENT: Head: Normocephalic. Cardiovascular: Rate and Rhythm: Normal rate. Rhythm irregular. Pulses: Normal pulses. Heart sounds: Normal heart sounds. Comments: Regular with missed beats Pulmonary: Effort: Pulmonary effort is normal. Breath sounds: Normal breath sounds. Musculoskeletal: General: Normal range of motion. Comments: Left elbow to wrist aching. Baseball sized area of redness proximal lateral to elbow. 1+ edema at site. Tender to touch. Skin: General: Skin is warm and dry. Neurological: Mental Status: He is alert and oriented to person, place, and time. LABS: ASSESSMENT/PLAN: 1. Cellulitis of skin - ICD9: 682.9, ICD10: L03.90 - Begin treatment with Doxycycline - DOXYCYCLINE HYCLATE 100 MG CAPSULE daily - Ice to area 3 x day as needed Discussed treatment plan and patient voices understanding. Patient's questions answered appropriately. Medications and potential side effects were discussed and patient voices understanding. Return to the office as scheduled or as needed for worsening/no improvement. Kristie Santa APRN.CNP documented in this encounter [facility] [place] 10-13-2024 Instructions Jasmin Giang APRN.CNP - 10/13/2024 2:11 PM EDT Start back on Vitamin D3 5000 international unit(s) daily Get repeat fasting labs completed in 6 months prior to next visit Continue to take all medication as prescribed Work on lifestyle changes, increase protein, veggies, and some form of exercise. Watch pasta, breads, and sweets Try to increase water intake, may add in crystal light for flavoring. This should help with headaches. Follow up in 6 months or sooner as needed. May use Tylenol as needed for pain documented in this encounter [facility] [place] 10-13-2024 History of Presen t illness Narrative This is a 49 year old male who presents today with: No chief complaint on file. HISTORY OF PRESENT ILLNESS: Branden Looney is a 49 year old male. No chief complaint on file. Here in the office for 3 month follow up Mother present for appointment today. Patient has down syndrome. Headache: drinking 1 glass of water per day. Drinking soda most of the day. No bowel, Gi, or urinary issues. No chest pains, dizziness, or SOB. CKD: Monitored with labs. Gout: right wrist. Taking Allopurinol 100 mg BID. Was seen last month for gout flare in right knee. Treated with Medrol steroid pack. Renewed colchicine. increased allopurinol 300 mg daily. Symptoms improving. Pain: b/l knee; using Voltaren gel and Tylenol prn. Denies watching diet or exercising. No medications for cholesterol or elevated glucose. Vit D defienecy: taking Vitamin D3 5,000 international unit(s) daily. B12: Taking B12 OTC Follows with [employer] Dr. Santa for tx of nail fungus. Colonoscopy: Denies wanting at this time Vaccines: Due for Tdap, denies wanting at this time. PAST MEDICAL HISTORY: PAST MEDICAL HISTORY Diagnosis Date Down's syndrome Down's syndrome Knee pain right Renal cyst 10/05/2014 Renal insufficiency 2014 PAST SURGICAL HISTORY Procedure Laterality Date APPENDECTOMY TONSILLECTOMY PRIMARY/SECONDARY <AGE 13 Tonsillectomy ALLERGIES Amoxicillin and Tylenol-Codeine #3 [Acetaminophen-Codeine] MEDICATIONS Current Outpatient Medications Medication Sig colchicine 0.6 mg tablet Take 2 tablets x1 then 1 tablet 1 hour later. Repeat in 3 days if needed. allopurinol (ZYLOPRIM) 300 mg tablet Take 1 tablet by mouth once daily. For gout. ketoconazole (NIZORAL) 2 % shampoo Use as shampoo 3-4 days/week; leave lather on scalp for 5 minutes prior to rinsing Cholecalciferol, Vitamin D3, 125 mcg (5,000 unit) cap Take 1 capsule by mouth once daily. diclofenac sodium (VOLTAREN) 1 % topical gel Apply 4 g to affected area four times daily. CYANOCOBALAMIN, VITAMIN B-12, (LIQUID B 12 ORAL) Take 1 Dose by mouth once daily. No current facility-administered medications for this visit. FAMILY HISTORY Problem Relation Age of Onset Diabetes Father Hypertension Father Lipids Mother Hypertension Mother Thyroid Mother Heart disease Mother CABG Diabetes Maternal Grandmother Diabetes Maternal Grandfather Hypertension Paternal Grandfather Diabetes Sister Social History Tobacco Use Smoking status: Never Smokeless tobacco: Never Tobacco comments: both parents are smokers Vaping Use Vaping status: Never Used Substance Use Topics Alcohol use: No Drug use: No REVIEW OF SYSTEMS GENERAL: No weight loss, malaise or fevers/chills HEENT: Negative for frequent or significant headaches, No changes in hearing or vision. NECK: Negative for lumps, goiter, pain and significant neck swelling RESPIRATORY: Negative for cough, hemoptysis, wheezing, dyspnea or shortness of breath CARDIOVASCULAR: Negative for chest pain, leg swelling, orthopnea, or palpitations GI: No nausea, vomiting, or diarrhea/constipation. No hematochezia/melena. No heartburn or reflux symptoms. : No history of dysuria, frequency or incontinence MUSCULOSKELETAL: Negative for joint pain or swelling. SKIN: Negative for lesions, rash, and itching ENDOCRINE: Negative for cold or heat intolerance, polyuria, polydipsia and goiter NEURO: + Headache MOOD: Negative for depression, anxiety, or suicidal ideation. EXAM: BP 100/68 Pulse 88 Resp 16 Wt 85.1 kg (187 lb 9.8 oz) SpO2 97% PHYSICAL EXAM: General Appearance: Well appearing, alert, in no acute distress, well-hydrated, well nourished. Skin: Skin color, texture, turgor normal, no suspicious rashes or lesions. Head: Normocephalic, no masses, lesions, tenderness or abnormalities. Eyes: Anicteric sclera. Extraocular movements are intact. . Lungs: Lungs clear to auscultation. No wheezing, rhonchi, rales. Heart: RRR without murmur, gallop, or rubs. No ectopy. Extremities: No deformities, edema, skin discoloration, clubbing or cyanosis. Good capillary refill. Musculoskeletal: No joint swelling, deformity, or tenderness. Peripheral Pulses: Normal, Capillary refill <2secs, strong peripheral pulses, Pulses palpable. Neurologic: Gait normal. Sensation grossly intact. ASSESSMENT/PLAN: 1. Down's syndrome - ICD9: 758.0, ICD10: Q90.9 (primary diagnosis) - Stable 2. Headache, unspecified headache type - ICD9: 784.0, ICD10: R51.9 - Recommend increasing water intake - May use Tylenol as needed 3. Stage 3 chronic kidney disease, unspecified whether stage 3a or 3b CKD (HCC) - ICD9: 585.3, ICD10: N18.30 - eGFR: 56 Improving - Counseled on avoiding NSAIDs, adequate hydration - Counseled on low sodium diet 4. Gout, unspecified cause, unspecified chronicity, unspecified site - ICD9: 274.9, ICD10: M10.9 - Stable, continue with current medication. - Get repeat labs in 6 months - URIC ACID 5. Elevated glucose - ICD9: 790.29, ICD10: R73.09 - Instructed to work on lifestyle changes at home. Decrease processed foods in the diet. Increase lean protein, vegetables, get some form exercise - HEMOGLOBIN A1C 6. Hyperlipidemia, unspecified hyperlipidemia type - ICD9: 272.4, ICD10: E78.5 - Worsening control - Counseled on healthy diet and regular exercise - Discussed need for and benefit of weight loss. BMI 34.31 kg/(m^2) - COMPREHENSIVE METABOLIC PANEL - LIPID PANEL, FASTING 7. Vitamin D deficiency - ICD9: 268.9, ICD10: E55.9 - Recommend starting back on vitamin D supplement - VITAMIN D 25 HYDROXY 8. Vitamin B12 deficiency - ICD9: 266.2, ICD10: E53.8 - VITAMIN B12 - COMPLETE BLOOD COUNT AND DIFFERENTIAL Follow-up in 6 months with labs or sooner as needed. Discussed treatment plan and patient voices understanding. Patient's questions answered appropriately. Medications and potential side effects were discussed and patient voices understanding. Jasmin Giang APRN.INGOT CASTER This note was partially generated using [employer] voice recognition system. Note was reviewed for accuracy. There may be minor misspellings or grammar miscues with [employer] voice recognition. documented in this encounter [facility] [place] 10-13-2024 Note HNO ID: [id number] Author: JASMIN GIANG APRN.CNP Service: ? Author Type: Nurse Practitioner Type: Progress Notes Filed: 10/13/2024 14:41 Note Text: This is a 49 year old male who presents today with: No chief complaint on file. HISTORY OF PRESENT ILLNESS: Branden Looney is a 49 year old male. No chief complaint on file. Here in the office for 3 month follow up Mother present for appointment today. Patient has down syndrome. Headache: drinking 1 glass of water per day. Drinking soda most of the day. No bowel, Gi, or urinary issues. No chest pains, dizziness, or SOB. CKD: Monitored with labs. Gout: right wrist. Taking Allopurinol 100 mg BID. Was seen last month for gout flare in right knee. Treated with Medrol steroid pack. Renewed colchicine. increased allopurinol 300 mg daily. Symptoms improving. Pain: b/l knee; using Voltaren gel and Tylenol prn. Denies watching diet or exercising. No medications for cholesterol or elevated glucose. Vit D defienecy: taking Vitamin D3 5,000 international unit(s) daily. B12: Taking B12 OTC Follows with [employer] Dr. Santa for tx of nail fungus. Colonoscopy: Denies wanting at this time Vaccines: Due for Tdap, denies wanting at this time. PAST MEDICAL HISTORY: PAST MEDICAL HISTORY Diagnosis Date Down's syndrome Down's syndrome Knee pain right Renal cyst 10/05/2014 Renal insufficiency 2014 PAST SURGICAL HISTORY Procedure Laterality Date APPENDECTOMY TONSILLECTOMY PRIMARY/SECONDARY Tonsillectomy ALLERGIES Amoxicillin and Tylenol-Codeine #3 [Acetaminophen-Codeine] MEDICATIONS Current Outpatient Medications Medication Sig colchicine 0.6 mg tablet Take 2 tablets x1 then 1 tablet 1 hour later. Repeat in 3 days if needed. allopurinol (ZYLOPRIM) 300 mg tablet Take 1 tablet by mouth once daily. For gout. ketoconazole (NIZORAL) 2 % shampoo Use as shampoo 3-4 days/week; leave lather on scalp for 5 minutes prior to rinsing Cholecalciferol, Vitamin D3, 125 mcg (5,000 unit) cap Take 1 capsule by mouth once daily. diclofenac sodium (VOLTAREN) 1 % topical gel Apply 4 g to affected area four times daily. CYANOCOBALAMIN, VITAMIN B-12, (LIQUID B 12 ORAL) Take 1 Dose by mouth once daily. No current facility-administered medications for this visit. FAMILY HISTORY Problem Relation Age of Onset Diabetes Father Hypertension Father Lipids Mother Hypertension Mother Thyroid Mother Heart disease Mother CABG Diabetes Maternal Grandmother Diabetes Maternal Grandfather Hypertension Paternal Grandfather Diabetes Sister Social History Tobacco Use Smoking status: Never Smokeless tobacco: Never Tobacco comments: both parents are smokers Vaping Use Vaping status: Never Used Substance Use Topics Alcohol use: No Drug use: No REVIEW OF SYSTEMS GENERAL: No weight loss, malaise or fevers/chills HEENT: Negative for frequent or significant headaches, No changes in hearing or vision. NECK: Negative for lumps, goiter, pain and significant neck swelling RESPIRATORY: Negative for cough, hemoptysis, wheezing, dyspnea or shortness of breath CARDIOVASCULAR: Negative for chest pain, leg swelling, orthopnea, or palpitations GI: No nausea, vomiting, or diarrhea/constipation. No hematochezia/melena. No heartburn or reflux symptoms. : No history of dysuria, frequency or incontinence MUSCULOSKELETAL: Negative for joint pain or swelling. SKIN: Negative for lesions, rash, and itching ENDOCRINE: Negative for cold or heat intolerance, polyuria, polydipsia and goiter NEURO: + Headache MOOD: Negative for depression, anxiety, or suicidal ideation. EXAM: BP 100/68 Pulse 88 Resp 16 Wt 85.1 kg (187 lb 9.8 oz) SpO2 97% PHYSICAL EXAM: General Appearance: Well appearing, alert, in no acute distress, well-hydrated, well nourished. Skin: Skin color, texture, turgor normal, no suspicious rashes or lesions. Head: Normocephalic, no masses, lesions, tenderness or abnormalities. Eyes: Anicteric sclera. Extraocular movements are intact. . Lungs: Lungs clear to auscultation. No wheezing, rhonchi, rales. Heart: RRR without murmur, gallop, or rubs. No ectopy. Extremities: No deformities, edema, skin discoloration, clubbing or cyanosis. Good capillary refill. Musculoskeletal: No joint swelling, deformity, or tenderness. Peripheral Pulses: Normal, Capillary refill <2secs, strong peripheral pulses, Pulses palpable. Neurologic: Gait normal. Sensation grossly intact. ASSESSMENT/PLAN: 1. Down's syndrome - ICD9: 758.0, ICD10: Q90.9 (primary diagnosis) - Stable 2. Headache, unspecified headache type - ICD9: 784.0, ICD10: R51.9 - Recommend increasing water intake - May use Tylenol as needed 3. Stage 3 chronic kidney disease, unspecified whether stage 3a or 3b CKD (HCC) - ICD9: 585.3, ICD10: N18.30 - eGFR: 56 Improving - Counseled on avoiding NSAIDs, adequate hydration - Counseled on low sodium diet 4 (more content not included)... [facility] 09-18-2024 Instructions Kristie Santa APRN.CNP - 09/18/2024 9:33 AM EST 1) Start medrol taper today (6 tablet today all at one time, 5 tablets tomorrow, ...) 2) After medrol finished, increase allopurinol to 300 mg tablet once a day. No longer give the 100 mg 2 x day as the 300 mg once a day is an increased dose. 3) Use colchicine 2 tablets upon joint pain and 1 tablet an hour 4) Get labs fasting a week before 5) Follow up October 13 as scheduled documented in this encounter [facility] [place] 09-18-2024 Note HNO ID: [id number] Author: KRISTIE SANTA APRN.CNP Service: ? Author Type: Nurse Practitioner Type: Progress Notes Filed: 09/18/2024 09:39 Note Text: This is a 49 year old male who presents today with: Patient presents with: Swelling: Bilateral knee swelling. 1 week. Painful when walking HISTORY OF PRESENT ILLNESS: Branden R Aayush is a 49 year old male. Patient presents with: Swelling: Bilateral knee swelling. 1 week. Painful when walking Left leg started to swell a week ago. Favoring it so right leg started to swell. Mom gave him Tylenol liquid and rubbing legs with BenGay. Hurts to walk. This is not the first time. Pt. Has difficulty communicating d/t MRDD. PAST MEDICAL HISTORY: PAST MEDICAL HISTORY Diagnosis Date Down's syndrome Down's syndrome Knee pain right Renal cyst 10/05/2014 Renal insufficiency 2014 PAST SURGICAL HISTORY Procedure Laterality Date APPENDECTOMY TONSILLECTOMY PRIMARY/SECONDARY Tonsillectomy ALLERGIES Amoxicillin and Tylenol-Codeine #3 [Acetaminophen-Codeine] MEDICATIONS Current Outpatient Medications Medication Sig allopurinol (ZYLOPRIM) 100 mg tablet Take 1 tablet by mouth two times a day. For gout. colchicine 0.6 mg tablet Take 2 tablets x1 then 1 tablet 1 hour later. Repeat in 3 days if needed. ketoconazole (NIZORAL) 2 % shampoo Use as shampoo 3-4 days/week; leave lather on scalp for 5 minutes prior to rinsing Cholecalciferol, Vitamin D3, 125 mcg (5,000 unit) cap Take 1 capsule by mouth once daily. diclofenac sodium (VOLTAREN) 1 % topical gel Apply 4 g to affected area four times daily. CYANOCOBALAMIN, VITAMIN B-12, (LIQUID B 12 ORAL) Take 1 Dose by mouth once daily. No current facility-administered medications for this visit. FAMILY HISTORY Problem Relation Age of Onset Diabetes Father Hypertension Father Lipids Mother Hypertension Mother Thyroid Mother Heart disease Mother CABG Diabetes Maternal Grandmother Diabetes Maternal Grandfather Hypertension Paternal Grandfather Diabetes Sister Social History Tobacco Use Smoking status: Never Smokeless tobacco: Never Tobacco comments: both parents are smokers Vaping Use Vaping status: Never Used Substance Use Topics Alcohol use: No Drug use: No EXAM: BP 134/76 Pulse 92 Temp 36.7 ?C (98.1 ?F) (Left Tympanic) Wt 85.7 kg (189 lb) SpO2 95% PHYSICAL EXAM: Physical Exam Vitals reviewed. Constitutional: Appearance: Normal appearance. HENT: Head: Normocephalic. Musculoskeletal: Comments: Left knee not swollen or painful Right knee hot to the touch lateral aspect and some at patella. 1+ edema. No redness. No edema below that. Presents in w/c because hurts to walk. Neurological: Mental Status: He is alert. LABS: labs due ASSESSMENT/PLAN: 1. Gout, unspecified cause, unspecified chronicity, unspecified site - ICD9: 274.9, ICD10: M10.9 Acute flare right knee - Labs due for appt. Next month- reminded them - Treat with medrol taper - Renew colchicine - On next fill- increase allopurinol even with CKD to 300 mg daily (Instruction written: 1) Start medrol taper today (6 tablet today all at one time, 5 tablets tomorrow, ...) 2) After medrol finished, increase allopurinol to 300 mg tablet once a day. No longer give the 100 mg 2 x day as the 300 mg once a day is an increased dose. 3) Use colchicine 2 tablets upon joint pain and 1 tablet an hour 4) Get labs fasting a week before 5) Follow up October 13 as scheduled Discussed treatment plan and patient voices understanding. Patient's questions answered appropriately. Medications and potential side effects were discussed and patient voices understanding. Return to the office as scheduled or as needed for worsening/no improvement. Kristie Santa, RAVI.[facility] 09-18-2024 History of Presen t illness Narrative This is a 49 year old male who presents today with: Patient presents with: Swelling: Bilateral knee swelling. 1 week. Painful when walking HISTORY OF PRESENT ILLNESS: Branden Looney is a 49 year old male. Patient presents with: Swelling: Bilateral knee swelling. 1 week. Painful when walking Left leg started to swell a week ago. Favoring it so right leg started to swell. Mom gave him Tylenol liquid and rubbing legs with BenGay. Hurts to walk. This is not the first time. Pt. Has difficulty communicating d/t MRDD. PAST MEDICAL HISTORY: PAST MEDICAL HISTORY Diagnosis Date Down's syndrome Down's syndrome Knee pain right Renal cyst 10/05/2014 Renal insufficiency 2014 PAST SURGICAL HISTORY Procedure Laterality Date APPENDECTOMY TONSILLECTOMY PRIMARY/SECONDARY <AGE 13 Tonsillectomy ALLERGIES Amoxicillin and Tylenol-Codeine #3 [Acetaminophen-Codeine] MEDICATIONS Current Outpatient Medications Medication Sig allopurinol (ZYLOPRIM) 100 mg tablet Take 1 tablet by mouth two times a day. For gout. colchicine 0.6 mg tablet Take 2 tablets x1 then 1 tablet 1 hour later. Repeat in 3 days if needed. ketoconazole (NIZORAL) 2 % shampoo Use as shampoo 3-4 days/week; leave lather on scalp for 5 minutes prior to rinsing Cholecalciferol, Vitamin D3, 125 mcg (5,000 unit) cap Take 1 capsule by mouth once daily. diclofenac sodium (VOLTAREN) 1 % topical gel Apply 4 g to affected area four times daily. CYANOCOBALAMIN, VITAMIN B-12, (LIQUID B 12 ORAL) Take 1 Dose by mouth once daily. No current facility-administered medications for this visit. FAMILY HISTORY Problem Relation Age of Onset Diabetes Father Hypertension Father Lipids Mother Hypertension Mother Thyroid Mother Heart disease Mother CABG Diabetes Maternal Grandmother Diabetes Maternal Grandfather Hypertension Paternal Grandfather Diabetes Sister Social History Tobacco Use Smoking status: Never Smokeless tobacco: Never Tobacco comments: both parents are smokers Vaping Use Vaping status: Never Used Substance Use Topics Alcohol use: No Drug use: No EXAM: BP 134/76 Pulse 92 Temp 36.7 C (98.1 F) (Left Tympanic) Wt 85.7 kg (189 lb) SpO2 95% PHYSICAL EXAM: Physical Exam Vitals reviewed. Constitutional: Appearance: Normal appearance. HENT: Head: Normocephalic. Musculoskeletal: Comments: Left knee not swollen or painful Right knee hot to the touch lateral aspect and some at patella. 1+ edema. No redness. No edema below that. Presents in w/c because hurts to walk. Neurological: Mental Status: He is alert. LABS: labs due ASSESSMENT/PLAN: 1. Gout, unspecified cause, unspecified chronicity, unspecified site - ICD9: 274.9, ICD10: M10.9 Acute flare right knee - Labs due for appt. Next month- reminded them - Treat with medrol taper - Renew colchicine - On next fill- increase allopurinol even with CKD to 300 mg daily (Instruction written: 1) Start medrol taper today (6 tablet today all at one time, 5 tablets tomorrow, ...) 2) After medrol finished, increase allopurinol to 300 mg tablet once a day. No longer give the 100 mg 2 x day as the 300 mg once a day is an increased dose. 3) Use colchicine 2 tablets upon joint pain and 1 tablet an hour 4) Get labs fasting a week before 5) Follow up October 13 as scheduled Discussed treatment plan and patient voices understanding. Patient's questions answered appropriately. Medications and potential side effects were discussed and patient voices understanding. Return to the office as scheduled or as needed for worsening/no improvement. Kristie Santa APRN.ESTELLE documented in this encounter [facility] 07-28-2024 History of Presen t illness Narrative Chief Complaint Patient presents with: Swelling: Knee and Foot HPI Branden Looney is a 48 year old male who presents here today for a same day visit. Pt here today with his Mother for an acute visit. Pt here today with c/o of swelling in knee and foot. Mother states that his knee started swelling with pain about a week ago. She's been using Bengay, putting ice on it and using Tylenol for pain relief. Mother notes that swelling has decreased some. About 1-2 days ago he stated having right foot swelling and pain. Mother states that the areas feel warm to touch, unsure if the areas are red. Pt denies any injury to start the cause of his pain. Pt has chronic knee pain and issues with gout. For pain pt is taking liquid Tylenol and using Voltaren Gel prn. For gout treatment pt uses Allopurinol 100 mg bid, but Mother gives to once a day if she doesn't give it to him twice daily. Reports that pt has a cold, has a cough and sore throat, per Mother. Has been a couple days only. Past medical history, appointments, medications, allergies reviewed. Previous Medical History PAST MEDICAL HISTORY Diagnosis Date Down's syndrome Down's syndrome Knee pain right Renal cyst 10/05/2014 Renal insufficiency 2014 Previous Surgical History PAST SURGICAL HISTORY Procedure Laterality Date APPENDECTOMY TONSILLECTOMY PRIMARY/SECONDARY <AGE 13 Tonsillectomy Family History FAMILY HISTORY Problem Relation Age of Onset Diabetes Father Hypertension Father Lipids Mother Hypertension Mother Thyroid Mother Heart disease Mother CABG Diabetes Maternal Grandmother Diabetes Maternal Grandfather Hypertension Paternal Grandfather Diabetes Sister Patient Allergies ALLERGIES Allergen Reactions Amoxicillin Rash Drug rash when taking amoxicillin and tylenol with codeine Tylenol-Codeine #3 * Rash Drug rash when taking amoxicillin and tylenol with codeine Current Medications Current Outpatient Medications on File Prior to Visit Medication Sig allopurinol (ZYLOPRIM) 100 mg tablet Take 1 tablet by mouth two times a day. For gout. colchicine 0.6 mg tablet Take 2 tablets x1 then 1 tablet 1 hour later. Repeat in 3 days if needed. ketoconazole (NIZORAL) 2 % shampoo Use as shampoo 3-4 days/week; leave lather on scalp for 5 minutes prior to rinsing Cholecalciferol, Vitamin D3, 125 mcg (5,000 unit) cap Take 1 capsule by mouth once daily. diclofenac sodium (VOLTAREN) 1 % topical gel Apply 4 g to affected area four times daily. CYANOCOBALAMIN, VITAMIN B-12, (LIQUID B 12 ORAL) Take 1 Dose by mouth once daily. No current facility-administered medications on file prior to visit. Social History Social History Tobacco Use Smoking status: Never Smokeless tobacco: Never Tobacco comments: both parents are smokers Vaping Use Vaping status: Never Used Substance Use Topics Alcohol use: No Drug use: No EXAM: BP 116/78 (BP Site: Left Arm, BP Position: Sitting, BP Cuff Size: Regular Adult) Pulse 72 Resp 16 Wt 85.6 kg (188 lb 11.4 oz) General Appearance: Well appearing, alert, in no acute distress, well-hydrated, well nourished and Overweight. Using a cane to ambulate. Oropharynx: Slight redness in throat. No LA. Lungs: Lungs clear to auscultation. No wheezing, rhonchi, rales.. Heart: RRR without murmur, gallop, or rubs. No ectopy. Extremities: Edema: Right foot examined, diffusely swollen in foot and ankle; tender to touch. No swelling noted in right knee. Health Maintenance List Hepatitis C Screening Never done HIV Screening Never done Hepatitis B Vaccine(1 of 3 - 19+ 3-dose series) Never done DTaP,Tdap,Td Vaccine(4 - Td or Tdap) due on 01/03/2022 Colorectal Cancer Screening due on 02/02/2024 Influenza Vaccine(1) due on 03/26/2024 Covid-19 Vaccine(2 - 2023- season) due on 03/26/2024 Serum Creatinine due on 12/06/2024 Hemoglobin/Hematocrit due on 12/06/2024 Depression Screening due on 12/13/2024 Anxiety Screening due on 12/13/2024 Annual PCP Team Chronic Disease Visit due on 07/08/2025 Diabetes Screening due on 12/06/2026 Lipid Screening due on 05/27/2028 Data reviewed None ASSESSMENT/PLAN: 1. Pain and swelling of knee, right - ICD9: 719.46, 719.06, ICD10: M25.561, M25.461 (primary diagnosis) - Start 9 day course of Prednisone - Use Tylenol and continue home regimen 2. Swelling of right foot - ICD9: 729.81, ICD10: M79.89 - As noted above 3. Foot pain, right - ICD9: 729.5, ICD10: M79.671 - As noted above 4. Gout, unspecified cause, unspecified chronicity, unspecified site - ICD9: 274.9, ICD10: M10.9 - Continue current medication regimen. - prednisone 5. Viral URI - ICD9: 465.9, ICD10: J06.9 - Discussed viral etiology and rationale for treatment. - Symptomatic treatment with prn analgesia - Supportive care with fluids and rest Follow up prn. I agree with the Chief Complaint, ROS, and Past Histories independently gathered by the clinical office support and the remaining scribed note accurately describes my personal service to the patient. Medical Decision Making: Problems: Low: Acute, uncomplicated illness or injury Risk: Moderate: Drug management Medical Decision Making Level: 3 - Low Markos June MD The documentation for this note was completed by Edna Perez MA acting as scribe for Markos June MD. July 28, 2024 11:27 AM. Edna Perez MA documented in this encounter [facility] [place] 07-28-2024 Note HNO ID: [id number] Author: MARKOS JUNE MD Service: ? Author Type: Physician Type: Progress Notes Filed: 07/28/2024 11:33 Note Text: Chief Complaint Patient presents with: Swelling: Knee and Foot HPI Branden Looney is a 48 year old male who presents here today for a same day visit. Pt here today with his Mother for an acute visit. Pt here today with c/o of swelling in knee and foot. Mother states that his knee started swelling with pain about a week ago. She's been using Bengay, putting ice on it and using Tylenol for pain relief. Mother notes that swelling has decreased some. About 1-2 days ago he stated having right foot swelling and pain. Mother states that the areas feel warm to touch, unsure if the areas are red. Pt denies any injury to start the cause of his pain. Pt has chronic knee pain and issues with gout. For pain pt is taking liquid Tylenol and using Voltaren Gel prn. For gout treatment pt uses Allopurinol 100 mg bid, but Mother gives to once a day if she doesn't give it to him twice daily. Reports that pt has a cold, has a cough and sore throat, per Mother. Has been a couple days only. Past medical history, appointments, medications, allergies reviewed. Previous Medical History PAST MEDICAL HISTORY Diagnosis Date Down's syndrome Down's syndrome Knee pain right Renal cyst 10/05/2014 Renal insufficiency 2014 Previous Surgical History PAST SURGICAL HISTORY Procedure Laterality Date APPENDECTOMY TONSILLECTOMY PRIMARY/SECONDARY Tonsillectomy Family History FAMILY HISTORY Problem Relation Age of Onset Diabetes Father Hypertension Father Lipids Mother Hypertension Mother Thyroid Mother Heart disease Mother CABG Diabetes Maternal Grandmother Diabetes Maternal Grandfather Hypertension Paternal Grandfather Diabetes Sister Patient Allergies ALLERGIES Allergen Reactions Amoxicillin Rash Drug rash when taking amoxicillin and tylenol with codeine Tylenol-Codeine #3 * Rash Drug rash when taking amoxicillin and tylenol with codeine Current Medications Current Outpatient Medications on File Prior to Visit Medication Sig allopurinol (ZYLOPRIM) 100 mg tablet Take 1 tablet by mouth two times a day. For gout. colchicine 0.6 mg tablet Take 2 tablets x1 then 1 tablet 1 hour later. Repeat in 3 days if needed. ketoconazole (NIZORAL) 2 % shampoo Use as shampoo 3-4 days/week; leave lather on scalp for 5 minutes prior to rinsing Cholecalciferol, Vitamin D3, 125 mcg (5,000 unit) cap Take 1 capsule by mouth once daily. diclofenac sodium (VOLTAREN) 1 % topical gel Apply 4 g to affected area four times daily. CYANOCOBALAMIN, VITAMIN B-12, (LIQUID B 12 ORAL) Take 1 Dose by mouth once daily. No current facility-administered medications on file prior to visit. Social History Social History Tobacco Use Smoking status: Never Smokeless tobacco: Never Tobacco comments: both parents are smokers Vaping Use Vaping status: Never Used Substance Use Topics Alcohol use: No Drug use: No EXAM: BP 116/78 (BP Site: Left Arm, BP Position: Sitting, BP Cuff Size: Regular Adult) Pulse 72 Resp 16 Wt 85.6 kg (188 lb 11.4 oz) General Appearance: Well appearing, alert, in no acute distress, well-hydrated, well nourished and Overweight. Using a cane to ambulate. Oropharynx: Slight redness in throat. No LA. Lungs: Lungs clear to auscultation. No wheezing, rhonchi, rales.. Heart: RRR without murmur, gallop, or rubs. No ectopy. Extremities: Edema: Right foot examined, diffusely swollen in foot and ankle; tender to touch. No swelling noted in right knee. Health Maintenance List Hepatitis C Screening Never done HIV Screening Never done Hepatitis B Vaccine(1 of 3 - 19+ 3-dose series) Never done DTaP,Tdap,Td Vaccine(4 - Td or Tdap) due on 01/03/2022 Colorectal Cancer Screening due on 02/02/2024 Influenza Vaccine(1) due on 03/26/2024 Covid-19 Vaccine(2 - season) due on 03/26/2024 Serum Creatinine due on 12/06/2024 Hemoglobin/Hematocrit due on 12/06/2024 Depression Screening due on 12/13/2024 Anxiety Screening due on 12/13/2024 Annual PCP Team Chronic Disease Visit due on 07/08/2025 Diabetes Screening due on 12/06/2026 Lipid Screening due on 05/27/2028 Data reviewed None ASSESSMENT/PLAN: 1. Pain and swelling of knee, right - ICD9: 719.46, 719.06, ICD10: M25.561, M25.461 (primary diagnosis) - Start 9 day course of Prednisone - Use Tylenol and continue home regimen 2. Swelling of right foot - ICD9: 729.81, ICD10: M79.89 - As noted above 3. Foot pain, right - ICD9: 729.5, ICD10: M79.671 - As noted above 4. Gout, unspecified cause, unspecified chronicity, unspecified site - ICD9: 274.9, ICD10: M10.9 - Continue current medication regimen. - prednisone 5. Viral URI - ICD9: 465.9, ICD10: J06.9 - Discussed viral etiology and rationale for treatment. - Symptomatic treatment with prn analgesia (more content not included)... [facility] 07-20-2024 Telephone encount er Note Forms at med rec. Pt mother notified. Copy made for records. Suri Altamirano MA [facility] [place] 07-20-2024 Miscellaneous Notes Formattin g of this note might be different from the original. Forms at med rec. Pt mother notified. Copy made for records. Suri Altamirano MA Form done Markos June MD MotherYasemin stopped in the office today to drop off [facility] of [facility] paperwork regarding patient. Mother asking that paperwork be completed by tomorrow, so she can grape picker and turn in by Wednesday. Once complete, call Yasemin Reis at [phone]. Forms routed to PCP's desk to review and complete. Edna Perez MA documented in this encounter [facility] 07-20-2024 Telephone encount er Note Form done Markos June MD [facility] 07-20-2024 Telephone encount er Note Suki Reiscy stopped in the office today to drop off [facility] [facility] of [facility]Guardianship paperwork regarding patient. Mother asking that paperwork be completed by tomorrow, so she can grape picker and turn in by Wednesday. Once complete, call Yasemin Reis at [phone]. Forms routed to PCP's desk to review and complete. Edna Perez MA [facility] 07-08-2024 History of Presen t illness Narrative Chief Complaint Follow up HPI Branden Looney is a 48 year old male who presents here today for 3 month follow up. Pt here today with his Mother. Pt has down syndrome. No bowel, Gi, or urinary issues. No chest pains, dizziness, or SOB. CKD: Monitored with labs. Gout: right wrist. Taking Allopurinol 100 mg BID. Pain: b/l knee; using Voltaren gel and Tylenol prn. Left knee sore today due to weather changing. Denies watching diet or exercising. No medications for cholesterol or elevated glucose. Vit D defienecy: taking Vitamin D3 5,000 international unit(s) daily. Follows with [employer] Dr. Santa for tx of nail fungus. Past medical history, appointments, medications, allergies reviewed. Previous Medical History PAST MEDICAL HISTORY Diagnosis Date Down's syndrome Down's syndrome Knee pain right Renal cyst 10/05/2014 Renal insufficiency 2015 Previous Surgical History PAST SURGICAL HISTORY Procedure Laterality Date APPENDECTOMY TONSILLECTOMY PRIMARY/SECONDARY <AGE 12 Tonsillectomy Family History FAMILY HISTORY Problem Relation Age of Onset Diabetes Father Hypertension Father Lipids Mother Hypertension Mother Thyroid Mother Heart disease Mother CABG Diabetes Maternal Grandmother Diabetes Maternal Grandfather Hypertension Paternal Grandfather Diabetes Sister Patient Allergies ALLERGIES Allergen Reactions Amoxicillin Rash Drug rash when taking amoxicillin and tylenol with codeine Tylenol-Codeine #3 * Rash Drug rash when taking amoxicillin and tylenol with codeine Current Medications Current Outpatient Medications on File Prior to Visit Medication Sig allopurinol (ZYLOPRIM) 100 mg tablet Take 1 tablet by mouth two times a day. For gout. colchicine 0.6 mg tablet Take 2 tablets x1 then 1 tablet 1 hour later. Repeat in 3 days if needed. ketoconazole (NIZORAL) 2 % shampoo Use as shampoo 3-4 days/week; leave lather on scalp for 5 minutes prior to rinsing Cholecalciferol, Vitamin D3, 125 mcg (5,000 unit) cap Take 1 capsule by mouth once daily. diclofenac sodium (VOLTAREN) 1 % topical gel Apply 4 g to affected area four times daily. CYANOCOBALAMIN, VITAMIN B-12, (LIQUID B 12 ORAL) Take 1 Dose by mouth once daily. No current facility-administered medications on file prior to visit. Social History Social History Tobacco Use Smoking status: Never Smokeless tobacco: Never Tobacco comments: both parents are smokers Vaping Use Vaping status: Never Used Substance Use Topics Alcohol use: No Drug use: No EXAM: There were no vitals taken for this visit. General Appearance: Well appearing, alert, in no acute distress, well-hydrated, well nourished.. Lungs: Lungs clear to auscultation. No wheezing, rhonchi, rales.. Heart: RRR without murmur, gallop, or rubs. No ectopy. Health Maintenance List Hepatitis C Screening Never done HIV Screening Never done Hepatitis B Vaccine(1 of 3 - 19+ 3-dose series) Never done DTaP,Tdap,Td Vaccine(4 - Td or Tdap) due on 01/03/2022 Colorectal Cancer Screening due on 02/02/2024 Influenza Vaccine(1) due on 03/26/2024 Covid-19 Vaccine(2 - 2023- season) due on 03/26/2024 Serum Creatinine due on 12/06/2024 Hemoglobin/Hematocrit due on 12/06/2024 Depression Screening due on 12/13/2024 Anxiety Screening due on 12/13/2024 Annual PCP Team Chronic Disease Visit due on 03/17/2025 Diabetes Screening due on 12/06/2026 Lipid Screening due on 05/27/2028 Data reviewed none ASSESSMENT/PLAN: 1. Down's syndrome - ICD9: 758.0, ICD10: Q90.9 (primary diagnosis) 2. Stage 3 chronic kidney disease, unspecified whether stage 3a or 3b CKD (HCC) - ICD9: 585.3, ICD10: N18.30 - eGFR: 48 Stable - Monitor - COMPREHENSIVE METABOLIC PANEL - COMPLETE BLOOD COUNT 3. Elevated glucose - ICD9: 790.29, ICD10: R73.09 - COMPREHENSIVE METABOLIC PANEL - HEMOGLOBIN A1C 4. Vitamin D deficiency - ICD9: 268.9, ICD10: E55.9 - VITAMIN D 25 HYDROXY 5. Hyperlipidemia, unspecified hyperlipidemia type - ICD9: 272.4, ICD10: E78.5 - COMPREHENSIVE METABOLIC PANEL - LIPID PANEL BASIC 6. Gout of right wrist, unspecified cause, unspecified chronicity - ICD9: 274.9, ICD10: M10.9 - URIC ACID Follow up in 3 months with labs Medical Decision Making: Problems: Moderate: 2+ stable chronic illnesses Data: Unique test(s) ordered: 3+ Risk: Moderate: Drug management Medical Decision Making Level: 4 - Moderate Markos June MD documented in this encounter [facility] 07-08-2024 Note HNO ID: [id number] Author: MARKOS JUNE MD Service: ? Author Type: Physician Type: Progress Notes Filed: 07/08/2024 09:25 Note Text: Chief Complaint Follow up HPI Branden Looney is a 48 year old male who presents here today for 3 month follow up. Pt here today with his Mother. Pt has down syndrome. No bowel, Gi, or urinary issues. No chest pains, dizziness, or SOB. CKD: Monitored with labs. Gout: right wrist. Taking Allopurinol 100 mg BID. Pain: b/l knee; using Voltaren gel and Tylenol prn. Left knee sore today due to weather changing. Denies watching diet or exercising. No medications for cholesterol or elevated glucose. Vit D defienecy: taking Vitamin D3 5,000 international unit(s) daily. Follows with [employer] Dr[facility] Santa for tx of nail fungus. Past medical history, appointments, medications, allergies reviewed. Previous Medical History PAST MEDICAL HISTORY Diagnosis Date Down's syndrome Down's syndrome Knee pain right Renal cyst 10/05/2014 Renal insufficiency 2014 Previous Surgical History PAST SURGICAL HISTORY Procedure Laterality Date APPENDECTOMY TONSILLECTOMY PRIMARY/SECONDARY Tonsillectomy Family History FAMILY HISTORY Problem Relation Age of Onset Diabetes Father Hypertension Father Lipids Mother Hypertension Mother Thyroid Mother Heart disease Mother CABG Diabetes Maternal Grandmother Diabetes Maternal Grandfather Hypertension Paternal Grandfather Diabetes Sister Patient Allergies ALLERGIES Allergen Reactions Amoxicillin Rash Drug rash when taking amoxicillin and tylenol with codeine Tylenol-Codeine #3 * Rash Drug rash when taking amoxicillin and tylenol with codeine Current Medications Current Outpatient Medications on File Prior to Visit Medication Sig allopurinol (ZYLOPRIM) 100 mg tablet Take 1 tablet by mouth two times a day. For gout. colchicine 0.6 mg tablet Take 2 tablets x1 then 1 tablet 1 hour later. Repeat in 3 days if needed. ketoconazole (NIZORAL) 2 % shampoo Use as shampoo 3-4 days/week; leave lather on scalp for 5 minutes prior to rinsing Cholecalciferol, Vitamin D3, 125 mcg (5,000 unit) cap Take 1 capsule by mouth once daily. diclofenac sodium (VOLTAREN) 1 % topical gel Apply 4 g to affected area four times daily. CYANOCOBALAMIN, VITAMIN B-12, (LIQUID B 12 ORAL) Take 1 Dose by mouth once daily. No current facility-administered medications on file prior to visit. Social History Social History Tobacco Use Smoking status: Never Smokeless tobacco: Never Tobacco comments: both parents are smokers Vaping Use Vaping status: Never Used Substance Use Topics Alcohol use: No Drug use: No EXAM: There were no vitals taken for this visit. General Appearance: Well appearing, alert, in no acute distress, well-hydrated, well nourished.. Lungs: Lungs clear to auscultation. No wheezing, rhonchi, rales.. Heart: RRR without murmur, gallop, or rubs. No ectopy. Health Maintenance List Hepatitis C Screening Never done HIV Screening Never done Hepatitis B Vaccine(1 of 3 - 19+ 3-dose series) Never done DTaP,Tdap,Td Vaccine(4 - Td or Tdap) due on 01/03/2022 Colorectal Cancer Screening due on 02/02/2024 Influenza Vaccine(1) due on 03/26/2024 Covid-19 Vaccine(2 - 2023- season) due on 03/26/2024 Serum Creatinine due on 12/06/2024 Hemoglobin/Hematocrit due on 12/06/2024 Depression Screening due on 12/13/2024 Anxiety Screening due on 12/13/2024 Annual PCP Team Chronic Disease Visit due on 03/17/2025 Diabetes Screening due on 12/06/2026 Lipid Screening due on 05/27/2028 Data reviewed none ASSESSMENT/PLAN: 1. Down's syndrome - ICD9: 758.0, ICD10: Q90.9 (primary diagnosis) 2. Stage 3 chronic kidney disease, unspecified whether stage 3a or 3b CKD (HCC) - ICD9: 585.3, ICD10: N18.30 - eGFR: 48 Stable - Monitor - COMPREHENSIVE METABOLIC PANEL - COMPLETE BLOOD COUNT 3. Elevated glucose - ICD9: 790.29, ICD10: R73.09 - COMPREHENSIVE METABOLIC PANEL - HEMOGLOBIN A1C 4. Vitamin D deficiency - ICD9: 268.9, ICD10: E55.9 - VITAMIN D 25 HYDROXY 5. Hyperlipidemia, unspecified hyperlipidemia type - ICD9: 272.4, ICD10: E78.5 - COMPREHENSIVE METABOLIC PANEL - LIPID PANEL BASIC 6. Gout of right wrist, unspecified cause, unspecified chronicity - ICD9: 274.9, ICD10: M10.9 - URIC ACID Follow up in 3 months with labs Medical Decision Making: Problems: Moderate: 2+ stable chronic illnesses Data: Unique test(s) ordered: 3+ Risk: Moderate: Drug management Medical Decision Making Level: 4 - Moderate Markos June MD [facility] 04-17-2024 Instructions Kristie Santa APRN.CNP - 04/17/2024 3:49 PM EDT 1) Keep Appt. With Dr. June as scheduled 2) Ceftin 250 mg 2 x day for 10 days 3) Saline mist 2 x day for 10 days documented in this encounter [facility] 04-17-2024 Note HNO ID: [id number] Author: KRISTIE SANTA APRN.CNP Service: ? Author Type: Clinical Nurse Specialist Type: Progress Notes Filed: 04/17/2024 15:50 Note Text: This is a 48 year old male who presents today with: Patient presents with: Headache Cough Nasal Congestion HISTORY OF PRESENT ILLNESS: Branden Looney is a 48 year old male. Patient presents with: Headache Cough Nasal Congestion Stuffy and runny nose that started right after his appt. Last time. Mom gave him Coricidin D and tylenol. Then he started complaining of body aches. Chilling at night Sore throat No body aches. Ears hurt a little bit. PAST MEDICAL HISTORY: PAST MEDICAL HISTORY Diagnosis Date Down's syndrome Down's syndrome Knee pain right Renal cyst 10/05/2014 Renal insufficiency 2014 PAST SURGICAL HISTORY Procedure Laterality Date APPENDECTOMY TONSILLECTOMY PRIMARY/SECONDARY Tonsillectomy ALLERGIES Amoxicillin and Tylenol-Codeine #3 [Acetaminophen-Codeine] MEDICATIONS Current Outpatient Medications Medication Sig allopurinol (ZYLOPRIM) 100 mg tablet Take 1 tablet by mouth two times a day. For gout. colchicine 0.6 mg tablet Take 2 tablets x1 then 1 tablet 1 hour later. Repeat in 3 days if needed. ketoconazole (NIZORAL) 2 % shampoo Use as shampoo 3-4 days/week; leave lather on scalp for 5 minutes prior to rinsing Cholecalciferol, Vitamin D3, 125 mcg (5,000 unit) cap Take 1 capsule by mouth once daily. diclofenac sodium (VOLTAREN) 1 % topical gel Apply 4 g to affected area four times daily. CYANOCOBALAMIN, VITAMIN B-12, (LIQUID B 12 ORAL) Take 1 Dose by mouth once daily. No current facility-administered medications for this visit. FAMILY HISTORY Problem Relation Age of Onset Diabetes Father Hypertension Father Lipids Mother Hypertension Mother Thyroid Mother Heart disease Mother CABG Diabetes Maternal Grandmother Diabetes Maternal Grandfather Hypertension Paternal Grandfather Diabetes Sister Social History Tobacco Use Smoking status: Never Smokeless tobacco: Never Tobacco comments: both parents are smokers Vaping Use Vaping status: Never Used Substance Use Topics Alcohol use: No Drug use: No EXAM: BP 120/66 Pulse 86 Temp 36.7 ?C (98.1 ?F) Resp 18 Wt 87.1 kg (192 lb) SpO2 94% PHYSICAL EXAM: Physical Exam Vitals reviewed. Constitutional: Appearance: Normal appearance. HENT: Head: Normocephalic. Right Ear: Tympanic membrane and ear canal normal. There is no impacted cerumen. Left Ear: Tympanic membrane and ear canal normal. There is no impacted cerumen. Nose: Congestion and rhinorrhea present. Comments: Left side purulent matter Mouth/Throat: Mouth: Mucous membranes are dry. Pharynx: Oropharyngeal exudate and posterior oropharyngeal erythema present. Cardiovascular: Rate and Rhythm: Normal rate and regular rhythm. Pulses: Normal pulses. Heart sounds: Normal heart sounds. Pulmonary: Effort: Pulmonary effort is normal. Breath sounds: Normal breath sounds. Abdominal: Palpations: Abdomen is soft. Musculoskeletal: General: Normal range of motion. Skin: General: Skin is warm and dry. Neurological: Mental Status: He is alert. Comments: Down's syndrome- poor communication. LABS: CKD stage IIIb ASSESSMENT/PLAN: 1. Acute frontal sinusitis, recurrence not specified - ICD9: 461.1, ICD10: J01.10 - Will begin treatment with Ceftin 250 mg BID for 10 days - Saline nasal spray 2 x day - Acetaminophen as needed for headache Discussed treatment plan and patient voices understanding. Patient's questions answered appropriately. Medications and potential side effects were discussed and patient voices understanding. Return to the office as scheduled or as needed for worsening/no improvement. Kristie Santa APRN.[facility] 04-17-2024 History of Presen t illness Narrative This is a 48 year old male who presents today with: Patient presents with: Headache Cough Nasal Congestion HISTORY OF PRESENT ILLNESS: Branden Looney is a 48 year old male. Patient presents with: Headache Cough Nasal Congestion Stuffy and runny nose that started right after his appt. Last time. Mom gave him Coricidin D and tylenol. Then he started complaining of body aches. Chilling at night Sore throat No body aches. Ears hurt a little bit. PAST MEDICAL HISTORY: PAST MEDICAL HISTORY Diagnosis Date Down's syndrome Down's syndrome Knee pain right Renal cyst 10/05/2014 Renal insufficiency 2014 PAST SURGICAL HISTORY Procedure Laterality Date APPENDECTOMY TONSILLECTOMY PRIMARY/SECONDARY <AGE 12 Tonsillectomy ALLERGIES Amoxicillin and Tylenol-Codeine #3 [Acetaminophen-Codeine] MEDICATIONS Current Outpatient Medications Medication Sig allopurinol (ZYLOPRIM) 100 mg tablet Take 1 tablet by mouth two times a day. For gout. colchicine 0.6 mg tablet Take 2 tablets x1 then 1 tablet 1 hour later. Repeat in 3 days if needed. ketoconazole (NIZORAL) 2 % shampoo Use as shampoo 3-4 days/week; leave lather on scalp for 5 minutes prior to rinsing Cholecalciferol, Vitamin D3, 125 mcg (5,000 unit) cap Take 1 capsule by mouth once daily. diclofenac sodium (VOLTAREN) 1 % topical gel Apply 4 g to affected area four times daily. CYANOCOBALAMIN, VITAMIN B-12, (LIQUID B 12 ORAL) Take 1 Dose by mouth once daily. No current facility-administered medications for this visit. FAMILY HISTORY Problem Relation Age of Onset Diabetes Father Hypertension Father Lipids Mother Hypertension Mother Thyroid Mother Heart disease Mother CABG Diabetes Maternal Grandmother Diabetes Maternal Grandfather Hypertension Paternal Grandfather Diabetes Sister Social History Tobacco Use Smoking status: Never Smokeless tobacco: Never Tobacco comments: both parents are smokers Vaping Use Vaping status: Never Used Substance Use Topics Alcohol use: No Drug use: No EXAM: BP 120/66 Pulse 86 Temp 36.7 C (98.1 F) Resp 18 Wt 87.1 kg (192 lb) SpO2 94% PHYSICAL EXAM: Physical Exam Vitals reviewed. Constitutional: Appearance: Normal appearance. HENT: Head: Normocephalic. Right Ear: Tympanic membrane and ear canal normal. There is no impacted cerumen. Left Ear: Tympanic membrane and ear canal normal. There is no impacted cerumen. Nose: Congestion and rhinorrhea present. Comments: Left side purulent matter Mouth/Throat: Mouth: Mucous membranes are dry. Pharynx: Oropharyngeal exudate and posterior oropharyngeal erythema present. Cardiovascular: Rate and Rhythm: Normal rate and regular rhythm. Pulses: Normal pulses. Heart sounds: Normal heart sounds. Pulmonary: Effort: Pulmonary effort is normal. Breath sounds: Normal breath sounds. Abdominal: Palpations: Abdomen is soft. Musculoskeletal: General: Normal range of motion. Skin: General: Skin is warm and dry. Neurological: Mental Status: He is alert. Comments: Down's syndrome- poor communication. LABS: CKD stage IIIb ASSESSMENT/PLAN: 1. Acute frontal sinusitis, recurrence not specified - ICD9: 461.1, ICD10: J01.10 - Will begin treatment with Ceftin 250 mg BID for 10 days - Saline nasal spray 2 x day - Acetaminophen as needed for headache Discussed treatment plan and patient voices understanding. Patient's questions answered appropriately. Medications and potential side effects were discussed and patient voices understanding. Return to the office as scheduled or as needed for worsening/no improvement. Kristie Santa APRN.ESTELLE documented in this encounter [facility] [place] 03-17-2024 History of Presen t illness Narrative Chief Complaint Patient presents with: F/U 3 Month HPI Branden Looney is a 48 year old male who presents here today for a 3 month follow up. Pt here today with his Mother for his routine follow up. Headache today; has had nasal and sinus congestion. Using OTC aids. Pain - Chronic b/l knee pain, continues to complain about his knee's bothering him. Uses liquid Tylenol and Voltaren Gel prn. Previous XR taken, has been offered referral to Ortho to receive injections but this has been denied. Has been given Mobic 15 mg once daily in the past. Pt has used cane periodically when pain is worse. Gout - Right wrist. Denies any issues at this time. Mother has previously noted only given him Allopurinol 100 mg sometimes, when supposed to be taking daily. Taking Allopurinol 100 mg 1 tab po bid. Glucose/Lipids - Elevated, currently on no medications. Monitoring through routine labs. Denies watching diet or doing too much exercise. Vit D - Deficient, taking Vitamin D3 5,000 international unit(s) liquid daily. CKD - Monitoring through routine labs. Fungus - Following with Dr. Santa for toenail fungus. Taking Lamisil 250 mg once daily, but Mother reports he's not taking this really anymore. Is scheduled to f/u with him this week, may renew the medication. Pt reports having a headache today. Past medical history, appointments, medications, allergies reviewed. Previous Medical History PAST MEDICAL HISTORY No date: Down's syndrome Comment: Down's syndrome No date: Knee pain Comment: right 10/05/2014: Renal cyst 2015: Renal insufficiency Previous Surgical History PAST SURGICAL HISTORY No date: APPENDECTOMY No date: TONSILLECTOMY PRIMARY/SECONDARY <AGE 12 Comment: Tonsillectomy Family History FAMILY HISTORY Problem Relation Age of Onset Diabetes Father Hypertension Father Lipids Mother Hypertension Mother Thyroid Mother Heart disease Mother CABG Diabetes Maternal Grandmother Diabetes Maternal Grandfather Hypertension Paternal Grandfather Diabetes Sister Patient Allergies ALLERGIES Allergen Reactions Amoxicillin Rash Drug rash when taking amoxicillin and tylenol with codeine Tylenol-Codeine #3 * Rash Drug rash when taking amoxicillin and tylenol with codeine Current Medications Current Outpatient Medications on File Prior to Visit Medication Sig allopurinol (ZYLOPRIM) 100 mg tablet Take 1 tablet by mouth two times a day. For gout. colchicine 0.6 mg tablet Take 2 tablets x1 then 1 tablet 1 hour later. Repeat in 3 days if needed. terbinafine HCl (LAMISIL) 250 mg tablet Take 250 mg by mouth once daily. Prescribed by Dr. Santa-[facility] [employer] ketoconazole (NIZORAL) 2 % shampoo Use as shampoo 3-4 days/week; leave lather on scalp for 5 minutes prior to rinsing Cholecalciferol, Vitamin D3, 125 mcg (5,000 unit) cap Take 1 capsule by mouth once daily. diclofenac sodium (VOLTAREN) 1 % topical gel Apply 4 g to affected area four times daily. CYANOCOBALAMIN, VITAMIN B-12, (LIQUID B 12 ORAL) Take 1 Dose by mouth once daily. No current facility-administered medications on file prior to visit. Social History Social History Tobacco Use Smoking status: Never Smokeless tobacco: Never Tobacco comments: both parents are smokers Vaping Use Vaping status: Never Used Substance Use Topics Alcohol use: No Drug use: No EXAM: BP 134/72 (BP Site: Right Arm, BP Position: Sitting, BP Cuff Size: Regular Adult) Pulse 80 Resp 18 Wt 86 kg (189 lb 9.5 oz) General Appearance: Well appearing, alert, in no acute distress, well-hydrated, well nourished.. Ears: External ears normal, canals clear. Oropharynx: Lips, mucosa, and tongue normal, teeth and gums normal, oropharynx normal. Neck: Supple, no adenopathy; thyroid symmetric, normal size, no bruits. Lungs: Lungs clear to auscultation. No wheezing, rhonchi, rales.. Heart: RRR without murmur, gallop, or rubs. No ectopy. Extremities: no swelling in knees. Health Maintenance List Hepatitis B Vaccine(1 of 3 - 19+ 3-dose series) Never done DTaP,Tdap,Td Vaccine(4 - Td or Tdap) due on 01/03/2022 Colorectal Cancer Screening due on 02/02/2024 Hepatitis C Screening due on 05/13/2024 HIV Screening due on 05/13/2024 Covid-19 Vaccine(2022 season) due on 05/13/2024 Influenza Vaccine(1) due on 03/26/2024 Serum Creatinine due on 12/06/2024 Hemoglobin/Hematocrit due on 12/06/2024 Depression Screening due on 12/13/2024 Anxiety Screening due on 12/13/2024 Annual PCP Team Chronic Disease Visit due on 01/16/2025 Diabetes Screening due on 12/06/2026 Lipid Screening due on 05/27/2028 Data reviewed None ASSESSMENT/PLAN: 1. Down's syndrome - ICD9: 758.0, ICD10: Q90.9 (primary diagnosis) Stable 2. Gout of right wrist, unspecified cause, unspecified chronicity - ICD9: 274.9, ICD10: M10.9 Stable Continue current medications. 3. Stage 3 chronic kidney disease, unspecified whether stage 3a or 3b CKD (HCC) - ICD9: 585.3, ICD10: N18.30 - eGFR: 48 Stable - Monitor 4. Elevated glucose - ICD9: 790.29, ICD10: R73.09 Monitor 5. Toenail fungus - ICD9: 110.1, ICD10: B35.[address] [facility] Pod[facility] 6. Hyperlipidemia, unspecified hyperlipidemia type - ICD9: 272.4, ICD10: E78.5 7. Vitamin D deficiency - ICD9: 268.9, ICD10: E55.9 Follow up in 3 months with labs prior; previously ordered Medical Decision Making: Problems: Moderate: 2+ stable chronic illnesses Risk: Moderate: Drug management Medical Decision Making Level: 4 - Moderate Markos June MD documented in this encounter [facility] [place] 03-17-2024 Note HNO ID: [id number] Author: MARKOS JUNE MD Service: ? Author Type: Physician Type: Progress Notes Filed: 03/17/2024 17:11 Note Text: Chief Complaint Patient presents with: F/U 3 Month HPI Branden Looney is a 48 year old male who presents here today for a 3 month follow up. Pt here today with his Mother for his routine follow up. Headache today; has had nasal and sinus congestion. Using OTC aids. Pain - Chronic b/l knee pain, continues to complain about his knee's bothering him. Uses liquid Tylenol and Voltaren Gel prn. Previous XR taken, has been offered referral to Ortho to receive injections but this has been denied. Has been given Mobic 15 mg once daily in the past. Pt has used cane periodically when pain is worse. Gout - Right wrist. Denies any issues at this time. Mother has previously noted only given him Allopurinol 100 mg sometimes, when supposed to be taking daily. Taking Allopurinol 100 mg 1 tab po bid. Glucose/Lipids - Elevated, currently on no medications. Monitoring through routine labs. Denies watching diet or doing too much exercise. Vit D - Deficient, taking Vitamin D3 5,000 international unit(s) liquid daily. CKD - Monitoring through routine labs. Fungus - Following with Dr. Santa for toenail fungus. Taking Lamisil 250 mg once daily, but Mother reports he's not taking this really anymore. Is scheduled to f/u with him this week, may renew the medication. Pt reports having a headache today. Past medical history, appointments, medications, allergies reviewed. Previous Medical History PAST MEDICAL HISTORY No date: Down's syndrome Comment: Down's syndrome No date: Knee pain Comment: right 10/05/2014: Renal cyst 2015: Renal insufficiency Previous Surgical History PAST SURGICAL HISTORY No date: APPENDECTOMY No date: TONSILLECTOMY PRIMARY/SECONDARY Comment: Tonsillectomy Family History FAMILY HISTORY Problem Relation Age of Onset Diabetes Father Hypertension Father Lipids Mother Hypertension Mother Thyroid Mother Heart disease Mother CABG Diabetes Maternal Grandmother Diabetes Maternal Grandfather Hypertension Paternal Grandfather Diabetes Sister Patient Allergies ALLERGIES Allergen Reactions Amoxicillin Rash Drug rash when taking amoxicillin and tylenol with codeine Tylenol-Codeine #3 * Rash Drug rash when taking amoxicillin and tylenol with codeine Current Medications Current Outpatient Medications on File Prior to Visit Medication Sig allopurinol (ZYLOPRIM) 100 mg tablet Take 1 tablet by mouth two times a day. For gout. colchicine 0.6 mg tablet Take 2 tablets x1 then 1 tablet 1 hour later. Repeat in 3 days if needed. terbinafine HCl (LAMISIL) 250 mg tablet Take 250 mg by mouth once daily. Prescribed by Dr. Santa-[facility] [employer] ketoconazole (NIZORAL) 2 % shampoo Use as shampoo 3-4 days/week; leave lather on scalp for 5 minutes prior to rinsing Cholecalciferol, Vitamin D3, 125 mcg (5,000 unit) cap Take 1 capsule by mouth once daily. diclofenac sodium (VOLTAREN) 1 % topical gel Apply 4 g to affected area four times daily. CYANOCOBALAMIN, VITAMIN B-12, (LIQUID B 12 ORAL) Take 1 Dose by mouth once daily. No current facility-administered medications on file prior to visit. Social History Social History Tobacco Use Smoking status: Never Smokeless tobacco: Never Tobacco comments: both parents are smokers Vaping Use Vaping status: Never Used Substance Use Topics Alcohol use: No Drug use: No EXAM: BP 134/72 (BP Site: Right Arm, BP Position: Sitting, BP Cuff Size: Regular Adult) Pulse 80 Resp 18 Wt 86 kg (189 lb 9.5 oz) General Appearance: Well appearing, alert, in no acute distress, well-hydrated, well nourished.. Ears: External ears normal, canals clear. Oropharynx: Lips, mucosa, and tongue normal, teeth and gums normal, oropharynx normal. Neck: Supple, no adenopathy; thyroid symmetric, normal size, no bruits. Lungs: Lungs clear to auscultation. No wheezing, rhonchi, rales.. Heart: RRR without murmur, gallop, or rubs. No ectopy. Extremities: no swelling in knees. Health Maintenance List Hepatitis B Vaccine(1 of 3 - 19+ 3-dose series) Never done DTaP,Tdap,Td Vaccine(4 - Td or Tdap) due on 01/03/2022 Colorectal Cancer Screening due on 02/02/2024 Hepatitis C Screening due on 05/13/2024 HIV Screening due on 05/13/2024 Covid-19 Vaccine(2 - season) due on 05/13/2024 Influenza Vaccine(1) due on 03/26/2024 Serum Creatinine due on 12/06/2024 Hemoglobin/Hematocrit due on 12/06/2024 Depression Screening due on 12/13/2024 Anxiety Screening due on 12/13/2024 Annual PCP Team Chronic Disease Visit due on 01/16/2025 Diabetes Screening due on 12/06/2026 Lipid Screening due on 05/27/2028 Data reviewed None ASSESSMENT/PLAN: 1. Down's syndrome - ICD9: 758.0, ICD10: Q90.9 (primary diagnosis) Stable 2. Gout of right wrist, unspecified cause, unspecified chroni (more content not included)... [facility] 01-17-2024 History of Presen t illness Narrative Chief Complaint Patient presents with: Follow Up: Left foot pain gout HPI Branden Looney is a 48 year old male who presents here today for toe recheck. Pt saw Danica Francois 01/14/24 for gout involving left foot and toe. Pt taking Allopurinol 100 mg daily and she prescribed him Colchicine 0.6 mg 2 prn flare ups. Mom has been been applying aspercream, bengay, giving him Tylenol and having him soak foot in warm epsom salt bath. Still has swelling of the foot. Has not tried any ice. Pt rated pain 2/10 at this time, constant stinging sharp pain. Past medical history, appointments, medications, allergies reviewed. Previous Medical History PAST MEDICAL HISTORY Diagnosis Date Down's syndrome Down's syndrome Knee pain right Renal cyst 10/05/2014 Renal insufficiency 2014 Previous Surgical History PAST SURGICAL HISTORY Procedure Laterality Date APPENDECTOMY TONSILLECTOMY PRIMARY/SECONDARY <AGE 12 Tonsillectomy Family History FAMILY HISTORY Problem Relation Age of Onset Diabetes Father Hypertension Father Lipids Mother Hypertension Mother Thyroid Mother Heart disease Mother CABG Diabetes Maternal Grandmother Diabetes Maternal Grandfather Hypertension Paternal Grandfather Diabetes Sister Patient Allergies ALLERGIES Allergen Reactions Amoxicillin Rash Drug rash when taking amoxicillin and tylenol with codeine Tylenol-Codeine #3 * Rash Drug rash when taking amoxicillin and tylenol with codeine Current Medications Current Outpatient Medications on File Prior to Visit Medication Sig colchicine 0.6 mg tablet Take 2 tablets x1 then 1 tablet 1 hour later. Repeat in 3 days if needed. terbinafine HCl (LAMISIL) 250 mg tablet Take 250 mg by mouth once daily. Prescribed by Dr. Santa-[facility] [employer] allopurinol (ZYLOPRIM) 100 mg tablet Take 1 tablet by mouth once daily. For gout. ketoconazole (NIZORAL) 2 % shampoo Use as shampoo 3-4 days/week; leave lather on scalp for 5 minutes prior to rinsing Cholecalciferol, Vitamin D3, 125 mcg (5,000 unit) cap Take 1 capsule by mouth once daily. diclofenac sodium (VOLTAREN) 1 % topical gel Apply 4 g to affected area four times daily. CYANOCOBALAMIN, VITAMIN B-12, (LIQUID B 12 ORAL) Take 1 Dose by mouth once daily. No current facility-administered medications on file prior to visit. Social History Social History Tobacco Use Smoking status: Never Smokeless tobacco: Never Tobacco comments: both parents are smokers Vaping Use Vaping Use: Never used Substance Use Topics Alcohol use: No Drug use: No EXAM: BP 100/68 Pulse 60 Resp 16 Wt 85.5 kg (188 lb 6.4 oz) General Appearance: Well appearing, alert, in no acute distress, well-hydrated, well nourished. and Overweight. Foot: left great toe and foot; swelling across dorsum of foot, and pain on palpation of first toe MCP joint. Health Maintenance List Hepatitis B Vaccine(1 of 3 - 19+ 3-dose series) Never done DTaP,Tdap,Td Vaccine(4 - Td or Tdap) due on 01/03/2022 Colorectal Cancer Screening due on 02/02/2024 Hepatitis C Screening due on 05/13/2024 HIV Screening due on 05/13/2024 Covid-19 Vaccine( season) due on 05/13/2024 Influenza Vaccine(Season Ended) due on 03/26/2024 Serum Creatinine due on 12/06/2024 Hemoglobin/Hematocrit due on 12/06/2024 Annual PCP Team Chronic Disease Visit due on 01/13/2025 Diabetes Screening due on 12/06/2026 Lipid Screening due on 05/27/2028 Behavioral Health Screening Completed Data reviewed none ASSESSMENT/PLAN: 1. Foot pain, left - ICD9: 729.5, ICD10: M79.672 Clinically appears to be gout flare Increase Allopurinol 100 mg to BID Rx for 9 day Taper Prednisone Follow up if not improving by end of the week. I agree with the Chief Complaint, ROS, and Past Histories independently gathered by the clinical office support and the remaining scribed note accurately describes my personal service to the patient. Medical Decision Making: Problems: Moderate: 1+ chronic illnesses with change Risk: Moderate: Drug management Medical Decision Making Level: 4 - Moderate Markos June MD The documentation for this note was completed by Suri Altamirano MA acting as scribe for Markos June MD. January 17, 2024 2:57 PM. Suri Altamirano MA documented in this encounter [facility] [place] 01-17-2024 Note HNO ID: [id number] Author: AMRKOS JUNE MD Service: ? Author Type: Physician Type: Progress Notes Filed: 01/17/2024 15:05 Note Text: Chief Complaint Patient presents with: Follow Up: Left foot pain gout HPI Branden Looney is a 48 year old male who presents here today for toe recheck. Pt saw Danica Francois 01/14/24 for gout involving left foot and toe. Pt taking Allopurinol 100 mg daily and she prescribed him Colchicine 0.6 mg 2 prn flare ups. Mom has been been applying aspercream, bengay, giving him Tylenol and having him soak foot in warm epsom salt bath. Still has swelling of the foot. Has not tried any ice. Pt rated pain 2/10 at this time, constant stinging sharp pain. Past medical history, appointments, medications, allergies reviewed. Previous Medical History PAST MEDICAL HISTORY Diagnosis Date Down's syndrome Down's syndrome Knee pain right Renal cyst 10/05/2014 Renal insufficiency 2014 Previous Surgical History PAST SURGICAL HISTORY Procedure Laterality Date APPENDECTOMY TONSILLECTOMY PRIMARY/SECONDARY Tonsillectomy Family History FAMILY HISTORY Problem Relation Age of Onset Diabetes Father Hypertension Father Lipids Mother Hypertension Mother Thyroid Mother Heart disease Mother CABG Diabetes Maternal Grandmother Diabetes Maternal Grandfather Hypertension Paternal Grandfather Diabetes Sister Patient Allergies ALLERGIES Allergen Reactions Amoxicillin Rash Drug rash when taking amoxicillin and tylenol with codeine Tylenol-Codeine #3 * Rash Drug rash when taking amoxicillin and tylenol with codeine Current Medications Current Outpatient Medications on File Prior to Visit Medication Sig colchicine 0.6 mg tablet Take 2 tablets x1 then 1 tablet 1 hour later. Repeat in 3 days if needed. terbinafine HCl (LAMISIL) 250 mg tablet Take 250 mg by mouth once daily. Prescribed by Dr. Santa-[facility] [employer] allopurinol (ZYLOPRIM) 100 mg tablet Take 1 tablet by mouth once daily. For gout. ketoconazole (NIZORAL) 2 % shampoo Use as shampoo 3-4 days/week; leave lather on scalp for 5 minutes prior to rinsing Cholecalciferol, Vitamin D3, 125 mcg (5,000 unit) cap Take 1 capsule by mouth once daily. diclofenac sodium (VOLTAREN) 1 % topical gel Apply 4 g to affected area four times daily. CYANOCOBALAMIN, VITAMIN B-12, (LIQUID B 12 ORAL) Take 1 Dose by mouth once daily. No current facility-administered medications on file prior to visit. Social History Social History Tobacco Use Smoking status: Never Smokeless tobacco: Never Tobacco comments: both parents are smokers Vaping Use Vaping Use: Never used Substance Use Topics Alcohol use: No Drug use: No EXAM: BP 100/68 Pulse 60 Resp 16 Wt 85.5 kg (188 lb 6.4 oz) General Appearance: Well appearing, alert, in no acute distress, well-hydrated, well nourished. and Overweight. Foot: left great toe and foot; swelling across dorsum of foot, and pain on palpation of first toe MCP joint. Health Maintenance List Hepatitis B Vaccine(1 of 3 - 19+ 3-dose series) Never done DTaP,Tdap,Td Vaccine(4 - Td or Tdap) due on 01/03/2022 Colorectal Cancer Screening due on 02/02/2024 Hepatitis C Screening due on 05/13/2024 HIV Screening due on 05/13/2024 Covid-19 Vaccine( season) due on 05/13/2024 Influenza Vaccine(Season Ended) due on 03/26/2024 Serum Creatinine due on 12/06/2024 Hemoglobin/Hematocrit due on 12/06/2024 Annual PCP Team Chronic Disease Visit due on 01/13/2025 Diabetes Screening due on 12/06/2026 Lipid Screening due on 05/27/2028 Behavioral Health Screening Completed Data reviewed none ASSESSMENT/PLAN: 1. Foot pain, left - ICD9: 729.5, ICD10: M79.672 Clinically appears to be gout flare Increase Allopurinol 100 mg to BID Rx for 9 day Taper Prednisone Follow up if not improving by end of the week. I agree with the Chief Complaint, ROS, and Past Histories independently gathered by the clinical office support and the remaining scribed note accurately describes my personal service to the patient. Medical Decision Making: Problems: Moderate: 1+ chronic illnesses with change Risk: Moderate: Drug management Medical Decision Making Level: 4 - Moderate Markos June MD The documentation for this note was completed by Suri Altamirano MA acting as scribe for Markos June MD. January 17, 2024 2:57 PM. Suri Altamirano MA [facility] 01-17-2024 Instructions Suri Altamirano MA - 01/17/2024 3:02 PM EDT Increase Allopurinol 100 mg to 1 pill twice a day. Start Prednisone 9 day Taper Continue with Bengay, Aspercream, warm soaks, Tylenol documented in this encounter [facility] [place] 01-14-2024 Note HNO ID: [id number] Author: DANICA FRANCOIS PA-C Service: ? Author Type: Physician Child Welfare Worker Type: Progress Notes Filed: 01/14/2024 12:14 Note Text: Chief Complaint Patient presents with: Pain (foot): Bunion left foot and right foot pain HPI Branden Looney is a 48 year old male who presents here today for pain of left toe.. Patient with hx of gout. Has had pain over the past couple days in both feet. Worse on left. Has had swelling. Is on allopurinol. Recent labs show uric acid level at 9 but no med changes as patient wasn't having issues. Past medical history, appointments, medications, allergies reviewed. Previous Medical History PAST MEDICAL HISTORY Diagnosis Date Down's syndrome Down's syndrome Knee pain right Renal cyst 10/05/2014 Renal insufficiency 2015 Previous Surgical History PAST SURGICAL HISTORY Procedure Laterality Date APPENDECTOMY TONSILLECTOMY PRIMARY/SECONDARY Tonsillectomy Family History FAMILY HISTORY Problem Relation Age of Onset Diabetes Father Hypertension Father Lipids Mother Hypertension Mother Thyroid Mother Heart disease Mother CABG Diabetes Maternal Grandmother Diabetes Maternal Grandfather Hypertension Paternal Grandfather Diabetes Sister Patient Allergies ALLERGIES Allergen Reactions Amoxicillin Rash Drug rash when taking amoxicillin and tylenol with codeine Tylenol-Codeine #3 * Rash Drug rash when taking amoxicillin and tylenol with codeine Current Medications Current Outpatient Medications on File Prior to Visit Medication Sig terbinafine HCl (LAMISIL) 250 mg tablet Take 250 mg by mouth once daily. Prescribed by Dr. Santa-[facility] [employer] allopurinol (ZYLOPRIM) 100 mg tablet Take 1 tablet by mouth once daily. For gout. ketoconazole (NIZORAL) 2 % shampoo Use as shampoo 3-4 days/week; leave lather on scalp for 5 minutes prior to rinsing Cholecalciferol, Vitamin D3, 125 mcg (5,000 unit) cap Take 1 capsule by mouth once daily. diclofenac sodium (VOLTAREN) 1 % topical gel Apply 4 g to affected area four times daily. CYANOCOBALAMIN, VITAMIN B-12, (LIQUID B 12 ORAL) Take 1 Dose by mouth once daily. No current facility-administered medications on file prior to visit. Social History Social History Tobacco Use Smoking status: Never Smokeless tobacco: Never Tobacco comments: both parents are smokers Vaping Use Vaping Use: Never used Substance Use Topics Alcohol use: No Drug use: No Review of Symptoms REVIEW OF SYSTEMS See hpi EXAM: BP 100/70 (BP Site: Left Arm, BP Position: Sitting, BP Cuff Size: Large Adult) Pulse 103 Temp 36.4 ?C (97.5 ?F) Resp 16 Wt 85.7 kg (189 lb) General Appearance: Well appearing, alert, in no acute distress, well-hydrated, well nourished.. Extremities: very tender swelling over Left MTP joint. Warmth and erythema noted. . Health Maintenance List Hepatitis B Vaccine(1 of 3 - 19+ 3-dose series) Never done DTaP,Tdap,Td Vaccine(4 - Td or Tdap) due on 01/03/2022 Colorectal Cancer Screening due on 02/02/2024 Hepatitis C Screening due on 05/13/2024 HIV Screening due on 05/13/2024 Covid-19 Vaccine( season) due on 05/13/2024 Influenza Vaccine(Season Ended) due on 03/26/2024 Serum Creatinine due on 12/06/2024 Hemoglobin/Hematocrit due on 12/06/2024 Annual PCP Team Chronic Disease Visit due on 12/13/2024 Diabetes Screening due on 12/06/2026 Lipid Screening due on 05/27/2028 Behavioral Health Screening Completed Data reviewed ASSESSMENT/PLAN: 1. Acute gout involving toe, unspecified cause, unspecified laterality - ICD9: 274.01, ICD10: M10.9 Recent uric acid level elevated and presentation consistent with acute gout attack. Will treat with colchicine and set up follow up with PCP next week. May need dose adjustment on allopurinol Discussed possible red flags and when to seek medical attention. Danica Francois PA-C [facility] 01-14-2024 History of Presen t illness Narrative Chief Complaint Patient presents with: Pain (foot): Bunion left foot and right foot pain HPI Branden Looney is a 48 year old male who presents here today for pain of left toe.. Patient with hx of gout. Has had pain over the past couple days in both feet. Worse on left. Has had swelling. Is on allopurinol. Recent labs show uric acid level at 9 but no med changes as patient wasn't having issues. Past medical history, appointments, medications, allergies reviewed. Previous Medical History PAST MEDICAL HISTORY Diagnosis Date Down's syndrome Down's syndrome Knee pain right Renal cyst 10/05/2014 Renal insufficiency 2014 Previous Surgical History PAST SURGICAL HISTORY Procedure Laterality Date APPENDECTOMY TONSILLECTOMY PRIMARY/SECONDARY <AGE 13 Tonsillectomy Family History FAMILY HISTORY Problem Relation Age of Onset Diabetes Father Hypertension Father Lipids Mother Hypertension Mother Thyroid Mother Heart disease Mother CABG Diabetes Maternal Grandmother Diabetes Maternal Grandfather Hypertension Paternal Grandfather Diabetes Sister Patient Allergies ALLERGIES Allergen Reactions Amoxicillin Rash Drug rash when taking amoxicillin and tylenol with codeine Tylenol-Codeine #3 * Rash Drug rash when taking amoxicillin and tylenol with codeine Current Medications Current Outpatient Medications on File Prior to Visit Medication Sig terbinafine HCl (LAMISIL) 250 mg tablet Take 250 mg by mouth once daily. Prescribed by Dr. Santa[facility] [employer] allopurinol (ZYLOPRIM) 100 mg tablet Take 1 tablet by mouth once daily. For gout. ketoconazole (NIZORAL) 2 % shampoo Use as shampoo 3-4 days/week; leave lather on scalp for 5 minutes prior to rinsing Cholecalciferol, Vitamin D3, 125 mcg (5,000 unit) cap Take 1 capsule by mouth once daily. diclofenac sodium (VOLTAREN) 1 % topical gel Apply 4 g to affected area four times daily. CYANOCOBALAMIN, VITAMIN B-12, (LIQUID B 12 ORAL) Take 1 Dose by mouth once daily. No current facility-administered medications on file prior to visit. Social History Social History Tobacco Use Smoking status: Never Smokeless tobacco: Never Tobacco comments: both parents are smokers Vaping Use Vaping Use: Never used Substance Use Topics Alcohol use: No Drug use: No Review of Symptoms REVIEW OF SYSTEMS See hpi EXAM: BP 100/70 (BP Site: Left Arm, BP Position: Sitting, BP Cuff Size: Large Adult) Pulse 103 Temp 36.4 C (97.5 F) Resp 16 Wt 85.7 kg (189 lb) General Appearance: Well appearing, alert, in no acute distress, well-hydrated, well nourished.. Extremities: very tender swelling over Left MTP joint. Warmth and erythema noted. . Health Maintenance List Hepatitis B Vaccine(1 of 3 - 19+ 3-dose series) Never done DTaP,Tdap,Td Vaccine(4 - Td or Tdap) due on 01/03/2022 Colorectal Cancer Screening due on 02/02/2024 Hepatitis C Screening due on 05/13/2024 HIV Screening due on 05/13/2024 Covid-19 Vaccine( season) due on 05/13/2024 Influenza Vaccine(Season Ended) due on 03/26/2024 Serum Creatinine due on 12/06/2024 Hemoglobin/Hematocrit due on 12/06/2024 Annual PCP Team Chronic Disease Visit due on 12/13/2024 Diabetes Screening due on 12/06/2026 Lipid Screening due on 05/27/2028 Behavioral Health Screening Completed Data reviewed ASSESSMENT/PLAN: 1. Acute gout involving toe, unspecified cause, unspecified laterality - ICD9: 274.01, ICD10: M10.9 Recent uric acid level elevated and presentation consistent with acute gout attack. Will treat with colchicine and set up follow up with PCP next week. May need dose adjustment on allopurinol Discussed possible red flags and when to seek medical attention. Danica Francois PA-C documented in this encounter [facility] 12-21-2023 Telephone encount er Note Mailed. Yasemin pt mother notified. Suri Altamirano MA [facility] 12-21-2023 Miscellaneous Notes Formattin g of this note might be different from the original. Mailed. Yasemin pt mother notified. Suri Altamirano MA Letter done Markos June MD Pt mother dropped off letter received from [facility] states that pt was called for Jury Duty but he is not able to do Jury Duty. Please complete form or provide letter stating that pt is not able to do Jury duty and should be excused. Mail back to [facility] in addressed envelope KORI. Need to receive within the next 5 days. Call Yasemin once letter has been mailed. Suri Altamirano MA documented in this encounter [facility] 12-21-2023 Telephone encount er Note Letter done Markos June MD [facility] 12-21-2023 Telephone encount er Note Pt mother dropped off letter received from [facility] states that pt was called for Jury Duty but he is not able to do Jury Duty. Please complete form or provide letter stating that pt is not able to do Jury duty and should be excused. Mail back to [facility] in addressed envelope KORI. Need to receive within the next 5 days. Call Yasemin once letter has been mailed. Suri Altamirano MA [facility] 12-14-2023 History of Presen t illness Narrative Chief Complaint Patient presents with: F/U 3 Month HPI Branden Looney is a 48 year old male who presents here today for 3 month follow up. Here today for his 3 month follow up and review labs. Here with his Mother. Pain/Gout: Complaining of b/l knee pain, using a cane today. Mother is using liquid Tylenol for this. Has previously taken Mobic 15 mg once daily, Mother unsure if still using this. Has Voltaren gel they can use if needed. Denies any issues with gout at this time. Using Allopurinol 100 mg daily CKD - Monitoring through routine labs. Fungus - Follows with Dr. Santa for toenail fungus. Currently taking Lamisil 250 mg once daily. Mother states they take it prn. Glucose - Monitoring elevated glucose through routine labs. Currently on no medication at this time. Weight has decreased since last visit. Vit D - Deficient. Takes Vitamin D 5,000 international unit(s) liquid once daily. Dry skin on b/l hands that's painful, per patient. Washes his hands frequently. Has lotion to use but not using this like he should, per mom. HM - Behavioral Health Screening completed, negative. Behavioral Health Screening PHQ-2 Score: 0 (Lower risk for depression) JESSIE-2 Score: 0 (Lower risk for anxiety) Recommendation: No further intervention at this time Past medical history, appointments, medications, allergies reviewed. Previous Medical History PAST MEDICAL HISTORY Diagnosis Date Down's syndrome Down's syndrome Knee pain right Renal cyst 10/05/2014 Renal insufficiency 2014 Previous Surgical History PAST SURGICAL HISTORY Procedure Laterality Date APPENDECTOMY TONSILLECTOMY PRIMARY/SECONDARY <AGE 13 Tonsillectomy Family History FAMILY HISTORY Problem Relation Age of Onset Diabetes Father Hypertension Father Lipids Mother Hypertension Mother Thyroid Mother Heart disease Mother CABG Diabetes Maternal Grandmother Diabetes Maternal Grandfather Hypertension Paternal Grandfather Diabetes Sister Patient Allergies ALLERGIES Allergen Reactions Amoxicillin Rash Drug rash when taking amoxicillin and tylenol with codeine Tylenol-Codeine #3 * Rash Drug rash when taking amoxicillin and tylenol with codeine Current Medications Current Outpatient Medications on File Prior to Visit Medication Sig terbinafine HCl (LAMISIL) 250 mg tablet Take 250 mg by mouth once daily. Prescribed by Dr. [facility] [employer] meloxicam (MOBIC) 15 mg tablet Take 1 tablet by mouth once daily. allopurinol (ZYLOPRIM) 100 mg tablet Take 1 tablet by mouth once daily. For gout. ketoconazole (NIZORAL) 2 % shampoo Use as shampoo 3-4 days/week; leave lather on scalp for 5 minutes prior to rinsing Cholecalciferol, Vitamin D3, 125 mcg (5,000 unit) cap Take 1 capsule by mouth once daily. diclofenac sodium (VOLTAREN) 1 % topical gel Apply 4 g to affected area four times daily. CYANOCOBALAMIN, VITAMIN B-12, (LIQUID B 12 ORAL) Take 1 Dose by mouth once daily. No current facility-administered medications on file prior to visit. Social History Social History Tobacco Use Smoking status: Never Smokeless tobacco: Never Tobacco comments: both parents are smokers Vaping Use Vaping Use: Never used Substance Use Topics Alcohol use: No Drug use: No EXAM: BP 118/82 (BP Site: Left Arm, BP Position: Sitting, BP Cuff Size: Regular Adult) Pulse 84 Resp 18 Wt 81.8 kg (180 lb 6.4 oz) General Appearance: Well appearing, alert, in no acute distress, well-hydrated, well nourished. and Overweight. Using a cane today. Skin: Dry skin on hands bilaterally. Lungs: Lungs clear to auscultation. No wheezing, rhonchi, rales.. Heart: RRR without murmur, gallop, or rubs. No ectopy. Extremities: No swelling noted on exam on right knee. Some tenderness noted on right knee. Health Maintenance List Hepatitis B Vaccine(1 of 3 - 19+ 3-dose series) Never done DTaP,Tdap,Td Vaccine(4 - Td or Tdap) due on 01/03/2022 Behavioral Health Screening Never done Colorectal Cancer Screening due on 02/02/2024 Hepatitis C Screening due on 05/13/2024 HIV Screening due on 05/13/2024 Covid-19 Vaccine( season) due on 05/13/2024 Influenza Vaccine(Season Ended) due on 03/26/2024 Annual PCP Team Chronic Disease Visit due on 11/01/2024 Serum Creatinine due on 12/06/2024 Hemoglobin/Hematocrit due on 12/06/2024 Diabetes Screening due on 12/06/2026 Lipid Screening due on 05/27/2028 Data reviewed Appointment on 12/07/2023 Component Date Value Protein, Total 12/07/2023 8.0 Albumin 12/07/2023 4.3 Calcium, Total 12/07/2023 9.5 Bilirubin, Total 12/07/2023 0.4 Alkaline Phosphatase 12/07/2023 99 AST 12/07/2023 44 (H) ALT 12/07/2023 45 Glucose 12/07/2023 122 (H) BUN 12/07/2023 15 Creatinine 12/07/2023 1.74 (H) Sodium 12/07/2023 143 Potassium 12/07/2023 4.2 Chloride 12/07/2023 105 CO2 12/07/2023 26 Anion Gap 12/07/2023 12 Estimated Glomerular Mitchell* 12/07/2023 48 (L) Uric Acid 12/07/2023 9.0 (H) Vitamin D 25 Hydroxy 12/07/2023 32.7 WBC 12/07/2023 3.99 RBC 12/07/2023 5.23 Hemoglobin 12/07/2023 16.9 Hematocrit 12/07/2023 52.8 (H) MCV 12/07/2023 101.0 (H) MCH 12/07/2023 32.3 MCHC 12/07/2023 32.0 RDW-CV 12/07/2023 14.1 Platelet Count 12/07/2023 248 MPV 12/07/2023 10.0 Neutrophils % 12/07/2023 57.5 Abs Neut 12/07/2023 2.30 Lymphocytes % 12/07/2023 23.6 Abs Lymph 12/07/2023 0.94 (L) Monocytes % 12/07/2023 14.5 Abs [place] 12/07/2023 0.58 Eosinophils % 12/07/2023 1.8 Abs Eosin 12/07/2023 0.07 Basophils % 12/07/2023 2.3 Abs Baso 12/07/2023 0.09 Immature Granulocytes % 12/07/2023 0.3 Abs Immature Gran 12/07/2023 <0.03 NRBC 12/07/2023 0.0 Absolute nRBC 12/07/2023 <0.01 Diff Type 12/07/2023 Auto Appointment on 11/02/2023 Component Date Value Sed Rate, W[place]gren 11/02/2023 0 CRP 11/02/2023 0.8 WBC 11/02/2023 4.37 RBC 11/02/2023 5.30 Hemoglobin 11/02/2023 17.2 (H) Hematocrit 11/02/2023 52.3 (H) MCV 11/02/2023 98.7 MCH 11/02/2023 32.5 MCHC 11/02/2023 32.9 RDW-CV 11/02/2023 13.9 Platelet Count 11/02/2023 247 MPV 11/02/2023 9.7 Neutrophils % 11/02/2023 58.6 Abs Neut 11/02/2023 2.56 Lymphocytes % 11/02/2023 22.9 Abs Lymph 11/02/2023 1.00 Monocytes % 11/02/2023 14.4 Abs [place] 11/02/2023 0.63 Eosinophils % 11/02/2023 1.8 Abs Eosin 11/02/2023 0.08 Basophils % 11/02/2023 1.8 Abs Baso 11/02/2023 0.08 Immature Granulocytes % 11/02/2023 0.5 Abs Immature Gran 11/02/2023 <0.03 NRBC 11/02/2023 0.0 Absolute nRBC 11/02/2023 <0.01 Diff Type 11/02/2023 Auto Protein, Total 11/02/2023 7.9 Albumin 11/02/2023 4.2 Calcium, Total 11/02/2023 10.1 Bilirubin, Total 11/02/2023 0.4 Alkaline Phosphatase 11/02/2023 97 AST 11/02/2023 28 ALT 11/02/2023 31 Glucose 11/02/2023 102 (H) BUN 11/02/2023 20 Creatinine 11/02/2023 1.47 (H) Sodium 11/02/2023 138 Potassium 11/02/2023 4.5 Chloride 11/02/2023 102 CO2 11/02/2023 28 Anion Gap 11/02/2023 8 (L) Estimated Glomerular Mitchell* 11/02/2023 59 (L) Office Visit on 11/02/2023 Component Date Value GLUCOSE UA (POCT) 11/02/2023 Negative BILIRUBIN UA (POCT) 11/02/2023 Negative KETONE UA (POCT) 11/02/2023 Negative SPECIFIC GRAVITY UA (POC* 11/02/2023 1.025 HEMOGLOBIN/BLOOD UA (PO* 11/02/2023 Negative PH UA (POCT) 11/02/2023 7.0 PROTEIN UA (POCT) 11/02/2023 Negative UROBILINOGEN UA (POCT) 11/02/2023 0.2 NITRITE UA (POCT) 11/02/2023 Negative LEUKOCYTES UA (POCT) 11/02/2023 Negative COLOR UA (POCT) 11/02/2023 Yellow CLARITY UA (POCT) 11/02/2023 Clear ASSESSMENT/PLAN: 1. Chronic pain of both knees - ICD9: 719.46, 338.29, ICD10: M25.561, M25.562, G89.29 (primary diagnosis) Continue symptomatic treatment 2. Gout of right wrist, unspecified cause, unspecified chronicity - ICD9: 274.9, ICD10: M10.9 Continue allopurinol - URIC ACID 3. Stage 3 chronic kidney disease, unspecified whether stage 3a or 3b CKD (HCC) - ICD9: 585.3, ICD10: N18.30 - eGFR: 48 Stable Monitor - COMPREHENSIVE METABOLIC PANEL 4. Down's syndrome - ICD9: 758.0, ICD10: Q90.9 5. Elevated glucose - ICD9: 790.29, ICD10: R73.09 Monitor - COMPREHENSIVE METABOLIC PANEL - HEMOGLOBIN A1C - LIPID PANEL BASIC 6. Toenail fungus - ICD9: 110.1, ICD10: B35.1 Continue Lamisil 3 mo f/u. Fasting labs in 6 months. I agree with the Chief Complaint, ROS, and Past Histories independently gathered by the clinical office support and the remaining scribed note accurately describes my personal service to the patient. Medical Decision Making: Problems: Moderate: 2+ stable chronic illnesses Data: Unique test result(s) reviewed: 3+ Risk: Moderate: Drug management Medical Decision Making Level: 4 - Moderate Markos June MD The documentation for this note was completed by Edna Perez MA acting as scribe for Markos June MD. December 14, 2023 3:30 PM. Edna Perez MA documented in this encounter [facility] 12-14-2023 Note HNO ID: [id number] Author: MARKOS JUNE MD Service: ? Author Type: Physician Type: Progress Notes Filed: 12/14/2023 16:24 Note Text: Chief Complaint Patient presents with: F/U 3 Month HPI Branden Looney is a 48 year old male who presents here today for 3 month follow up. Here today for his 3 month follow up and review labs. Here with his Mother. Pain/Gout: Complaining of b/l knee pain, using a cane today. Mother is using liquid Tylenol for this. Has previously taken Mobic 15 mg once daily, Mother unsure if still using this. Has Voltaren gel they can use if needed. Denies any issues with gout at this time. Using Allopurinol 100 mg daily CKD - Monitoring through routine labs. Fungus - Follows with Dr. Santa for toenail fungus. Currently taking Lamisil 250 mg once daily. Mother states they take it prn. Glucose - Monitoring elevated glucose through routine labs. Currently on no medication at this time. Weight has decreased since last visit. Vit D - Deficient. Takes Vitamin D 5,000 international unit(s) liquid once daily. Dry skin on b/l hands that's painful, per patient. Washes his hands frequently. Has lotion to use but not using this like he should, per mom. - Behavioral Health Screening completed, negative. Behavioral Health Screening PHQ-2 Score: 0 (Lower risk for depression) JESSIE-2 Score: 0 (Lower risk for anxiety) Recommendation: No further intervention at this time Past medical history, appointments, medications, allergies reviewed. Previous Medical History PAST MEDICAL HISTORY Diagnosis Date Down's syndrome Down's syndrome Knee pain right Renal cyst 10/05/2014 Renal insufficiency 2014 Previous Surgical History PAST SURGICAL HISTORY Procedure Laterality Date APPENDECTOMY TONSILLECTOMY PRIMARY/SECONDARY Tonsillectomy Family History FAMILY HISTORY Problem Relation Age of Onset Diabetes Father Hypertension Father Lipids Mother Hypertension Mother Thyroid Mother Heart disease Mother CABG Diabetes Maternal Grandmother Diabetes Maternal Grandfather Hypertension Paternal Grandfather Diabetes Sister Patient Allergies ALLERGIES Allergen Reactions Amoxicillin Rash Drug rash when taking amoxicillin and tylenol with codeine Tylenol-Codeine #3 * Rash Drug rash when taking amoxicillin and tylenol with codeine Current Medications Current Outpatient Medications on File Prior to Visit Medication Sig terbinafine HCl (LAMISIL) 250 mg tablet Take 250 mg by mouth once daily. Prescribed by Dr. [facility] [employer] meloxicam (MOBIC) 15 mg tablet Take 1 tablet by mouth once daily. allopurinol (ZYLOPRIM) 100 mg tablet Take 1 tablet by mouth once daily. For gout. ketoconazole (NIZORAL) 2 % shampoo Use as shampoo 3-4 days/week; leave lather on scalp for 5 minutes prior to rinsing Cholecalciferol, Vitamin D3, 125 mcg (5,000 unit) cap Take 1 capsule by mouth once daily. diclofenac sodium (VOLTAREN) 1 % topical gel Apply 4 g to affected area four times daily. CYANOCOBALAMIN, VITAMIN B-12, (LIQUID B 12 ORAL) Take 1 Dose by mouth once daily. No current facility-administered medications on file prior to visit. Social History Social History Tobacco Use Smoking status: Never Smokeless tobacco: Never Tobacco comments: both parents are smokers Vaping Use Vaping Use: Never used Substance Use Topics Alcohol use: No Drug use: No EXAM: BP 118/82 (BP Site: Left Arm, BP Position: Sitting, BP Cuff Size: Regular Adult) Pulse 84 Resp 18 Wt 81.8 kg (180 lb 6.4 oz) General Appearance: Well appearing, alert, in no acute distress, well-hydrated, well nourished. and Overweight. Using a cane today. Skin: Dry skin on hands bilaterally. Lungs: Lungs clear to auscultation. No wheezing, rhonchi, rales.. Heart: RRR without murmur, gallop, or rubs. No ectopy. Extremities: No swelling noted on exam on right knee. Some tenderness noted on right knee. Health Maintenance List Hepatitis B Vaccine(1 of 3 - 19+ 3-dose series) Never done DTaP,Tdap,Td Vaccine(4 - Td or Tdap) due on 01/03/2022 Behavioral Health Screening Never done Colorectal Cancer Screening due on 02/02/2024 Hepatitis C Screening due on 05/13/2024 HIV Screening due on 05/13/2024 Covid-19 Vaccine( season) due on 05/13/2024 Influenza Vaccine(Season Ended) due on 03/26/2024 Annual PCP Team Chronic Disease Visit due on 11/01/2024 Serum Creatinine due on 12/06/2024 Hemoglobin/Hematocrit due on 12/06/2024 Diabetes Screening due on 12/06/2026 Lipid Screening due on 05/27/2028 Data reviewed Appointment on 12/07/2023 Component Date Value Protein, Total 12/07/2023 8.0 Albumin 12/07/2023 4.3 Calcium, Total 12/07/2023 9.5 Bilirubin, Total 12/07/2023 0.4 Alkaline Phosphatase 12/07/2023 99 AST 12/07/2023 44 (H) ALT 12/07/2023 45 Glucose 12/07/2023 122 (H) BUN 12/07/2023 15 Creatinine 12/07/2023 1.74 (H) Sodium 12/07/2023 143 Pota (more content not included)... [facility] 11-04-2023 Miscellaneous Notes Formattin g of this note might be different from the original. Pt's Mother stopped in office and stated that pt did not need to have forms completed as his previous forms are still on file/active. Requested forms back, these were given to her. Does not need completed. Edna Perez MA Yasemin, Mother of pt called and message below given. She will get the missing page and bring in. Please watch for this. Alicia Grant LPN Call to pt's Mother, Yasemin. LM on VM to return call to office and ask to speak with a FM Triage Nurse. After reviewing forms PCP unable to complete due to missing a page where he needs to sign. Appears there should be 4 pages and we are missing page 3. Per page 4 it states at the top This page only needs to be completed and signed if the Physician on page three DOES NOT CLEAR the athlete and indicates further evaluation is required. We need page 3 in order to complete. Form are in PCP's office at [facility] [employer]. PCP is out of the Office on Wednesday and returns . She can drop these off at [facility] [address] to place in Medical Records for Office staff to obtain on when we return to office. Edna Perez MA Type of form: Athlete Medical Form for [employer] Form received via walk in When form is completed, Call Mother to grape picker at number listed on demographics. Would like to pick these up today. Form has been forwarded to Physician Desk: Dr. Sheba Perez MA documented in this encounter [facility] 11-02-2023 Note HNO ID: [id number] Author: MONSE MARES APRN.[employer]OT [employer] Service: ? Author Type: Nurse Practitioner Type: Progress Notes Filed: 11/02/2023 11:55 Note Text: 11/02/2023 Patient presents with: Abdominal Pain: Left side abdominal pain that comes and goes for the last 3-4 days SUBJECTIVE: This is a 48 year old, accompanied by mother, that is here today for Above Complaints. ONSET: 3-4 days ago LOCATION: left side by belly button DURATION:intermittent CHARACTERISTICS: throbbing AGGRAVATING FEATURES: movement ALLEVIATING FEATURES: tylenol helps RADIATION: back Loose stools after eating but per mother this is not new Denies fevers, chills, nausea, vomiting, melana, hematochezia, constipation, dysuria, urinary frequency or hematuria PAST MEDICAL HISTORY Diagnosis Date Down's syndrome Down's syndrome Knee pain right Renal cyst 10/05/2014 Renal insufficiency 2014 ALLERGIES Amoxicillin and Tylenol-Codeine #3 [Acetaminophen-Codeine] MEDICATIONS Current Outpatient Medications Medication Sig terbinafine HCl (LAMISIL) 250 mg tablet Take 250 mg by mouth once daily. Prescribed by Dr. [facility] [employer] meloxicam (MOBIC) 15 mg tablet Take 1 tablet by mouth once daily. allopurinol (ZYLOPRIM) 100 mg tablet Take 1 tablet by mouth once daily. For gout. ketoconazole (NIZORAL) 2 % shampoo Use as shampoo 3-4 days/week; leave lather on scalp for 5 minutes prior to rinsing Cholecalciferol, Vitamin D3, 125 mcg (5,000 unit) cap Take 1 capsule by mouth once daily. diclofenac sodium (VOLTAREN) 1 % topical gel Apply 4 g to affected area four times daily. CYANOCOBALAMIN, VITAMIN B-12, (LIQUID B 12 ORAL) Take 1 Dose by mouth once daily. No current facility-administered medications for this visit. Medications and allergies reviewed by this provider. SOCIAL HISTORY Social History Tobacco Use Smoking status: Never Smokeless tobacco: Never Tobacco comments: both parents are smokers Vaping Use Vaping Use: Never used Substance Use Topics Alcohol use: No Drug use: No REVIEW OF SYSTEMS All other reviewed and negative other than HPI. OBJECTIVE: BP 102/70 Pulse 64 Temp 36.5 ?C (97.7 ?F) Resp 18 Wt 86.5 kg (190 lb 9.6 oz) SpO2 97% . Vital signs reviewed by this provider. APPEARANCE Well appearing, alert, in no acute distress, well-hydrated, well nourished. EYES PERRLA, conjunctiva and sclera normal. HEART RRR with normal S1 and S2, no murmurs, no gallops, no JVD appreciated LUNG clear to auscultation. No wheezes, rhonchi or rales BACK: No CVA tenderness. FROM without pain ABDOMEN bowel sounds normoactive, no bruits, soft, non-distended. TTP left side adjacent to umbilicus. Exam inconsistent as he winces at touch of his generalized abdomen. No rebound tenderness or guarding. Negative Gil's SKIN Skin color, texture, turgor normal, no suspicious rashes or lesions to exposed skin Hepatitis B Vaccine(1 of 3 - 19+ 3-dose series) Never done DTaP,Tdap,Td Vaccine(4 - Td or Tdap) due on 01/03/2022 Behavioral Health Screening Never done Hepatitis C Screening due on 05/13/2024 HIV Screening due on 05/13/2024 Covid-19 Vaccine(2 - 2022- season) due on 05/13/2024 Colorectal Cancer Screening due on 02/02/2024 Influenza Vaccine(Season Ended) due on 03/26/2024 Serum Creatinine due on 05/27/2024 Hemoglobin/Hematocrit due on 05/27/2024 Annual PCP Team Chronic Disease Visit due on 10/18/2024 Diabetes Screening due on 05/27/2026 Lipid Screening due on 05/27/2028 ASSESSMENT/PLAN: 1. Left sided abdominal pain - ICD9: 789.09, ICD10: R10.9 (primary diagnosis) - possibly muscular. Labs as below will look for potential infectious or inflammatory process - no red flag symptoms or exam findings - red flag symptoms discussed, other verbalizes understanding - CBC + DIFF - COMP METABOLIC PANEL - SED RATE WESTERGREN - C-REACTIVE PROTEIN (CRP) - bland diet - consider CT if labs abnormal - may use Tylenol for pain control to ER with red flag symptoms 2. Acute left-sided back pain, unspecified back location - ICD9: 724.5, ICD10: M54.9 - plan as in #1 - UA DIP, URINE (POC) Monse Podlogelma, [employer] CASTER Prescription instructions reviewed with patient as applicable. Patient advised if symptoms do not improve or if symptoms worsen sooner, to contact their primary care physician. Potential red flag symptoms discussed with the patient. Reviewed appropriate action plan to take if red flag symptoms occur. Patient agreeable to treatment plan. Medical Decision Making: Problems: Moderate: New problem with uncertain prognosis Data: Unique test(s) ordered: 3+ Medical Decision Making Level: 4 - Moderate [facility] 11-02-2023 History of Presen t illness Narrative 11/02/2023 Patient presents with: Abdominal Pain: Left side abdominal pain that comes and goes for the last 3-4 days SUBJECTIVE: This is a 48 year old, accompanied by mother, that is here today for Above Complaints. ONSET: 3-4 days ago LOCATION: left side by belly button DURATION:intermittent CHARACTERISTICS: throbbing AGGRAVATING FEATURES: movement ALLEVIATING FEATURES: tylenol helps RADIATION: back Loose stools after eating but per mother this is not new Denies fevers, chills, nausea, vomiting, melana, hematochezia, constipation, dysuria, urinary frequency or hematuria PAST MEDICAL HISTORY Diagnosis Date Down's syndrome Down's syndrome Knee pain right Renal cyst 10/05/2014 Renal insufficiency 2014 ALLERGIES Amoxicillin and Tylenol-Codeine #3 [Acetaminophen-Codeine] MEDICATIONS Current Outpatient Medications Medication Sig terbinafine HCl (LAMISIL) 250 mg tablet Take 250 mg by mouth once daily. Prescribed by Dr. Santa[facility] [employer] meloxicam (MOBIC) 15 mg tablet Take 1 tablet by mouth once daily. allopurinol (ZYLOPRIM) 100 mg tablet Take 1 tablet by mouth once daily. For gout. ketoconazole (NIZORAL) 2 % shampoo Use as shampoo 3-4 days/week; leave lather on scalp for 5 minutes prior to rinsing Cholecalciferol, Vitamin D3, 125 mcg (5,000 unit) cap Take 1 capsule by mouth once daily. diclofenac sodium (VOLTAREN) 1 % topical gel Apply 4 g to affected area four times daily. CYANOCOBALAMIN, VITAMIN B-12, (LIQUID B 12 ORAL) Take 1 Dose by mouth once daily. No current facility-administered medications for this visit. Medications and allergies reviewed by this provider. SOCIAL HISTORY Social History Tobacco Use Smoking status: Never Smokeless tobacco: Never Tobacco comments: both parents are smokers Vaping Use Vaping Use: Never used Substance Use Topics Alcohol use: No Drug use: No REVIEW OF SYSTEMS All other reviewed and negative other than HPI. OBJECTIVE: BP 102/70 Pulse 64 Temp 36.5 C (97.7 F) Resp 18 Wt 86.5 kg (190 lb 9.6 oz) SpO2 97% . Vital signs reviewed by this provider. APPEARANCE Well appearing, alert, in no acute distress, well-hydrated, well nourished. EYES PERRLA, conjunctiva and sclera normal. HEART RRR with normal S1 and S2, no murmurs, no gallops, no JVD appreciated LUNG clear to auscultation. No wheezes, rhonchi or rales BACK: No CVA tenderness. FROM without pain ABDOMEN bowel sounds normoactive, no bruits, soft, non-distended. TTP left side adjacent to umbilicus. Exam inconsistent as he winces at touch of his generalized abdomen. No rebound tenderness or guarding. Negative Gil's SKIN Skin color, texture, turgor normal, no suspicious rashes or lesions to exposed skin Hepatitis B Vaccine(1 of 3 - 19+ 3-dose series) Never done DTaP,Tdap,Td Vaccine(4 - Td or Tdap) due on 01/03/2022 Behavioral Health Screening Never done Hepatitis C Screening due on 05/13/2024 HIV Screening due on 05/13/2024 Covid-19 Vaccine( season) due on 05/13/2024 Colorectal Cancer Screening due on 02/02/2024 Influenza Vaccine(Season Ended) due on 03/26/2024 Serum Creatinine due on 05/27/2024 Hemoglobin/Hematocrit due on 05/27/2024 Annual PCP Team Chronic Disease Visit due on 10/18/2024 Diabetes Screening due on 05/27/2026 Lipid Screening due on 05/27/2028 ASSESSMENT/PLAN: 1. Left sided abdominal pain - ICD9: 789.09, ICD10: R10.9 (primary diagnosis) - possibly muscular. Labs as below will look for potential infectious or inflammatory process - no red flag symptoms or exam findings - red flag symptoms discussed, other verbalizes understanding - CBC + DIFF - COMP METABOLIC PANEL - SED RATE WESTERGREN - C-REACTIVE PROTEIN (CRP) - bland diet - consider CT if labs abnormal - may use Tylenol for pain control to ER with red flag symptoms 2. Acute left-sided back pain, unspecified back location - ICD9: 724.5, ICD10: M54.9 - plan as in #1 - UA DIP, URINE (POC) Monse Mares APRN.[employer] Prescription instructions reviewed with patient as applicable. Patient advised if symptoms do not improve or if symptoms worsen sooner, to contact their primary care physician. Potential red flag symptoms discussed with the patient. Reviewed appropriate action plan to take if red flag symptoms occur. Patient agreeable to treatment plan. Medical Decision Making: Problems: Moderate: New problem with uncertain prognosis Data: Unique test(s) ordered: 3+ Medical Decision Making Level: 4 - Moderate documented in this encounter [facility] 10-19-2023 History of Presen t illness Narrative Chief Complaint Patient presents with: Nasal Congestion Sore Throat Cough HPI Branden Looney is a 48 year old male who presents here today for a same day visit. Pt here today with his mother for an acute visit. Pt c/o of stuffy and runny nose, sore throat and cough, headache that started on Wednesday10/17/23. Mom has been giving him OTC Tylenol Cold and Flu medication, just helped a little all day on Wednesday. Denies any fever or SOB. No one else in the home has been ill. There are people at his work that are sick. He was around them for a day and travelled to [place] for an event. The throat is still a little sore today. Past medical history, appointments, medications, allergies reviewed. Previous Medical History PAST MEDICAL HISTORY Diagnosis Date Down's syndrome Down's syndrome Knee pain right Renal cyst 10/05/2014 Renal insufficiency 2014 Previous Surgical History PAST SURGICAL HISTORY Procedure Laterality Date APPENDECTOMY TONSILLECTOMY PRIMARY/SECONDARY <AGE 12 Tonsillectomy Family History FAMILY HISTORY Problem Relation Age of Onset Diabetes Father Hypertension Father Lipids Mother Hypertension Mother Thyroid Mother Heart disease Mother CABG Diabetes Maternal Grandmother Diabetes Maternal Grandfather Hypertension Paternal Grandfather Diabetes Sister Patient Allergies ALLERGIES Allergen Reactions Amoxicillin Rash Drug rash when taking amoxicillin and tylenol with codeine Tylenol-Codeine #3 * Rash Drug rash when taking amoxicillin and tylenol with codeine Current Medications Current Outpatient Medications on File Prior to Visit Medication Sig terbinafine HCl (LAMISIL) 250 mg tablet Take 250 mg by mouth once daily. Prescribed by Dr. Santa[facility] [employer] meloxicam (MOBIC) 15 mg tablet Take 1 tablet by mouth once daily. allopurinol (ZYLOPRIM) 100 mg tablet Take 1 tablet by mouth once daily. For gout. ketoconazole (NIZORAL) 2 % shampoo Use as shampoo 3-4 days/week; leave lather on scalp for 5 minutes prior to rinsing Cholecalciferol, Vitamin D3, 125 mcg (5,000 unit) cap Take 1 capsule by mouth once daily. diclofenac sodium (VOLTAREN) 1 % topical gel Apply 4 g to affected area four times daily. CYANOCOBALAMIN, VITAMIN B-12, (LIQUID B 12 ORAL) Take 1 Dose by mouth once daily. No current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 and are negative. PAST MEDICAL HISTORY Diagnosis Date Down's syndrome Down's syndrome Knee pain right Renal cyst 10/05/2014 Renal insufficiency 2015 Current Outpatient Medications Medication Sig Dispense Refill allopurinol (ZYLOPRIM) 100 mg tablet Take 1 tablet by mouth once daily. For gout. 30 tablet 11 ketoconazole (NIZORAL) 2 % shampoo Use as shampoo 3-4 days/week; leave lather on scalp for 5 minutes prior to rinsing 120 mL 5 Cholecalciferol, Vitamin D3, 125 mcg (5,000 unit) cap Take 1 capsule by mouth once daily. diclofenac sodium (VOLTAREN) 1 % topical gel Apply 4 g to affected area four times daily. 600 g 3 CYANOCOBALAMIN, VITAMIN B-12, (LIQUID B 12 ORAL) Take 1 Dose by mouth once daily. triamcinolone acetonide (KENALOG) 0.1 % cream Apply 1 application to affected area three times daily for 7 days. Apply sparingly to area for rash/itching. 80 g 0 No current facility-administered medications for this visit. PAST SURGICAL HISTORY Procedure Laterality Date APPENDECTOMY TONSILLECTOMY PRIMARY/SECONDARY <AGE 12 Tonsillectomy FAMILY HISTORY Problem Relation Age of Onset Diabetes Father Hypertension Father Lipids Mother Hypertension Mother Thyroid Mother Heart disease Mother CABG Diabetes Maternal Grandmother Diabetes Maternal Grandfather Hypertension Paternal Grandfather Diabetes Sister Social History Tobacco Use Smoking status: Never Smokeless tobacco: Never Tobacco comments: both parents are smokers Vaping Use Vaping Use: Never used Substance Use Topics Alcohol use: No Drug use: No Objective BP 124/78 Pulse 69 Temp 36.6 C (97.9 F) Resp 18 Wt 81.5 kg (179 lb 9.6 oz) SpO2 98% BMI32.85 kg/m Physical Exam Vitals reviewed. Constitutional: Appearance: Normal appearance. HENT: Head: Normocephalic and atraumatic. Chest: Comments: Patient has dry flaky pink rash on the right chest next to the sternum and also overlyingthe nipple. No vesicles. No petechia or purpura. Skin: General: Skin is warm and dry. Neurological: Mental Status: He is alert. Assessment and Plan ASSESSMENT/PLAN: 1. Rash - ICD9: 782.1, ICD10: R21 Eczema versus possibly almost healed shingles, no intact vesicles, the skin is dry and flaky. Giventriamcinolone for itch. Follow up with pcp if not improving. - TRIAMCINOLONE ACETONIDE 0.1 % TOPICAL CREAM Precious Benjamin PA-C documented in this encounterKing'S [facility] [place]11-28-2022 History of Present illness Narrative* Markos June MD - 06/22/2022 9:40 AM EST Chief Complaint Patient presents with: F/U 3 Month Immunizations: Flu vaccination HPI Branden Looney is a 46 year old male who presents here today for 3 month follow up. Here with his mother. Pt has Down's Syndrome. Working at the [employer]. Gout: wrist; stable on Allopurinol 300 mg daily. Doing well at this time. His right wrist is bothering him again but he has been bowling a couple of days/week. Has a brace he wears to bowl. Complains of occ low back pain with bending. Knee: chronic pain; using Tylenol and Voltaren gel occ. Past medical history, appointments, medications, allergies reviewed. Previous Medical History PAST MEDICAL HISTORY Diagnosis Date Down's syndrome Down's syndrome Knee pain right Renal cyst 10/05/2014 Renal insufficiency 2014 Previous Surgical History PAST SURGICAL HISTORY Procedure Laterality Date APPENDECTOMY TONSILLECTOMY PRIMARY/SECONDARY <AGE 12 Tonsillectomy Family History FAMILY HISTORY Problem Relation Age of Onset Diabetes Father Hypertension Father Lipids Mother Hypertension Mother Thyroid Mother Heart disease Mother CABG Diabetes Maternal Grandmother Diabetes Maternal Grandfather Hypertension Paternal Grandfather Diabetes Sister Patient Allergies ALLERGIES Allergen Reactions Amoxicillin Rash Drug rash when taking amoxicillin and tylenol with codeine Tylenol-Codeine #3 * Rash Drug rash when taking amoxicillin and tylenol with codeine Current Medications Current Outpatient Medications on File Prior to Visit Medication Sig allopurinol (ZYLOPRIM) 100 mg tablet Take 1 tablet by mouth once daily. For gout. ketoconazole (NIZORAL) 2 % shampoo Use as shampoo 3-4 days/week; leave lather on scalp for 5 minutes prior to rinsing Cholecalciferol, Vitamin D3, 125 mcg (5,000 unit) cap Take 1 capsule by mouth once daily. diclofenac sodium (VOLTAREN) 1 % topical gel Apply 4 g to affected area four times daily. CYANOCOBALAMIN, VITAMIN B-12, (LIQUID B 12 ORAL) Take 1 Dose by mouth once daily. No current facility-administered medications on file prior to visit. Social History Social History Tobacco Use Smoking status: Never Smokeless tobacco: Never Tobacco comments: both parents are smokers Vaping Use Vaping Use: Never used Substance Use Topics Alcohol use: No Drug use: No EXAM: BP 124/74 Pulse 72 Resp 16 Wt 80.8 kg (178 lb 3.2 oz) BMI 32.59 kg/m General Appearance: Well appearing, alert, in no acute distress, well-hydrated, well nourished.. Lungs: Lungs clear to auscultation. No wheezing, rhonchi, rales.. Heart: RRR without murmur, gallop, or rubs. No ectopy. Right wrist: no swelling, good ROM, mild lateral tenderness. Health Maintenance List HEPATITIS B(1 of 3 - 3-dose series) Never done LIPID SCREEN due on 08/22/2019 COVID-19 VACCINE(2 - Pfizer series) due on 07/04/2021 DEPRESSION ASSESSMENT Never done COLORECTAL CANCER SCREENING Never done DTAP,TDAP,TD(4 - Td or Tdap) due on 01/03/2022 INFLUENZA(1) due on 03/26/2022 HEPATITIS C SCREENING due on 10/22/2022 HIV SCREENING due on 10/22/2022 HEMOGLOBIN/HEMATOCRIT due on 08/21/2022 SERUM CREATININE due on 12/08/2022 ANNUAL PCP TEAM CHRONIC DISEASE VISIT due on 03/13/2023 DIABETES SCREEN due on 12/08/2024 Data reviewed Appointment on 06/19/2022 Component Date Value Uric Acid 06/19/2022 6.5 WBC 06/19/2022 4.36 RBC 06/19/2022 5.23 Hemoglobin 06/19/2022 16.7 Hematocrit 06/19/2022 51.8 (A) MCV 06/19/2022 99.0 MCH 06/19/2022 31.9 MCHC 06/19/2022 32.2 RDW-CV 06/19/2022 13.3 Platelet Count 06/19/2022 246 MPV 06/19/2022 10.0 Absolute nRBC 06/19/2022 <0.01 Protein, Total 06/19/2022 7.7 Albumin 06/19/2022 4.0 Calcium, Total 06/19/2022 9.3 Bilirubin, Total 06/19/2022 0.4 Alkaline Phosphatase 06/19/2022 96 AST 06/19/2022 36 ALT 06/19/2022 29 Glucose 06/19/2022 99 BUN 06/19/2022 12 Creatinine 06/19/2022 1.57 (A) Sodium 06/19/2022 140 Potassium 06/19/2022 4.5 Chloride 06/19/2022 104 CO2 06/19/2022 29 Anion Gap 06/19/2022 7 (A) Estimated Glomerular Mitchell* 06/19/2022 55 (A) Office Visit on 05/23/2022 Component Date Value COVID 19 Result 05/23/2022 SARS-CoV-2 (Agent of COVID-19) Detected by RT-PCR or equivalent method. (A) Influenza A PCR 05/23/2022 Negative for Influenza A by RT-PCR Influenza B PCR 05/23/2022 Negative for Influenza B by RT-PCR ASSESSMENT/PLAN: 1. Need for influenza vaccination - ICD9: V04.81, ICD10: Z23 (primary diagnosis) - INFLUENZA VACCINE QUADRIVALENT 6 MO - 64 YRS IM 2. Stage 3 chronic kidney disease, unspecified whether stage 3a or 3b CKD (HCC) - ICD9: 585.3, ICD10: N18.30 Stable 3. Down's syndrome - ICD9: 758.0, ICD10: Q90.9 4. Seborrheic dermatitis - ICD9: 690.10, ICD10: L21.9 Continue current medications. 5. Right wrist pain - ICD9: 719.43, ICD10: M25.531 Continue current medications. Symptomatic treatment Follow up in 3 months I agree with the Chief Complaint, ROS, and Past Histories independently gathered by the clinical office support and the remaining scribed note accurately describes my personal service to the patient. Medical Decision Making: Problems: Moderate: 2+ stable chronic illnesses Data: Unique test result(s) reviewed: 2 Risk: Moderate: Drug management Medical Decision Making Level: 4 - Moderate Markos June MD The documentation for this note was completed by Suri Altamirano Ma acting as scribe for Markos June MD. June 22, 2022 9:27 AM. Suri Altamirano Ma documented in this encounterKing'S [facility] [place]10-30-2022 Miscellaneous Notes* Telephone Encounter - Kiah Bond - 05/24/2022 8:22 AM EDT Patient given results and verbalized understanding of instructions given. Kiah Bond * Telephone Encounter - Fern Navarro APRN.CNP - 05/24/2022 8:08 AM EDT Patient positive for COVID please notify please instruct to quarantine for the first 5 days of symptoms then mask for another 5 days follow-up with primary care if symptoms are worsening. documented in this encounterKing'S [facility] [place]10-29-2022 History of Present illness Narrative* Precious Benjamin PA-C - 05/23/2022 1:09 PM EDT This note was created using Kiddify. Subjective Branden Looney is a 46 year old male. HPI Patient presents with runny nose, congestion, cough and sore throat over the past 2 days. He is felt feverish as well. No vomiting or diarrhea. No trouble breathing. He did go on a car ride with somebody who was sick recently as well. No home COVID test done. Review of Systems Constitutional: Positive for fatigue and fever. HENT: Positive for congestion, rhinorrhea and sore throat. Negative for ear pain. Respiratory: Positive for cough. Negative for shortness of breath. Cardiovascular: Negative. Gastrointestinal: Negative. Genitourinary: Negative. Musculoskeletal: Negative. All other systems reviewed and are negative. PAST MEDICAL HISTORY Diagnosis Date Down's syndrome Down's syndrome Knee pain right Renal cyst 10/05/2014 Renal insufficiency 2014 Current Outpatient Medications Medication Sig Dispense Refill allopurinol (ZYLOPRIM) 100 mg tablet Take 1 tablet by mouth once daily. For gout. 30 tablet 11 ketoconazole (NIZORAL) 2 % shampoo Use as shampoo 3-4 days/week; leave lather on scalp for 5 minutes prior to rinsing 120 mL 5 Cholecalciferol, Vitamin D3, 125 mcg (5,000 unit) cap Take 1 capsule by mouth once daily. diclofenac sodium (VOLTAREN) 1 % topical gel Apply 4 g to affected area four times daily. 600 g 3 CYANOCOBALAMIN, VITAMIN B-12, (LIQUID B 12 ORAL) Take 1 Dose by mouth once daily. No current facility-administered medications for this visit. PAST SURGICAL HISTORY Procedure Laterality Date APPENDECTOMY TONSILLECTOMY PRIMARY/SECONDARY <AGE 12 Tonsillectomy FAMILY HISTORY Problem Relation Age of Onset Diabetes Father Hypertension Father Lipids Mother Hypertension Mother Thyroid Mother Heart disease Mother CABG Diabetes Maternal Grandmother Diabetes Maternal Grandfather Hypertension Paternal Grandfather Diabetes Sister Social History Tobacco Use Smoking status: Never Smokeless tobacco: Never Tobacco comments: both parents are smokers Vaping Use Vaping Use: Never used Substance Use Topics Alcohol use: No Drug use: No Objective BP 108/72 Pulse 76 Temp 36.3 C (97.4 F) (Tympanic) Resp 16 Wt 81.4 kg (179 lb 6.4 oz) SpO2 98% BMI 32.81 kg/m Physical Exam Vitals reviewed. Constitutional: Appearance: Normal appearance. HENT: Head: Normocephalic and atraumatic. Right Ear: Tympanic membrane, ear canal and external ear normal. Left Ear: Tympanic membrane, ear canal and external ear normal. Nose: Congestion present. Mouth/Throat: Mouth: Mucous membranes are moist. Pharynx: Oropharynx is clear. Cardiovascular: Rate and Rhythm: Normal rate and regular rhythm. Heart sounds: Normal heart sounds. Pulmonary: Effort: Pulmonary effort is normal. Breath sounds: Normal breath sounds. Musculoskeletal: Cervical back: Neck supple. Lymphadenopathy: Cervical: No cervical adenopathy. Skin: General: Skin is warm and dry. Findings: No rash. Neurological: Mental Status: He is alert. Assessment and Plan ASSESSMENT/PLAN: 1. Viral URI - ICD9: 465.9, ICD10: J06.9 - Discussed viral etiology and rationale for treatment. - Symptomatic treatment with prn analgesia - Supportive care with fluids and rest - COVID WITH FLUA+B, ROUTINE Precious Benjamin PA-C documented in this encounterKing'S [facility] [place]08-19-2022 History of Present illness Narrative* Markos June MD - 03/13/2022 9:20 AM EDT Chief Complaint Patient presents with: F/U 3 Month HPI Branden Looney is a 46 year old male who presents here today for 3 month follow up. Here with his mother. Pt has Down's Syndrome. Working at [employer]. Gout: wrist; stable on Allopurinol 300 mg daily. Doing well at this time. GI - Mother asking if it's normal to have BM after every time pt eats. Reports bowels being soft/liquid at times. This started a few weeks ago. Yesterday he had incontinence at work, seems OK today. Knee - Chronic; uses liquid Tylenol. States that when it rains it hurts more. Past medical history, appointments, medications, allergies reviewed. Previous Medical History PAST MEDICAL HISTORY Diagnosis Date Down's syndrome Down's syndrome Knee pain right Renal cyst 10/05/2014 Renal insufficiency 2015 Previous Surgical History PAST SURGICAL HISTORY Procedure Laterality Date APPENDECTOMY TONSILLECTOMY PRIMARY/SECONDARY <AGE 12 Tonsillectomy Family History FAMILY HISTORY Problem Relation Age of Onset Diabetes Father Hypertension Father Lipids Mother Hypertension Mother Thyroid Mother Heart disease Mother CABG Diabetes Maternal Grandmother Diabetes Maternal Grandfather Hypertension Paternal Grandfather Diabetes Sister Patient Allergies ALLERGIES Allergen Reactions Amoxicillin Rash Drug rash when taking amoxicillin and tylenol with codeine Tylenol-Codeine #3 * Rash Drug rash when taking amoxicillin and tylenol with codeine Current Medications Current Outpatient Medications on File Prior to Visit Medication Sig allopurinol (ZYLOPRIM) 300 mg tablet Take 1 tablet by mouth once daily. cyclobenzaprine (FLEXERIL) 10 mg tablet Take 1 tablet by mouth three times daily as needed for Pain. ketoconazole (NIZORAL) 2 % shampoo Use as shampoo 3-4 days/week; leave lather on scalp for 5 minutes prior to rinsing Cholecalciferol, Vitamin D3, 125 mcg (5,000 unit) cap Take 1 capsule by mouth once daily. diclofenac sodium (VOLTAREN) 1 % topical gel Apply 4 g to affected area four times daily. CYANOCOBALAMIN, VITAMIN B-12, (LIQUID B 12 ORAL) Take 1 Dose by mouth once daily. No current facility-administered medications on file prior to visit. Social History Social History Tobacco Use Smoking status: Never Smokeless tobacco: Never Tobacco comments: both parents are smokers Vaping Use Vaping Use: Never used Substance Use Topics Alcohol use: No Drug use: No EXAM: BP 120/76 (BP Site: Right Arm, BP Position: Sitting, BP Cuff Size: Regular Adult) Pulse 72 Resp16 Wt 79.1 kg (174 lb 4.8 oz) BMI 31.88 kg/m General Appearance: Well appearing, alert, in no acute distress, well-hydrated, well nourished.. Lungs: Lungs clear to auscultation. No wheezing, rhonchi, rales.. Heart: RRR without murmur, gallop, or rubs. No ectopy. Left wrist: FROM, no swelling or pain. Health Maintenance List HEPATITIS B(1 of 3 - 3-dose series) Never done LIPID SCREEN due on 08/22/2019 COVID-19 VACCINE(2 - Pfizer series) due on 07/04/2021 COLORECTAL CANCER SCREENING Never done DTAP,TDAP,TD(4 - Td or Tdap) due on 01/03/2022 HEPATITIS C SCREENING due on 10/22/2022 HIV SCREENING due on 10/22/2022 INFLUENZA(1) due on 03/26/2022 HEMOGLOBIN/HEMATOCRIT due on 08/21/2022 SERUM CREATININE due on 12/08/2022 ANNUAL PCP TEAM CHRONIC DISEASE VISIT due on 01/19/2023 DIABETES SCREEN due on 12/08/2024 DEPRESSION SCREENING Discontinued Data reviewed None ASSESSMENT/PLAN: 1. Down's syndrome - ICD9: 758.0, ICD10: Q90.9 (primary diagnosis) 2. Gout of right wrist, unspecified cause, unspecified chronicity - ICD9: 274.9, ICD10: M10.9 Decrease allopurinol to 100 mg daily; in case this is causing GI issues - URIC ACID BLOOD - ALLOPURINOL 100 MG TABLET 3. Stage 3 chronic kidney disease, unspecified whether stage 3a or 3b CKD (HCC) - ICD9: 585.3, ICD10: N18.30 Monitor - CBC - COMP METABOLIC PANEL Follow up in 3 months with labs prior Medical Decision Making: Problems: Moderate: 2+ stable chronic illnesses Data: Unique test(s) ordered: 2 Risk: Moderate: Drug management Medical Decision Making Level: 4 - Moderate Markos June MD documented in this encounterKing'[facility] [place]06-27-2022 History of Present illness Narrative* Jasmin Giang APRN.INGOT CASTER - 01/19/2022 10:20 AM EDT This is a 46 year old male who presents today with: Patient presents with: Acute Visit: possible ringworm HISTORY OF PRESENT ILLNESS: Branden Looney is a 46 year old male. Patient presents with: Acute Visit: possible ringworm Here in the office for concerns for ring worm. Mother is present for this appointment. Noticed itchy lesion on chest over the weekend. Mother concerned for possible ringworm. Has been applying lotrimspray to to the rash. Patient refers that it feels better. No seeping, fever, or chills. PAST MEDICAL HISTORY: PAST MEDICAL HISTORY Diagnosis Date Down's syndrome Down's syndrome Knee pain right Renal cyst 10/05/2014 Renal insufficiency 2014 PAST SURGICAL HISTORY Procedure Laterality Date APPENDECTOMY TONSILLECTOMY PRIMARY/SECONDARY <AGE 12 Tonsillectomy ALLERGIES Amoxicillin and Tylenol-Codeine #3 [Acetaminophen-Codeine] MEDICATIONS Current Outpatient Medications Medication Sig allopurinol (ZYLOPRIM) 300 mg tablet Take 1 tablet by mouth once daily. cyclobenzaprine (FLEXERIL) 10 mg tablet Take 1 tablet by mouth three times daily as needed for Pain. ketoconazole (NIZORAL) 2 % shampoo Use as shampoo 3-4 days/week; leave lather on scalp for 5 minutes prior to rinsing Cholecalciferol, Vitamin D3, 125 mcg (5,000 unit) cap Take 1 capsule by mouth once daily. diclofenac sodium (VOLTAREN) 1 % topical gel Apply 4 g to affected area four times daily. CYANOCOBALAMIN, VITAMIN B-12, (LIQUID B 12 ORAL) Take 1 Dose by mouth once daily. No current facility-administered medications for this visit. FAMILY HISTORY Problem Relation Age of Onset Diabetes Father Hypertension Father Lipids Mother Hypertension Mother Thyroid Mother Heart disease Mother CABG Diabetes Maternal Grandmother Diabetes Maternal Grandfather Hypertension Paternal Grandfather Diabetes Sister Social History Tobacco Use Smoking status: Never Smoker Smokeless tobacco: Never Used Tobacco comment: both parents are smokers Vaping Use Vaping Use: Never used Substance Use Topics Alcohol use: No Drug use: No REVIEW OF SYSTEMS GENERAL: No weight loss, malaise or fevers/chills HEENT: Negative for frequent or significant headaches, No changes in hearing or vision. NECK: Negative for lumps, goiter, pain and significant neck swelling RESPIRATORY: Negative for cough, hemoptysis, wheezing, dyspnea or shortness of breath CARDIOVASCULAR: Negative for chest pain, leg swelling, orthopnea, or palpitations GI: No nausea, vomiting, or diarrhea/constipation. No hematochezia/melena. No heartburn or reflux symptoms. : No history of dysuria, frequency or incontinence MUSCULOSKELETAL: Negative for joint pain or swelling. SKIN: + skin lesion ENDOCRINE: Negative for cold or heat intolerance, polyuria, polydipsia and goiter NEURO: No history of headaches, syncope, paralysis, seizures or tremors MOOD: Negative for depression, anxiety, or suicidal ideation. EXAM: BP 110/70 Pulse 65 Resp 16 Wt 78.9 kg (174 lb) SpO2 95% BMI 31.83 kg/m PHYSICAL EXAM: General Appearance: Well appearing, alert, in no acute distress, well-hydrated, well nourished. Skin: Positives: 2x2 cm dry, scaly lesion noted in the center of the chest. Mild erythema noted with central clearing. No seeping. Head: Normocephalic, no masses, lesions, tenderness or abnormalities. Eyes: Anicteric sclera.Extraocular movements are intact. Lungs: Lungs clear to auscultation. No wheezing, rhonchi, rales. Heart: RRR without murmur, gallop, or rubs. No ectopy. Extremities: No deformities, edema, skin discoloration, clubbing or cyanosis. Good capillary refill. Peripheral Pulses: Normal, Capillary refill <2secs, strong peripheral pulses, Pulses palpable. ASSESSMENT/PLAN: 1. Ringworm - ICD9: 110.9, ICD10: B35.9 - Skin lesion consistent with ringworm - Apply antifungal cream to lesion twice daily for the next 14 days. - CLOTRIMAZOLE 1 % TOPICAL CREAM Follow-up as needed or sooner if symptoms get worse or do not improve. Discussed treatment plan and patient voices understanding. Patient's questions answered appropriately. Medications and potential side effects were discussed and patient voices understanding. Jasmin Giang APRN.CNP This note was partially generated using Pay-[employer] voice recognition system. Note was reviewed for accuracy. There may be minor misspellings or grammar miscues with Pay-Me voice recognition. documented in this encounterKing[facility] [place] Instructions* Patient Instructions* Jasmin Giang APRN.CNP - 01/19/2022 10:20 AM EDT 1.) Apply antifungal cream to skin lesion, twice daily for the next 14 days. 2.) Keep skin clean and dry. 3.) Follow up as needed. TINEA CORPORIS (RINGWORM): Your exam shows you have ringworm, a common fungal infection seen frequently in children. This condition causes scaly red rings to form on the skin. It is often transferred to people from puppies andkittens. While it can be transferred between children, once treatment is begun your child does not need to miss school. Use Lotrimin or Micatin lotion or cream two times daily, and continue to treat for at least two weeks after the ringworm appears to be gone. Ringworm of the scalp is the most common cause of patchy hair loss in children; it often requires treatment with an oral medicine such as griseofulvin, Nizoral, Sporonox, Lamisil, or Diflucan. See your doctor for follow-up care as recommended. documented in this encounterKing'S [facility] [place]06-23-2022 Instructions* Patient Instructions* Jasmin Giang APRN.CNP - 01/15/2022 10:27 AM EDT 1.) Due to symptoms recommend being seen at ER for possible CT of abdomen due to rebound tenderness. 2.) Follow pending ER exam. documented in this encounterKing'S [facility] [place]06-23-[facility] History of Present illness Narrative* Jasmin Giang APRN.CNP - 01/15/2022 10:20 AM EDT This is a 46 year old male who presents today with: Patient presents with: Acute Visit: diarrhiea, stomach pains, headaches HISTORY OF PRESENT ILLNESS: Branden Looney is a 46 year old male. Patient presents with: Acute Visit: diarrhiea, stomach pains, headaches Mother is present at this appointment. Here in the office for diarrhea, headache, and stomach pain that started last night. Refers he had 4 episodes of diarrhea last night and 5 this morning. Having nausea. Low grade fever at home. Partially vaccinated for Covid. Mother gave him Pepto bismol which was helpful for diarrhea. PAST MEDICAL HISTORY: PAST MEDICAL HISTORY Diagnosis Date Down's syndrome Down's syndrome Knee pain right Renal cyst 10/05/2014 Renal insufficiency 2014 PAST SURGICAL HISTORY Procedure Laterality Date APPENDECTOMY TONSILLECTOMY PRIMARY/SECONDARY <AGE 13 Tonsillectomy ALLERGIES Amoxicillin and Tylenol-Codeine #3 [Acetaminophen-Codeine] MEDICATIONS Current Outpatient Medications Medication Sig allopurinol (ZYLOPRIM) 300 mg tablet Take 1 tablet by mouth once daily. cyclobenzaprine (FLEXERIL) 10 mg tablet Take 1 tablet by mouth three times daily as needed for Pain. ketoconazole (NIZORAL) 2 % shampoo Use as shampoo 3-4 days/week; leave lather on scalp for 5 minutes prior to rinsing Cholecalciferol, Vitamin D3, 125 mcg (5,000 unit) cap Take 1 capsule by mouth once daily. diclofenac sodium (VOLTAREN) 1 % topical gel Apply 4 g to affected area four times daily. CYANOCOBALAMIN, VITAMIN B-12, (LIQUID B 12 ORAL) Take 1 Dose by mouth once daily. No current facility-administered medications for this visit. FAMILY HISTORY Problem Relation Age of Onset Diabetes Father Hypertension Father Lipids Mother Hypertension Mother Thyroid Mother Heart disease Mother CABG Diabetes Maternal Grandmother Diabetes Maternal Grandfather Hypertension Paternal Grandfather Diabetes Sister Social History Tobacco Use Smoking status: Never Smoker Smokeless tobacco: Never Used Tobacco comment: both parents are smokers Vaping Use Vaping Use: Never used Substance Use Topics Alcohol use: No Drug use: No REVIEW OF SYSTEMS GENERAL: No weight loss, malaise or fevers/chills HEENT: Negative for frequent or significant headaches, No changes in hearing or vision. NECK: Negative for lumps, goiter, pain and significant neck swelling RESPIRATORY: Negative for cough, hemoptysis, wheezing, dyspnea or shortness of breath CARDIOVASCULAR: Negative for chest pain, leg swelling, orthopnea, or palpitations GI: + Abdominal pain, nausea, and diarrhea : No history of dysuria, frequency or incontinence MUSCULOSKELETAL: Negative for joint pain or swelling. SKIN: Negative for lesions, rash, and itching ENDOCRINE: Negative for cold or heat intolerance, polyuria, polydipsia and goiter NEURO: + Headache MOOD: Negative for depression, anxiety, or suicidal ideation. EXAM: BP 100/70 Pulse 94 Temp 37.4 C (99.3 F) Resp 16 Wt 78 kg (172 lb) SpO2 99% BMI 31.46 kg/m PHYSICAL EXAM: General Appearance: Well appearing, alert, in no acute distress, well-hydrated, well nourished.. Skin: Skin color, texture, turgor normal, no suspicious rashes or lesions. Head: Normocephalic, no masses, lesions, tenderness or abnormalities. Eyes: Anicteric sclera. . Extraocular movements are intact. . Lungs: Lungs clear to auscultation. No wheezing, rhonchi, rales. Heart: RRR without murmur, gallop, or rubs. No ectopy. Abdomen: Bowel sounds normal. No masses, organomegaly. + Abdomen distended, rebound tenderness withgrimacing throughout. Extremities: No deformities, edema, skin discoloration, clubbing or cyanosis. Good capillary refill. . Peripheral Pulses: Normal, Capillary refill <2secs, strong peripheral pulses, Pulses palpable. Neurologic: Gait normal. Sensation grossly intact. ASSESSMENT/PLAN: 1. Abdominal pain, unspecified abdominal location - ICD9: 789.00, ICD10: R10.9 (primary diagnosis) - Due to severe abdominal pain and rebound tenderness I recommend this patient be evaluated at the ER. - Will need more advanced imaging and stat labs. - Mother is agreeable to take him. 2. Diarrhea, unspecified type - ICD9: 787.91, ICD10: R19.7 - Same plan as#1. Follow-up as needed. Discussed treatment plan and patient voices understanding. Patient's questions answered appropriately. Medications and potential side effects were discussed and patient voices understanding. Jasmin Giang APRN.ESTELLE This note was partially generated using Pay-Me voice recognition system. Note was reviewed for accuracy. There may be minor misspellings or grammar miscues with Pay-Me voice recognition. documented in this encounterKing'[facility] [place]05-18-[facility] History of Present illness Narrative* Markos June MD - 12/10/2021 12:20 PM EDT Chief Complaint Patient presents with: F/U 3 Month HPI Branden Looney is a 46 year old male who presents here today for a 3 month follow up. Pt here today for a 3 month follow up. Gout: Pt has had 3-4 OV due to right wrist pain, dx with gout. Pt currently being treated with Allopurinol 300 mg once daily. This was increased from 100 mg at his most recent OV. The Allopurinol seems to be helping, he has not complained of wrist or hand pain. He states it is doing good. Cyst: on the buttocks that he has complained about for the past few weeks. He will not allow his mother to look at it, she gave him a salve to apply to it. Pt states it does hurt. Seizures: Hx of seizures, most recent consistent with pseudoseizures. Pt was seen at [facility] ER with work up done on 02/06/21. He continues to take Vitamin B12 1,000 mg daily. Derm: Uses Ketoconazole shampoo for seborrheic dermatitis. Overall seems to help symptoms. D Deficiency: On current regimen of Vitamin D 5,000 international unit(s) daily. Knee: Chronic R knee pain that pt has used Tylenol, heat, ice and Voltaren gel to help alleviate pain. No improvement has been made. Previous imaging has completed and f/u with Ortho. Has been offered to have knee injections, but this was declined. Dx with Down syndrome and currently lives with his mother, who's his caregiver. Pt works at [employer]. Past medical history, appointments, medications, allergies reviewed. Previous Medical History PAST MEDICAL HISTORY Diagnosis Date Down's syndrome Down's syndrome Knee pain right Renal cyst 10/05/2014 Renal insufficiency 2014 Previous Surgical History PAST SURGICAL HISTORY Procedure Laterality Date APPENDECTOMY TONSILLECTOMY PRIMARY/SECONDARY <AGE 13 Tonsillectomy Family History FAMILY HISTORY Problem Relation Age of Onset Diabetes Father Hypertension Father Lipids Mother Hypertension Mother Thyroid Mother Heart disease Mother CABG Diabetes Maternal Grandmother Diabetes Maternal Grandfather Hypertension Paternal Grandfather Diabetes Sister Patient Allergies ALLERGIES Allergen Reactions Amoxicillin Rash Drug rash when taking amoxicillin and tylenol with codeine Tylenol-Codeine #3 * Rash Drug rash when taking amoxicillin and tylenol with codeine Current Medications Current Outpatient Medications on File Prior to Visit Medication Sig allopurinol (ZYLOPRIM) 300 mg tablet Take 1 tablet by mouth once daily. chlorpheniramine-acetaminophen (CORICIDIN HBP COLD AND FLU) 2-325 mg tab Take 2 tablets by mouth every 6 hours as needed. predniSONE (DELTASONE) 10 mg tablet Take 4 tabs daily for 3 days, then 2 tabs daily for 3 days, then 1 tab daily for 3 days with food. cyclobenzaprine (FLEXERIL) 10 mg tablet Take 1 tablet by mouth three times daily as needed for Pain. ketoconazole (NIZORAL) 2 % shampoo Use as shampoo 3-4 days/week; leave lather on scalp for 5 minutes prior to rinsing Cholecalciferol, Vitamin D3, 125 mcg (5,000 unit) cap Take 1 capsule by mouth once daily. diclofenac sodium (VOLTAREN) 1 % topical gel Apply 4 g to affected area four times daily. CYANOCOBALAMIN, VITAMIN B-12, (LIQUID B 12 ORAL) Take 1 Dose by mouth once daily. No current facility-administered medications on file prior to visit. Social History Social History Tobacco Use Smoking status: Never Smoker Smokeless tobacco: Never Used Tobacco comment: both parents are smokers Vaping Use Vaping Use: Never used Substance Use Topics Alcohol use: No Drug use: No EXAM: BP 120/80 Pulse 74 Resp 18 Wt 79.2 kg (174 lb 11.2 oz) BMI 31.95 kg/m General Appearance: Well appearing, alert, in no acute distress, well-hydrated, well nourished.. Lungs: Lungs clear to auscultation. No wheezing, rhonchi, rales.. Heart: RRR without murmur, gallop, or rubs. No ectopy. Extremities: right wrist; no swelling, good ROM, no pain with palpation. Knee: good ROM, no pain onpalpation, no swelling. Rectal: small cyst to the left medial buttocks, small opening that is draining Health Maintenance List LIPID SCREEN due on 08/22/2019 SERUM CREATININE due on 09/28/2020 COVID-19 VACCINE(2 - Pfizer series) due on 07/04/2021 COLORECTAL CANCER SCREENING Never done HEPATITIS C SCREENING due on 10/22/2022 HIV SCREENING due on 10/22/2022 DTAP,TDAP,TD(4 - Td or Tdap) due on 01/03/2022 INFLUENZA(Season Ended) due on 03/26/2022 HEMOGLOBIN/HEMATOCRIT due on 08/21/2022 DIABETES SCREEN due on 09/28/2022 ANNUAL PCP TEAM CHRONIC DISEASE VISIT due on 10/22/2022 MENINGOCOCCAL CONJUGATE Aged Out DEPRESSION SCREENING Discontinued Data reviewed Appointment on 12/08/2021 Component Date Value Uric Acid 12/08/2021 5.6 Protein, Total 12/08/2021 7.9 Albumin 12/08/2021 4.1 Calcium, Total 12/08/2021 9.7 Bilirubin, Total 12/08/2021 0.4 Alkaline Phosphatase 12/08/2021 88 AST 12/08/2021 35 ALT 12/08/2021 29 Glucose 12/08/2021 89 BUN 12/08/2021 13 Creatinine 12/08/2021 1.67 (A) Sodium 12/08/2021 140 Potassium 12/08/2021 4.1 Chloride 12/08/2021 103 CO2 12/08/2021 27 Anion Gap 12/08/2021 10 Estimated Glomerular Mitchell* 12/08/2021 51 (A) ASSESSMENT/PLAN: 1. Acute gout of right wrist, unspecified cause - ICD9: 274.01, ICD10: M10.9 (primary diagnosis) Continue current medications. 2. Sebaceous cyst - ICD9: 706.2, ICD10: L72.3 Buttocks Start Doxycycline 100 mg BID x 10 ays 3. Down's syndrome - ICD9: 758.0, ICD10: Q90.9 4. Vitamin D deficiency - ICD9: 268.9, ICD10: E55.9 Continue current medications. 5. Chronic pain of both knees - ICD9: 719.46, 338.29, ICD10: M25.561, M25.562, G89.29 Continue current medications. Follow up in 3 months. No blood work needed. I agree with the Chief Complaint, ROS, and Past Histories independently gathered by the clinical office support and the remaining scribed note accurately describes my personal service to the patient. Medical Decision Making: Problems: Low: Acute, uncomplicated illness or injury and Stable chronic illness Data: Unique test result(s) reviewed: 2 Risk: Moderate: Drug management Medical Decision Making Level: 3 - Low Markos June MD The documentation for this note was completed by Suri Altamirano Ma acting as scribe for Markos June MD. December 10, 2021 12:16 PM. Suri Altamirano Ma documented in this encounterKing[facility] [place]03-30-[facility]22 Instructions* Patient Instructions* Edna Perez Ma - 10/22/2021 1:53 PM EDT Increase Allopurinol 300 mg once daily. Uses Tylenol as needed for breakthrough pain. Keep appt scheduled on 12/10/21, check labs 1 week prior to appt. Okay to get Covid shot in the next 1-2 weeks or when completely over. documented in this encounterKing'[facility] [place]03-30-2022 History of Present illness Narrative* Markos June MD - 10/22/2021 1:40 PM EDT Chief Complaint Patient presents with: Medication Follow-up HPI Branden Looney is a 46 year old male who presents here today to discuss medications. Here today with his Caregiver, Mother. Pt had COVID-19 two weeks ago. Seen in UC on 10/02/21 with symptoms starting 2 days prior. Mother and him were both sick at that same time. Unsure where they got it from, possibly work. Pt was given Prednisone and Coricidin HBP Cold and Flu. Pt doing well, no issues at present time. Gout: Left wrist. Started taking Allopurinol 100 mg daily. He has been treated with taper dose Prednisone, Flexeril, and Voltaren gel. Mother states that this has not completely resolved and wonders if medication needs changed. Pt reports pain and movement is better but does continue to have some slight discomfort and mother giving him Tylenol. Denies this affecting him at work. Asks when he can received 2nd Covid shot due to being positive on 10/02/21. HM Declines Hep C/HIV screening. Past medical history, appointments, medications, allergies reviewed. Previous Medical History PAST MEDICAL HISTORY Diagnosis Date Down's syndrome Down's syndrome Knee pain right Renal cyst 10/05/2014 Renal insufficiency 2014 Previous Surgical History PAST SURGICAL HISTORY Procedure Laterality Date APPENDECTOMY TONSILLECTOMY PRIMARY/SECONDARY <AGE 13 Tonsillectomy Family History FAMILY HISTORY Problem Relation Age of Onset Diabetes Father Hypertension Father Lipids Mother Hypertension Mother Thyroid Mother Heart disease Mother CABG Diabetes Maternal Grandmother Diabetes Maternal Grandfather Hypertension Paternal Grandfather Diabetes Sister Patient Allergies ALLERGIES Allergen Reactions Amoxicillin Rash Drug rash when taking amoxicillin and tylenol with codeine Tylenol-Codeine #3 * Rash Drug rash when taking amoxicillin and tylenol with codeine Current Medications Current Outpatient Medications on File Prior to Visit Medication Sig chlorpheniramine-acetaminophen (CORICIDIN HBP COLD AND FLU) 2-325 mg tab Take 2 tablets by mouth every 6 hours as needed. predniSONE (DELTASONE) 10 mg tablet Take 4 tabs daily for 3 days, then 2 tabs daily for 3 days, then 1 tab daily for 3 days with food. allopurinol (ZYLOPRIM) 100 mg tablet Take 1 tablet by mouth once daily. For gout. cyclobenzaprine (FLEXERIL) 10 mg tablet Take 1 tablet by mouth three times daily as needed for Pain. ketoconazole (NIZORAL) 2 % shampoo Use as shampoo 3-4 days/week; leave lather on scalp for 5 minutes prior to rinsing Cholecalciferol, Vitamin D3, 125 mcg (5,000 unit) cap Take 1 capsule by mouth once daily. diclofenac sodium (VOLTAREN) 1 % topical gel Apply 4 g to affected area four times daily. CYANOCOBALAMIN, VITAMIN B-12, (LIQUID B 12 ORAL) Take 1 Dose by mouth once daily. No current facility-administered medications on file prior to visit. Social History Social History Tobacco Use Smoking status: Never Smoker Smokeless tobacco: Never Used Tobacco comment: both parents are smokers Vaping Use Vaping Use: Never used Substance Use Topics Alcohol use: No Drug use: No EXAM: BP 112/80 (BP Site: Left Arm, BP Position: Sitting, BP Cuff Size: Regular Adult) Pulse 80 Temp 37.1 C (98.7 F) (Tympanic) Resp 16 Wt 76.8 kg (169 lb 6.4 oz) BMI 30.98 kg/m General Appearance: Well appearing, alert, in no acute distress, well-hydrated, well nourished.. Lungs: Lungs clear to auscultation. No wheezing, rhonchi, rales.. Heart: RRR without murmur, gallop, or rubs. No ectopy. Extremities: right wrist examined. Sore to palpitate. Good ROM and doesn't feel swollen. Health Maintenance List HEPATITIS C SCREENING Never done declined HIV SCREENING Never done Declined LIPID SCREEN due on 08/22/2019 SERUM CREATININE due on 09/28/2020 INFLUENZA(1) due on 03/26/2021 COVID-19 VACCINE(2 - Pfizer 3-dose series) due on 07/04/2021 COLORECTAL CANCER SCREENING Never done DTAP,TDAP,TD(4 - Td or Tdap) due on 01/03/2022 HEMOGLOBIN/HEMATOCRIT due on 08/21/2022 ANNUAL PCP TEAM CHRONIC DISEASE VISIT due on 09/10/2022 DIABETES SCREEN due on 09/28/2022 MENINGOCOCCAL CONJUGATE Aged Out DEPRESSION SCREENING Discontinued Data reviewed None ASSESSMENT/PLAN: 1. Gout of right wrist, unspecified cause, unspecified chronicity - ICD9: 274.9, ICD10: M10.9 - Increase Allopurinol 300 mg once daily - check Uric/CMP 1 week prior to visit OK to get Covid vaccine when he is feeling better Keep appt as scheduled in November, with labs prior. I agree with the Chief Complaint, ROS, and Past Histories independently gathered by the clinical office support and the remaining scribed note accurately describes my personal service to the patient. Medical Decision Making: Problems: Low: Stable chronic illness Risk: Moderate: Drug management Medical Decision Making Level: 3 - Low Markos June MD The documentation for this note was completed by Edna Perez Ma acting as scribe for Markos June MD. October 22, 2021 1:54 PM. Edna Perez Ma documented in this encounterKing'[facility] [place]01-14-2022 History of Present illness Narrative* Nathalia Melendrez, RT(R) - 08/08/2021 4:40 PM EST Radiology Service Progress Note PATIENT NAME: Branden Looney DATE OF SERVICE: August 08, 2021 TIME: 4:43 PM PATIENT IDENTITY VERIFICATION COMPLETED USING TWO (2) IDENTIFIERS: Name and Date of obtained from a relative, guardian or prior caregiver.. FALL SCREENING: Has the patient had 2 falls in the last year or 1 fall with injury or currently using an Ambulatory Assistive Device (Walker, Cane, Wheelchair, Crutches, etc.)? Yes, Patient High Riskfor Falls What interventions were put in place to prevent falls during this visit? Instructed Patient to Callfor Help if Needed, Offered Assistance with Transfers/Clothing, Instructed Patient to Remain Seated(Not on Exam Table) Until Exam, Increased Observations by Caregivers and Patient Refused Interventio ns/Assistance PATIENT GENDER DATA: Male PATIENT RELEVANT IMPLANT DATA REVIEWED: Not Applicable RADIOLOGY DEPARTMENT: General X-ray: Exam(s) Completed: Upper Extremity X- Ray(s): Wrist, right PERIPHERAL IV DATA: Not applicable SIGNED BY: RT Jen(R) August 08, 2021 4:43 PM documented in this encounterKing'[facility] [place]-23-2014 History of Past illness Narrative* Problem Noted Date Resolved Date Right knee pain 08/17/2013 07/31/2014 documented as of this encounter (statuses as of 10/23/2021) [address]23-2014 History of Past illness Narrative* Problem Noted Date Resolved Date Right knee pain 08/17/2013 07/31/2014 documented as of this encounter (statuses as of 12/10/2021) [address]23-2014 History of Past illness Narrative* Problem Noted Date Resolved Date Right knee pain 08/17/2013 07/31/2014 documented as of this encounter (statuses as of 01/15/2022) [address]23-2014 History of Past illness Narrative* Problem Noted Date Resolved Date Right knee pain 08/17/2013 07/31/2014 documented as of this encounter (statuses as of 01/19/2022) [address]23-2014 History of Past illness Narrative* Problem Noted Date Resolved Date Right knee pain 08/17/2013 07/31/2014 documented as of this encounter (statuses as of 03/13/2022) [address]23-2014 History of Past illness Narrative* Problem Noted Date Resolved Date Right knee pain 08/17/2013 07/31/2014 documented as of this encounter (statuses as of 05/23/2022) [address]23-2014 History of Past illness Narrative* Problem Noted Date Resolved Date Right knee pain 08/17/2013 07/31/2014 documented as of this encounter (statuses as of 05/24/2022) [address] History of Past illness Narrative* Problem Noted Date Resolved Date Right knee pain 08/17/2013 07/31/2014 documented as of this encounter (statuses as of 06/22/2022) [address] History of Past illness Narrative* Problem Noted Date Resolved Date Right knee pain 08/17/2013 07/31/2014 documented as of this encounter (statuses as of 08/01/2022) [address]2014 History of Past illness Narrative* Problem Noted Date Resolved Date Right knee pain 08/17/2013 07/31/2014 documented as of this encounter (statuses as of 10/03/2022) [address]-2014 History of Past illness Narrative* Problem Noted Date Resolved Date Right knee pain 08/17/2013 07/31/2014 documented as of this encounter (statuses as of 10/15/2022) [address]-2014 History of Past illness Narrative* Problem Noted Date Resolved Date Right knee pain 08/17/2013 07/31/2014 documented as of this encounter (statuses as of 10/18/2022) [address]-2014 History of Past illness Narrative* Problem Noted Date Resolved Date Right knee pain 08/17/2013 07/31/2014 documented as of this encounter (statuses as of 12/03/2022) [address]-2014 History of Past illness Narrative* Problem Noted Date Resolved Date Right knee pain 08/17/2013 07/31/2014 documented as of this encounter (statuses as of 12/08/2022) [address]-2014 History of Past illness Narrative* Problem Noted Date Resolved Date Right knee pain 08/17/2013 07/31/2014 documented as of this encounter (statuses as of 01/22/2023) [address]-2014 History of Past illness Narrative* Problem Noted Date Diagnosed Date Resolved Date Right knee pain 08/17/2013 07/31/2014 documented as of this encounter (statuses as of 03/16/2023) [address] History of Past illness Narrative* Problem Noted Date Diagnosed Date Resolved Date Right knee pain 08/17/2013 07/31/2014 documented as of this encounter (statuses as of 03/17/2023) [address] History of Past illness Narrative* Problem Noted Date Diagnosed Date Resolved Date Right knee pain 08/17/2013 07/31/2014 documented as of this encounter (statuses as of 05/13/2023) [address]-2014 History of Past illness Narrative* Problem Noted Date Diagnosed Date Resolved Date Right knee pain 08/17/2013 07/31/2014 documented as of this encounter (statuses as of 06/08/2023) [address] History of Past illness Narrative* Problem Noted Date Diagnosed Date Resolved Date Right knee pain 08/17/2013 07/31/2014 documented as of this encounter (statuses as of 09/13/2023) [address] History of Past illness Narrative* Problem Noted Date Diagnosed Date Resolved Date Right knee pain 08/17/2013 07/31/2014 documented as of this encounter (statuses as of 10/19/2023) [address] History of Past illness Narrative* Problem Noted Date Diagnosed Date Resolved Date Right knee pain 08/17/2013 07/31/2014 documented as of this encounter (statuses as of 11/03/2023) [address] History of Past illness Narrative* Problem Noted Date Diagnosed Date Resolved Date Right knee pain 08/17/2013 07/31/2014 documented as of this encounter (statuses as of 11/04/2023) [facility] note* Diagnosis Gout of right wrist, unspecified cause, unspecified chronicity- Primary [facility] Diagnosis Acute gout of right wrist, unspecified cause- Primary Sebaceous cyst Down's syndrome Vitamin D deficiency Unspecified vitamin D deficiency Chronic pain of both knees [facility] noteNo assessment information availableWAvita [facility] Work Phone: Evaluation note* Diagnosis Abdominal pain, unspecified abdominal location- Primary Diarrhea, unspecified type documented [facility] this [facility]* Diagnosis Ringworm- Primary Dermatophytosis of unspecified site [facility] this [facility]* Diagnosis Down's syndrome- Primary Gout of right wrist, unspecified cause, unspecified chronicity Stage 3 chronic kidney disease, unspecified whether stage 3a or 3b CKD (HCC) [facility] Viral URI- Primary Acute upper respiratory infections of unspecified site [facility] Diagnosis Need for influenza vaccination- Primary Need for prophylactic vaccination and inoculation against influenza Stage 3 chronic kidney disease, unspecified whether stage 3a or 3b CKD (HCC) Down's syndrome Seborrheic dermatitis Seborrheic dermatitis, unspecified Right wrist pain Pain in joint, forearm [facility] Diagnosis Rash- Primary Rash and other nonspecific skin eruption [facility] Diagnosis Chronic pain of both knees- Primary Seborrheic dermatitis of scalp Other seborrheic dermatitis Down's syndrome Renal insufficiency Unspecified disorder of kidney and ureter [facility] Diagnosis Right elbow pain- Primary Pain in joint, upper arm [facility] Diagnosis Chronic pain of both knees- Primary Screening for colon cancer Special screening for malignant neoplasms, colon Stage 3 chronic kidney disease, unspecified whether stage 3a or 3b CKD (HCC) Down's syndrome Acute pain of left shoulder Medication monitoring encounter Encounter for therapeutic drug monitoring [facility] Diagnosis Exposure to COVID-19 virus- Primary [facility]* Diagnosis Chronic pain of both knees- Primary Gout of right wrist, unspecified cause, unspecified chronicity Stage 3 chronic kidney disease, unspecified whether stage 3a or 3b CKD (HCC) Down's syndrome Pain in Achilles tendon Other disorders of synovium, tendon, and bursa Tendonitis, Achilles, right Achilles bursitis or tendinitis [facility] Diagnosis Elevated BP without diagnosis of hypertension- Primary Chest pain, unspecified type Right arm pain Pain in limb Stage 3 chronic kidney disease, unspecified whether stage 3a or 3b CKD (HCC) [facility]* Diagnosis Down's syndrome- Primary Vitamin D deficiency Unspecified vitamin D deficiency Chronic pain of both knees Acute gout of right wrist, unspecified cause Nail fungus Dermatophytosis of nail Stage 3 chronic kidney disease, unspecified whether stage 3a or 3b CKD (HCC) [facility] Diagnosis Cold virus- Primary Acute nasopharyngitis (common cold) [facility]* Diagnosis Left sided abdominal pain- Primary Abdominal pain, unspecified site Acute left-sided back pain, unspecified back location documented in this [facility]* Diagnosis Chronic pain of both knees- Primary Gout of right wrist, unspecified cause, unspecified chronicity Stage 3 chronic kidney disease, unspecified whether stage 3a or 3b CKD (HCC) Down's syndrome Elevated glucose Other abnormal glucose Toenail fungus Dermatophytosis of nail Hyperlipidemia, unspecified hyperlipidemia type documented in this [facility]* Diagnosis Acute gout involving toe, unspecified cause, unspecified laterality- Primary [facility] this [facility]* Diagnosis Foot pain, left- Primary Pain in limb Gout of right wrist, unspecified cause, unspecified chronicity [facility] Diagnosis Chronic pain of both knees- Primary Screening for colon cancer Special screening for malignant neoplasms, colon Stage 3 chronic kidney disease, unspecified whether stage 3a or 3b CKD (HCC) Down's syndrome Acute pain of left shoulder Medication monitoring encounter Encounter for therapeutic drug monitoring Down's syndrome- Primary Gout of right wrist, unspecified cause, unspecified chronicity Stage 3 chronic kidney disease, unspecified whether stage 3a or 3b CKD (HCC) Elevated glucose Other abnormal glucose Toenail fungus Dermatophytosis of nail Hyperlipidemia, unspecified hyperlipidemia type Vitamin D deficiency Unspecified vitamin D deficiency [facility]* Diagnosis Chronic pain of both knees- Primary Screening for colon cancer Special screening for malignant neoplasms, colon Stage 3 chronic kidney disease, unspecified whether stage 3a or 3b CKD (HCC) Down's syndrome Acute pain of left shoulder Medication monitoring encounter Encounter for therapeutic drug monitoring Acute frontal sinusitis, recurrence not specified- Primary documented in this [facility]* Diagnosis Right wrist pain Pain in joint, forearm Chronic pain of both knees- Primary Screening for colon cancer Special screening for malignant neoplasms, colon Stage 3 chronic kidney disease, unspecified whether stage 3a or 3b CKD (HCC) Down's syndrome Acute pain of left shoulder Medication monitoring encounter Encounter for therapeutic drug monitoring documented [facility] this [facility]* Diagnosis Right wrist pain Pain in joint, forearm Right forearm pain Pain in limb Chronic pain of both knees- Primary Screening for colon cancer Special screening for malignant neoplasms, colon Stage 3 chronic kidney disease, unspecified whether stage 3a or 3b CKD (HCC) Down's syndrome Acute pain of left shoulder Medication monitoring encounter Encounter for therapeutic drug monitoring [facility]* Diagnosis Chronic pain of both knees- Primary Screening for colon cancer Special screening for malignant neoplasms, colon Stage 3 chronic kidney disease, unspecified whether stage 3a or 3b CKD (HCC) Down's syndrome Acute pain of left shoulder Medication monitoring encounter Encounter for therapeutic drug monitoring Down's syndrome- Primary Stage 3 chronic kidney disease, unspecified whether stage 3a or 3b CKD (HCC) Elevated glucose Other abnormal glucose Vitamin D deficiency Unspecified vitamin D deficiency Hyperlipidemia, unspecified hyperlipidemia type Gout of right wrist, unspecified cause, unspecified chronicity documented in this encounter [facility]* Diagnosis Chronic pain of both knees- Primary Screening for colon cancer Special screening for malignant neoplasms, colon Stage 3 chronic kidney disease, unspecified whether stage 3a or 3b CKD (HCC) Down's syndrome Acute pain of left shoulder Medication monitoring encounter Encounter for therapeutic drug monitoring Pain and swelling of knee, right- Primary Swelling of right foot Foot pain, right Pain in limb Gout, unspecified cause, unspecified chronicity, unspecified site Viral URI Acute upper respiratory infections of unspecified site documented [facility] this [facility]* Diagnosis Chronic pain of both knees- Primary Screening for colon cancer Special screening for malignant neoplasms, colon Stage 3 chronic kidney disease, unspecified whether stage 3a or 3b CKD (HCC) Down's syndrome Acute pain of left shoulder Medication monitoring encounter Encounter for therapeutic drug monitoring Gout, unspecified cause, unspecified chronicity, unspecified site- Primary [facility] Diagnosis Chronic pain of both knees- Primary Screening for colon cancer Special screening for malignant neoplasms, colon Stage 3 chronic kidney disease, unspecified whether stage 3a or 3b CKD (HCC) Down's syndrome Acute pain of left shoulder Medication monitoring encounter Encounter for therapeutic drug monitoring Down's syndrome- Primary Headache, unspecified headache type Stage 3 chronic kidney disease, unspecified whether stage 3a or 3b CKD (HCC) Gout, unspecified cause, unspecified chronicity, unspecified site Elevated glucose Other abnormal glucose Hyperlipidemia, unspecified hyperlipidemia type Vitamin D deficiency Unspecified vitamin D deficiency Vitamin B12 deficiency Other B-complex deficiencies [facility]* Diagnosis Chronic pain of both knees- Primary Screening for colon cancer Special screening for malignant neoplasms, colon Stage 3 chronic kidney disease, unspecified whether stage 3a or 3b CKD (HCC) Down's syndrome Acute pain of left shoulder Medication monitoring encounter Encounter for therapeutic drug monitoring Cellulitis of skin- Primary Cellulitis and abscess of unspecified site [facility]* Diagnosis Chronic pain of both knees- Primary Screening for colon cancer Special screening for malignant neoplasms, colon Stage 3 chronic kidney disease, unspecified whether stage 3a or 3b CKD (HCC) Down's syndrome (HCC) Down's syndrome Acute pain of left shoulder Medication monitoring encounter Encounter for therapeutic drug monitoring Cellulitis of skin- Primary Cellulitis and abscess of unspecified site Flank pain Abdominal pain, unspecified site documented in this encounter [facility] Discharge instructions Additional Instructions Take Imodium with each loose stool. No more than 6 in 24 hours.[facility] Work Phone: [facility] (narrative)* Diagnostic Procedure Only (Urgent) - Closed Specialty Diagnoses / Procedures Referred By Contac t Referred To Contact XR IMAGING Diagnoses Right wrist pain Procedures XR WRIST INJURY 4V PA/LAT/OBL/SCAPH RIGHT X-RAY WRIST COMPLET MIN 3 VIEWS Fern Navarro APRN.CNP [address] [place] [address] [place] [address] Referral ID Status Reason Start Date Expiration Date V isits Requested Visits Authorized [id number] Closed Auto-Generate d Referral 08/08/2021 09/07/2022 1 1 [facility] for referral (narrative)* Diagnostic Procedure Only (Routine) - Closed Specialty Diagnoses / Procedures Referred By Contac t Referred To Contact XR IMAGING Diagnoses Right wrist pain Right forearm pain Procedures XR FOREARM GENERAL 2V AP/LAT RIGHT RADEX FOREARM 2 VIEWS Danica Francois PA-C [address] [place] [address] [place] [address] Referral ID Status Reason Start Date Expiration Date V isits Requested Visits Authorized [id number] Closed Auto-Generate d Referral 08/21/2021 09/20/2022 1 1 * Diagnostic Procedure Only (Routine) - Closed Specialty Diagnoses / Procedures Referred By Contac t Referred To Contact XR IMAGING Diagnoses Right wrist pain Right forearm pain Procedures XR HAND GENERAL 3V PA/LAT/OBL RIGHT RADEX HAND MINIMUM 3 VIEWS Danica Francois PA-C [address] [place] [address] [place] [address] Referral ID Status Reason Start Date Expiration Date V isits Requested Visits Authorized [id number] Closed Auto-Generate d Referral 08/21/2021 09/20/2022 1 1 [facility] for referral (narrative)No reason for referral information availableWAvita Health [facility] Work Phone: Reason for visit Narrative* Diagnostic Procedure Only (Urgent) - Closed Specialty Diagnoses / Procedures Referred By Contac t Referred To Contact XR IMAGING Diagnoses Right wrist pain Procedures XR WRIST INJURY 4V PA/LAT/OBL/SCAPH RIGHT X-RAY WRIST COMPLET MIN 3 VIEWS Fern Navarro APRN.CNP [address] [place] [address] [place] [address] Referral ID Status Reason Start Date Expiration Date V isits Requested Visits Authorized [id number] Closed Auto-Generate d Referral 08/08/2021 09/07/2022 1 1 [facility] for visit Narrative* Diagnostic Procedure Only (Routine) - Closed Specialty Diagnoses / Procedures Referred By Contac t Referred To Contact XR IMAGING Diagnoses Right wrist pain Right forearm pain Procedures XR HAND GENERAL 3V PA/LAT/OBL RIGHT RADEX HAND MINIMUM 3 VIEWS Danica Francois PA-C [address] [place] [address] [place] [address] Referral ID Status Reason Start Date Expiration Date V isits Requested Visits Authorized [id number] Closed Auto-Generate d Referral 08/21/2021 09/20/2022 1 1 [facility] Concerns Infection Onset Date Last Indicated Resolved Time COVID-19 Confirmed 10/02/2021 10/02/2021 8:51 PM EDT Infection Onset Date Last Indicated Resolved Time COVID-19 Rule-Out 05/23/2022 05/23/2022 Infection Onset Date Last Indicated Resolved Time COVID-19 Rule-Out 05/23/2022 05/23/2022 05/24/2022 5:56 AM EDT COVID-19 Confirmed 05/23/2022 05/23/2022 Infection Onset Date Last Indicated Resolved Time COVID-19 Rule-Out 03/16/2023 03/16/2023 Infection Onset Date Last Indicated Resolved Time COVID-19 Rule-Out 03/16/2023 03/16/2023 03/16/2023 7:23 PM EDT COVID-19 Confirmed 03/16/2023 03/16/2023 Chief Complaint and Reason for Visit Chief Complaint ABD PAIN Chief Complaint RIGHT ARM PAIN Chief Complaint RIGHT ARM PAIN BERNABE, CP Chief Complaint CHEST PAIN Chief Complaint Admit Date CELLULITIS October 20, 2024 10: 20am Family History No Family History Records Found Relationship Condition Age at Onset Recorded Date/T eva mother Cardiac disease Unknown Hypertension Unknown Diabetes mellitus Unknown father Cardiac disease Unknown Advance Directives No Advanced Directives Records Found Advance Directive Response Recorded Date/ Time Living Will No January 15, 2022 10:57am Power of Coil Strapper No January 15 10:57am Advance Directive Response Recorded Date/ Time Living Will No October 18, 2022 1:51pm Power of Coil Strapper No October 18 1:51pm Advance Directive Response Recorded Date/ Time Living Will No January 25, 2023 3 :57pm Power of Coil Strapper No January 25, 2023 3:57pm Advance Directive Response Recorded Date/ Time Living Will No May 31 9:43pm Power of Coil Strapper No May 31, 2023 9:43pm Summary Purpose Additional Source Comments Source Comments (unrecognize d section and content) In the event this informatio n is protected by the Federal Confidentiality of Alcohol and Drug Abuse Patient Records regulations: The Federal rules restrict any use of the information to criminally investigate or prosecute any alcohol or drug abuse patient.[facility] the event this information is protected by the Federal Confidentiality of Alcohol and Drug Abuse Patient Records regulations: The Federal rules restrict any use of the information to criminally investigate or prosecute any alcohol or drug abuse patient.[facility] the event this information is protected by the Federal Confidentiality of Alcohol and Drug Abuse Patient Records regulations: The Federal rules restrict any use of the information to criminally investigate or prosecute any alcohol or drug abuse patient.[facility] the event this information is protected by the Federal Confidentiality of Alcohol and Drug Abuse Patient Records regulations: The Federal rules restrict any use of the information to criminally investigate or prosecute any alcohol or drug abuse patient.[facility] the event this information is protected by the Federal Confidentiality of Alcohol and Drug Abuse Patient Records regulations: The Federal rules restrict any use of the information to criminally investigate or prosecute any alcohol or drug abuse patient.[facility] the event this information is protected by the Federal Confidentiality of Alcohol and Drug Abuse Patient Records regulations: The Federal rules restrict any use of the information to criminally investigate or prosecute any alcohol or drug abuse patient.[facility]In the event this information is protected by the Federal Confidentiality of Alcohol and Drug Abuse Patient Records regulations: The Federal rules restrict any use of the information to criminally investigate or prosecute any alcohol or drug abuse patient.[facility] the event this information is protected by the Federal Confidentiality of Alcohol and Drug Abuse Patient Records regulations: The Federal rules restrict any use of the information to criminally investigate or prosecute any alcohol or drug abuse patient.[facility] the event this information is protected by the Federal Confidentiality of Alcohol and Drug Abuse Patient Records regulations: The Federal rules restrict any use of the information to criminally investigate or prosecute any alcohol or drug abuse patient.[facility] the event this information is protected by the Federal Confidentiality of Alcohol and Drug Abuse Patient Records regulations: The Federal rules restrict any use of the information to criminally investigate or prosecute any alcohol or drug abuse patient.[facility]In the event this information is protected by the Federal Confidentiality of Alcohol and Drug Abuse Patient Records regulations: The Federal rules restrict any use of the information to criminally investigate or prosecute any alcohol or drug abuse patient.[facility]In the event this information is protected by the Federal Confidentiality of Alcohol and Drug Abuse Patient Records regulations: The Federal rules restrict any use of the information to criminally investigate or prosecute any alcohol or drug abuse patient.[facility]In the event this information is protected by the Federal Confidentiality of Alcohol and Drug Abuse Patient Records regulations: The Federal rules restrict any use of the information to criminally investigate or prosecute any alcohol or drug abuse patient.[facility]In the event this information is protected by the Federal Confidentiality of Alcohol and Drug Abuse Patient Records regulations: The Federal rules restrict any use of the information to criminally investigate or prosecute any alcohol or drug abuse patient.[facility]In the event this information is protected by the Federal Confidentiality of Alcohol and Drug Abuse Patient Records regulations: The Federal rules restrict any use of the information to criminally investigate or prosecute any alcohol or drug abuse patient.[facility]In the event this information is protected by the Federal Confidentiality of Alcohol and Drug Abuse Patient Records regulations: The Federal rules restrict any use of the information to criminally investigate or prosecute any alcohol or drug abuse patient.[facility]In the event this information is protected by the Federal Confidentiality of Alcohol and Drug Abuse Patient Records regulations: The Federal rules restrict any use of the information to criminally investigate or prosecute any alcohol or drug abuse patient.[facility]In the event this information is protected by the Federal Confidentiality of Alcohol and Drug Abuse Patient Records regulations: The Federal rules restrict any use of the information to criminally investigate or prosecute any alcohol or drug abuse patient.[facility]In the event this information is protected by the Federal Confidentiality of Alcohol and Drug Abuse Patient Records regulations: The Federal rules restrict any use of the information to criminally investigate or prosecute any alcohol or drug abuse patient.[facility]In the event this information is protected by the Federal Confidentiality of Alcohol and Drug Abuse Patient Records regulations: The Federal rules restrict any use of the information to criminally investigate or prosecute any alcohol or drug abuse patient.[facility] [place]In the event this information is protected by the Federal Confidentiality of Alcohol and Drug Abuse Patient Records regulations: The Federal rules restrict any use of the information to criminally investigate or prosecute any alcohol or drug abuse patient.[facility] [place]In the event this information is protected by the Federal Confidentiality of Alcohol and Drug Abuse Patient Records regulations: The Federal rules restrict any use of the information to criminally investigate or prosecute any alcohol or drug abuse patient.[facility] [place]In the event this information is protected by the Federal Confidentiality of Alcohol and Drug Abuse Patient Records regulations: The Federal rules restrict any use of the information to criminally investigate or prosecute any alcohol or drug abuse patient.[facility] [place]In the event this information is protected by the Federal Confidentiality of Alcohol and Drug Abuse Patient Records regulations: The Federal rules restrict any use of the information to criminally investigate or prosecute any alcohol or drug abuse patient.[facility] [place]In the event this information is protected by the Federal Confidentiality of Alcohol and Drug Abuse Patient Records regulations: The Federal rules restrict any use of the information to criminally investigate or prosecute any alcohol or drug abuse patient.[facility] [place]In the event this information is protected by the Federal Confidentiality of Alcohol and Drug Abuse Patient Records regulations: The Federal rules restrict any use of the information to criminally investigate or prosecute any alcohol or drug abuse patient.[facility] [place]In the event this information is protected by the Federal Confidentiality of Alcohol and Drug Abuse Patient Records regulations: The Federal rules restrict any use of the information to criminally investigate or prosecute any alcohol or drug abuse patient.[facility] [place]In the event this information is protected by the Federal Confidentiality of Alcohol and Drug Abuse Patient Records regulations: The Federal rules restrict any use of the information to criminally investigate or prosecute any alcohol or drug abuse patient.[facility] [place]In the event this information is protected by the Federal Confidentiality of Alcohol and Drug Abuse Patient Records regulations: The Federal rules restrict any use of the information to criminally investigate or prosecute any alcohol or drug abuse patient.[facility] [place]In the event this information is protected by the Federal Confidentiality of Alcohol and Drug Abuse Patient Records regulations: The Federal rules restrict any use of the information to criminally investigate or prosecute any alcohol or drug abuse patient.[facility] [place]In the event this information is protected by the Federal Confidentiality of Alcohol and Drug Abuse Patient Records regulations: The Federal rules restrict any use of the information to criminally investigate or prosecute any alcohol or drug abuse patient.[facility] [place]In the event this information is protected by the Federal Confidentiality of Alcohol and Drug Abuse Patient Records regulations: The Federal rules restrict any use of the information to criminally investigate or prosecute any alcohol or drug abuse patient.[facility] [place]In the event this information is protected by the Federal Confidentiality of Alcohol and Drug Abuse Patient Records regulations: The Federal rules restrict any use of the information to criminally investigate or prosecute any alcohol or drug abuse patient.[facility] [place]In the event this information is protected by the Federal Confidentiality of Alcohol and Drug Abuse Patient Records regulations: The Federal rules restrict any use of the information to criminally investigate or prosecute any alcohol or drug abuse patient.[facility] [place]In the event this information is protected by the Federal Confidentiality of Alcohol and Drug Abuse Patient Records regulations: The Federal rules restrict any use of the information to criminally investigate or prosecute any alcohol or drug abuse patient.[facility] [place]In the event this information is protected by the Federal Confidentiality of Alcohol and Drug Abuse Patient Records regulations: The Federal rules restrict any use of the information to criminally investigate or prosecute any alcohol or drug abuse patient.[facility] [place]In the event this information is protected by the Federal Confidentiality of Alcohol and Drug Abuse Patient Records regulations: The Federal rules restrict any use of the information to criminally investigate or prosecute any alcohol or drug abuse patient.[facility] [place]In the event this information is protected by the Federal Confidentiality of Alcohol and Drug Abuse Patient Records regulations: The Federal rules restrict any use of the information to criminally investigate or prosecute any alcohol or drug abuse patient.[facility] [place]In the event this information is protected by the Federal Confidentiality of Alcohol and Drug Abuse Patient Records regulations: The Federal rules restrict any use of the information to criminally investigate or prosecute any alcohol or drug abuse patient.[facility] [place] Reason for Visit (unrecogniz ed section and content) Reason Comments Medication Follow-up Reason Comments F/U 3 Month Reason Comments Acute Visit diarrhiea, stomach p ains, headaches Reason Comments Acute Visit possible ringworm Reason Comments Sore Throat ST, watery eyes, fev er and BERNABE x 2 days Reason Comments Results Reason Onset Date Comments F/U 3 Month Immunizations 06/22/2022 Flu vaccination Reason Comments Rash R side of chest x2 d ays Reason Comments athlete form Special [employer] Reason Comments Arm Pain right arm pain and s welling x 2 days Reason Comments Letter Reason Comments F/U 3 months Reason Comments Covid19 Concern exposed to covid x y esterday, denies symptoms Reason Comments Follow Up Reason Comments Hospital F/U Reason Comments Nasal Congestion Sore Throat Cough Reason Comments Abdominal Pain Left side abdominal pain that comes and goes for the last 3-4 days Reason Comments Forms [employer] Reason Comments Letter Jury Duty Excuse Reason Comments Pain (foot) Bunion left foot and right foot pain Reason Comments Follow Up Left foot pain gout Reason Comments Headache Cough Nasal Congestion Reason Comments Follow Up 3 month follow up Reason Comments Forms Probate Court/Guardi anship Reason Comments Swelling Knee and Foot Reason Comments Swelling Bilateral knee swell ing. 1 week. Painful when walking Reason Comments Follow Up 3 month follow up wi th labs Reason Comments Swelling Left elbow swollen a nd red, warm to touch since this morning. Painful for past couple days Reason Comments Patient Update Reason Comments Cellulitis ER follow up Care Teams (unrecognized sec tion and content) Cooker Meal Relationship Specialty Start Date End Date Markos June MD [address] [place], [place] [id number] PCP - General Family Practice 04/02/15 Cooker Meal Relationship Specialty Start Date End Date Markos June MD [address] [place], [place] [id number] PCP - General Family Practice 04/02/15 Cooker Meal Relationship Specialty Start Date End Date Markos June MD [address] [place], [place] [id number] PCP - General Family Practice 04/02/15 Cooker Meal Relationship Specialty Start Date End Date Markos June MD [address] [place] [address] PCP - General Family Practice 04/02/15 Cooker Meal Relationship Specialty Start Date End Date Markos June MD [address] [place] [address] PCP - General Family Medicine 04/02/15 Cooker Meal Relationship Specialty Start Date End Date Markos June MD [address] [place] [address] PCP - General Family Medicine 04/02/15 Cooker Meal Relationship Specialty Start Date End Date Markos June MD [address] [place] [address] PCP - General Family Medicine 04/02/15 Cooker Meal Relationship Specialty Start Date End Date Markos June MD [address] [place] [address] PCP - General Family Medicine 04/02/15 Cooker Meal Relationship Specialty Start Date End Date Markos June MD [address] [place] [address] PCP - General Family Medicine 04/02/15 Team Status: Active Member Role Status Dates Dr. Markos June MD Family Provider Active Dr. Markos June MD Primary Care Provider Active Team Status: Inactive Member Role Status Dates Dr. Markos June MD Primary Care Provider Active Dr. Stephen Luna DO Emergency Provider Active Cooker Meal Relationship Specialty Start Date End Date Markos June MD [address] [place] [address] PCP - General Family Medicine 04/02/15 Cooker Meal Relationship Specialty Start Date End Date Markos June MD [address] [place] [address] PCP - General Family Medicine 04/02/15 Team Status: Inactive Member Role Status Dates Dr. Markos June MD Primary Care Provider Active Dr. Stephen Luna DO Attending Provider, Emergency Provider Active Team Status: Inactive Member Role Status Dates Dr. Markos June MD Primary Care Provider Active Dr. Ramirez Agosto MD Emergency Provider Active Cooker Meal Relationship Specialty Start Date End Date Markos June MD [address] [facility] [place] [address] PCP - General Family Medicine 04/02/15 Cooker Meal Relationship Specialty Start Date End Date Markos June MD [address] [place] [address] PCP - General Family Medicine 04/02/15 Cooker Meal Relationship Specialty Start Date End Date Markos June MD [address] [place] [address] PCP - General Family Medicine 04/02/15 Team Status: Inactive Member Role Status Dates Dr. Markos June MD Primary Care Provider Active Dr. Juan Martinez DO Emergency Provider Active Cooker Meal Relationship Specialty Start Date End Date Markos June MD [address] [place] [address] PCP - General Family Medicine 04/02/15 Cooker Meal Relationship Specialty Start Date End Date Markos June MD [address] [place] [address] PCP - General Family Medicine 04/02/15 Cooker Meal Relationship Specialty Start Date End Date Markos June MD [address] [place] [address] PCP - General Family Medicine 04/02/15 Cooker Meal Relationship Specialty Start Date End Date Markos June MD [address] [place] [address] PCP - General Family Medicine 04/02/15 Cooker Meal Relationship Specialty Start Date End Date Markos June MD [address] [place] [address] PCP - General Family Medicine 04/02/15 Cooker Meal Relationship Specialty Start Date End Date Markos June MD [address] [place] [address] PCP - General Family Medicine 04/02/15 Cooker Meal Relationship Specialty Start Date End Date Markos June MD [address] [place] [address] PCP - General Family Medicine 04/02/15 Cooker Meal Relationship Specialty Start Date End Date Markos June MD [address] [place] [address] PCP - General Family Medicine 04/02/15 Cooker Meal Relationship Specialty Start Date End Date Markos June MD [address] [place] [address] PCP - General Family Medicine 04/02/15 Cooker Meal Relationship Specialty Start Date End Date Markos June MD [address] [place] [address] PCP - General Family Medicine 04/02/15 Jasmin Giang APRN.CNP [address] [place] [address] Svp Chief Marketing Officer Family Medicine 07/02/24 Cooker Meal Relationship Specialty Start Date End Date Markos June MD [address] [place] [address] PCP - General Family Medicine 04/02/15 Jasmin Giang APRN.[employer]OT [employer]STER [address] [place] [address] Svp Chief Marketing Officer Family Medicine 07/02/24 Alek Hurd APRN.[employer]OT [employer]STER [address] [place] [address] Svp Chief Marketing Officer Family Medicine 07/11/24 Cooker Meal Relationship Specialty Start Date End Date Markos June MD [address] [place] [address] PCP - General Family Medicine 04/02/15 Jasmin Giang APRN.INGOT CASTER [address] [place] [address] Svp Chief Marketing Officer Family Medicine 07/02/24 Alek Hurd APRN.INGOT [employer]STER [address] [place] [address] Svp Chief Marketing Officer Family Medicine 07/11/24 Cooker Meal Relationship Specialty Start Date End Date Markos Juen MD [address] [place] [address] PCP - General Family Medicine 04/02/15 Jasmin Giang APRN.INGOT CASTER [address] [place] [address] Svp Chief Marketing Officer Family Medicine 07/02/24 Alek Hurd APRN.INGOT [employer]STER [address] [place], [place] [id number] Svp Chief Marketing Officer [facility] 07/11/24 Cooker Meal Relationship Specialty Start Date End Date Markos June MD [address] [place], [place] [id number] PCP - General Family Medicine 04/02/15 Jasmin Giang APRN.INGOT CASTER [address] [place], [place] [address] Svp Chief Marketing Officer [facility] 07/02/24 Alek Hurd APRN.[employer]STER [address] [place], [place] [address] Svp Chief Marketing Officer [facility] 07/11/24 Team Status: Active Member Role Status Dates Dr. Markos June MD Primary Care Provider Active Team Status: Inactive Member Role Status Dates Dr. Markos June MD Primary Care Provider Active Start: October 20, 2024 End: October 20, 2024 Dr. Dax Sanabria DO Referring Provider Active Start: October 20, 2024 End: October 20, 2024 Dr. Dax Sanabria DO Emergency Provider Active Start: October 20, 2024 End: October 20, 2024 Goals (unrecognized section and content) Goals may be documented in a n alternate sectionGoals may be documented in an alternate sectionGoals may be documented in an alternate sectionGoals may be documented in an alternate sectionGoals may be documented in an alternate section (unrecognized sect ion and content) No Status Records FoundNo Status Records Found INFORMATION SOURCE (unrecogn ized section and content) DATE CREATED AUTHOR 10/28/2024 [facility] DATE CREATED AUTHOR AUTHORCara PIERRE 10/30/[address] [facility] FOR RECORDS PERTAINING TO PATIENTS WHO ARE OR HAVE BEEN ENROLLED IN A CHEMICAL DEPENDENCY/SUBSTANCEABUSE PROGRAM, SOME INFORMATION MAY BE OMITTED. This clinical summary was aggregated from multiple sources. Caution should be exercised in using it in the provision of clinical care. This summary normalizes information from multiple sources, and as a consequence, information in this document may materially change the coding, format and clinical context of patient data. In addition, data may be omitted in some cases. CLINICAL DECISIONS SHOULD BE BASED ON THE PRIMARY CLINICAL RECORDS. [facility]. provides no warranty or guarantee of the accuracy or completeness of information in this document.
[2024-12-31 11:23] LABS: Absolute Lymphocyte Count 1.05 X10^3/uL (0.83-4.51); Absolute Neutrophil Count 3.2 X10^3/uL (2.0-7.7); Basophil# 0.08 X10^3/uL; Basophil% 1.6 % (0-1); Eosinophil# 0.07 X10^3/uL; Eosinophils% 1.4 % (0-5); Hematocrit 52.5 % (40-54); Hemoglobin 17.3 g/dL (13.0-16.5); Lymphocyte # 1.05 X10^3/ul (0.83-4.51); Lymphocyte % 21.1 % (19-41); Mean Corpuscular Volume 100.2 fL (80-94); Mean Platelet Vol. 9.7 fl (6.2-12.0); Monocyte# 0.59 X10^3/uL; Monocyte% 11.8 % (0-10); NRBC Flagged by Analyzer 0 % (0-5); Neutrophil # 3.18 X10^3/uL (2.7-7.7); Neutrophil % 63.9 % (47-70); Platelet Count 247 K/mm3 (150-450); RBC Distribution Width CV 14.6 % (11.6-14.6); RBC Distribution Width SD 55.1 fl (35.1-43.9); Red Blood Count 5.24 M/mm3 (4.6-6.2)
[2024-12-31] MEDS: Acetaminophen 160 MG/5 ML UDC 650 MG PO (11:24)
[2024-12-31 11:31] LABS: White Blood Cells 0-5 SEEN /hpf (0-5)
[2024-12-31 11:35] LABS: AST(SGOT) 45 U/L (<=37); Alanine Aminotransfer ALT/SGPT 42 U/L (<=46); Albumin, Serum 4.2 g/dL (3.5-5.0); Alkaline Phosphatase 105 U/L (40-129); Anion Gap 11 (5-15); BUN 15 mg/dL (4-19); BUN/Creat Ratio 9.9 RATIO (10-20); Calcium,Total 9.7 mg/dL (7.6-11.0); Carbon Dioxide 26.7 mmol/L (21.0-32.0); Chloride 102 mmol/L (98-108); Creatinine, Serum 1.49 mg/dL (0.70-1.20); EST Glomerular Filtration Rate 58 (>60); Estimated Creatinine Clearance 63.57 ml/min (50-250); Globulin 4.4 g/dL (2.2-4.2); Glucose 103 mg/dL (70-99); Lipase 44 U/L (13-75); Potassium 4.1 mmol/L (3.3-5.1); Protein, Total 8.6 g/dL (5.9-8.4); Sodium Level 140 mmol/L (133-145); Total Bilirubin 0.47 mg/dL (0.00-1.30)
[2024-12-31] MEDS: Lidocaine 5% Patch 1 PATCH TOPICAL (11:57)
[2024-12-31 12:29] VITALS: BP 157/80; PULSE 72; RESP 16; O2SAT 97
[2024-12-31 12:49] VITALS: BP 157/80; PULSE 72; RESP 16; TEMP 36.6; O2SAT 97
== END 2024-12-31 12:50 | disposition home or self-care (01) ==
PROVIDERS: Emergency Provider Emergency Medicine; PCP Family Medicine; Visit Provider Emergency Medicine
DX: R10.11 Right upper quadrant pain (principal); N18.30 Chronic kidney disease, stage 3 unspecified; R10.811 Right upper quadrant abdominal tenderness; R03.0 Elevated blood-pressure reading, without diagnosis of hypertension; Z90.49 Acquired absence of other specified parts of digestive tract; Q90.9 Down syndrome, unspecified; R30.0 Dysuria
CPT/HCPCS: 74176; 80048; 80076; 81001; 83690; 85025; 99285; A4216